=== PATIENT | male | born 1970 | race Caucasian/White ===

== ENCOUNTER 2018-10-03 12:40 | Emergency (ER) | payer BC ==
[2018-10-03] MEDS ORDERED: Sodium Chloride 0.9% 1,000 ML IV ONE (13:13)
--- NOTE | 2018-10-03 13:30 | EDM.PDOC ---
ED HPI GENERAL MEDICAL PROBLEM - General Chief Complaint: General Stated Complaint: BLOOD IN URINE Time Seen by Provider: 10/03/18 12:49 Source of Information: Reports: Patient History Limitations: Reports: No Limitations - History of Present Illness INITIAL COMMENTS - FREE TEXT/NARRATIVE: HISTORY AND PHYSICAL: History of present illness: Patient is a 48-year-old male presents to the ED today with concern of blood in his urine after he has an orgasm. Patient also complains of vague abdominal complaints in the lower abdomen. 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 Patient states over the past couple days he has noticed a slightly more increase in that he has been passing clots after orgasm. Patient states he's also noticed a slight increase in his lower abdominal pain, although, the symptoms have been ongoing since a splenectomy. Patient states it does hurt to urinate following an orgasm. Patient states he was seen by her urologist upon initial symptoms and states that nothing became of the workup according to patient. Patient also states he has noticed his stool color is maroon. Patient denies any trauma or injury. Patient denies any other symptoms at this time. Patient denies fever, chills, chest pain, shortness of breath, or cough. Denies headache, neck stiff ness, change in vision, syncope, or near syncope. Denies nausea, vomiting, diarrhea, constipation. Patient has been eating and drinking appropriately. Review of systems: As per history of present illness and below otherwise all systems reviewed and negative. Past medical history: As per history of present illness and as reviewed below otherwise noncontributory. Surgical history: As per history of present illness and as reviewed below otherwise noncontributory. Social history: See social history for further information Family history: As per history of present illness and as reviewed below otherwise noncontributory. Physical exam: General: Patient is alert, oriented, and in no acute distress. Patient sitting comfortably on exam table. HEENT: Atraumatic, normocephalic, pupils equal and reactive bilaterally, negative for conjunctival pallor or scleral icterus, mucous membranes moist, TMs normal bilaterally, throat clear, neck supple, nontender, trachea midline. No drooling or trismus noted. No meningeal signs. No hot potato voice noted. Lungs: Clear to auscultation, breath sounds equal bilaterally, chest nontender. Heart: S1S2, regular rate and rhythm without overt murmur Abdomen: Soft, nondistended. Mild pain to palpation of the lower quadrants without guarding. Negative for masses or hepatosplenomegaly. Negative for costovertebral tenderness. Pelvis: Stable nontender. Genitourinary: Deferred. Rectal: Hemoccult negative. Rectal tone intact. Skin: Intact, warm, dry. No lesions or rashes noted. Extremities: Atraumatic, negative for cords or calf pain. Neurovascular unremarkable. Neuro: Awake, alert, oriented. Cranial nerves II through XII unremarkable. Cerebellum unremarkable. Motor and sensory unremarkable throughout. Exam nonfocal. Notes: Dr. Gonzalez verbally involved in patient care. Hemoccult is negative. Did discuss been thrown findings on abdominal CT and the need for follow-up with primary care provider. Discussed the importance for follow-up with urologist for the blood in his urine. Voices understanding and is agreeable to plan of care. Denies any further questions or concerns at this time. Diagnostics: CBC, CMP, UA, lipase, Hemoccult, abdominal pelvic CT Therapeutics: NS Prescription: None Impression: Hematuria, unspecified Abdominal pain, unspecified Plan: 1. Alternate ibuprofen and Tylenol as directed for pain and discomfort. 2. Follow-up with the urologist and her primary care provider as discussed. Return to the ED as needed and as discussed. Definitive disposition and diagnosis as appropriate pending reevaluation and review of above. abd Pain Score (Numeric/FACES): 4 - Related Data Allergies Allergy/AdvReac Type Severity Reaction Status Date / Time No Known Allergies Allergy Verified 10/03/18 12:57 Home Meds: Home Meds Ibuprofen 600 mg PO DAILY 10/03/18 [History] Past Medical History Other Respiratory History: clotting in lungs - Past Surgical History HEENT Surgical History: Reports: Tonsillectomy Social & Family History - Family History Family Medical History: Noncontributory - Tobacco Use Smoking Status *Q: Current Every Day Smoker Years of Tobacco use: 10 Packs/Tins Daily: 0.5 - Recreational Drug Use Recreational Drug Use: No ED ROS GENERAL - Review of Systems Review Of Systems: ROS reveals no pertinent complaints other than HPI. ED EXAM, GENERAL - Physical Exam Exam: See Below (See dictation) Course - Vital Signs Last Recorded V/S: Last Vital Signs Temp 36.7 C 10/03/18 12:57 Pulse 82 10/03/18 15:29 Resp 16 10/03/18 15:29 BP 114/80 10/03/18 15:29 Pulse Ox 98 10/03/18 15:29 - Orders/Labs/Meds Orders: Active Orders 24 hr Category Date Time Status Hemoccult [OCCULT BLOOD DIAGNOSTIC] [OP] Stat Lab 10/03/18 13:13 Ordered Labs: Laboratory Tests 10/03/18 10/03/18 10/03/18 Range/Units 13:45 13:45 14:00 WBC 10.59 (4.0-11.0) K/uL RBC 4.75 (4.50-5.90) M/uL Hgb 15.3 (13.0-17.0) g/dL Hct 43.7 (38.0-50.0) % MCV 92.0 (80.0-98.0) fL MCH 32.2 H (27.0-32.0) pg MCHC 35.0 (31.0-37.0) g/dL RDW Std Deviation 50.8 (28.0-62.0) fl RDW Coeff of Julissa 15 (11.0-15.0) % Plt Count 341 (150-400) K/uL MPV 10.10 (7.40-12.00) fL Neut % (Auto) 40.8 L (48.0-80.0) % Lymph % (Auto) 37.9 (16.0-40.0) % [place] % (Auto) 12.4 (0.0-15.0) % Eos % (Auto) 7.9 H (0.0-7.0) % Baso % (Auto) 1.0 (0.0-1.5) % Neut # (Auto) 4.3 (1.4-5.7) K/uL Lymph # (Auto) 4.0 H (0.6-2.4) K/uL [place] # (Auto) 1.3 H (0.0-0.8) K/uL Eos # (Auto) 0.8 H (0.0-0.7) K/uL Baso # (Auto) 0.1 (0.0-0.1) K/uL Nucleated RBC % 0.0 /100WBC Nucleated RBCs # 0 K/uL Sodium 139 (136-148) mmol/L Potassium 3.8 (3.5-5.1) mmol/L Chloride 105 (98-107) mmol/L Carbon Dioxide 24.1 (21.0-32.0) mmol/L BUN 14 (7.0-18.0) mg/dL Creatinine 0.8 (0.8-1.3) mg/dL Est Cr Clr Drug Dosing 121.25 mL/min Estimated GFR (MDRD) > 60.0 ml/min Glucose 106 (74-106) mg/dL Calcium 8.7 (8.5-10.1) mg/dL Total Bilirubin 0.3 (0.2-1.0) mg/dL AST 19 (15-37) IU/L ALT 22 (14-63) IU/L Alkaline Phosphatase 79 (46-116) U/L Total Protein 7.5 (6.4-8.2) g/dL Albumin 4.1 (3.4-5.0) g/dL Globulin 3.4 (2.6-4.0) g/dL Albumin/Globulin Ratio 1.2 (0.9-1.6) Lipase 176 (73-393) U/L Urine Color YELLOW Urine Appearance CLEAR Urine pH 6.5 (5.0-8.0) Ur Specific [place] 1.010 (1.001-1.035) Urine Protein NEGATIVE (NEGATIVE) mg/dL Urine Glucose (UA) NEGATIVE (NEGATIVE) mg/dL Urine Ketones NEGATIVE (NEGATIVE) mg/dL Urine Occult Blood LARGE H (NEGATIVE) Urine Nitrite NEGATIVE (NEGATIVE) Urine Bilirubin NEGATIVE (NEGATIVE) Urine Urobilinogen 1.0 (<2.0) EU/dL Ur Leukocyte Esterase NEGATIVE (NEGATIVE) Urine RBC 18-20 (0-2/HPF) Urine WBC 0-1 (0-5/HPF) Ur Epithelial Cells RARE (NONE-FEW) Urine Bacteria RARE (NEGATIVE) Meds: Medications Discontinued Medications Generic Name Dose Route Start Last Admin Trade Name Freq PRN Reason Stop Dose Admin Sodium Chloride 1,000 mls @ 999 mls/hr 10/03/18 13:13 10/03/18 13:49 Normal Saline IV 10/03/18 14:13 999 mls/hr BOLUS ONE Administration Iopamidol 100 ml 10/03/18 15:02 10/03/18 15:02 Isovue Multipack-370 (76%) IVPUSH 10/03/18 15:03 100 ml ONETIME ONE Administration Departure - Departure Time of Disposition: 15:44 Disposition: Home, Self-Care 01 Clinical Impression: Hematuria Qualifiers: Hematuria type: unspecified type Qualified Code(s): R31.9 - Hematuria, unspecified Abdominal pain Qualifiers: Abdominal location: lower abdomen, unspecified Qualified Code(s): R10.30 - Lower abdominal pain, unspecified - Discharge Information Referrals: PCP,None [Primary Care Provider] - Forms: ED Department Discharge Additional Instructions: The following information is given to patients seen in the emergency department who are being discharged to home. This information is to outline your options for follow-up care. We provide all patients seen in our emergency department with a follow-up referral. The need for follow-up, as well as the timing and circumstances, are variable depending upon the specifics of your emergency department visit. If you don't have a primary care physician on staff, we will provide you with a referral. We always advise you to contact your personal physician following an emergency department visit to inform them of the circumstance of the visit and for follow-up with them and/or the need for any referrals to a consulting specialist. The emergency department will also refer you to a specialist when appropriate. This referral assures that you have the opportunity for follow-up care with a specialist. All of these measure are taken in an effort to provide you with optimal care, which includes your follow-up. Under all circumstances we always encourage you to contact your private physician who remains a resource for coordinating your care. When calling for follow-up care, please make the office aware that this follow-up is from your recent emergency room visit. If for any reason you are refused follow-up, please contact the [facility] Emergency Department at and asked to speak to the emergency department charge nurse. [facility] [address] [place] [id number] [address] [facility] - Urology [address] [place] [address] 1. Alternate ibuprofen and Tylenol as directed for pain and discomfort. 2. Follow-up with the urologist and her primary care provider as discussed. Return to the ED as needed and as discussed. - My Orders Last 24 Hours: My Active Orders 10/03/18 13:13 Hemoccult [OCCULT BLOOD DIAGNOSTIC] [OP] Stat - Assessment/Plan Last 24 Hours: My Active Orders 10/03/18 13:13 Hemoccult [OCCULT BLOOD DIAGNOSTIC] [OP] Stat
[2018-10-03 14:17] LABS: CHLORIDE,CL 105 mmol/L (98-107); SODIUM,NA 139 mmol/L (136-148)
[2018-10-03] MEDS ORDERED: Iopamidol 755 MG/ML 200 ML Multipack Bottle IVPUSH ONE (15:02)
--- NOTE | 2018-10-03 15:27 | CT ---
CT of the abdomen and pelvis with contrast. HISTORY: Pain TECHNIQUE: Axial CT images were obtained of the abdomen and pelvis following administration of 100 mL of Isovue-370 in the left antecubital fossa without complication. Coronal and sagittal reconstructions obtained. FINDINGS: The lung bases are clear, no pleural effusion. There is a 2.9 cm hypoechoic nodule within the left hepatic lobe and a smaller 1.6 cm right hepatic lobe nodule identified. The adrenal glands and pancreas appear normal. Gallbladder is normal. Splenectomy changes are noted with diffuse small nodules in the left upper quadrant, likely residual splenic tissue. There is no bulky retroperitoneal lymphadenopathy or abdominal ascites. The kidneys enhance and function symmetrically without evidence of obstructive uropathy. The large and small bowel are normal in caliber without evidence of obstruction. No focal pericolonic inflammation or stranding. The urinary bladder is normal. The appendix is normal. No bulky retroperitoneal lymphadenopathy or abdominal ascites. Mild midabdominal diastases. No suspicious osseous abnormalities identified. IMPRESSION: 1. No acute findings noted within the abdomen or pelvis.
== END 2018-10-03 16:04 | disposition home or self-care (01) ==
LOC: MW.ED 12:40
DX: R31.9 Hematuria, unspecified (principal); R10.30 Lower abdominal pain, unspecified; F17.210 Nicotine dependence, cigarettes, uncomplicated
CPT/HCPCS: 36415; 74177; 80053; 81001; 83690; 85025; 96360; 96361; 99283; J7040; Q9967

== ENCOUNTER 2018-10-08 12:37 | Emergency (ER) | payer BC ==
--- NOTE | 2018-10-08 14:16 | EDM.PDOC ---
ED HPI GENERAL MEDICAL PROBLEM - General Chief Complaint: Genitourinary Problem Stated Complaint: BLOOD IN URINE Time Seen by Provider: 10/08/18 14:14 Source of Information: Reports: Patient - History of Present Illness INITIAL COMMENTS - FREE TEXT/NARRATIVE: HISTORY AND PHYSICAL: History of present illness: []Patient presents for hematuria and passing clots, probably this is been going on for 2-1/2 years according to the patient he has had cystoscopy 5 years prior , patient appears worried and stressed about his hematuria findings, he was seen recently through the ER CT and follow lab performed that did repeat a CBC INR and UA today. Patient does complain of intermittent 5 out of 10 lower abdominal pain early not present He is scheduled to see [place] in a week He has no fever nausea vomiting chills sweats no chest pain shortness breath headache dizziness palpitation no bowel or urine symptoms today Review of systems: As per history of present illness and below otherwise all systems reviewed and negative. Past medical history: As per history of present illness and as reviewed below otherwise noncontributory. Surgical history: As per history of present illness and as reviewed below otherwise noncontributory. Social history: No reported history of drug or alcohol abuse. Family history: As per history of present illness and as reviewed below otherwise noncontributory. Physical exam: HEENT: Atraumatic, normocephalic, pupils reactive, negative for conjunctival pallor or scleral icterus, mucous membranes moist, throat clear, neck supple, nontender, trachea midline. Lungs: Clear to auscultation, breath sounds equal bilaterally, chest nontender. Heart: S1S2, regular, negative for clicks, rubs, or JVD. Abdomen: Soft, nondistended, nontender. Negative for masses or hepatosplenomegaly. Negative for costovertebral tenderness. Pelvis: Stable nontender. Genitourinary: Deferred. Rectal: Deferred. Extremities: Atraumatic, negative for cords or calf pain. Neurovascular unremarkable. Neuro: Awake, alert, oriented. Cranial nerves II through XII unremarkable. Cerebellum unremarkable. Motor and sensory unremarkable throughout. Exam nonfocal. Diagnostics: [CBC INR UA ] Therapeutics: [Tramadol ] Impression: [Hematuria ] Definitive disposition and diagnosis as appropriate pending reevaluation and review of above. 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 - Infectious Disease History Infectious Disease History: Reports: None - Past Surgical History HEENT Surgical History: Reports: Tonsillectomy Social & Family History - Family History Family Medical History: Noncontributory - Caffeine Use Caffeine Use: Reports: Coffee - Alcohol Use Days Per Week of Alcohol Use: 7 Number of Drinks Per Day: 2 Total Drinks Per Week: 14 - Recreational Drug Use Recreational Drug Use: No ED ROS GENERAL - Review of Systems Review Of Systems: See Below ED EXAM, GENERAL - Physical Exam Exam: See Below Course - Vital Signs Last Recorded V/S: Last Vital Signs Temp 98.3 F 10/08/18 12:52 Pulse 100 10/08/18 12:52 Resp 17 10/08/18 12:52 BP 129/88 10/08/18 12:52 Pulse Ox 95 10/08/18 12:52 - Orders/Labs/Meds Labs: Laboratory Tests 10/08/18 10/08/18 10/08/18 Range/Units 13:02 13:02 13:10 WBC 8.70 (4.0-11.0) K/uL RBC 4.89 (4.50-5.90) M/uL Hgb 15.6 (13.0-17.0) g/dL Hct 44.5 (38.0-50.0) % MCV 91.0 (80.0-98.0) fL MCH 31.9 (27.0-32.0) pg MCHC 35.1 (31.0-37.0) g/dL RDW Std Deviation 51.0 (28.0-62.0) fl RDW Coeff of Julissa 15 (11.0-15.0) % Plt Count 253 (150-400) K/uL MPV 10.00 (7.40-12.00) fL Neut % (Auto) 48.0 (48.0-80.0) % Lymph % (Auto) 34.7 (16.0-40.0) % [place] % (Auto) 9.2 (0.0-15.0) % Eos % (Auto) 7.1 H (0.0-7.0) % Baso % (Auto) 1.0 (0.0-1.5) % Neut # (Auto) 4.2 (1.4-5.7) K/uL Lymph # (Auto) 3.0 H (0.6-2.4) K/uL [place] # (Auto) 0.8 (0.0-0.8) K/uL Eos # (Auto) 0.6 (0.0-0.7) K/uL Baso # (Auto) 0.1 (0.0-0.1) K/uL Nucleated RBC % 0.0 /100WBC Nucleated RBCs # 0 K/uL INR 0.92 Urine Color YELLOW Urine Appearance SLT CLOUDY Urine pH 7.0 (5.0-8.0) Ur Specific [place] 1.015 (1.001-1.035) Urine Protein TRACE H (NEGATIVE) mg/dL Urine Glucose (UA) NEGATIVE (NEGATIVE) mg/dL Urine Ketones NEGATIVE (NEGATIVE) mg/dL Urine Occult Blood NEGATIVE (NEGATIVE) Urine Nitrite NEGATIVE (NEGATIVE) Urine Bilirubin NEGATIVE (NEGATIVE) Urine Urobilinogen 0.2 (<2.0) EU/dL Ur Leukocyte Esterase NEGATIVE (NEGATIVE) Urine RBC 0-2 (0-2/HPF) Urine WBC 0-2 (0-5/HPF) Ur Epithelial Cells RARE (NONE-FEW) Amorphous Sediment MODERATE (NEGATIVE) Urine Bacteria NOT SEEN (NEGATIVE) Departure - Departure Time of Disposition: 14:15 Disposition: Home, Self-Care 01 Condition: Good Clinical Impression: Hematuria Qualifiers: Hematuria type: unspecified type Qualified Code(s): R31.9 - Hematuria, unspecified - Discharge Information Referrals: PCP,None [Primary Care Provider] - Additional Instructions: Medication as prescribed Return if symptoms persist or worsen Follow-up with Dr. Ríos as scheduled next week [facility] - Urology [address] [place] [id number] The following information is given to patients seen in the emergency department who are being discharged to home. This information is to outline your options for follow-up care. We provide all patients seen in our emergency department with a follow-up referral. The need for follow-up, as well as the timing and circumstances, are variable depending upon the specifics of your emergency department visit. If you don't have a primary care physician on staff, we will provide you with a referral. We always advise you to contact your personal physician following an emergency department visit to inform them of the circumstance of the visit and for follow-up with them and/or the need for any referrals to a consulting specialist. The emergency department will also refer you to a specialist when appropriate. This referral assures that you have the opportunity for follow-up care with a specialist. All of these measure are taken in an effort to provide you with optimal care, which includes your follow-up. Under all circumstances we always encourage you to contact your private physician who remains a resource for coordinating your care. When calling for follow-up care, please make the office aware that this follow-up is from your recent emergency room visit. If for any reason you are refused follow-up, please contact the [facility] emergency department at and asked to speak to the emergency department charge nurse.
== END 2018-10-08 14:27 | disposition home or self-care (01) ==
LOC: MW.ED 12:37
DX: R31.9 Hematuria, unspecified (principal)
CPT/HCPCS: 36415; 81001; 85025; 85610; 99283

== ENCOUNTER 2018-11-05 09:24 | Day surgery (SDC) | payer BC ==
[~2018-11-05 09:24] MED LIST: Lactated Ringers 1,000 ML IV SCH; Sodium Chloride 0.9% 10 ML SDV IV PRN; Sodium Chloride 0.9% 10 ML Syringe FLUSH PRN; Sodium Chloride 0.9% 2.5 ML Syringe FLUSH PRN
[2018-11-05] MEDS ORDERED: Iopamidol 200-M 10 ML vial ITHECAL ONE (10:02)
[2018-11-05] MEDS ORDERED: Lidocaine 2% 5 ML SDV ONE (10:03)
[2018-11-05] MEDS ORDERED: Ondansetron 4 MG/2 ML SDV ONE (10:03)
[2018-11-05] MEDS ORDERED: Glycopyrrolate 0.2 MG/ML SDV ONE (10:03)
[2018-11-05] MEDS ORDERED: Ketorolac 30 MG/ML SDV ONE (10:03)
--- NOTE | 2018-11-05 10:03 | PCM.PREANE ---
Preanesthetic Assessment - Anesthesia/Transfusion/Family Hx Anesthesia History: Prior Anesthesia Without Reaction Other Type of Anesthesia Reaction Comment: slow to wake up after splenectomy Family History of Anesthesia Reaction: No Transfusion History: Prior Transfusion Without Reaction Intubation History: Unknown - Review of Systems General: No Symptoms Pulmonary: No Symptoms Cardiovascular: No Symptoms Gastrointestinal: No Symptoms Neurological: No Symptoms Other: Reports: None - Physical Assessment O2 Sat by Pulse Oximetry: 93 Respiratory Rate: 16 Vital Signs: Last Vital Signs Temp 36.2 C 11/05/18 09:57 Pulse 98 11/05/18 09:57 Resp 16 11/05/18 09:57 BP 136/96 H 11/05/18 09:57 Pulse Ox 93 L 11/05/18 09:57 Height: 6 ft Weight: 101.605 kg ASA Class: 2 Mental Status: Alert & Oriented x3 Airway Class: Mallampati = 2 Dentition: Reports: Normal Dentition Thyro-Mental Finger Breadths: 3 Mouth Opening Finger Breadths: 3 ROM/Head Extension: Full Lungs: Clear to Auscultation, Normal Respiratory Effort Cardiovascular: Regular Rate, Regular Rhythm - Allergies Allergies/Adverse Reactions: Allergies Allergy/AdvReac Type Severity Reaction Status Date / Time No Known Allergies Allergy Verified 10/30/18 09:42 - Blood Blood Available: No - Anesthesia Plan Pre-Op Medication Ordered: None - Acknowledgements Anesthesia Type Planned: General Anesthesia Pt an Appropriate Candidate for the Planned Anesthesia: Yes Alternatives and Risks of Anesthesia Discussed w Pt/Guardian: Yes Pt/Guardian Understands and Agrees with Anesthesia Plan: Yes PreAnesthesia Questionnaire HEENT History: Reports: Other (See Below) Other HEENT History: wears glasses Cardiovascular History: Reports: Blood Clots/VTE/DVT Other Cardiovascular History: hx of DVT in right leg after knee surgery Other Respiratory History: clotting in lungs Gastrointestinal History: Musculoskeletal History: Reports: Fracture Other Musculoskeletal History: hx of fx right knee, clavicle, arm and fingers Endocrine/Metabolic History: Reports: Obesity/BMI 30+ Hematologic History: Reports: Blood Transfusion(s) - Infectious Disease History Infectious Disease History: Reports: None - Past Surgical History Head Surgeries/Procedures: Reports: None HEENT Surgical History: Reports: Tonsillectomy GI Surgical History: Reports: Other (See Below) 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 Musculoskeletal Surgical History: Reports: ORIF Other Musculoskeletal Surgeries/Procedures:: right knee- has hardware - SUBSTANCE USE Smoking Status *Q: Current Every Day Smoker (down to 5 cigarettes per day) Tobacco Use Within Last Twelve Months: Cigarettes Recreational Drug Use History: No - HOME MEDS Home Medications: Home Meds Ibuprofen 600 mg PO DAILY 10/03/18 [History] - CURRENT (IN HOUSE) MEDS Current Meds: Current Medications Lactated Ringer's (Ringers, Lactated) 1,000 mls @ 100 mls/hr IV ASDIRECTED FIDE Sodium Chloride (Saline Flush) 10 ml FLUSH ASDIRECTED PRN PRN Reason: Keep Vein Open Sodium Chloride (Saline Flush) 2.5 ml FLUSH ASDIRECTED PRN PRN Reason: Keep Vein Open Sodium Chloride (Normal Saline) 10 ml IV ASDIRECTED PRN PRN Reason: IV Use
[2018-11-05] MEDS ORDERED: Propofol 200 MG/20 ML SDV ONE (10:05)
[2018-11-05] MEDS ORDERED: fentaNYL 100 MCG/2 ML SDV ONE (10:05)
--- NOTE | 2018-11-05 16:55 | OR ---
SURGEON: Markell Spain M.D. DATE OF PROCEDURE: 11/05/2018 PREOPERATIVE DIAGNOSIS: Gross hematuria. POSTOPERATIVE DIAGNOSIS: Gross hematuria. FINDINGS: Normal cystourethroscopy. DESCRIPTION OF PROCEDURE: The patient was given general anesthesia, was placed in dorsal lithotomy position, prepped and draped in sterile drapes. Cystourethroscopy was done. The urethra was normal in its entirety. The inside of the bladder was normal. With that done, the procedure was terminated. The patient was sent back to recovery room in stable condition. AIDA / LAUREN /[id number]
[2018-11-06] MEDS ORDERED: Ibuprofen 600 MG Tab PO SCH (09:00)
== END 2018-11-05 15:00 | disposition home or self-care (01) ==
LOC: MW.SDS 09:24
PROVIDERS: ATTEND Urology
DX: R31.0 Gross hematuria (principal); F17.210 Nicotine dependence, cigarettes, uncomplicated
CPT/HCPCS: 52000; J1885; J2001; J2405; J2704; J3010; J3490; J7120; Q9966

== ENCOUNTER 2018-11-22 15:12 | Emergency (ER) | payer BC ==
--- NOTE | 2018-11-22 16:11 | EDM.PDOC ---
ED HPI GENERAL MEDICAL PROBLEM - General Chief Complaint: ENT Problem Stated Complaint: SWELLING IN THROAT, SORE THROAT Time Seen by Provider: 11/22/18 16:04 Source of Information: Reports: Patient History Limitations: Reports: No Limitations - History of Present Illness INITIAL COMMENTS - FREE TEXT/NARRATIVE: HISTORY AND PHYSICAL: History of present illness: Patient is a 48-year-old male who presents to the emergency room with complaints of sore throat and lymph node swelling. He states that he has a history of a splenectomy and is susceptible to having infections easily. He is concerned as he just finished taking a 10 day course of Cipro for a cystoscopy. Patient denies any fever, chills, headache, change in vision, syncope or near syncope. Denies any chest pain, back pain, shortness of breath or cough. Denies any abdominal pain, nausea, vomiting, diarrhea, constipation or dysuria. Has not noted any blood in urine or stool. Patient has been eating and drinking appropriately. Review of systems: As per history of present illness and below otherwise all systems reviewed and negative. Past medical history: As per history of present illness and as reviewed below otherwise noncontributory. Surgical history: As per history of present illness and as reviewed below otherwise noncontributory. Social history: See social history for further information Family history: As per history of present illness and as reviewed below otherwise noncontributory. Physical exam: General: Well-developed and well-nourished 48-year-old male. Alert and oriented. Nontoxic appearing and in no acute distress HEENT: Atraumatic, normocephalic, pupils equal and reactive bilaterally, negative for conjunctival pallor or scleral icterus, mucous membranes moist, left ear is mildly erythematous with no bulging, right TM normal, throat mildly erythematous without exudate (pillar shifting or fullness), neck supple, nontender, trachea midline. No drooling or trismus noted. No meningeal signs. No hot potato voice noted. Lungs: Clear to auscultation, breath sounds equal bilaterally, chest nontender. Heart: S1S2, regular rate and rhythm without overt murmur Abdomen: Soft, nondistended, nontender. Skin: Intact, warm, dry. No lesions or rashes noted. Extremities: Atraumatic, moves all extremities per self without difficulty or deficits, negative for cords or calf pain. Neurovascular unremarkable. Neuro: Awake, alert, oriented. Cranial nerves II through XII unremarkable. Cerebellum unremarkable. Motor and sensory unremarkable throughout. Exam nonfocal. Notes: Patient is fairly adamant about receiving antibiotics. We discussed need for close follow-up with his primary care provider. Supportive care measures were reviewed and discussed. Voices understanding and is agreeable to plan of care. Denies any further questions or concerns at this time. Diagnostics: CBC, CMP, Strep Therapeutics: None Prescription: Augmentin Impression: Pharyngitis Plan: 1. Lab work is normal. Please use Tylenol and/or Ibuprofen as needed for pain and fever management. 2. Warm salt water gargle rinse and spit. You may use [id number] lozenges for throat discomfort. 3. Get plenty of Rest. Encourage fluids to prevent dehydration. 4. Please follow up with your primary care provider. Return to the ED as needed as discussed Definitive disposition and diagnosis as appropriate pending reevaluation and review of above. 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 Gastrointestinal History: Musculoskeletal History: Reports: Fracture Other Musculoskeletal History: hx of fx right knee, clavicle, arm and fingers Endocrine/Metabolic History: Reports: Obesity/BMI 30+ Hematologic History: Reports: Blood Transfusion(s) - Infectious Disease History Infectious Disease History: Reports: None - Past Surgical History Head Surgeries/Procedures: Reports: None HEENT Surgical History: Reports: Tonsillectomy GI Surgical History: Reports: Other (See Below) 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 Musculoskeletal Surgical History: Reports: ORIF Other Musculoskeletal Surgeries/Procedures:: right knee- has hardware Social & Family History - Family History Family Medical History: Noncontributory - Caffeine Use Caffeine Use: Reports: Coffee ED ROS ENT - Review of Systems Review Of Systems: ROS reveals no pertinent complaints other than HPI. ED EXAM, ENT - Physical Exam Exam: See Below (See dictation) Course - Vital Signs Last Recorded V/S: Last Vital Signs Temp 97.9 F 11/22/18 15:59 Pulse 95 11/22/18 15:59 Resp 16 11/22/18 15:59 BP 104/60 11/22/18 15:59 Pulse Ox 100 11/22/18 15:59 - Orders/Labs/Meds Orders: Active Orders 24 hr Category Date Time Status CMP [COMPREHENSIVE METABOLIC PN,CMP] [CHEM] Stat Lab 11/22/18 16:35 Received CULTURE STREP A CONFIRMATION [RM] Stat Lab 11/22/18 16:34 Results STREP SCRN A RAPID W CULT CONF [RM] Stat Lab 11/22/18 16:34 Results Labs: Laboratory Tests 11/22/18 Range/Units 16:35 WBC 11.67 H (4.0-11.0) K/uL RBC 4.60 (4.50-5.90) M/uL Hgb 14.9 (13.0-17.0) g/dL Hct 43.1 (38.0-50.0) % MCV 93.7 (80.0-98.0) fL MCH 32.4 H (27.0-32.0) pg MCHC 34.6 (31.0-37.0) g/dL RDW Std Deviation 50.9 (28.0-62.0) fl RDW Coeff of Julissa 15 (11.0-15.0) % Plt Count 363 (150-400) K/uL MPV 10.10 (7.40-12.00) fL Neut % (Auto) 50.2 (48.0-80.0) % Lymph % (Auto) 27.5 (16.0-40.0) % [place] % (Auto) 15.1 H (0.0-15.0) % Eos % (Auto) 6.3 (0.0-7.0) % Baso % (Auto) 0.9 (0.0-1.5) % Neut # (Auto) 5.9 H (1.4-5.7) K/uL Lymph # (Auto) 3.2 H (0.6-2.4) K/uL [place] # (Auto) 1.8 H (0.0-0.8) K/uL Eos # (Auto) 0.7 (0.0-0.7) K/uL Baso # (Auto) 0.1 (0.0-0.1) K/uL Nucleated RBC % 0.0 /100WBC Nucleated RBCs # 0 K/uL Departure - Departure Time of Disposition: 16:58 Disposition: Home, Self-Care 01 Clinical Impression: Pharyngitis Qualifiers: Pharyngitis/tonsillitis etiology: unspecified etiology Qualified Code(s): J02.9 - Acute pharyngitis, unspecified - Discharge Information Prescriptions: Amoxicillin/Potassium Clav [Augmentin 875-125 Tablet] 1 each PO BID 10 Days #20 tablet Instructions: Pharyngitis, [id number] Referrals: PCP,Unknown [Primary Care Provider] - Forms: ED Department Discharge Additional Instructions: The following information is given to patients seen in the emergency department who are being discharged to home. This information is to outline your options for follow-up care. We provide all patients seen in our emergency department with a follow-up referral. The need for follow-up, as well as the timing and circumstances, are variable depending upon the specifics of your emergency department visit. If you don't have a primary care physician on staff, we will provide you with a referral. We always advise you to contact your personal physician following an emergency department visit to inform them of the circumstance of the visit and for follow-up with them and/or the need for any referrals to a consulting specialist. The emergency department will also refer you to a specialist when appropriate. This referral assures that you have the opportunity for follow-up care with a specialist. All of these measure are taken in an effort to provide you with optimal care, which includes your follow-up. Under all circumstances we always encourage you to contact your private physician who remains a resource for coordinating your care. When calling for follow-up care, please make the office aware that this follow-up is from your recent emergency room visit. If for any reason you are refused follow-up, please contact the [facility] Emergency Department at and asked to speak to the emergency department charge nurse. [facility] [address] [place] [id number] [facility] [address] [place] [address] 1. Lab work is normal. Please use Tylenol and/or Ibuprofen as needed for pain and fever management. 2. Warm salt water gargle rinse and spit. You may use [id number] lozenges for throat discomfort. 3. Get plenty of Rest. Encourage fluids to prevent dehydration. 4. Please follow up with your primary care provider. Return to the ED as needed as discussed. - My Orders Last 24 Hours: My Active Orders 11/22/18 16:34 CULTURE STREP A CONFIRMATION [RM] Stat STREP SCRN A RAPID W CULT CONF [RM] Stat 11/22/18 16:35 CMP [COMPREHENSIVE METABOLIC PN,CMP] [CHEM] Stat - Assessment/Plan Last 24 Hours: My Active Orders 11/22/18 16:34 CULTURE STREP A CONFIRMATION [RM] Stat STREP SCRN A RAPID W CULT CONF [RM] Stat 11/22/18 16:35 CMP [COMPREHENSIVE METABOLIC PN,CMP] [CHEM] Stat
[2018-11-22 17:11] LABS: BLOOD UREA NITROGEN,BUN 14 mg/dL (7.0-18.0); CARBON DIOXIDE,CO2 19.5 mmol/L (21.0-32.0); CHLORIDE,CL 108 mmol/L (98-107); GLUCOSE RANDOM 89 mg/dL (74-106); POTASSIUM,K 3.9 mmol/L (3.5-5.1); SODIUM,NA 142 mmol/L (136-148)
== END 2018-11-22 17:30 | disposition home or self-care (01) ==
LOC: MW.ED 15:12
DX: J02.9 Acute pharyngitis, unspecified (principal); E66.9 Obesity, unspecified; Z68.30 Body mass index [BMI] 30.0-30.9, adult; Z90.81 Acquired absence of spleen; Z90.89 Acquired absence of other organs
CPT/HCPCS: 36415; 80053; 85025; 87081; 87880-QW; 99282; 99283

== ENCOUNTER 2019-09-17 19:50 | Inpatient (IN) | payer MEDICAID, OTHER ==
[2019-09-17] MEDS ORDERED: Sodium Chloride 0.9% 10 ML Syringe FLUSH PRN (20:00)
[2019-09-17] MEDS ORDERED: Ondansetron 4 MG/2 ML SDV IVPUSH ONE ×3 (20:00→22:15)
[2019-09-17] MEDS ORDERED: Sodium Chloride 0.9% 2.5 ML Syringe FLUSH PRN (20:00)
[2019-09-17] MEDS ORDERED: Sodium Chloride 0.9% 1,000 ML IV ONE ×2 (20:00→20:09)
[2019-09-17] MEDS ORDERED: Pantoprazole 80 MG in Sodium Chloride 0.9% 20 ML IVPUSH ONE (20:09)
--- NOTE | 2019-09-17 20:19 | EDM.PDOC ---
<Naren Palma - Last Filed: 09/17/19 22:58> ED HPI GENERAL MEDICAL PROBLEM - General Chief Complaint: Gastrointestinal Problem Stated Complaint: VOMITING Time Seen by Provider: 09/17/19 20:16 - Related Data Allergies Allergy/AdvReac Type Severity Reaction Status Date / Time No Known Allergies Allergy Verified 09/18/19 01:37 Home Meds: Home Meds . [No Known Home Meds] 09/17/19 [History] Course - Vital Signs Text/Narrative:: 49-year-old gentleman presents to the emergency room abdominal pain nausea and vomiting for a prolonged time. Patient found to have pancreatitis by labs and x -ray. Patient has a history of possible alcohol abuse Last Recorded V/S: Last Vital Signs Temp 98.6 F 09/18/19 08:00 Pulse 101 H 09/18/19 08:00 Resp 20 09/18/19 08:00 BP 154/89 H 09/18/19 08:00 Pulse Ox 94 L 09/18/19 08:00 - Orders/Labs/Meds Orders: Active Orders 24 hr Category Date Time Status Sodium Chloride 0.9% [Saline Flush] Med 09/17/19 20:00 Active 10 ml FLUSH ASDIRECTED PRN Sodium Chloride 0.9% [Saline Flush] Med 09/17/19 20:00 Active 2.5 ml FLUSH ASDIRECTED PRN Saline Lock Insert [OM.PC] Stat Oth 09/17/19 20:00 Ordered Medication Orders Folic Acid (Folic Acid) 1 mg PO BEDTIME FOR[facility], [facility] Heparin Sodium (Porcine) (Heparin Sodium) 5,000 units SUBCUT Q8H FOR[facility], [facility] Last Admin: 09/18/19 08:08 Dose: 5,000 units Admin: 09/18/19 00:52 Dose: 5,000 units Lactated Ringer's (Ringers, Lactated) 1,000 mls @ 125 mls/hr IV ASDIRECTED FOR[facility]LY [facility], [facility] Last Admin: 09/18/19 06:15 Dose: 125 mls/hr Magnesium Sulfate 4 gm/ Premix 100 mls @ 25 mls/hr IV ONETIME ONE Stop: 09/18/19 11:15 Last Admin: 09/18/19 08:01 Dose: 25 mls/hr Pantoprazole Sodium 40 mg/ (Sodium Chloride) 10 mls @ 300 mls/hr IV BID FIDE Lorazepam (Ativan) 0 mg IVPUSH Q4H PRN; Protocol PRN Reason: Withdrawal Symptoms Last Admin: 09/18/19 09:55 Dose: 1 mg Admin: 09/18/19 08:44 Dose: 1 mg Morphine Sulfate (Morphine) 2 mg IVPUSH Q4H PRN PRN Reason: Pain Last Admin: 09/18/19 08:29 Dose: 2 mg Admin: 09/18/19 04:51 Dose: 2 mg Admin: 09/18/19 00:52 Dose: 2 mg Ondansetron HCl (Zofran) 4 mg IVPUSH Q4H PRN PRN Reason: Nausea/Vomiting Last Admin: 09/18/19 08:17 Dose: 4 mg Admin: 09/18/19 04:23 Dose: 4 mg Sodium Chloride (Saline Flush) 10 ml FLUSH ASDIRECTED PRN PRN Reason: Keep Vein Open Sodium Chloride (Saline Flush) 2.5 ml FLUSH ASDIRECTED PRN PRN Reason: Keep Vein Open Thiamine HCl (Vitamin B-1) 100 mg PO BEDTIME [facility] Labs: Laboratory Tests 09/17/19 09/17/19 09/17/19 Range/Units 20:10 20:10 20:10 WBC 9.39 (4.0-11.0) K/uL RBC 4.41 L (4.50-5.90) M/uL Hgb 14.8 (13.0-17.0) g/dL Hct 42.0 (38.0-50.0) % MCV 95.2 (80.0-98.0) fL MCH 33.6 H (27.0-32.0) pg MCHC 35.2 (31.0-37.0) g/dL RDW Std Deviation 49.2 (28.0-62.0) fl RDW Coeff of Julissa 14 (11.0-15.0) % Plt Count 167 (150-400) K/uL MPV 11.90 (7.40-12.00) fL Neut % (Auto) 62.6 (48.0-80.0) % Lymph % (Auto) 17.0 (16.0-40.0) % [place] % (Auto) 18.2 H (0.0-15.0) % Eos % (Auto) 1.5 (0.0-7.0) % Baso % (Auto) 0.7 (0.0-1.5) % Neut # (Auto) 5.9 H (1.4-5.7) K/uL Lymph # (Auto) 1.6 (0.6-2.4) K/uL [place] # (Auto) 1.7 H (0.0-0.8) K/uL Eos # (Auto) 0.1 (0.0-0.7) K/uL Baso # (Auto) 0.1 (0.0-0.1) K/uL Nucleated RBC % 0.8 /100WBC Nucleated RBCs # 0 K/uL Sodium 130 L (136-148) mmol/L Potassium 3.1 L (3.5-5.1) mmol/L Chloride 90 L (98-107) mmol/L Carbon Dioxide 29.9 (21.0-32.0) mmol/L BUN 10 (7.0-18.0) mg/dL Creatinine 0.7 L (0.8-1.3) mg/dL Est Cr Clr Drug Dosing 137.03 mL/min Estimated GFR (MDRD) > 60.0 ml/min Glucose 168 H (74-106) mg/dL Calcium 10.9 H (8.5-10.1) mg/dL Total Bilirubin 0.5 (0.2-1.0) mg/dL AST 238 H (15-37) IU/L ALT 243 H (14-63) IU/L Alkaline Phosphatase 136 H (46-116) U/L Troponin I < 0.050 (0.000-0.056) ng/mL Total Protein 7.2 (6.4-8.2) g/dL Albumin 3.2 L (3.4-5.0) g/dL Globulin 4.0 (2.6-4.0) g/dL Albumin/Globulin Ratio 0.8 L (0.9-1.6) Lipase 5744 H (73-393) U/L Urine Color Urine Appearance Urine pH (5.0-8.0) Ur Specific [place] (1.001-1.035) Urine Protein (NEGATIVE) mg/dL Urine Glucose (UA) (NEGATIVE) mg/dL Urine Ketones (NEGATIVE) mg/dL Urine Occult Blood (NEGATIVE) Urine Nitrite (NEGATIVE) Urine Bilirubin (NEGATIVE) Urine Urobilinogen (<2.0) EU/dL Ur Leukocyte Esterase (NEGATIVE) Urine RBC (0-2/HPF) Urine WBC (0-5/HPF) Ur Epithelial Cells (NONE-FEW) Urine Bacteria (NEGATIVE) Urine Mucus (NONE-MOD) SARS-CoV-2 RNA (RT-PCR) (NEGATIVE) 09/17/19 09/17/19 Range/Units 20:40 22:10 WBC (4.0-11.0) K/uL RBC (4.50-5.90) M/uL Hgb (13.0-17.0) g/dL Hct (38.0-50.0) % MCV (80.0-98.0) fL MCH (27.0-32.0) pg MCHC (31.0-37.0) g/dL RDW Std Deviation (28.0-62.0) fl RDW Coeff of Julissa (11.0-15.0) % Plt Count (150-400) K/uL MPV (7.40-12.00) fL Neut % (Auto) (48.0-80.0) % Lymph % (Auto) (16.0-40.0) % [place] % (Auto) (0.0-15.0) % Eos % (Auto) (0.0-7.0) % Baso % (Auto) (0.0-1.5) % Neut # (Auto) (1.4-5.7) K/uL Lymph # (Auto) (0.6-2.4) K/uL [place] # (Auto) (0.0-0.8) K/uL Eos # (Auto) (0.0-0.7) K/uL Baso # (Auto) (0.0-0.1) K/uL Nucleated RBC % /100WBC Nucleated RBCs # K/uL Sodium (136-148) mmol/L Potassium (3.5-5.1) mmol/L Chloride (98-107) mmol/L Carbon Dioxide (21.0-32.0) mmol/L BUN (7.0-18.0) mg/dL Creatinine (0.8-1.3) mg/dL Est Cr Clr Drug Dosing mL/min Estimated GFR (MDRD) ml/min Glucose (74-106) mg/dL Calcium (8.5-10.1) mg/dL Total Bilirubin (0.2-1.0) mg/dL AST (15-37) IU/L ALT (14-63) IU/L Alkaline Phosphatase (46-116) U/L Troponin I (0.000-0.056) ng/mL Total Protein (6.4-8.2) g/dL Albumin (3.4-5.0) g/dL Globulin (2.6-4.0) g/dL Albumin/Globulin Ratio (0.9-1.6) Lipase (73-393) U/L Urine Color YELLOW Urine Appearance CLEAR Urine pH 8.5 H (5.0-8.0) Ur Specific [place] 1.020 (1.001-1.035) Urine Protein 100 H (NEGATIVE) mg/dL Urine Glucose (UA) NEGATIVE (NEGATIVE) mg/dL Urine Ketones TRACE H (NEGATIVE) mg/dL Urine Occult Blood TRACE-INTACT H (NEGATIVE) Urine Nitrite NEGATIVE (NEGATIVE) Urine Bilirubin NEGATIVE (NEGATIVE) Urine Urobilinogen 0.2 (<2.0) EU/dL Ur Leukocyte Esterase NEGATIVE (NEGATIVE) Urine RBC 0-2 (0-2/HPF) Urine WBC 0-1 (0-5/HPF) Ur Epithelial Cells RARE (NONE-FEW) Urine Bacteria FEW (NEGATIVE) Urine Mucus LIGHT (NONE-MOD) SARS-CoV-2 RNA (RT-PCR) NEGATIVE (NEGATIVE) Meds: Medications Generic Name Dose Route Start Last Admin Trade Name Freq PRN Reason Stop Dose Admin Folic Acid 1 mg 09/18/19 21:00 Folic Acid PO BEDTIME FIDE Heparin Sodium (Porcine) 5,000 units 09/18/19 00:45 09/18/19 08:08 Heparin Sodium SUBCUT 5,000 units Q8H FIDE Administration Lactated Ringer's 1,000 mls @ 125 mls/hr 09/18/19 00:30 09/18/19 06:15 Ringers, Lactated IV 125 mls/hr ASDIRECTED FIDE Administration Magnesium Sulfate 4 gm/ Premix 100 mls @ 25 mls/hr 09/18/19 07:16 09/18/19 08 :01 IV 09/18/19 11:15 25 mls/hr ONETIME ONE Administration Pantoprazole Sodium 40 mg/ 10 mls @ 300 mls/hr 09/18/19 21:00 Sodium Chloride IV BID FIDE Lorazepam 0 mg 09/18/19 00:26 09/18/19 09:55 Ativan IVPUSH 1 mg Q4H PRN Administration Withdrawal Symptoms Protocol Morphine Sulfate 2 mg 09/18/19 00:34 09/18/19 08:29 Morphine IVPUSH 2 mg Q4H PRN Administration Pain Ondansetron HCl 4 mg 09/18/19 00:30 09/18/19 08:17 Zofran IVPUSH 4 mg Q4H PRN Administration Nausea/Vomiting Sodium Chloride 10 ml 09/17/19 20:00 Saline Flush FLUSH ASDIRECTED PRN Keep Vein Open Sodium Chloride 2.5 ml 09/17/19 20:00 Saline Flush FLUSH ASDIRECTED PRN Keep Vein Open Thiamine HCl 100 mg 09/18/19 21:00 Vitamin B-1 PO BEDTIME FIDE Discontinued Medications Generic Name Dose Route Start Last Admin Trade Name Freq PRN Reason Stop Dose Admin Sodium Chloride 1,000 mls @ 999 mls/hr 09/17/19 20:00 09/17/19 20:26 Normal Saline IV 09/17/19 21:00 999 mls/hr STAT ONE Administration Pantoprazole Sodium 80 mg/ 20 mls @ 420 mls/hr 09/17/19 20:09 09/17/19 20:26 Sodium Chloride IVPUSH 09/17/19 20:11 420 mls/hr ONETIME ONE Administration Sodium Chloride 1,000 mls @ 999 mls/hr 09/17/19 20:09 09/17/19 20:14 Normal Saline IV 09/17/19 21:09 Not Given STAT ONE Multivitamins/Minerals 10 ml/ 1,011.2 mls @ 125 mls/hr 09/17/19 21:14 22:15 Thiamine HCl 100 mg/ Folic IV 09/18/19 05:19 125 mls/hr Acid 1 mg/ Sodium Chloride ONETIME ONE Administration Pantoprazole Sodium 40 mg/ 10 mls @ 300 mls/hr 09/18/19 09:00 09/18/19 08:07 Sodium Chloride IV 300 mls/hr DAILY FIDE Administration Iopamidol 100 ml 09/17/19 21:56 09/17/19 21:56 [id number] (76%) IVPUSH 09/17/19 21:57 100 ml ONETIME ONE Administration Morphine Sulfate 6 mg 09/17/19 22:24 09/17/19 22:27 Morphine IVPUSH 09/17/19 22:25 6 mg ONETIME ONE Administration Ondansetron HCl 4 mg 09/17/19 20:00 09/17/19 20:31 Zofran IVPUSH 09/17/19 20:01 4 mg ONETIME ONE Administration Ondansetron HCl 4 mg 09/17/19 20:09 09/17/19 20:15 Zofran IVPUSH 09/17/19 20:10 Not Given ONETIME ONE Ondansetron HCl 4 mg 09/17/19 22:15 09/17/19 22:19 Zofran IVPUSH 09/17/19 22:16 4 mg ONETIME ONE Administration Potassium Chloride 40 meq 09/17/19 21:14 09/17/19 22:15 Potassium Chloride PO 09/17/19 21:15 40 meq ONETIME ONE Administration Departure - Departure Time of Disposition: 22:59 Disposition: Admitted As Inpatient 64 Condition: Good Clinical Impression: Pancreatitis - Discharge Information Sepsis Event Note - Focused Exam Vital Signs: Vital Signs Pulse Resp BP Pulse Ox 09/17/19 22:20 87 18 138/75 93 L Date Exam was Performed: 09/17/19 Time Exam was Performed: 22:58 - My Orders Last 24 Hours: My Active Orders 09/17/19 20:00 Sodium Chloride 0.9% [Saline Flush] 10 ml FLUSH ASDIRECTED PRN Sodium Chloride 0.9% [Saline Flush] 2.5 ml FLUSH ASDIRECTED PRN Saline Lock Insert [OM.PC] Stat - Assessment/Plan Last 24 Hours: My Active Orders 09/17/19 20:00 Sodium Chloride 0.9% [Saline Flush] 10 ml FLUSH ASDIRECTED PRN Sodium Chloride 0.9% [Saline Flush] 2.5 ml FLUSH ASDIRECTED PRN Saline Lock Insert [OM.PC] Stat <Ciara Morales - Last Filed: 09/18/19 10:02> ED HPI GENERAL MEDICAL PROBLEM - General Source of Information: Reports: Patient History Limitations: Reports: No Limitations - History of Present Illness INITIAL COMMENTS - FREE TEXT/NARRATIVE: HISTORY AND PHYSICAL: History of present illness: Patient is a 49-year-old male presents to the ED with complaint of vomiting, abdominal pain, and chest pain. Patient states he has been throwing up for the past 100 days. He states for the past 8 days it has been worse and he has only eaten one meal in the past week. He reports upper abdominal pain and states today he had a pain in his chest. He has also had a cough and subjective fevers. He states he has lost his taste and smell. He does drink 400-500mL of vodka daily for the past few months. He reports some coffee ground in his vomit intermittently but no gross blood. 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 Denies significant past medical history. Review of systems: As per history of present illness and below otherwise all systems reviewed and negative. Past medical history: As per history of present illness and as reviewed below otherwise noncontributory. Surgical history: As per history of present illness and as reviewed below otherwise noncontributory. Social history: No reported history of drug or alcohol abuse. Family history: As per history of present illness and as reviewed below otherwise noncontributory. Physical exam: General: Patient sitting comfortably in no acute distress and nontoxic appearing HEENT: Atraumatic, normocephalic, pupils reactive, negative for conjunctival pallor or scleral icterus, mucous membranes moist, throat clear, neck supple, nontender, trachea midline. No meningeal signs. Lungs: Clear to auscultation, breath sounds equal bilaterally, chest nontender. Heart: S1S2, regular, negative for clicks, rubs, or overt murmur. Abdomen: Well healed midline surgical scar from the xyphoid down to umbilicus. There is an incisional hernia noted that is easily reduced. Pain to palpation along epigastrum and LUQ. Negative for masses or hepatosplenomegaly. Negative for costovertebral tenderness. No rigidity, rebound, guarding. Pelvis: Stable nontender. Genitourinary: Deferred. Rectal: Deferred. Extremities: Atraumatic, negative for cords or calf pain. Neurovascular unremarkable. Neuro: Awake, alert, oriented. Cranial nerves II through XII unremarkable. Cerebellum unremarkable. Motor and sensory unremarkable throughout. Exam nonfocal. Notes: Diagnostics: CBC, CMP, troponin, UA, EKG, CXR Therapeutics: 1L NS IV 4mg Zofran IV 80mg Protonix IV Prescriptions: Impression: Pancreatitis, alcohol use, abdominal pain Plan: Signed out to Dr. Palma at 2200, likely admission for pancreatitis. Definitive disposition and diagnosis as appropriate pending reevaluation and review of above. epigastric Pain Score (Numeric/FACES): 8 Past Medical History HEENT History: Reports: Other (See Below) Other HEENT History: wears glasses Cardiovascular History: Reports: Blood Clots/VTE/DVT Other Cardiovascular History: hx of DVT in right leg after knee surgery Respiratory History: Reports: Other (See Below) Other Respiratory History: clotting in lungs Gastrointestinal History: Reports: Other (See Below) Genitourinary History: Reports: Other (See Below) Other Genitourinary History: blood in urine, unknown reason Musculoskeletal History: Reports: Fracture Other Musculoskeletal History: hx of fx right knee, clavicle, arm and fingers Neurological History: Reports: None Psychiatric History: Reports: None Endocrine/Metabolic History: Reports: Obesity/BMI 30+ Hematologic History: Reports: Blood Transfusion(s) Oncologic (Cancer) History: Reports: None Dermatologic History: Reports: None - Infectious Disease History Infectious Disease History: Reports: None - Past Surgical History Head Surgeries/Procedures: Reports: None HEENT Surgical History: Reports: Tonsillectomy Cardiovascular Surgical History: Reports: None Respiratory Surgical History: Reports: None GI Surgical History: Reports: Other (See Below) 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 Male Surgical History: Reports: None Endocrine Surgical History: Reports: None Neurological Surgical History: Reports: None Musculoskeletal Surgical History: Reports: ORIF Other Musculoskeletal Surgeries/Procedures:: right knee- has hardware Oncologic Surgical History: Reports: None Dermatological Surgical History: Reports: None Social & Family History - Family History Family Medical History: Noncontributory - Tobacco Use Smoking Status *Q: Current Every Day Smoker Years of Tobacco use: 35 Packs/Tins Daily: 0.2 - Caffeine Use Caffeine Use: Reports: None - Alcohol Use Days Per Week of Alcohol Use: 7 Number of Drinks Per Day: 1 Total Drinks Per Week: 7 - Recreational Drug Use Recreational Drug Use: No ED ROS GENERAL - Review of Systems Review Of Systems: Comprehensive ROS is negative, except as noted in HPI. ED EXAM, GI/ABD - Physical Exam Exam: See Below (see dictation) Course - Orders/Labs/Meds Labs: Laboratory Tests 09/17/19 09/17/19 09/17/19 Range/Units 20:10 20:10 20:10 WBC 9.39 (4.0-11.0) K/uL RBC 4.41 L (4.50-5.90) M/uL Hgb 14.8 (13.0-17.0) g/dL Hct 42.0 (38.0-50.0) % MCV 95.2 (80.0-98.0) fL MCH 33.6 H (27.0-32.0) pg MCHC 35.2 (31.0-37.0) g/dL RDW Std Deviation 49.2 (28.0-62.0) fl RDW Coeff of Julissa 14 (11.0-15.0) % Plt Count 167 (150-400) K/uL MPV 11.90 (7.40-12.00) fL Neut % (Auto) 62.6 (48.0-80.0) % Lymph % (Auto) 17.0 (16.0-40.0) % [place] % (Auto) 18.2 H (0.0-15.0) % Eos % (Auto) 1.5 (0.0-7.0) % Baso % (Auto) 0.7 (0.0-1.5) % Neut # (Auto) 5.9 H (1.4-5.7) K/uL Lymph # (Auto) 1.6 (0.6-2.4) K/uL [place] # (Auto) 1.7 H (0.0-0.8) K/uL Eos # (Auto) 0.1 (0.0-0.7) K/uL Baso # (Auto) 0.1 (0.0-0.1) K/uL Nucleated RBC % 0.8 /100WBC Nucleated RBCs # 0 K/uL Sodium 130 L (136-148) mmol/L Potassium 3.1 L (3.5-5.1) mmol/L Chloride 90 L (98-107) mmol/L Carbon Dioxide 29.9 (21.0-32.0) mmol/L BUN 10 (7.0-18.0) mg/dL Creatinine 0.7 L (0.8-1.3) mg/dL Est Cr Clr Drug Dosing 137.03 mL/min Estimated GFR (MDRD) > 60.0 ml/min Glucose 168 H (74-106) mg/dL Calcium 10.9 H (8.5-10.1) mg/dL Total Bilirubin 0.5 (0.2-1.0) mg/dL AST 238 H (15-37) IU/L ALT 243 H (14-63) IU/L Alkaline Phosphatase 136 H (46-116) U/L Troponin I < 0.050 (0.000-0.056) ng/mL Total Protein 7.2 (6.4-8.2) g/dL Albumin 3.2 L (3.4-5.0) g/dL Globulin 4.0 (2.6-4.0) g/dL Albumin/Globulin Ratio 0.8 L (0.9-1.6) Lipase 5744 H (73-393) U/L Urine Color Urine Appearance Urine pH (5.0-8.0) Ur Specific [place] (1.001-1.035) Urine Protein (NEGATIVE) mg/dL Urine Glucose (UA) (NEGATIVE) mg/dL Urine Ketones (NEGATIVE) mg/dL Urine Occult Blood (NEGATIVE) Urine Nitrite (NEGATIVE) Urine Bilirubin (NEGATIVE) Urine Urobilinogen (<2.0) EU/dL Ur Leukocyte Esterase (NEGATIVE) Urine RBC (0-2/HPF) Urine WBC (0-5/HPF) Ur Epithelial Cells (NONE-FEW) Urine Bacteria (NEGATIVE) Urine Mucus (NONE-MOD) SARS-CoV-2 RNA (RT-PCR) (NEGATIVE) 09/17/19 09/17/19 Range/Units 20:40 22:10 WBC (4.0-11.0) K/uL RBC (4.50-5.90) M/uL Hgb (13.0-17.0) g/dL Hct (38.0-50.0) % MCV (80.0-98.0) fL MCH (27.0-32.0) pg MCHC (31.0-37.0) g/dL RDW Std Deviation (28.0-62.0) fl RDW Coeff of Julissa (11.0-15.0) % Plt Count (150-400) K/uL MPV (7.40-12.00) fL Neut % (Auto) (48.0-80.0) % Lymph % (Auto) (16.0-40.0) % [place] % (Auto) (0.0-15.0) % Eos % (Auto) (0.0-7.0) % Baso % (Auto) (0.0-1.5) % Neut # (Auto) (1.4-5.7) K/uL Lymph # (Auto) (0.6-2.4) K/uL [place] # (Auto) (0.0-0.8) K/uL Eos # (Auto) (0.0-0.7) K/uL Baso # (Auto) (0.0-0.1) K/uL Nucleated RBC % /100WBC Nucleated RBCs # K/uL Sodium (136-148) mmol/L Potassium (3.5-5.1) mmol/L Chloride (98-107) mmol/L Carbon Dioxide (21.0-32.0) mmol/L BUN (7.0-18.0) mg/dL Creatinine (0.8-1.3) mg/dL Est Cr Clr Drug Dosing mL/min Estimated GFR (MDRD) ml/min Glucose (74-106) mg/dL Calcium (8.5-10.1) mg/dL Total Bilirubin (0.2-1.0) mg/dL AST (15-37) IU/L ALT (14-63) IU/L Alkaline Phosphatase (46-116) U/L Troponin I (0.000-0.056) ng/mL Total Protein (6.4-8.2) g/dL Albumin (3.4-5.0) g/dL Globulin (2.6-4.0) g/dL Albumin/Globulin Ratio (0.9-1.6) Lipase (73-393) U/L Urine Color YELLOW Urine Appearance CLEAR Urine pH 8.5 H (5.0-8.0) Ur Specific [place] 1.020 (1.001-1.035) Urine Protein 100 H (NEGATIVE) mg/dL Urine Glucose (UA) NEGATIVE (NEGATIVE) mg/dL Urine Ketones TRACE H (NEGATIVE) mg/dL Urine Occult Blood TRACE-INTACT H (NEGATIVE) Urine Nitrite NEGATIVE (NEGATIVE) Urine Bilirubin NEGATIVE (NEGATIVE) Urine Urobilinogen 0.2 (<2.0) EU/dL Ur Leukocyte Esterase NEGATIVE (NEGATIVE) Urine RBC 0-2 (0-2/HPF) Urine WBC 0-1 (0-5/HPF) Ur Epithelial Cells RARE (NONE-FEW) Urine Bacteria FEW (NEGATIVE) Urine Mucus LIGHT (NONE-MOD) SARS-CoV-2 RNA (RT-PCR) NEGATIVE (NEGATIVE) Sepsis Event Note - Evaluation Sepsis Screening Result: No Definite Risk - Focused Exam Date Exam was Performed: 09/18/19 Time Exam was Performed: 10:01
--- NOTE | 2019-09-17 20:49 | CR ---
Chest: Portable AP view of the chest was obtained. Comparison: No prior chest imaging is available. Very slight atelectasis is seen within both lung bases. Lungs otherwise are clear. Heart size and mediastinum are normal. Old appearing fracture within the left clavicle is seen which appears to be healed. Impression: 1. Findings as noted above. 2. Nothing acute is suspected on portable chest x-ray. Diagnostic code #2 Study was dictated in MDT
[2019-09-17 20:52] LABS: BLOOD UREA NITROGEN,BUN 10 mg/dL (7.0-18.0); CARBON DIOXIDE,CO2 29.9 mmol/L (21.0-32.0); CHLORIDE,CL 90 mmol/L (98-107); GLUCOSE RANDOM 168 mg/dL (74-106); POTASSIUM,K 3.1 mmol/L (3.5-5.1); SODIUM,NA 130 mmol/L (136-148)
[2019-09-17 21:12] LABS: LIPASE 5744 U/L (73-393)
[2019-09-17] MEDS ORDERED: MVI, Adult with Vitamin K 10 ML, Thiamine 100 MG, Folic Acid 1 MG in Sodium Chloride 0.... IV ONE ×4 (21:14)
[2019-09-17] MEDS ORDERED: Potassium Chloride 10% 20 MEQ/15 ML Soln 30 ML UD Cup PO ONE (21:14)
[2019-09-17] MEDS ORDERED: Iopamidol 755 Mg/ML 100 ML Bottle IVPUSH ONE (21:56)
[2019-09-17] MEDS ORDERED: Morphine 10 MG/ML Syringe IVPUSH ONE (22:24)
--- NOTE | 2019-09-17 22:47 | CT ---
INDICATION: Left upper quadrant and right upper quadrant pain, elevated lipase TECHNIQUE: CT abdomen and pelvis acquired with IV contrast. 100 cc Isovue 370 COMPARISON: 10/03/2018 FINDINGS: Lower chest: Unremarkable. Liver: Hepatic steatosis. Spleen: Unremarkable. Pancreas: Peripancreatic fat stranding and trace fluid consistent with pancreatitis. Gallbladder and bile ducts: Unremarkable. Kidneys: Unremarkable. Adrenal glands: Unremarkable. GI tract: Mild thickening of the 2nd and 3rd portion of the duodenum. Vascular structures: Unremarkable. Lymph nodes: Unremarkable. Miscellaneous: Supraumbilical fat containing hernias. No free air or significant free fluid. Pelvic Organs: Unremarkable. Bones: Unremarkable for age. IMPRESSION: Peripancreatic fat stranding and trace fluid consistent with pancreatitis. Thickening of the 2nd and 3rd portions of the duodenum. Hepatic steatosis. Dictated by Ramiro La MD @ 09/17/2019 10:46:22 PM Please note that all CT scans at this facility use dose modulation, iterative reconstruction, and/or weight-based dosing when appropriate to reduce radiation dose to as low as reasonably achievable. Dictated by: Ramiro La MD @ 09/17/2019 22:46:41 (Electronically Signed)
[2019-09-18] MEDS: Heparin Sodium 5,000 Units/ML Vial SUBCUT SCH ×4 (00:52→23:55)
[2019-09-18] MEDS: Morphine 2 MG/ML Syringe IVPUSH PRN ×4 (00:52→13:53)
[2019-09-18] MEDS: Ondansetron 4 MG/2 ML SDV IVPUSH PRN ×3 (04:23→13:51)
[2019-09-18] MEDS: Lactated Ringers 1,000 ML IV SCH ×3 (06:15→20:28)
[2019-09-18 06:39] LABS: BLOOD UREA NITROGEN,BUN 8 mg/dL (7.0-18.0); CARBON DIOXIDE,CO2 29.1 mmol/L (21.0-32.0); CHLORIDE,CL 96 mmol/L (98-107); GLUCOSE RANDOM 121 mg/dL (74-106); POTASSIUM,K 3.6 mmol/L (3.5-5.1); SODIUM,NA 135 mmol/L (136-148)
[2019-09-18] MEDS ORDERED: Magnesium Sulfate/Water 4 GM in Premix Bag 1 BAG IV ONE (07:16)
--- NOTE | 2019-09-18 08:17 | PCM.HP.2 ---
<Nilam Taylor - Last Filed: 09/18/19 10:36> H&P History of Present Illness - General Date of Service: 09/18/19 Admit Problem/Dx: Admission Diagnosis/Problem Admission Diagnosis/Problem Pancreatitis - History of Present Illness Initial Comments - Free Text/Narative: The patient is a 49 year old male who presented to the ER with abdominal pain and nausea/vomiting for 10 days. States he hasn't eaten anything in that time. States he had coffee ground emesis occasionally but no bright red blood. Denies constipation/diarrhea or black/bloody stool. Reports he drinks 400-600 mL of hard liquor daily, states he will withdrawal when he stops, denies hx of withdrawal seizure. He wants to stop drinking. In the ER, workup revealed no leukocytosis or anemia. He NA was 130 K 3.1, LFTs elevated- AST 238 and ALT 243, elevated lipase 5744, negative troponin. Negative UA for infection. COVID negative. CXR negative for acute events. CT ab/pelvis showed fat stranding around pancreas and thickening of duodenum. In the ER he was given normal saline, zofran, and protonix. PCP- Dr. Hunter epigastric Pain Score (Numeric/FACES): 4 - Related Data Allergies/Adverse Reactions: Allergies Allergy/AdvReac Type Severity Reaction Status Date / Time No Known Allergies Allergy Verified 09/18/19 01:37 Home Medications: Home Meds . [No Known Home Meds] 09/17/19 [History] Past Medical History HEENT History: Reports: Other (See Below) Other HEENT History: wears glasses Cardiovascular History: Reports: Blood Clots/VTE/DVT Other Cardiovascular History: hx of DVT in right leg after knee surgery Respiratory History: Reports: Other (See Below) Other Respiratory History: clotting in lungs Gastrointestinal History: Reports: Other (See Below) Genitourinary History: Reports: Other (See Below) Other Genitourinary History: blood in urine, unknown reason Musculoskeletal History: Reports: Fracture Other Musculoskeletal History: hx of fx right knee, clavicle, arm and fingers Neurological History: Reports: None Psychiatric History: Reports: None Endocrine/Metabolic History: Reports: Obesity/BMI 30+ Hematologic History: Reports: Blood Transfusion(s) Oncologic (Cancer) History: Reports: None Dermatologic History: Reports: None - Infectious Disease History Infectious Disease History: Reports: None - Past Surgical History Head Surgeries/Procedures: Reports: None HEENT Surgical History: Reports: Tonsillectomy Cardiovascular Surgical History: Reports: None Respiratory Surgical History: Reports: None GI Surgical History: Reports: Other (See Below) 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 Male Surgical History: Reports: None Endocrine Surgical History: Reports: None Neurological Surgical History: Reports: None Musculoskeletal Surgical History: Reports: ORIF Other Musculoskeletal Surgeries/Procedures:: right knee- has hardware Oncologic Surgical History: Reports: None Dermatological Surgical History: Reports: None Social & Family History - Family History Family Medical History: Noncontributory - Tobacco Use Smoking Status *Q: Current Every Day Smoker Years of Tobacco use: 30 Packs/Tins Daily: 0.4 Tobacco Use Comment: states smokes 3-5 cigarettes a day - Caffeine Use Caffeine Use: Reports: None - Alcohol Use Days Per Week of Alcohol Use: 7 Number of Drinks Per Day: 1 Total Drinks Per Week: 7 - Recreational Drug Use Recreational Drug Use: No H&P Review of Systems - Review of Systems: Review Of Systems: See Below General: Reports: No Symptoms HEENT: Reports: No Symptoms Pulmonary: Reports: No Symptoms Cardiovascular: Reports: No Symptoms Gastrointestinal: Reports: Abdominal Pain, Nausea, Vomiting. Denies: Black Stool, Bloody Stool, Diarrhea Genitourinary: Reports: No Symptoms Musculoskeletal: Reports: No Symptoms Skin: Reports: No Symptoms Psychiatric: Reports: No Symptoms Neurological: Reports: No Symptoms Hematologic/Lymphatic: Reports: No Symptoms Immunologic: Reports: No Symptoms Exam - Exam Exam: See Below - Vital Signs Vital Signs: Last Vital Signs Temp 98.2 F 09/18/19 04:13 Pulse 94 09/18/19 04:26 Resp 20 09/18/19 04:26 BP 146/82 H 09/18/19 04:26 Pulse Ox 90 L 09/18/19 04:13 Weight: 104.961 kg - Exam General: Alert, Oriented, Cooperative HEENT: Conjunctiva Clear, EOMI, Mucosa Moist & [place], Posterior Pharynx Clear, Pupils Equal, Pupils Reactive Lungs: Clear to Auscultation, Normal Respiratory Effort Cardiovascular: Regular Rate, Regular Rhythm GI/Abdominal Exam: Normal Bowel Sounds, Soft, Tender Extremities: No Pedal Edema Skin: Warm, Dry, Intact Neuro Extensive - Mental Status: Alert, Oriented x3 Psychiatric: Withdrawal Symptoms - Patient Data Lab Results Last 24 hrs: Laboratory Results - last 24 hr 09/17/19 09/17/19 09/17/19 Range/Units 20:10 20:10 20:10 WBC 9.39 (4.0-11.0) K/uL RBC 4.41 L (4.50-5.90) M/uL Hgb 14.8 (13.0-17.0) g/dL Hct 42.0 (38.0-50.0) % MCV 95.2 (80.0-98.0) fL MCH 33.6 H (27.0-32.0) pg MCHC 35.2 (31.0-37.0) g/dL RDW Std Deviation 49.2 (28.0-62.0) fl RDW Coeff of Julissa 14 (11.0-15.0) % Plt Count 167 (150-400) K/uL MPV 11.90 (7.40-12.00) fL Neut % (Auto) 62.6 (48.0-80.0) % Lymph % (Auto) 17.0 (16.0-40.0) % [place] % (Auto) 18.2 H (0.0-15.0) % Eos % (Auto) 1.5 (0.0-7.0) % Baso % (Auto) 0.7 (0.0-1.5) % Neut # (Auto) 5.9 H (1.4-5.7) K/uL Lymph # (Auto) 1.6 (0.6-2.4) K/uL [place] # (Auto) 1.7 H (0.0-0.8) K/uL Eos # (Auto) 0.1 (0.0-0.7) K/uL Baso # (Auto) 0.1 (0.0-0.1) K/uL Add Manual Diff Neutrophils % (Manual) (48.0-80.0) % Band Neutrophils % % Lymphocytes % (Manual) (16.0-40.0) % Monocytes % (Manual) (0.0-15.0) % Nucleated RBC % 0.8 /100WBC Absolute Seg Neuts (1.4-5.7) Band Neutrophils # Lymphocytes # (Manual) (0.6-2.4) Monocytes # (Manual) (0.0-0.8) Nucleated RBCs # 0 K/uL Sodium 130 L (136-148) mmol/L Potassium 3.1 L (3.5-5.1) mmol/L Chloride 90 L (98-107) mmol/L Carbon Dioxide 29.9 (21.0-32.0) mmol/L BUN 10 (7.0-18.0) mg/dL Creatinine 0.7 L (0.8-1.3) mg/dL Est Cr Clr Drug Dosing 137.03 mL/min Estimated GFR (MDRD) > 60.0 ml/min Glucose 168 H (74-106) mg/dL Calcium 10.9 H (8.5-10.1) mg/dL Phosphorus (2.6-4.7) mg/dL Magnesium (1.8-2.4) mg/dL Total Bilirubin 0.5 (0.2-1.0) mg/dL AST 238 H (15-37) IU/L ALT 243 H (14-63) IU/L Alkaline Phosphatase 136 H (46-116) U/L Troponin I < 0.050 (0.000-0.056) ng/mL Total Protein 7.2 (6.4-8.2) g/dL Albumin 3.2 L (3.4-5.0) g/dL Globulin 4.0 (2.6-4.0) g/dL Albumin/Globulin Ratio 0.8 L (0.9-1.6) Triglycerides (0-200) mg/dL Cholesterol (50-200) mg/dL LDL Cholesterol, Calc (60-180) mg/dL VLDL Cholesterol (5-55) mg/dL HDL Cholesterol (40-60) mg/dL Cholesterol/HDL Ratio (3.3-6.0) Lipase 5744 H (73-393) U/L Urine Color Urine Appearance Urine pH (5.0-8.0) Ur Specific [place] (1.001-1.035) Urine Protein (NEGATIVE) mg/dL Urine Glucose (UA) (NEGATIVE) mg/dL Urine Ketones (NEGATIVE) mg/dL Urine Occult Blood (NEGATIVE) Urine Nitrite (NEGATIVE) Urine Bilirubin (NEGATIVE) Urine Urobilinogen (<2.0) EU/dL Ur Leukocyte Esterase (NEGATIVE) Urine RBC (0-2/HPF) Urine WBC (0-5/HPF) Ur Epithelial Cells (NONE-FEW) Urine Bacteria (NEGATIVE) Urine Mucus (NONE-MOD) SARS-CoV-2 RNA (RT-PCR) (NEGATIVE) 09/17/19 09/17/19 09/18/19 Range/Units 20:40 22:10 05:45 WBC 11.03 H (4.0-11.0) K/uL RBC 4.17 L (4.50-5.90) M/uL Hgb 13.9 (13.0-17.0) g/dL Hct 39.9 (38.0-50.0) % MCV 95.7 (80.0-98.0) fL MCH 33.3 H (27.0-32.0) pg MCHC 34.8 (31.0-37.0) g/dL RDW Std Deviation 49.9 (28.0-62.0) fl RDW Coeff of Julissa 14 (11.0-15.0) % Plt Count 162 (150-400) K/uL MPV 11.90 (7.40-12.00) fL Neut % (Auto) (48.0-80.0) % Lymph % (Auto) (16.0-40.0) % [place] % (Auto) (0.0-15.0) % Eos % (Auto) (0.0-7.0) % Baso % (Auto) (0.0-1.5) % Neut # (Auto) (1.4-5.7) K/uL Lymph # (Auto) (0.6-2.4) K/uL [place] # (Auto) (0.0-0.8) K/uL Eos # (Auto) (0.0-0.7) K/uL Baso # (Auto) (0.0-0.1) K/uL Add Manual Diff YES Neutrophils % (Manual) 59 (48.0-80.0) % Band Neutrophils % 9 % Lymphocytes % (Manual) 11 L (16.0-40.0) % Monocytes % (Manual) 21 H (0.0-15.0) % Nucleated RBC % 0.9 /100WBC Absolute Seg Neuts 6.5 H (1.4-5.7) Band Neutrophils # 1.0 Lymphocytes # (Manual) 1.2 (0.6-2.4) Monocytes # (Manual) 2.3 H (0.0-0.8) Nucleated RBCs # 0 K/uL Sodium (136-148) mmol/L Potassium (3.5-5.1) mmol/L Chloride (98-107) mmol/L Carbon Dioxide (21.0-32.0) mmol/L BUN (7.0-18.0) mg/dL Creatinine (0.8-1.3) mg/dL Est Cr Clr Drug Dosing mL/min Estimated GFR (MDRD) ml/min Glucose (74-106) mg/dL Calcium (8.5-10.1) mg/dL Phosphorus (2.6-4.7) mg/dL Magnesium (1.8-2.4) mg/dL Total Bilirubin (0.2-1.0) mg/dL AST (15-37) IU/L ALT (14-63) IU/L Alkaline Phosphatase (46-116) U/L Troponin I (0.000-0.056) ng/mL Total Protein (6.4-8.2) g/dL Albumin (3.4-5.0) g/dL Globulin (2.6-4.0) g/dL Albumin/Globulin Ratio (0.9-1.6) Triglycerides (0-200) mg/dL Cholesterol (50-200) mg/dL LDL Cholesterol, Calc (60-180) mg/dL VLDL Cholesterol (5-55) mg/dL HDL Cholesterol (40-60) mg/dL Cholesterol/HDL Ratio (3.3-6.0) Lipase (73-393) U/L Urine Color YELLOW Urine Appearance CLEAR Urine pH 8.5 H (5.0-8.0) Ur Specific [place] 1.020 (1.001-1.035) Urine Protein 100 H (NEGATIVE) mg/dL Urine Glucose (UA) NEGATIVE (NEGATIVE) mg/dL Urine Ketones TRACE H (NEGATIVE) mg/dL Urine Occult Blood TRACE-INTACT H (NEGATIVE) Urine Nitrite NEGATIVE (NEGATIVE) Urine Bilirubin NEGATIVE (NEGATIVE) Urine Urobilinogen 0.2 (<2.0) EU/dL Ur Leukocyte Esterase NEGATIVE (NEGATIVE) Urine RBC 0-2 (0-2/HPF) Urine WBC 0-1 (0-5/HPF) Ur Epithelial Cells RARE (NONE-FEW) Urine Bacteria FEW (NEGATIVE) Urine Mucus LIGHT (NONE-MOD) SARS-CoV-2 RNA (RT-PCR) NEGATIVE (NEGATIVE) 09/18/19 09/18/19 Range/Units 05:45 05:45 WBC (4.0-11.0) K/uL RBC (4.50-5.90) M/uL Hgb (13.0-17.0) g/dL Hct (38.0-50.0) % MCV (80.0-98.0) fL MCH (27.0-32.0) pg MCHC (31.0-37.0) g/dL RDW Std Deviation (28.0-62.0) fl RDW Coeff of Julissa (11.0-15.0) % Plt Count (150-400) K/uL MPV (7.40-12.00) fL Neut % (Auto) (48.0-80.0) % Lymph % (Auto) (16.0-40.0) % [place] % (Auto) (0.0-15.0) % Eos % (Auto) (0.0-7.0) % Baso % (Auto) (0.0-1.5) % Neut # (Auto) (1.4-5.7) K/uL Lymph # (Auto) (0.6-2.4) K/uL [place] # (Auto) (0.0-0.8) K/uL Eos # (Auto) (0.0-0.7) K/uL Baso # (Auto) (0.0-0.1) K/uL Add Manual Diff Neutrophils % (Manual) (48.0-80.0) % Band Neutrophils % % Lymphocytes % (Manual) (16.0-40.0) % Monocytes % (Manual) (0.0-15.0) % Nucleated RBC % /100WBC Absolute Seg Neuts (1.4-5.7) Band Neutrophils # Lymphocytes # (Manual) (0.6-2.4) Monocytes # (Manual) (0.0-0.8) Nucleated RBCs # K/uL Sodium 135 L (136-148) mmol/L Potassium 3.6 (3.5-5.1) mmol/L Chloride 96 L (98-107) mmol/L Carbon Dioxide 29.1 (21.0-32.0) mmol/L BUN 8 (7.0-18.0) mg/dL Creatinine 0.8 (0.8-1.3) mg/dL Est Cr Clr Drug Dosing 123.46 mL/min Estimated GFR (MDRD) > 60.0 ml/min Glucose 121 H (74-106) mg/dL Calcium 9.3 (8.5-10.1) mg/dL Phosphorus 3.3 (2.6-4.7) mg/dL Magnesium 0.9 L (1.8-2.4) mg/dL Total Bilirubin 0.5 (0.2-1.0) mg/dL AST 157 H (15-37) IU/L ALT 197 H (14-63) IU/L Alkaline Phosphatase 123 H (46-116) U/L Troponin I (0.000-0.056) ng/mL Total Protein 6.6 (6.4-8.2) g/dL Albumin 2.9 L (3.4-5.0) g/dL Globulin 3.7 (2.6-4.0) g/dL Albumin/Globulin Ratio 0.8 L (0.9-1.6) Triglycerides 72 (0-200) mg/dL Cholesterol 203 H (50-200) mg/dL LDL Cholesterol, Calc 133 (60-180) mg/dL VLDL Cholesterol 14 (5-55) mg/dL HDL Cholesterol 56 (40-60) mg/dL Cholesterol/HDL Ratio 3.6 (3.3-6.0) Lipase (73-393) U/L Urine Color Urine Appearance Urine pH (5.0-8.0) Ur Specific [place] (1.001-1.035) Urine Protein (NEGATIVE) mg/dL Urine Glucose (UA) (NEGATIVE) mg/dL Urine Ketones (NEGATIVE) mg/dL Urine Occult Blood (NEGATIVE) Urine Nitrite (NEGATIVE) Urine Bilirubin (NEGATIVE) Urine Urobilinogen (<2.0) EU/dL Ur Leukocyte Esterase (NEGATIVE) Urine RBC (0-2/HPF) Urine WBC (0-5/HPF) Ur Epithelial Cells (NONE-FEW) Urine Bacteria (NEGATIVE) Urine Mucus (NONE-MOD) SARS-CoV-2 RNA (RT-PCR) (NEGATIVE) Result Diagrams: 09/18/19 05:45 09/18/19 05:45 Sepsis Event Note - Evaluation Sepsis Screening Result: No Definite Risk - Focused Exam Vital Signs: Vital Signs Temp Pulse Resp BP Pulse Ox 09/18/19 04:26 94 20 146/82 H 09/18/19 04:13 98.2 F 120 H 20 156/90 H 90 L 09/18/19 00:03 98.1 F 87 18 138/89 91 L 09/17/19 23:13 97.7 F 90 18 141/90 H 96 09/17/19 22:20 87 18 138/75 93 L Date Exam was Performed: 09/18/19 Time Exam was Performed: 10:36 Problem List Initiated/Reviewed/Updated: Yes Orders Last 24hrs: Active Orders 24 hr Category Date Time Status Admission Status [Patient Status] [ADT] Stat ADT 09/17/19 23:00 Active Ambulate [RC] ASDIRECTED Care 09/18/19 00:38 Active CIWAA Assessment [RC] Q4H Care 09/18/19 00:28 Active Oxygen Therapy Adult [Oxygen Therapy] [RC] ASDIRECTED Care 09/18/19 00:35 Active Telemetry Monitoring [Cardiac Monitoring] [RC] . Care 09/18/19 00:28 Active DIRECTED Telemetry Monitoring [Cardiac Monitoring] [RC] Q8H Care 09/17/19 23:10 Active Vital Signs [RC] Q4H Care 09/18/19 04:00 Active NPO [Nothing Per Oral Diet] [DIET] Diet 09/18/19 Breakfast Active Folic Acid Med 09/18/19 21:00 Active 1 mg PO BEDTIME Heparin Sodium Med 09/18/19 00:45 Active 5,000 units SUBCUT Q8H LORazepam [Ativan] Med 09/18/19 00:26 Active See Protocol IVPUSH Q4H PRN Lactated Ringers [Ringers, Lactated] 1,000 ml Med 09/18/19 00:30 Active IV ASDIRECTED Magnesium Sulfate/Water [Magnesium Sulfate in Water Med 09/18/19 07:16 Active Premix] 4 gm Premix Bag 1 bag IV ONETIME Morphine Med 09/18/19 00:34 Active 2 mg IVPUSH Q4H PRN Ondansetron [Zofran] Med 09/18/19 00:30 Active 4 mg IVPUSH Q4H PRN Pantoprazole [ProTONIX IV] 40 mg Med 09/18/19 09:00 Active Sodium Chloride 0.9% [Normal Saline] 10 ml IV DAILY Sodium Chloride 0.9% [Saline Flush] Med 09/17/19 20:00 Active 10 ml FLUSH ASDIRECTED PRN Sodium Chloride 0.9% [Saline Flush] Med 09/17/19 20:00 Active 2.5 ml FLUSH ASDIRECTED PRN Thiamine [Vitamin B-1] Med 09/18/19 21:00 Active 100 mg PO BEDTIME Saline Lock Insert [OM.PC] Stat Oth 09/17/19 20:00 Ordered Medication Orders Folic Acid (Folic Acid) 1 mg PO BEDTIME [facility] Heparin Sodium (Porcine) (Heparin Sodium) 5,000 units SUBCUT Q8H [facility] Last Admin: 09/18/19 00:52 Dose: 5,000 units Lactated Ringer's (Ringers, Lactated) 1,000 mls @ 125 mls/hr IV ASDIRECTED [facility] Last Admin: 09/18/19 06:15 Dose: 125 mls/hr Pantoprazole Sodium 40 mg/ (Sodium Chloride) 10 mls @ 300 mls/hr IV DAILY [facility] Magnesium Sulfate 4 gm/ Premix 100 mls @ 25 mls/hr IV ONETIME ONE Stop: 09/18/19 11:15 Last Admin: 09/18/19 08:01 Dose: 25 mls/hr Lorazepam (Ativan) 0 mg IVPUSH Q4H PRN; Protocol PRN Reason: Withdrawal Symptoms Morphine Sulfate (Morphine) 2 mg IVPUSH Q4H PRN PRN Reason: Pain Last Admin: 09/18/19 04:51 Dose: 2 mg Admin: 09/18/19 00:52 Dose: 2 mg Ondansetron HCl (Zofran) 4 mg IVPUSH Q4H PRN PRN Reason: Nausea/Vomiting Last Admin: 09/18/19 04:23 Dose: 4 mg Sodium Chloride (Saline Flush) 10 ml FLUSH ASDIRECTED PRN PRN Reason: Keep Vein Open Sodium Chloride (Saline Flush) 2.5 ml FLUSH ASDIRECTED PRN PRN Reason: Keep Vein Open Thiamine HCl (Vitamin B-1) 100 mg PO BEDTIME [facility] Assessment/Plan Comment:: 1. Admit to inpatient 2. Code status- full 3. Vitals per routine 4. I/Os strict 5. Diet- clear liquid 6. DVT prophylaxis with heparin 7. Acute pancreatitis likely secondary to alcohol use- Further work up with lipid panel shows no hypertriglyceridemia. Will get US of RUQ to rule out gallstones. Treat with NPO, morphine, zofran, and IVF. 8. Transaminitis- likely secondary to alcohol use- Improving. Further work up with US of RUQ and hepatitis panel. 9. Alcohol use disorder- CIWAA/Ativan protocol, IVF, and start thiamine/folic acid 10. Hypokalemia- resolved 11. Hyomagnesemia- replace and recheck in AM. <Matheus Spencer - Last Filed: 09/18/19 11:04> H&P History of Present Illness - General Admit Problem/Dx: Admission Diagnosis/Problem Admission Diagnosis/Problem Pancreatitis - History of Present Illness Initial Comments - Free Text/Narative: I performed a history and physical exam of the patient and discussed management with resident. I have reviewed the residents note and agree with documented findings and plan unless otherwise specified in my note. Exam - Vital Signs Vital Signs: Last Vital Signs Temp 37 C 09/18/19 08:00 Pulse 101 H 09/18/19 08:00 Resp 20 09/18/19 08:00 BP 154/89 H 09/18/19 08:00 Pulse Ox 94 L 09/18/19 08:00 - Patient Data Lab Results Last 24 hrs: Laboratory Results - last 24 hr 09/17/19 09/17/19 09/17/19 Range/Units 20:10 20:10 20:10 WBC 9.39 (4.0-11.0) K/uL RBC 4.41 L (4.50-5.90) M/uL Hgb 14.8 (13.0-17.0) g/dL Hct 42.0 (38.0-50.0) % MCV 95.2 (80.0-98.0) fL MCH 33.6 H (27.0-32.0) pg MCHC 35.2 (31.0-37.0) g/dL RDW Std Deviation 49.2 (28.0-62.0) fl RDW Coeff of Julissa 14 (11.0-15.0) % Plt Count 167 (150-400) K/uL MPV 11.90 (7.40-12.00) fL Neut % (Auto) 62.6 (48.0-80.0) % Lymph % (Auto) 17.0 (16.0-40.0) % [place] % (Auto) 18.2 H (0.0-15.0) % Eos % (Auto) 1.5 (0.0-7.0) % Baso % (Auto) 0.7 (0.0-1.5) % Neut # (Auto) 5.9 H (1.4-5.7) K/uL Lymph # (Auto) 1.6 (0.6-2.4) K/uL [place] # (Auto) 1.7 H (0.0-0.8) K/uL Eos # (Auto) 0.1 (0.0-0.7) K/uL Baso # (Auto) 0.1 (0.0-0.1) K/uL Add Manual Diff Neutrophils % (Manual) (48.0-80.0) % Band Neutrophils % % Lymphocytes % (Manual) (16.0-40.0) % Monocytes % (Manual) (0.0-15.0) % Nucleated RBC % 0.8 /100WBC Absolute Seg Neuts (1.4-5.7) Band Neutrophils # Lymphocytes # (Manual) (0.6-2.4) Monocytes # (Manual) (0.0-0.8) Nucleated RBCs # 0 K/uL Sodium 130 L (136-148) mmol/L Potassium 3.1 L (3.5-5.1) mmol/L Chloride 90 L (98-107) mmol/L Carbon Dioxide 29.9 (21.0-32.0) mmol/L BUN 10 (7.0-18.0) mg/dL Creatinine 0.7 L (0.8-1.3) mg/dL Est Cr Clr Drug Dosing 137.03 mL/min Estimated GFR (MDRD) > 60.0 ml/min Glucose 168 H (74-106) mg/dL Calcium 10.9 H (8.5-10.1) mg/dL Phosphorus (2.6-4.7) mg/dL Magnesium (1.8-2.4) mg/dL Total Bilirubin 0.5 (0.2-1.0) mg/dL AST 238 H (15-37) IU/L ALT 243 H (14-63) IU/L Alkaline Phosphatase 136 H (46-116) U/L Troponin I < 0.050 (0.000-0.056) ng/mL Total Protein 7.2 (6.4-8.2) g/dL Albumin 3.2 L (3.4-5.0) g/dL Globulin 4.0 (2.6-4.0) g/dL Albumin/Globulin Ratio 0.8 L (0.9-1.6) Triglycerides (0-200) mg/dL Cholesterol (50-200) mg/dL LDL Cholesterol, Calc (60-180) mg/dL VLDL Cholesterol (5-55) mg/dL HDL Cholesterol (40-60) mg/dL Cholesterol/HDL Ratio (3.3-6.0) Lipase 5744 H (73-393) U/L Urine Color Urine Appearance Urine pH (5.0-8.0) Ur Specific [place] (1.001-1.035) Urine Protein (NEGATIVE) mg/dL Urine Glucose (UA) (NEGATIVE) mg/dL Urine Ketones (NEGATIVE) mg/dL Urine Occult Blood (NEGATIVE) Urine Nitrite (NEGATIVE) Urine Bilirubin (NEGATIVE) Urine Urobilinogen (<2.0) EU/dL Ur Leukocyte Esterase (NEGATIVE) Urine RBC (0-2/HPF) Urine WBC (0-5/HPF) Ur Epithelial Cells (NONE-FEW) Urine Bacteria (NEGATIVE) Urine Mucus (NONE-MOD) SARS-CoV-2 RNA (RT-PCR) (NEGATIVE) 09/17/19 09/17/19 09/18/19 Range/Units 20:40 22:10 05:45 WBC 11.03 H (4.0-11.0) K/uL RBC 4.17 L (4.50-5.90) M/uL Hgb 13.9 (13.0-17.0) g/dL Hct 39.9 (38.0-50.0) % MCV 95.7 (80.0-98.0) fL MCH 33.3 H (27.0-32.0) pg MCHC 34.8 (31.0-37.0) g/dL RDW Std Deviation 49.9 (28.0-62.0) fl RDW Coeff of Julissa 14 (11.0-15.0) % Plt Count 162 (150-400) K/uL MPV 11.90 (7.40-12.00) fL Neut % (Auto) (48.0-80.0) % Lymph % (Auto) (16.0-40.0) % [place] % (Auto) (0.0-15.0) % Eos % (Auto) (0.0-7.0) % Baso % (Auto) (0.0-1.5) % Neut # (Auto) (1.4-5.7) K/uL Lymph # (Auto) (0.6-2.4) K/uL [place] # (Auto) (0.0-0.8) K/uL Eos # (Auto) (0.0-0.7) K/uL Baso # (Auto) (0.0-0.1) K/uL Add Manual Diff YES Neutrophils % (Manual) 59 (48.0-80.0) % Band Neutrophils % 9 % Lymphocytes % (Manual) 11 L (16.0-40.0) % Monocytes % (Manual) 21 H (0.0-15.0) % Nucleated RBC % 0.9 /100WBC Absolute Seg Neuts 6.5 H (1.4-5.7) Band Neutrophils # 1.0 Lymphocytes # (Manual) 1.2 (0.6-2.4) Monocytes # (Manual) 2.3 H (0.0-0.8) Nucleated RBCs # 0 K/uL Sodium (136-148) mmol/L Potassium (3.5-5.1) mmol/L Chloride (98-107) mmol/L Carbon Dioxide (21.0-32.0) mmol/L BUN (7.0-18.0) mg/dL Creatinine (0.8-1.3) mg/dL Est Cr Clr Drug Dosing mL/min Estimated GFR (MDRD) ml/min Glucose (74-106) mg/dL Calcium (8.5-10.1) mg/dL Phosphorus (2.6-4.7) mg/dL Magnesium (1.8-2.4) mg/dL Total Bilirubin (0.2-1.0) mg/dL AST (15-37) IU/L ALT (14-63) IU/L Alkaline Phosphatase (46-116) U/L Troponin I (0.000-0.056) ng/mL Total Protein (6.4-8.2) g/dL Albumin (3.4-5.0) g/dL Globulin (2.6-4.0) g/dL Albumin/Globulin Ratio (0.9-1.6) Triglycerides (0-200) mg/dL Cholesterol (50-200) mg/dL LDL Cholesterol, Calc (60-180) mg/dL VLDL Cholesterol (5-55) mg/dL HDL Cholesterol (40-60) mg/dL Cholesterol/HDL Ratio (3.3-6.0) Lipase (73-393) U/L Urine Color YELLOW Urine Appearance CLEAR Urine pH 8.5 H (5.0-8.0) Ur Specific [place] 1.020 (1.001-1.035) Urine Protein 100 H (NEGATIVE) mg/dL Urine Glucose (UA) NEGATIVE (NEGATIVE) mg/dL Urine Ketones TRACE H (NEGATIVE) mg/dL Urine Occult Blood TRACE-INTACT H (NEGATIVE) Urine Nitrite NEGATIVE (NEGATIVE) Urine Bilirubin NEGATIVE (NEGATIVE) Urine Urobilinogen 0.2 (<2.0) EU/dL Ur Leukocyte Esterase NEGATIVE (NEGATIVE) Urine RBC 0-2 (0-2/HPF) Urine WBC 0-1 (0-5/HPF) Ur Epithelial Cells RARE (NONE-FEW) Urine Bacteria FEW (NEGATIVE) Urine Mucus LIGHT (NONE-MOD) SARS-CoV-2 RNA (RT-PCR) NEGATIVE (NEGATIVE) 09/18/19 09/18/19 09/18/19 Range/Units 05:45 05:45 05:45 WBC (4.0-11.0) K/uL RBC (4.50-5.90) M/uL Hgb (13.0-17.0) g/dL Hct (38.0-50.0) % MCV (80.0-98.0) fL MCH (27.0-32.0) pg MCHC (31.0-37.0) g/dL RDW Std Deviation (28.0-62.0) fl RDW Coeff of Julissa (11.0-15.0) % Plt Count (150-400) K/uL MPV (7.40-12.00) fL Neut % (Auto) (48.0-80.0) % Lymph % (Auto) (16.0-40.0) % [place] % (Auto) (0.0-15.0) % Eos % (Auto) (0.0-7.0) % Baso % (Auto) (0.0-1.5) % Neut # (Auto) (1.4-5.7) K/uL Lymph # (Auto) (0.6-2.4) K/uL [place] # (Auto) (0.0-0.8) K/uL Eos # (Auto) (0.0-0.7) K/uL Baso # (Auto) (0.0-0.1) K/uL Add Manual Diff Neutrophils % (Manual) (48.0-80.0) % Band Neutrophils % % Lymphocytes % (Manual) (16.0-40.0) % Monocytes % (Manual) (0.0-15.0) % Nucleated RBC % /100WBC Absolute Seg Neuts (1.4-5.7) Band Neutrophils # Lymphocytes # (Manual) (0.6-2.4) Monocytes # (Manual) (0.0-0.8) Nucleated RBCs # K/uL Sodium 135 L (136-148) mmol/L Potassium 3.6 (3.5-5.1) mmol/L Chloride 96 L (98-107) mmol/L Carbon Dioxide 29.1 (21.0-32.0) mmol/L BUN 8 (7.0-18.0) mg/dL Creatinine 0.8 (0.8-1.3) mg/dL Est Cr Clr Drug Dosing 123.46 mL/min Estimated GFR (MDRD) > 60.0 ml/min Glucose 121 H (74-106) mg/dL Calcium 9.3 (8.5-10.1) mg/dL Phosphorus 3.3 (2.6-4.7) mg/dL Magnesium 0.9 L (1.8-2.4) mg/dL Total Bilirubin 0.5 (0.2-1.0) mg/dL AST 157 H (15-37) IU/L ALT 197 H (14-63) IU/L Alkaline Phosphatase 123 H (46-116) U/L Troponin I (0.000-0.056) ng/mL Total Protein 6.6 (6.4-8.2) g/dL Albumin 2.9 L (3.4-5.0) g/dL Globulin 3.7 (2.6-4.0) g/dL Albumin/Globulin Ratio 0.8 L (0.9-1.6) Triglycerides 72 (0-200) mg/dL Cholesterol 203 H (50-200) mg/dL LDL Cholesterol, Calc 133 (60-180) mg/dL VLDL Cholesterol 14 (5-55) mg/dL HDL Cholesterol 56 (40-60) mg/dL Cholesterol/HDL Ratio 3.6 (3.3-6.0) Lipase 3868 H (73-393) U/L Urine Color Urine Appearance Urine pH (5.0-8.0) Ur Specific [place] (1.001-1.035) Urine Protein (NEGATIVE) mg/dL Urine Glucose (UA) (NEGATIVE) mg/dL Urine Ketones (NEGATIVE) mg/dL Urine Occult Blood (NEGATIVE) Urine Nitrite (NEGATIVE) Urine Bilirubin (NEGATIVE) Urine Urobilinogen (<2.0) EU/dL Ur Leukocyte Esterase (NEGATIVE) Urine RBC (0-2/HPF) Urine WBC (0-5/HPF) Ur Epithelial Cells (NONE-FEW) Urine Bacteria (NEGATIVE) Urine Mucus (NONE-MOD) SARS-CoV-2 RNA (RT-PCR) (NEGATIVE) Result Diagrams: 09/18/19 05:45 09/18/19 05:45 Sepsis Event Note - Focused Exam Vital Signs: Vital Signs Temp Pulse Resp BP Pulse Ox 09/18/19 08:00 37 C 101 H 20 154/89 H 94 L 09/18/19 04:26 94 20 146/82 H 09/18/19 04:13 36.8 C 120 H 20 156/90 H 90 L 09/18/19 00:03 36.7 C 87 18 138/89 91 L 09/17/19 23:13 36.5 C 90 18 141/90 H 96 Date Exam was Performed: 09/18/19 Time Exam was Performed: 11:04 Orders Last 24hrs: Active Orders 24 hr Category Date Time Status Admission Status [Patient Status] [ADT] Stat ADT 09/17/19 23:00 Active Ambulate [RC] ASDIRECTED Care 09/18/19 00:38 Active CIWAA Assessment [RC] Q4H Care 09/18/19 00:28 Active Intake and Output [RC] ASDIRECTED Care 09/18/19 10:59 Active Oxygen Therapy Adult [Oxygen Therapy] [RC] ASDIRECTED Care 09/18/19 00:35 Active Telemetry Monitoring [Cardiac Monitoring] [RC] . Care 09/18/19 00:28 Active DIRECTED Telemetry Monitoring [Cardiac Monitoring] [RC] Q8H Care 09/17/19 23:10 Active Vital Signs [RC] Q4H Care 09/18/19 04:00 Active Clear Liquid Diet [DIET] Diet 09/18/19 Lunch Active Abdomen Ltd [US] Stat Exams 09/18/19 10:34 Ordered CBC WITH AUTO DIFF [HEME] AM Lab 09/19/19 05:11 Ordered CBC WITH AUTO DIFF [HEME] AM Lab 09/20/19 05:11 Ordered CBC WITH AUTO DIFF [HEME] AM Lab 09/21/19 05:11 Ordered COMPREHENSIVE METABOLIC PN,CMP [CHEM] AM Lab 09/19/19 05:11 Ordered COMPREHENSIVE METABOLIC PN,CMP [CHEM] AM Lab 09/20/19 05:11 Ordered COMPREHENSIVE METABOLIC PN,CMP [CHEM] AM Lab 09/21/19 05:11 Ordered HEPATITIS PANEL (4) [REF] Routine Lab 09/18/19 10:35 Ordered LIPASE [CHEM] AM Lab 09/19/19 05:11 Ordered MAGNESIUM [CHEM] AM Lab 09/19/19 05:11 Ordered MAGNESIUM [CHEM] AM Lab 09/20/19 05:11 Ordered MAGNESIUM [CHEM] AM Lab 09/21/19 05:11 Ordered Folic Acid Med 09/18/19 21:00 Active 1 mg PO BEDTIME Heparin Sodium Med 09/18/19 00:45 Active 5,000 units SUBCUT Q8H LORazepam [Ativan] Med 09/18/19 00:26 Active See Protocol IVPUSH Q4H PRN Lactated Ringers [Ringers, Lactated] 1,000 ml Med 09/18/19 00:30 Active IV ASDIRECTED Magnesium Sulfate/Water [Magnesium Sulfate in Water Med 09/18/19 07:16 Active Premix] 4 gm Premix Bag 1 bag IV ONETIME Morphine Med 09/18/19 00:34 Active 2 mg IVPUSH Q4H PRN Ondansetron [Zofran] Med 09/18/19 00:30 Active 4 mg IVPUSH Q4H PRN Pantoprazole [ProTONIX IV] 40 mg Med 09/18/19 21:00 Active Sodium Chloride 0.9% [Normal Saline] 10 ml IV BID Sodium Chloride 0.9% [Saline Flush] Med 09/17/19 20:00 Active 10 ml FLUSH ASDIRECTED PRN Sodium Chloride 0.9% [Saline Flush] Med 09/17/19 20:00 Active 2.5 ml FLUSH ASDIRECTED PRN Thiamine [Vitamin B-1] Med 09/18/19 21:00 Active 100 mg PO BEDTIME Saline Lock Insert [OM.PC] Stat Oth 09/17/19 20:00 Ordered Code Status [Resuscitation Status] Routine Resus Stat 09/18/19 10:59 Ordered Medication Orders Folic Acid (Folic Acid) 1 mg PO BEDTIME FIDE Heparin Sodium (Porcine) (Heparin Sodium) 5,000 units SUBCUT Q8H FIDE Last Admin: 09/18/19 08:08 Dose: 5,000 units Admin: 09/18/19 00:52 Dose: 5,000 units Lactated Ringer's (Ringers, Lactated) 1,000 mls @ 125 mls/hr IV ASDIRECTED FIDE Last Admin: 09/18/19 06:15 Dose: 125 mls/hr Magnesium Sulfate 4 gm/ Premix 100 mls @ 25 mls/hr IV ONETIME ONE Stop: 09/18/19 11:15 Last Admin: 09/18/19 08:01 Dose: 25 mls/hr Pantoprazole Sodium 40 mg/ (Sodium Chloride) 10 mls @ 300 mls/hr IV BID FIDE Lorazepam (Ativan) 0 mg IVPUSH Q4H PRN; Protocol PRN Reason: Withdrawal Symptoms Last Admin: 09/18/19 09:55 Dose: 1 mg Admin: 09/18/19 08:44 Dose: 1 mg Morphine Sulfate (Morphine) 2 mg IVPUSH Q4H PRN PRN Reason: Pain Last Admin: 09/18/19 08:29 Dose: 2 mg Admin: 09/18/19 04:51 Dose: 2 mg Admin: 09/18/19 00:52 Dose: 2 mg Ondansetron HCl (Zofran) 4 mg IVPUSH Q4H PRN PRN Reason: Nausea/Vomiting Last Admin: 09/18/19 08:17 Dose: 4 mg Admin: 09/18/19 04:23 Dose: 4 mg Sodium Chloride (Saline Flush) 10 ml FLUSH ASDIRECTED PRN PRN Reason: Keep Vein Open Sodium Chloride (Saline Flush) 2.5 ml FLUSH ASDIRECTED PRN PRN Reason: Keep Vein Open Thiamine HCl (Vitamin B-1) 100 mg PO BEDTIME FIDE
[2019-09-18] MEDS: LORazepam 2 MG/ML SDV IVPUSH PRN ×6 (08:44→23:04)
[2019-09-18] MEDS ORDERED: Pantoprazole 40 MG in Sodium Chloride 0.9% 10 ML IV SCH (09:00)
--- NOTE | 2019-09-18 12:33 | US ---
Limited abdominal ultrasound: Multiple real-time images of the upper right abdomen were obtained. Liver is echogenic most likely representing fatty infiltration. Gallbladder shows a possible very minimal gallstone. Sludge also seen within the gallbladder. No gallbladder wall thickening or biliary duct dilatation is seen. Right kidney shows no hydronephrosis or mass. Pancreas is incompletely seen. Equivocal hypoechoic area within the pancreatic neck is seen and difficult to exclude a small 1.7 cm pancreatic mass. Aorta shows no aneurysm. Inferior vena cava is patent. Impression: 1. Possible small single gallstone within the gallbladder. Sludge also noted within the gallbladder. No gallbladder wall thickening or biliary ductal dilatation is seen. 2. Echogenic liver compatible with fatty infiltration. 3. Equivocal small mass within the pancreas. Three-phase CT exam recommended of the pancreas to further evaluate. Diagnostic code #9 This report was dictated in MDT
[2019-09-18] MEDS ORDERED: LORazepam 2 MG/ML SDV IVPUSH ONE ×2 (14:06→14:58)
[2019-09-18] MEDS ORDERED: chlordiazePOXIDE 25 MG Cap PO PRN (14:18)
--- NOTE | 2019-09-18 19:08 | PN ---
THC Physician - Brief Progress [id number]/28/2020 19:05[facility] Sara Medeiros, [place] - [facility] - MWN SANJIV GRAYSONDate of Service 09/18/2019 19:05HPI/Events of Note eICU Admission [id number] admitted for EtOH withdrawal. History obtained primarily from review o f EMR and discussion with resident physician.PMH: EtOH useHPI: Presented with nausea, vomiting, abdom inal pain, and elevated lipase. Has a history of EtOH. Was noted to have high CIWA score, so was tuttle sferred to ICU for further management.Camera exam: Laying in bed. Vitals monitor reviewed. Labs: revi ewedRadiology: reviewedeICU Impression and Recommendations:Alcohol WithdrawalAlcohol withdrawal paras col per institutional policy, including administration of PRN benzodiazepines. Can consider dexmedeto midine drip depending on response to benzodiazepinesContinued telemetry monitoringThiamine supplement ation, 100mg dailyPancreatitis, suspect secondary to EtOH usePain control per primary serviceIntraven ous fluids to maintain adequate urine output and euvolemiaInitiation of oral intake as toleratedTrans aminitis, given history likely secondary to EtOH hepatitisTrend LFTsPositive SIRS criteria, probably related to underlying pancreatitis given history and clinical presentationA reasonable approach is to trend WBC and vitals with fluid resuscitation over next hours to assess progression, and if they el l to improve can initiate sepsis work up with blood cultures, respiratory cultures, urinalysis, chest x-ray, and serum lactateQuestion of pancreatic mass, defer work up to primary service, reasonable to pursue as an outpatientDVT and GI prophylaxis as appropriate.Thank you for allowing us to participat e in the care of this patient.The above note transcribed with the assistance of dictation software. P lease excuse any errors.Interventions Major-Delirium, psychosis, severe agitation - evaluation and beatriz villagomezement
[2019-09-18] MEDS: Pantoprazole 40 MG in Sodium Chloride 0.9% 10 ML IV SCH (20:39)
[2019-09-18] MEDS: Folic Acid 1 MG Tab PO SCH (20:55)
[2019-09-18] MEDS: Thiamine 100 MG Tab PO SCH (20:55)
[2019-09-18] MEDS ORDERED: chlordiazePOXIDE 25 MG Cap PO SCH (21:00)
[2019-09-18] MEDS ORDERED: chlordiazePOXIDE 25 MG Cap PO ONE (21:15)
[2019-09-18] MEDS: chlordiazePOXIDE 25 MG Cap PO SCH (21:16)
--- NOTE | 2019-09-18 21:31 | PN ---
THC Physician - Brief Progress [id number]/28/2020 21:26[facility] helioSara, BETTY - JUDE (DAVIE) - MARLENEN SANJIV GRAYSONDate of Service 09/18/2019 21:26HPI/Events of Note CIWA score 28on ativan 2mg prn and received 1.5 hour agoon librium 25 mg q 8 hours received 7 hours agoon camera in bed appears to be calm but intermittently moves aroundSGOT/SGPT 157/197plan:in crease chlordiazepoxide to 100mg orally every 8 hoursInterventions Major-Delirium, psychosis, severe agitation - evaluation and management
[2019-09-19] MEDS: Lactated Ringers 1,000 ML IV SCH ×5 (02:14→23:59)
[2019-09-19] MEDS: LORazepam 2 MG/ML SDV IVPUSH PRN ×6 (02:15→19:36)
[2019-09-19] MEDS: chlordiazePOXIDE 25 MG Cap PO SCH ×3 (04:54→20:16)
[2019-09-19 06:31] LABS: BLOOD UREA NITROGEN,BUN 10 mg/dL (7.0-18.0); CARBON DIOXIDE,CO2 25.6 mmol/L (21.0-32.0); CHLORIDE,CL 96 mmol/L (98-107); GLUCOSE RANDOM 108 mg/dL (74-106); LIPASE 1454 U/L (73-393); POTASSIUM,K 3.7 mmol/L (3.5-5.1); SODIUM,NA 130 mmol/L (136-148)
[2019-09-19] MEDS ORDERED: Magnesium Sulfate/Water 4 GM in Premix Bag 1 BAG IV ONE (07:19)
--- NOTE | 2019-09-19 08:09 | PCM.PN ---
<Nilam Taylor - Last Filed: 09/19/19 10:09> - General Info Date of Service: 09/19/19 Subjective Update: The patient was admitted for pancreatitis and alcohol use. He started withdrawing hard yesterday, had high CIWAA scores and was transferred from the floor to the ICU. Today, can't form sentences, has been confused but still reports abdominal pain. - Review of Systems General: Reports: No Symptoms HEENT: Reports: No Symptoms Pulmonary: Reports: No Symptoms Cardiovascular: Reports: No Symptoms Gastrointestinal: Reports: Abdominal Pain Genitourinary: Reports: No Symptoms Musculoskeletal: Reports: No Symptoms Skin: Reports: No Symptoms Neurological: Reports: Confusion - Patient Data Vitals - Most Recent: Last Vital Signs Temp 99 F 09/19/19 04:00 Pulse 123 H 09/18/19 16:00 Resp 17 09/19/19 07:00 BP 127/86 09/19/19 07:00 Pulse Ox 96 09/19/19 07:00 Weight - Most Recent: 109.7 kg I&O - Last 24 Hours: Intake & Output 09/18/19 09/19/19 09/19/19 22:59 06:59 14:59 Intake Total 200 2976 Output Total 1025 1175 Balance -825 1801 Lab Results Last 24 Hours: Laboratory Results - last 24 hr 09/18/19 09/18/19 09/19/19 Range/Units 05:45 14:08 05:22 WBC 10.50 (4.0-11.0) K/uL RBC 4.02 L (4.50-5.90) M/uL Hgb 13.7 (13.0-17.0) g/dL Hct 38.7 (38.0-50.0) % MCV 96.3 (80.0-98.0) fL MCH 34.1 H (27.0-32.0) pg MCHC 35.4 (31.0-37.0) g/dL RDW Std Deviation 47.3 (28.0-62.0) fl RDW Coeff of Julissa 14 (11.0-15.0) % Plt Count 123 L (150-400) K/uL MPV 11.80 (7.40-12.00) fL Neut % (Auto) 72.3 (48.0-80.0) % Lymph % (Auto) 8.4 L (16.0-40.0) % Rawlins % (Auto) 17.0 H (0.0-15.0) % Eos % (Auto) 2.1 (0.0-7.0) % Baso % (Auto) 0.2 (0.0-1.5) % Neut # (Auto) 7.6 H (1.4-5.7) K/uL Lymph # (Auto) 0.9 (0.6-2.4) K/uL Rawlins # (Auto) 1.8 H (0.0-0.8) K/uL Eos # (Auto) 0.2 (0.0-0.7) K/uL Baso # (Auto) 0.0 (0.0-0.1) K/uL Sodium (136-148) mmol/L Potassium (3.5-5.1) mmol/L Chloride (98-107) mmol/L Carbon Dioxide (21.0-32.0) mmol/L BUN (7.0-18.0) mg/dL Creatinine (0.8-1.3) mg/dL Est Cr Clr Drug Dosing mL/min Estimated GFR (MDRD) ml/min Glucose (74-106) mg/dL POC Glucose 148 H (60-110) mg/dL Calcium (8.5-10.1) mg/dL Magnesium (1.8-2.4) mg/dL Total Bilirubin (0.2-1.0) mg/dL AST (15-37) IU/L ALT (14-63) IU/L Alkaline Phosphatase (46-116) U/L Total Protein (6.4-8.2) g/dL Albumin (3.4-5.0) g/dL Globulin (2.6-4.0) g/dL Albumin/Globulin Ratio (0.9-1.6) Lipase 3868 H (73-393) U/L 09/19/19 Range/Units 05:22 WBC (4.0-11.0) K/uL RBC (4.50-5.90) M/uL Hgb (13.0-17.0) g/dL Hct (38.0-50.0) % MCV (80.0-98.0) fL MCH (27.0-32.0) pg MCHC (31.0-37.0) g/dL RDW Std Deviation (28.0-62.0) fl RDW Coeff of Julissa (11.0-15.0) % Plt Count (150-400) K/uL MPV (7.40-12.00) fL Neut % (Auto) (48.0-80.0) % Lymph % (Auto) (16.0-40.0) % Rawlins % (Auto) (0.0-15.0) % Eos % (Auto) (0.0-7.0) % Baso % (Auto) (0.0-1.5) % Neut # (Auto) (1.4-5.7) K/uL Lymph # (Auto) (0.6-2.4) K/uL Rawlins # (Auto) (0.0-0.8) K/uL Eos # (Auto) (0.0-0.7) K/uL Baso # (Auto) (0.0-0.1) K/uL Sodium 130 L (136-148) mmol/L Potassium 3.7 (3.5-5.1) mmol/L Chloride 96 L (98-107) mmol/L Carbon Dioxide 25.6 (21.0-32.0) mmol/L BUN 10 (7.0-18.0) mg/dL Creatinine 0.8 (0.8-1.3) mg/dL Est Cr Clr Drug Dosing 123.46 mL/min Estimated GFR (MDRD) > 60.0 ml/min Glucose 108 H (74-106) mg/dL POC Glucose (60-110) mg/dL Calcium 8.3 L (8.5-10.1) mg/dL Magnesium 1.3 L (1.8-2.4) mg/dL Total Bilirubin 1.1 H (0.2-1.0) mg/dL AST 78 H (15-37) IU/L ALT 132 H (14-63) IU/L Alkaline Phosphatase 110 (46-116) U/L Total Protein 6.5 (6.4-8.2) g/dL Albumin 2.6 L (3.4-5.0) g/dL Globulin 3.9 (2.6-4.0) g/dL Albumin/Globulin Ratio 0.7 L (0.9-1.6) Lipase 1454 H (73-393) U/L Med Orders - Current: Current Medications Chlordiazepoxide HCl (Librium) 100 mg PO Q8H [facility] Last Admin: 09/19/19 04:54 Dose: 100 mg Folic Acid (Folic Acid) 1 mg PO BEDTIME FIDE Last Admin: 09/18/19 20:55 Dose: 1 mg Heparin Sodium (Porcine) (Heparin Sodium) 5,000 units SUBCUT Q8H [facility] Last Admin: 09/18/19 23:55 Dose: 5,000 units Pantoprazole Sodium 40 mg/ (Sodium Chloride) 10 mls @ 300 mls/hr IV BID FIDE Last Admin: 09/18/19 20:39 Dose: 300 mls/hr Lactated Ringer's (Ringers, Lactated) 1,000 mls @ 175 mls/hr IV ASDIRECTED [facility] Last Admin: 09/19/19 07:53 Dose: 175 mls/hr Magnesium Sulfate 4 gm/ Premix 100 mls @ 33.333 mls/hr IV ONETIME ONE Stop: 09/19/19 10:18 Last Admin: 09/19/19 07:50 Dose: 33.333 mls/hr Lorazepam (Ativan) 0 mg IVPUSH Q4H PRN; Protocol PRN Reason: Withdrawal Symptoms Last Admin: 09/19/19 07:48 Dose: 1 mg Ondansetron HCl (Zofran) 4 mg IVPUSH Q4H PRN PRN Reason: Nausea/Vomiting Last Admin: 09/18/19 13:51 Dose: 4 mg Sodium Chloride (Saline Flush) 10 ml FLUSH ASDIRECTED PRN PRN Reason: Keep Vein Open Sodium Chloride (Saline Flush) 2.5 ml FLUSH ASDIRECTED PRN PRN Reason: Keep Vein Open Thiamine HCl (Vitamin B-1) 100 mg PO BEDTIME [facility] Last Admin: 09/18/19 20:55 Dose: 100 mg Discontinued Medications Chlordiazepoxide HCl (Librium) 25 mg PO QID PRN PRN Reason: Withdrawal Symptoms Last Admin: 09/18/19 14:27 Dose: 25 mg Chlordiazepoxide HCl (Librium) 25 mg PO Q8H [facility] Last Admin: 09/18/19 20:55 Dose: 25 mg Chlordiazepoxide HCl (Librium) 75 mg PO ONETIME ONE Stop: 09/18/19 21:16 Last Admin: 09/18/19 21:49 Dose: 75 mg Diazepam (Valium) 50 mg IVPUSH ONETIME ONE Stop: 09/18/19 14:12 Last Admin: 09/18/19 14:41 Dose: Not Given Sodium Chloride (Normal Saline) 1,000 mls @ 999 mls/hr IV STAT ONE Stop: 09/17/19 21:00 Last Admin: 09/17/19 20:26 Dose: 999 mls/hr Pantoprazole Sodium 80 mg/ (Sodium Chloride) 20 mls @ 420 mls/hr IVPUSH ONETIME ONE Stop: 09/17/19 20:11 Last Admin: 09/17/19 20:26 Dose: 420 mls/hr Sodium Chloride (Normal Saline) 1,000 mls @ 999 mls/hr IV STAT ONE Stop: 09/17/19 21:09 Last Admin: 09/17/19 20:14 Dose: Not Given Multivitamins/Minerals 10 ml/Thiamine HCl 100 mg/ Folic Acid 1 mg/ Sodium Chloride 1,011.2 mls @ 125 mls/hr IV ONETIME ONE Stop: 09/18/19 05:19 Last Admin: 09/17/19 22:15 Dose: 125 mls/hr Lactated Ringer's (Ringers, Lactated) 1,000 mls @ 125 mls/hr IV ASDIRECTED [facility] Last Admin: 09/18/19 14:33 Dose: 125 mls/hr Pantoprazole Sodium 40 mg/ (Sodium Chloride) 10 mls @ 300 mls/hr IV DAILY [facility] Last Admin: 09/18/19 08:07 Dose: 300 mls/hr Magnesium Sulfate 4 gm/ Premix 100 mls @ 25 mls/hr IV ONETIME ONE Stop: 09/18/19 11:15 Last Admin: 09/18/19 08:01 Dose: 25 mls/hr Iopamidol (Isovue-370 (76%)) 100 ml IVPUSH ONETIME ONE Stop: 09/17/19 21:57 Last Admin: 09/17/19 21:56 Dose: 100 ml Lorazepam (Ativan) 2 mg IVPUSH ONETIME ONE Stop: 09/18/19 14:07 Last Admin: 09/18/19 14:17 Dose: 2 mg Lorazepam (Ativan) 1 mg IVPUSH ONETIME ONE Stop: 09/18/19 14:59 Last Admin: 09/18/19 15:14 Dose: 1 mg Morphine Sulfate (Morphine) 6 mg IVPUSH ONETIME ONE Stop: 09/17/19 22:25 Last Admin: 09/17/19 22:27 Dose: 6 mg Morphine Sulfate (Morphine) 2 mg IVPUSH Q4H PRN PRN Reason: Pain Last Admin: 09/18/19 13:53 Dose: 2 mg Ondansetron HCl (Zofran) 4 mg IVPUSH ONETIME ONE Stop: 09/17/19 20:01 Last Admin: 09/17/19 20:31 Dose: 4 mg Ondansetron HCl (Zofran) 4 mg IVPUSH ONETIME ONE Stop: 09/17/19 20:10 Last Admin: 09/17/19 20:15 Dose: Not Given Ondansetron HCl (Zofran) 4 mg IVPUSH ONETIME ONE Stop: 09/17/19 22:16 Last Admin: 09/17/19 22:19 Dose: 4 mg Potassium Chloride (Potassium Chloride) 40 meq PO ONETIME ONE Stop: 09/17/19 21:15 Last Admin: 09/17/19 22:15 Dose: 40 meq - Exam General: Alert, Oriented, Cooperative Lungs: Clear to Auscultation, Normal Respiratory Effort Cardiovascular: Regular Rate, Regular Rhythm GI/Abdominal Exam: Normal Bowel Sounds, Soft, Non-Tender Extremities: No Pedal Edema Skin: Warm, Dry, Intact Psy/Mental Status: Alert, Withdrawal Symptoms Sepsis Event Note - Evaluation Sepsis Screening Result: No Definite Risk - Focused Exam Vital Signs: Vital Signs Temp Resp BP Pulse Ox 09/19/19 07:00 17 127/86 96 09/19/19 06:00 16 131/90 95 09/19/19 05:00 20 139/95 H 94 L 09/19/19 04:00 99 F 17 131/90 97 09/19/19 03:00 18 128/83 93 L 09/19/19 02:00 15 122/85 95 09/19/19 01:00 20 134/89 94 L 09/19/19 00:00 20 144/90 H 94 L 09/18/19 23:00 99.3 F 23 H 143/88 H 92 L 09/18/19 22:00 24 H 152/97 H 93 L 09/18/19 21:00 18 133/83 92 L Date Exam was Performed: 09/19/19 Time Exam was Performed: 10:09 - Problem List Review Problem List Initiated/Reviewed/Updated: Yes - My Orders Last 24 Hours: My Active Orders 09/18/19 10:50 HEPATITIS PANEL (4) [REF] Routine 09/18/19 10:59 Intake and Output [RC] Q12H Code Status [Resuscitation Status] Routine 09/18/19 21:00 Folic Acid 1 mg PO BEDTIME Thiamine [Vitamin B-1] 100 mg PO BEDTIME 09/19/19 07:19 Magnesium Sulfate/Water [Magnesium Sulfate in Water Premix] 4 gm Premix Bag 1 bag IV ONETIME 09/20/19 05:11 CBC WITH AUTO DIFF [HEME] AM COMPREHENSIVE METABOLIC PN,CMP [CHEM] AM MAGNESIUM [CHEM] AM 09/21/19 05:11 CBC WITH AUTO DIFF [HEME] AM COMPREHENSIVE METABOLIC PN,CMP [CHEM] AM MAGNESIUM [CHEM] AM - Plan Plan:: 1. Acute pancreatitis likely secondary to alcohol use- No elevated triglycerides, US showed single gallstone but no duct dilation, no GB thickening, and small pancreatic mass. They recommend [address] for further evaluation, this will be done on outpatient basis. On clear liquids, Toradol, zofran, and IVF. Will need outpatient general surgery consult for gallstone and pancreatic mass. 2. Transaminitis- likely secondary to alcohol use- Improving. Hepatitis panel still pending. 3. Alcohol withdrawal- CIWAA/Ativan protocol, added Librium yesterday that had to be increased from 25 TID to 100 TID. Continue thiamine and folic acid. 4. Hyomagnesemia- improved- replace and recheck in AM. 5. Oxygen requirement- smoking history, may have COPD. Will start duonebs and attempt to wean. <Matheus Spencer - Last Filed: 09/20/19 10:34> - Patient Data Vitals - Most Recent: Last Vital Signs Temp 37.1 C 09/20/19 09:00 Pulse 123 H 09/18/19 16:00 Resp 23 H 09/20/19 10:00 BP 120/84 09/20/19 10:00 Pulse Ox 93 L 09/20/19 10:00 I&O - Last 24 Hours: Intake & Output 09/19/19 09/20/19 09/20/19 22:59 06:59 14:59 Intake Total 2319 3040 1046 Output Total 600 2325 Balance 8055 643 7367 Lab Results Last 24 Hours: Laboratory Results - last 24 hr 09/18/19 09/20/19 09/20/19 Range/Units 10:50 06:00 06:00 WBC 9.49 (4.0-11.0) K/uL RBC 4.02 L (4.50-5.90) M/uL Hgb 13.3 (13.0-17.0) g/dL Hct 38.9 (38.0-50.0) % MCV 96.8 (80.0-98.0) fL MCH 33.1 H (27.0-32.0) pg MCHC 34.2 (31.0-37.0) g/dL RDW Std Deviation 50.7 (28.0-62.0) fl RDW Coeff of Julissa 14 (11.0-15.0) % Plt Count 146 L (150-400) K/uL MPV 11.80 (7.40-12.00) fL Add Manual Diff YES Neutrophils % (Manual) 65 (48.0-80.0) % Band Neutrophils % 1 % Lymphocytes % (Manual) 12 L (16.0-40.0) % Monocytes % (Manual) 18 H (0.0-15.0) % Eosinophils % (Manual) 4 (0.0-7.0) % Nucleated RBC % 0.6 /100WBC Absolute Seg Neuts 6.2 H (1.4-5.7) Band Neutrophils # 0.1 Lymphocytes # (Manual) 1.1 (0.6-2.4) Monocytes # (Manual) 1.7 H (0.0-0.8) Eosinophils # (Manual) 0.4 (0.0-0.7) Nucleated RBCs # 0 K/uL Sodium 132 L (136-148) mmol/L Potassium 3.5 (3.5-5.1) mmol/L Chloride 98 (98-107) mmol/L Carbon Dioxide 24.3 (21.0-32.0) mmol/L BUN 8 (7.0-18.0) mg/dL Creatinine 0.8 (0.8-1.3) mg/dL Est Cr Clr Drug Dosing 123.46 mL/min Estimated GFR (MDRD) > 60.0 ml/min Glucose 112 H (74-106) mg/dL Calcium 7.7 L (8.5-10.1) mg/dL Magnesium 1.6 L (1.8-2.4) mg/dL Total Bilirubin 1.0 (0.2-1.0) mg/dL AST 135 H (15-37) IU/L ALT 135 H (14-63) IU/L Alkaline Phosphatase 117 H (46-116) U/L Total Protein 6.3 L (6.4-8.2) g/dL Albumin 2.3 L (3.4-5.0) g/dL Globulin 4.0 (2.6-4.0) g/dL Albumin/Globulin Ratio 0.6 L (0.9-1.6) Lipase 1072 H (73-393) U/L Hepatitis A IgM Ab Negative (Negative) Hep Bs Antigen Negative (Negative) Hep B Core IgM Ab Negative (Negative) Hepatitis C Antibody <0.1 (0.0-0.9) s/co ratio Med Orders - Current: Current Medications Albuterol/Ipratropium (Duoneb 3.0-0.5 Mg/3 Ml) 3 ml NEB Q6HRRT [facility] Last Admin: 09/20/19 06:05 Dose: 3 ml Chlordiazepoxide HCl (Librium) 100 mg PO Q8H [facility] Last Admin: 09/20/19 04:36 Dose: 100 mg Folic Acid (Folic Acid) 1 mg PO BEDTIME [facility] Last Admin: 09/19/19 20:16 Dose: 1 mg Heparin Sodium (Porcine) (Heparin Sodium) 5,000 units SUBCUT Q8H [facility] Last Admin: 09/20/19 09:31 Dose: 5,000 units Pantoprazole Sodium 40 mg/ (Sodium Chloride) 10 mls @ 300 mls/hr IV BID [facility] Last Admin: 09/20/19 09:30 Dose: 300 mls/hr Ketorolac Tromethamine (Toradol) 30 mg IVPUSH Q6H PRN PRN Reason: Pain Stop: 09/24/19 09:26 Lorazepam (Ativan) 0 mg IVPUSH Q4H PRN; Protocol PRN Reason: Withdrawal Symptoms Last Admin: 09/20/19 09:26 Dose: 2 mg Nystatin (Nystatin Crm) 0 gm TOP QID PRN PRN Reason: Rash Last Admin: 09/19/19 15:34 Dose: 1 applic Ondansetron HCl (Zofran) 4 mg IVPUSH Q4H PRN PRN Reason: Nausea/Vomiting Last Admin: 09/18/19 13:51 Dose: 4 mg Sodium Chloride (Saline Flush) 10 ml FLUSH ASDIRECTED PRN PRN Reason: Keep Vein Open Sodium Chloride (Saline Flush) 2.5 ml FLUSH ASDIRECTED PRN PRN Reason: Keep Vein Open Thiamine HCl (Vitamin B-1) 100 mg PO BEDTIME FIDE Last Admin: 09/19/19 20:17 Dose: 100 mg Discontinued Medications Chlordiazepoxide HCl (Librium) 25 mg PO QID PRN PRN Reason: Withdrawal Symptoms Last Admin: 09/18/19 14:27 Dose: 25 mg Chlordiazepoxide HCl (Librium) 25 mg PO Q8H [facility] Last Admin: 09/18/19 20:55 Dose: 25 mg Chlordiazepoxide HCl (Librium) 75 mg PO ONETIME ONE Stop: 09/18/19 21:16 Last Admin: 09/18/19 21:49 Dose: 75 mg Diazepam (Valium) 50 mg IVPUSH ONETIME ONE Stop: 09/18/19 14:12 Last Admin: 09/18/19 14:41 Dose: Not Given Furosemide (Lasix) 20 mg IVPUSH NOW ONE Stop: 09/20/19 10:32 Sodium Chloride (Normal Saline) 1,000 mls @ 999 mls/hr IV STAT ONE Stop: 09/17/19 21:00 Last Admin: 09/17/19 20:26 Dose: 999 mls/hr Pantoprazole Sodium 80 mg/ (Sodium Chloride) 20 mls @ 420 mls/hr IVPUSH ONETIME ONE Stop: 09/17/19 20:11 Last Admin: 09/17/19 20:26 Dose: 420 mls/hr Sodium Chloride (Normal Saline) 1,000 mls @ 999 mls/hr IV STAT ONE Stop: 09/17/19 21:09 Last Admin: 09/17/19 20:14 Dose: Not Given Multivitamins/Minerals 10 ml/Thiamine HCl 100 mg/ Folic Acid 1 mg/ Sodium Chloride 1,011.2 mls @ 125 mls/hr IV ONETIME ONE Stop: 09/18/19 05:19 Last Admin: 09/17/19 22:15 Dose: 125 mls/hr Lactated Ringer's (Ringers, Lactated) 1,000 mls @ 125 mls/hr IV ASDIRECTED [facility] Last Admin: 09/18/19 14:33 Dose: 125 mls/hr Pantoprazole Sodium 40 mg/ (Sodium Chloride) 10 mls @ 300 mls/hr IV DAILY [facility] Last Admin: 09/18/19 08:07 Dose: 300 mls/hr Magnesium Sulfate 4 gm/ Premix 100 mls @ 25 mls/hr IV ONETIME ONE Stop: 09/18/19 11:15 Last Admin: 09/18/19 08:01 Dose: 25 mls/hr Lactated Ringer's (Ringers, Lactated) 1,000 mls @ 175 mls/hr IV ASDIRECTED [facility] Last Admin: 09/20/19 05:44 Dose: 175 mls/hr Magnesium Sulfate 4 gm/ Premix 100 mls @ 33.333 mls/hr IV ONETIME ONE Stop: 09/19/19 10:18 Last Admin: 09/19/19 07:50 Dose: 33.333 mls/hr Magnesium Sulfate 2 gm/ Premix 50 mls @ 50 mls/hr IV ONETIME ONE Stop: 09/20/19 08:44 Last Admin: 09/20/19 08:02 Dose: 50 mls/hr Iopamidol (Isovue-370 (76%)) 100 ml IVPUSH ONETIME ONE Stop: 09/17/19 21:57 Last Admin: 09/17/19 21:56 Dose: 100 ml Ketorolac Tromethamine (Toradol) 15 mg IVPUSH Q6H PRN PRN Reason: Pain Stop: 09/24/19 09:26 Last Admin: 09/20/19 07:35 Dose: 15 mg Lorazepam (Ativan) 2 mg IVPUSH ONETIME ONE Stop: 09/18/19 14:07 Last Admin: 09/18/19 14:17 Dose: 2 mg Lorazepam (Ativan) 1 mg IVPUSH ONETIME ONE Stop: 09/18/19 14:59 Last Admin: 09/18/19 15:14 Dose: 1 mg Morphine Sulfate (Morphine) 6 mg IVPUSH ONETIME ONE Stop: 09/17/19 22:25 Last Admin: 09/17/19 22:27 Dose: 6 mg Morphine Sulfate (Morphine) 2 mg IVPUSH Q4H PRN PRN Reason: Pain Last Admin: 09/18/19 13:53 Dose: 2 mg Ondansetron HCl (Zofran) 4 mg IVPUSH ONETIME ONE Stop: 09/17/19 20:01 Last Admin: 09/17/19 20:31 Dose: 4 mg Ondansetron HCl (Zofran) 4 mg IVPUSH ONETIME ONE Stop: 09/17/19 20:10 Last Admin: 09/17/19 20:15 Dose: Not Given Ondansetron HCl (Zofran) 4 mg IVPUSH ONETIME ONE Stop: 09/17/19 22:16 Last Admin: 09/17/19 22:19 Dose: 4 mg Potassium Chloride (Potassium Chloride) 40 meq PO ONETIME ONE Stop: 09/17/19 21:15 Last Admin: 09/17/19 22:15 Dose: 40 meq Sepsis Event Note - Focused Exam Vital Signs: Vital Signs Temp Resp BP Pulse Ox 09/20/19 10:00 23 H 120/84 93 L 09/20/19 09:00 37.1 C 22 H 131/82 91 L 09/20/19 08:00 18 123/68 91 L 09/20/19 07:00 19 92 L 09/20/19 06:00 21 H 139/90 94 L 09/20/19 05:00 37.3 C 19 140/92 H 94 L 09/20/19 04:00 37.9 C 17 135/85 93 L 09/20/19 03:00 12 142/88 H 91 L 09/20/19 02:00 18 122/79 92 L 09/20/19 01:00 37.1 C 23 H 145/99 H 94 L 09/20/19 00:00 37.9 C 25 H 136/89 91 L 09/19/19 23:00 24 H 137/88 92 L Date Exam was Performed: 09/20/19 Time Exam was Performed: 10:34 - Plan Plan:: I have seen and evaluated the patient and agree with the residents note unless specified in my note
--- NOTE | 2019-09-19 09:14 | PN ---
THC Physician - Brief Progress [id number]/29/2020 09:12[facility] Sara Medeiros, BETTY - JUDE (DAVIE) - MARLENEN SANJIV GRAYSONDate of Service 09/19/2019 09:12HPI/Events of Note eICU Progress [id number] admitted for EtOH withdrawal. History obtained primarily from review of EMR.Camera exam: Laying in bed. Vitals monitor reviewed.Labs: reviewedRadiology: reviewedeICU Impres river and Recommendations:Alcohol WithdrawalContinue alcohol withdrawal protocol per institutional tariq icy, including administration of PRN benzodiazepinesContinued telemetry monitoringThiamine supplement ation, 100mg dailyPancreatitis, suspect secondary to EtOH use, with downtrending lipasePain control p er primary serviceIntravenous fluids to maintain adequate urine output and euvolemiaOral intake as to leratedTransaminitis, given history likely secondary to EtOH hepatitis, improvingTrend LFTsDVT and GI prophylaxis as appropriate.Thank you for allowing us to participate in the care of this patient.The above note transcribed with the assistance of dictation software. Please excuse any errors.Interventi ons Major-Delirium, psychosis, severe agitation - evaluation and management
[2019-09-19] MEDS: Pantoprazole 40 MG in Sodium Chloride 0.9% 10 ML IV SCH ×2 (09:15→20:18)
[2019-09-19] MEDS: Heparin Sodium 5,000 Units/ML Vial SUBCUT SCH ×3 (09:15→23:59)
[2019-09-19] MEDS: Ketorolac 15 MG/ML SDV IVPUSH PRN ×2 (09:48→17:42)
[2019-09-19] MEDS: Albuterol/Ipratropium 3.0-0.5 MG/3 ML Neb Soln NEB SCH ×3 (11:11→23:12)
[2019-09-19] MEDS: Nystatin Crm 30 GM Tube TOP PRN (15:34)
[2019-09-19] MEDS: Folic Acid 1 MG Tab PO SCH (20:16)
[2019-09-19] MEDS: Thiamine 100 MG Tab PO SCH (20:17)
[2019-09-20] MEDS: LORazepam 2 MG/ML SDV IVPUSH PRN ×8 (00:04→16:59)
[2019-09-20] MEDS: Ketorolac 15 MG/ML SDV IVPUSH PRN ×2 (01:05→07:35)
[2019-09-20] MEDS: chlordiazePOXIDE 25 MG Cap PO SCH ×3 (04:36→21:58)
[2019-09-20] MEDS: Lactated Ringers 1,000 ML IV SCH (05:44)
[2019-09-20] MEDS: Albuterol/Ipratropium 3.0-0.5 MG/3 ML Neb Soln NEB SCH ×4 (06:05→23:05)
[2019-09-20 06:41] LABS: BLOOD UREA NITROGEN,BUN 8 mg/dL (7.0-18.0); CARBON DIOXIDE,CO2 24.3 mmol/L (21.0-32.0); CHLORIDE,CL 98 mmol/L (98-107); GLUCOSE RANDOM 112 mg/dL (74-106); LIPASE 1072 U/L (73-393); POTASSIUM,K 3.5 mmol/L (3.5-5.1); SODIUM,NA 132 mmol/L (136-148)
[2019-09-20] MEDS ORDERED: Magnesium Sulfate/Water 2 GM in Premix Bag 1 BAG IV ONE (07:45)
--- NOTE | 2019-09-20 08:06 | PCM.PN ---
<Nilam Taylor - Last Filed: 09/20/19 10:31> - General Info Date of Service: 09/20/19 Subjective Update: Patient states he feels a little better compared to yesterday. Still has some RUQ pain. No longer having hallucinations. Nursing reports wet cough. Desatted to 88-89% when attempting to wean off oxygen, back on 2.5 L - Review of Systems General: Reports: No Symptoms HEENT: Reports: No Symptoms Pulmonary: Reports: Cough Gastrointestinal: Reports: Abdominal Pain Genitourinary: Reports: No Symptoms Musculoskeletal: Reports: No Symptoms Skin: Reports: No Symptoms Neurological: Reports: No Symptoms Psychiatric: Denies: Hallucinations - Patient Data Vitals - Most Recent: Last Vital Signs Temp 99.1 F 09/20/19 05:00 Pulse 123 H 09/18/19 16:00 Resp 19 09/20/19 07:00 BP 139/90 09/20/19 06:00 Pulse Ox 92 L 09/20/19 07:00 Weight - Most Recent: 112.2 kg I&O - Last 24 Hours: Intake & Output 09/19/19 09/20/19 09/20/19 22:59 06:59 14:59 Intake Total 2319 3040 Output Total 600 2325 Balance 1719 715 Lab Results Last 24 Hours: Laboratory Results - last 24 hr 09/20/19 09/20/19 Range/Units 06:00 06:00 WBC 9.49 (4.0-11.0) K/uL RBC 4.02 L (4.50-5.90) M/uL Hgb 13.3 (13.0-17.0) g/dL Hct 38.9 (38.0-50.0) % MCV 96.8 (80.0-98.0) fL MCH 33.1 H (27.0-32.0) pg MCHC 34.2 (31.0-37.0) g/dL RDW Std Deviation 50.7 (28.0-62.0) fl RDW Coeff of Julissa 14 (11.0-15.0) % Plt Count 146 L (150-400) K/uL MPV 11.80 (7.40-12.00) fL Add Manual Diff YES Neutrophils % (Manual) 65 (48.0-80.0) % Band Neutrophils % 1 % Lymphocytes % (Manual) 12 L (16.0-40.0) % Monocytes % (Manual) 18 H (0.0-15.0) % Eosinophils % (Manual) 4 (0.0-7.0) % Nucleated RBC % 0.6 /100WBC Absolute Seg Neuts 6.2 H (1.4-5.7) Band Neutrophils # 0.1 Lymphocytes # (Manual) 1.1 (0.6-2.4) Monocytes # (Manual) 1.7 H (0.0-0.8) Eosinophils # (Manual) 0.4 (0.0-0.7) Nucleated RBCs # 0 K/uL Sodium 132 L (136-148) mmol/L Potassium 3.5 (3.5-5.1) mmol/L Chloride 98 (98-107) mmol/L Carbon Dioxide 24.3 (21.0-32.0) mmol/L BUN 8 (7.0-18.0) mg/dL Creatinine 0.8 (0.8-1.3) mg/dL Est Cr Clr Drug Dosing 123.46 mL/min Estimated GFR (MDRD) > 60.0 ml/min Glucose 112 H (74-106) mg/dL Calcium 7.7 L (8.5-10.1) mg/dL Magnesium 1.6 L (1.8-2.4) mg/dL Total Bilirubin 1.0 (0.2-1.0) mg/dL AST 135 H (15-37) IU/L ALT 135 H (14-63) IU/L Alkaline Phosphatase 117 H (46-116) U/L Total Protein 6.3 L (6.4-8.2) g/dL Albumin 2.3 L (3.4-5.0) g/dL Globulin 4.0 (2.6-4.0) g/dL Albumin/Globulin Ratio 0.6 L (0.9-1.6) Lipase 1072 H (73-393) U/L Med Orders - Current: Current Medications Albuterol/Ipratropium (Duoneb 3.0-0.5 Mg/3 Ml) 3 ml NEB Q6HRRT [facility] Last Admin: 09/20/19 06:05 Dose: 3 ml Chlordiazepoxide HCl (Librium) 100 mg PO Q8H [facility] Last Admin: 09/20/19 04:36 Dose: 100 mg Folic Acid (Folic Acid) 1 mg PO BEDTIME [facility] Last Admin: 09/19/19 20:16 Dose: 1 mg Heparin Sodium (Porcine) (Heparin Sodium) 5,000 units SUBCUT Q8H [facility] Last Admin: 09/19/19 23:59 Dose: 5,000 units Pantoprazole Sodium 40 mg/ (Sodium Chloride) 10 mls @ 300 mls/hr IV BID [facility] Last Admin: 09/19/19 20:18 Dose: 300 mls/hr Lactated Ringer's (Ringers, Lactated) 1,000 mls @ 175 mls/hr IV ASDIRECTED [facility] Last Admin: 09/20/19 05:44 Dose: 175 mls/hr Magnesium Sulfate 2 gm/ Premix 50 mls @ 50 mls/hr IV ONETIME ONE Stop: 09/20/19 08:44 Last Admin: 09/20/19 08:02 Dose: 50 mls/hr Ketorolac Tromethamine (Toradol) 15 mg IVPUSH Q6H PRN PRN Reason: Pain Stop: 09/24/19 09:26 Last Admin: 09/20/19 07:35 Dose: 15 mg Lorazepam (Ativan) 0 mg IVPUSH Q4H PRN; Protocol PRN Reason: Withdrawal Symptoms Last Admin: 09/20/19 07:25 Dose: 2 mg Nystatin (Nystatin Crm) 0 gm TOP QID PRN PRN Reason: Rash Last Admin: 09/19/19 15:34 Dose: 1 applic Ondansetron HCl (Zofran) 4 mg IVPUSH Q4H PRN PRN Reason: Nausea/Vomiting Last Admin: 09/18/19 13:51 Dose: 4 mg Sodium Chloride (Saline Flush) 10 ml FLUSH ASDIRECTED PRN PRN Reason: Keep Vein Open Sodium Chloride (Saline Flush) 2.5 ml FLUSH ASDIRECTED PRN PRN Reason: Keep Vein Open Thiamine HCl (Vitamin B-1) 100 mg PO BEDTIME [facility] Last Admin: 09/19/19 20:17 Dose: 100 mg Discontinued Medications Chlordiazepoxide HCl (Librium) 25 mg PO QID PRN PRN Reason: Withdrawal Symptoms Last Admin: 09/18/19 14:27 Dose: 25 mg Chlordiazepoxide HCl (Librium) 25 mg PO Q8H [facility] Last Admin: 09/18/19 20:55 Dose: 25 mg Chlordiazepoxide HCl (Librium) 75 mg PO ONETIME ONE Stop: 09/18/19 21:16 Last Admin: 09/18/19 21:49 Dose: 75 mg Diazepam (Valium) 50 mg IVPUSH ONETIME ONE Stop: 09/18/19 14:12 Last Admin: 09/18/19 14:41 Dose: Not Given Sodium Chloride (Normal Saline) 1,000 mls @ 999 mls/hr IV STAT ONE Stop: 09/17/19 21:00 Last Admin: 09/17/19 20:26 Dose: 999 mls/hr Pantoprazole Sodium 80 mg/ (Sodium Chloride) 20 mls @ 420 mls/hr IVPUSH ONETIME ONE Stop: 09/17/19 20:11 Last Admin: 09/17/19 20:26 Dose: 420 mls/hr Sodium Chloride (Normal Saline) 1,000 mls @ 999 mls/hr IV STAT ONE Stop: 09/17/19 21:09 Last Admin: 09/17/19 20:14 Dose: Not Given Multivitamins/Minerals 10 ml/Thiamine HCl 100 mg/ Folic Acid 1 mg/ Sodium Chloride 1,011.2 mls @ 125 mls/hr IV ONETIME ONE Stop: 09/18/19 05:19 Last Admin: 09/17/19 22:15 Dose: 125 mls/hr Lactated Ringer's (Ringers, Lactated) 1,000 mls @ 125 mls/hr IV ASDIRECTED [facility] Last Admin: 09/18/19 14:33 Dose: 125 mls/hr Pantoprazole Sodium 40 mg/ (Sodium Chloride) 10 mls @ 300 mls/hr IV DAILY [facility] Last Admin: 09/18/19 08:07 Dose: 300 mls/hr Magnesium Sulfate 4 gm/ Premix 100 mls @ 25 mls/hr IV ONETIME ONE Stop: 09/18/19 11:15 Last Admin: 09/18/19 08:01 Dose: 25 mls/hr Magnesium Sulfate 4 gm/ Premix 100 mls @ 33.333 mls/hr IV ONETIME ONE Stop: 09/19/19 10:18 Last Admin: 09/19/19 07:50 Dose: 33.333 mls/hr Iopamidol (Isovue-370 (76%)) 100 ml IVPUSH ONETIME ONE Stop: 09/17/19 21:57 Last Admin: 09/17/19 21:56 Dose: 100 ml Lorazepam (Ativan) 2 mg IVPUSH ONETIME ONE Stop: 09/18/19 14:07 Last Admin: 09/18/19 14:17 Dose: 2 mg Lorazepam (Ativan) 1 mg IVPUSH ONETIME ONE Stop: 09/18/19 14:59 Last Admin: 09/18/19 15:14 Dose: 1 mg Morphine Sulfate (Morphine) 6 mg IVPUSH ONETIME ONE Stop: 09/17/19 22:25 Last Admin: 09/17/19 22:27 Dose: 6 mg Morphine Sulfate (Morphine) 2 mg IVPUSH Q4H PRN PRN Reason: Pain Last Admin: 09/18/19 13:53 Dose: 2 mg Ondansetron HCl (Zofran) 4 mg IVPUSH ONETIME ONE Stop: 09/17/19 20:01 Last Admin: 09/17/19 20:31 Dose: 4 mg Ondansetron HCl (Zofran) 4 mg IVPUSH ONETIME ONE Stop: 09/17/19 20:10 Last Admin: 09/17/19 20:15 Dose: Not Given Ondansetron HCl (Zofran) 4 mg IVPUSH ONETIME ONE Stop: 09/17/19 22:16 Last Admin: 09/17/19 22:19 Dose: 4 mg Potassium Chloride (Potassium Chloride) 40 meq PO ONETIME ONE Stop: 09/17/19 21:15 Last Admin: 09/17/19 22:15 Dose: 40 meq - Exam Quality Assessment: Supplemental Oxygen General: Alert, Cooperative Lungs: Normal Respiratory Effort, Crackles Cardiovascular: Regular Rate, Regular Rhythm GI/Abdominal Exam: Normal Bowel Sounds, Soft, Non-Tender Extremities: No Pedal Edema Skin: Warm, Dry Neurological: No New Focal Deficit Psy/Mental Status: Alert, Withdrawal Symptoms Sepsis Event Note - Evaluation Sepsis Screening Result: No Definite Risk - Focused Exam Vital Signs: Vital Signs Temp Resp BP Pulse Ox 09/20/19 07:00 19 92 L 09/20/19 06:00 21 H 139/90 94 L 09/20/19 05:00 99.1 F 19 140/92 H 94 L 09/20/19 04:00 100.2 F 17 135/85 93 L 09/20/19 03:00 12 142/88 H 91 L 09/20/19 02:00 18 122/79 92 L 09/20/19 01:00 98.8 F 23 H 145/99 H 94 L 09/20/19 00:00 100.2 F 25 H 136/89 91 L 09/19/19 23:00 24 H 137/88 92 L 09/19/19 22:00 24 H 148/86 H 92 L 09/19/19 21:00 22 H 147/103 H 94 L Date Exam was Performed: 09/20/19 Time Exam was Performed: 10:31 - Problem List Review Problem List Initiated/Reviewed/Updated: Yes - My Orders Last 24 Hours: My Active Orders 09/19/19 09:21 RT Aerosol Therapy [RC] ASDIRECTED 09/19/19 09:25 Ketorolac [Toradol] 15 mg IVPUSH Q6H PRN 09/19/19 12:00 Albuterol/Ipratropium [DuoNeb 3.0-0.5 MG/3 ML] 3 ml NEB Q6HRRT 09/19/19 15:25 Nystatin [Nystatin Crm] See Dose Instructions TOP QID PRN 09/20/19 07:45 Magnesium Sulfate/Water [Magnesium Sulfate in Water Premix] 2 gm Premix Bag 1 bag IV ONETIME 09/21/19 05:11 CBC WITH AUTO DIFF [HEME] AM COMPREHENSIVE METABOLIC PN,CMP [CHEM] AM LIPASE [CHEM] AM MAGNESIUM [CHEM] AM - Plan Plan:: 1. Acute pancreatitis likely secondary to alcohol use- improving. No elevated triglycerides, US showed single gallstone but no duct dilation, no GB thickening, and small pancreatic mass. They recommend [address] for further evaluation, this will be done on outpatient basis. On clear liquids, Toradol, zofran. Will need outpatient general surgery consult for gallstone and pancreatic mass. 2. Transaminitis- likely secondary to alcohol use- Hepatitis panel negative, continue to monitor levels 3. Alcohol withdrawal- CIWAA/Ativan protocol,continue Librium 100 TID. Continue thiamine and folic acid. 4. Hyomagnesemia- improved- replace and recheck in AM. 5. Oxygen requirement- smoking history, may have COPD. Will start duonebs and attempt to wean. Repeat CXR showed nothing acute. Crackles heard on exam - will give one time dose of Lasix. Hold IVF for now. <Matheus Spencer - Last Filed: 09/20/19 10:37> - Patient Data Vitals - Most Recent: Last Vital Signs Temp 37.1 C 09/20/19 09:00 Pulse 123 H 09/18/19 16:00 Resp 23 H 09/20/19 10:00 BP 120/84 09/20/19 10:00 Pulse Ox 93 L 09/20/19 10:00 I&O - Last 24 Hours: Intake & Output 09/19/19 09/20/19 09/20/19 22:59 06:59 14:59 Intake Total 2319 3040 1046 Output Total 600 2325 Balance 1848 405 5045 Lab Results Last 24 Hours: Laboratory Results - last 24 hr 09/18/19 09/20/19 09/20/19 Range/Units 10:50 06:00 06:00 WBC 9.49 (4.0-11.0) K/uL RBC 4.02 L (4.50-5.90) M/uL Hgb 13.3 (13.0-17.0) g/dL Hct 38.9 (38.0-50.0) % MCV 96.8 (80.0-98.0) fL MCH 33.1 H (27.0-32.0) pg MCHC 34.2 (31.0-37.0) g/dL RDW Std Deviation 50.7 (28.0-62.0) fl RDW Coeff of Julissa 14 (11.0-15.0) % Plt Count 146 L (150-400) K/uL MPV 11.80 (7.40-12.00) fL Add Manual Diff YES Neutrophils % (Manual) 65 (48.0-80.0) % Band Neutrophils % 1 % Lymphocytes % (Manual) 12 L (16.0-40.0) % Monocytes % (Manual) 18 H (0.0-15.0) % Eosinophils % (Manual) 4 (0.0-7.0) % Nucleated RBC % 0.6 /100WBC Absolute Seg Neuts 6.2 H (1.4-5.7) Band Neutrophils # 0.1 Lymphocytes # (Manual) 1.1 (0.6-2.4) Monocytes # (Manual) 1.7 H (0.0-0.8) Eosinophils # (Manual) 0.4 (0.0-0.7) Nucleated RBCs # 0 K/uL Sodium 132 L (136-148) mmol/L Potassium 3.5 (3.5-5.1) mmol/L Chloride 98 (98-107) mmol/L Carbon Dioxide 24.3 (21.0-32.0) mmol/L BUN 8 (7.0-18.0) mg/dL Creatinine 0.8 (0.8-1.3) mg/dL Est Cr Clr Drug Dosing 123.46 mL/min Estimated GFR (MDRD) > 60.0 ml/min Glucose 112 H (74-106) mg/dL Calcium 7.7 L (8.5-10.1) mg/dL Magnesium 1.6 L (1.8-2.4) mg/dL Total Bilirubin 1.0 (0.2-1.0) mg/dL AST 135 H (15-37) IU/L ALT 135 H (14-63) IU/L Alkaline Phosphatase 117 H (46-116) U/L Total Protein 6.3 L (6.4-8.2) g/dL Albumin 2.3 L (3.4-5.0) g/dL Globulin 4.0 (2.6-4.0) g/dL Albumin/Globulin Ratio 0.6 L (0.9-1.6) Lipase 1072 H (73-393) U/L Hepatitis A IgM Ab Negative (Negative) Hep Bs Antigen Negative (Negative) Hep B Core IgM Ab Negative (Negative) Hepatitis C Antibody <0.1 (0.0-0.9) s/co ratio Med Orders - Current: Current Medications Albuterol/Ipratropium (Duoneb 3.0-0.5 Mg/3 Ml) 3 ml NEB Q6HRRT [facility] Last Admin: 09/20/19 06:05 Dose: 3 ml Chlordiazepoxide HCl (Librium) 100 mg PO Q8H [facility] Last Admin: 09/20/19 04:36 Dose: 100 mg Folic Acid (Folic Acid) 1 mg PO BEDTIME [facility] Last Admin: 05/29/20 20:16 Dose: 1 mg Heparin Sodium (Porcine) (Heparin Sodium) 5,000 units SUBCUT Q8H [facility] Last Admin: 09/20/19 09:31 Dose: 5,000 units Pantoprazole Sodium 40 mg/ (Sodium Chloride) 10 mls @ 300 mls/hr IV BID [facility] Last Admin: 09/20/19 09:30 Dose: 300 mls/hr Ketorolac Tromethamine (Toradol) 30 mg IVPUSH Q6H PRN PRN Reason: Pain Stop: 09/24/19 09:26 Lorazepam (Ativan) 0 mg IVPUSH Q4H PRN; Protocol PRN Reason: Withdrawal Symptoms Last Admin: 09/20/19 09:26 Dose: 2 mg Nystatin (Nystatin Crm) 0 gm TOP QID PRN PRN Reason: Rash Last Admin: 09/19/19 15:34 Dose: 1 applic Ondansetron HCl (Zofran) 4 mg IVPUSH Q4H PRN PRN Reason: Nausea/Vomiting Last Admin: 09/18/19 13:51 Dose: 4 mg Sodium Chloride (Saline Flush) 10 ml FLUSH ASDIRECTED PRN PRN Reason: Keep Vein Open Sodium Chloride (Saline Flush) 2.5 ml FLUSH ASDIRECTED PRN PRN Reason: Keep Vein Open Thiamine HCl (Vitamin B-1) 100 mg PO BEDTIME [facility] Last Admin: 09/19/19 20:17 Dose: 100 mg Discontinued Medications Chlordiazepoxide HCl (Librium) 25 mg PO QID PRN PRN Reason: Withdrawal Symptoms Last Admin: 09/18/19 14:27 Dose: 25 mg Chlordiazepoxide HCl (Librium) 25 mg PO Q8H [facility] Last Admin: 09/18/19 20:55 Dose: 25 mg Chlordiazepoxide HCl (Librium) 75 mg PO ONETIME ONE Stop: 09/18/19 21:16 Last Admin: 09/18/19 21:49 Dose: 75 mg Diazepam (Valium) 50 mg IVPUSH ONETIME ONE Stop: 09/18/19 14:12 Last Admin: 09/18/19 14:41 Dose: Not Given Furosemide (Lasix) 20 mg IVPUSH NOW ONE Stop: 09/20/19 10:32 Sodium Chloride (Normal Saline) 1,000 mls @ 999 mls/hr IV STAT ONE Stop: 09/17/19 21:00 Last Admin: 09/17/19 20:26 Dose: 999 mls/hr Pantoprazole Sodium 80 mg/ (Sodium Chloride) 20 mls @ 420 mls/hr IVPUSH ONETIME ONE Stop: 09/17/19 20:11 Last Admin: 09/17/19 20:26 Dose: 420 mls/hr Sodium Chloride (Normal Saline) 1,000 mls @ 999 mls/hr IV STAT ONE Stop: 09/17/19 21:09 Last Admin: 09/17/19 20:14 Dose: Not Given Multivitamins/Minerals 10 ml/Thiamine HCl 100 mg/ Folic Acid 1 mg/ Sodium Chloride 1,011.2 mls @ 125 mls/hr IV ONETIME ONE Stop: 09/18/19 05:19 Last Admin: 09/17/19 22:15 Dose: 125 mls/hr Lactated Ringer's (Ringers, Lactated) 1,000 mls @ 125 mls/hr IV ASDIRECTED [facility] Last Admin: 09/18/19 14:33 Dose: 125 mls/hr Pantoprazole Sodium 40 mg/ (Sodium Chloride) 10 mls @ 300 mls/hr IV DAILY [facility] Last Admin: 09/18/19 08:07 Dose: 300 mls/hr Magnesium Sulfate 4 gm/ Premix 100 mls @ 25 mls/hr IV ONETIME ONE Stop: 09/18/19 11:15 Last Admin: 09/18/19 08:01 Dose: 25 mls/hr Lactated Ringer's (Ringers, Lactated) 1,000 mls @ 175 mls/hr IV ASDIRECTED [facility] Last Admin: 09/20/19 05:44 Dose: 175 mls/hr Magnesium Sulfate 4 gm/ Premix 100 mls @ 33.333 mls/hr IV ONETIME ONE Stop: 09/19/19 10:18 Last Admin: 09/19/19 07:50 Dose: 33.333 mls/hr Magnesium Sulfate 2 gm/ Premix 50 mls @ 50 mls/hr IV ONETIME ONE Stop: 09/20/19 08:44 Last Admin: 09/20/19 08:02 Dose: 50 mls/hr Iopamidol (Isovue-370 (76%)) 100 ml IVPUSH ONETIME ONE Stop: 09/17/19 21:57 Last Admin: 09/17/19 21:56 Dose: 100 ml Ketorolac Tromethamine (Toradol) 15 mg IVPUSH Q6H PRN PRN Reason: Pain Stop: 09/24/19 09:26 Last Admin: 09/20/19 07:35 Dose: 15 mg Lorazepam (Ativan) 2 mg IVPUSH ONETIME ONE Stop: 09/18/19 14:07 Last Admin: 09/18/19 14:17 Dose: 2 mg Lorazepam (Ativan) 1 mg IVPUSH ONETIME ONE Stop: 09/18/19 14:59 Last Admin: 09/18/19 15:14 Dose: 1 mg Morphine Sulfate (Morphine) 6 mg IVPUSH ONETIME ONE Stop: 09/17/19 22:25 Last Admin: 09/17/19 22:27 Dose: 6 mg Morphine Sulfate (Morphine) 2 mg IVPUSH Q4H PRN PRN Reason: Pain Last Admin: 09/18/19 13:53 Dose: 2 mg Ondansetron HCl (Zofran) 4 mg IVPUSH ONETIME ONE Stop: 09/17/19 20:01 Last Admin: 09/17/19 20:31 Dose: 4 mg Ondansetron HCl (Zofran) 4 mg IVPUSH ONETIME ONE Stop: 09/17/19 20:10 Last Admin: 09/17/19 20:15 Dose: Not Given Ondansetron HCl (Zofran) 4 mg IVPUSH ONETIME ONE Stop: 09/17/19 22:16 Last Admin: 09/17/19 22:19 Dose: 4 mg Potassium Chloride (Potassium Chloride) 40 meq PO ONETIME ONE Stop: 09/17/19 21:15 Last Admin: 09/17/19 22:15 Dose: 40 meq Sepsis Event Note - Focused Exam Vital Signs: Vital Signs Temp Resp BP Pulse Ox 09/20/19 10:00 23 H 120/84 93 L 09/20/19 09:00 37.1 C 22 H 131/82 91 L 09/20/19 08:00 18 123/68 91 L 09/20/19 07:00 19 92 L 09/20/19 06:00 21 H 139/90 94 L 09/20/19 05:00 37.3 C 19 140/92 H 94 L 09/20/19 04:00 37.9 C 17 135/85 93 L 09/20/19 03:00 12 142/88 H 91 L 09/20/19 02:00 18 122/79 92 L 09/20/19 01:00 37.1 C 23 H 145/99 H 94 L 09/20/19 00:00 37.9 C 25 H 136/89 91 L 09/19/19 23:00 24 H 137/88 92 L Date Exam was Performed: 09/20/19 Time Exam was Performed: 10:35 - Plan Plan:: I have seen and evaluated the patient and agree with the residents note unless specified in my note
[2019-09-20] MEDS: Pantoprazole 40 MG in Sodium Chloride 0.9% 10 ML IV SCH ×2 (09:30→20:33)
[2019-09-20] MEDS: Heparin Sodium 5,000 Units/ML Vial SUBCUT SCH ×3 (09:31→23:54)
--- NOTE | 2019-09-20 10:22 | CR ---
Indication: Hypoxia. Technique: AP portable view of the chest. Comparison: September 17, 2019. Findings: The heart is normal in size. Left basilar atelectasis identified. No infiltrate, pleural effusion, or pneumothorax is identified. Impression: Stable chest x-ray Dictated by Irina Pinto MD @ Sep 20 2019 10:20AM Signed by Dr. Irina Pinto @ Sep 20 2019 10:21AM
[2019-09-20] MEDS ORDERED: Furosemide 40 MG/4 ML VIAL IVPUSH ONE (10:31)
[2019-09-20] MEDS: Ketorolac 30 MG/ML SDV IVPUSH PRN (13:33)
--- NOTE | 2019-09-20 13:55 | PN ---
THC Physician - Brief Progress AxaeLHAVDZZYT47/30/2020 13:32[facility] Sara Medeiros, [place] - [facility] - MWN SANJIV GRAYSONAvDate of Service 09/20/2019 13:32HPI/Events of Note eICU Progress NotePt is a 49 yo M originally admitted on 09/17 for ETOH withdrawl. He chose to actively go through withdrawls and may consider treatement after hospitalization. He is improved but delerious. Dr. Moser is obtaining an EKG and if his QT isn't prolonged, she wants to start him on Se roquel tonight. His lipase today is 1072 and his electrolytes are being replaced. He is up in a chair and resopnsive despite somnolence. He has a tremor with movement and a HR of 110. His SpO2 is 92% on O2 via NC, but is otherwise stable. Case was discussed with his nurse Lydia. eICU Recommendations: 1) Continue CIWA Protocol2) PRN Electrolyte replacement3) Wean O2 via NC to maintain SpO2 >94%4) Tren d Lipase/LFTs daily5) Daily MVI, Thiamine, B16) IVF until regular po intake is tolerated and Lipase n ormalizes7) Seroquel to likely start tonight pending EKG results8) Provide supportive treatement opti ons after hospitalization as available during pandemic9) GI/DVT prophylaxisThank you for allowing us to participate in the care of your patient.Interventions Major-Delirium, psychosis, severe agitation - evaluation and ekqbxlzjldQmzilxxgkcsn-Tcuy-cfkwostv therapies (e.g. VTE, beta waqar, etc.), Commu nication with other healthcare providers and/or family
[2019-09-20] MEDS: Sodium Chloride 0.9% 1,000 ML IV SCH ×2 (14:05→22:17)
[2019-09-20] MEDS: Folic Acid 1 MG Tab PO SCH (21:29)
[2019-09-20] MEDS: Thiamine 100 MG Tab PO SCH (21:32)
[2019-09-21] MEDS: LORazepam 2 MG/ML SDV IVPUSH PRN ×7 (01:07→20:51)
[2019-09-21] MEDS: chlordiazePOXIDE 25 MG Cap PO SCH ×2 (04:32→20:01)
[2019-09-21] MEDS: Ketorolac 30 MG/ML SDV IVPUSH PRN ×2 (05:24→20:18)
[2019-09-21] MEDS: Docusate Sodium 100 MG Cap PO PRN ×2 (05:24→17:17)
[2019-09-21] MEDS: Albuterol/Ipratropium 3.0-0.5 MG/3 ML Neb Soln NEB SCH ×4 (05:59→23:10)
[2019-09-21] MEDS: Sodium Chloride 0.9% 1,000 ML IV SCH ×3 (06:22→22:45)
[2019-09-21 06:23] LABS: BLOOD UREA NITROGEN,BUN 7 mg/dL (7.0-18.0); CARBON DIOXIDE,CO2 23.2 mmol/L (21.0-32.0); CHLORIDE,CL 102 mmol/L (98-107); GLUCOSE RANDOM 128 mg/dL (74-106); LIPASE 876 U/L (73-393); POTASSIUM,K 3.3 mmol/L (3.5-5.1); SODIUM,NA 135 mmol/L (136-148)
[2019-09-21] MEDS: Heparin Sodium 5,000 Units/ML Vial SUBCUT SCH ×2 (08:40→17:15)
[2019-09-21] MEDS: Pantoprazole 40 MG in Sodium Chloride 0.9% 10 ML IV SCH ×2 (08:41→20:02)
--- NOTE | 2019-09-21 10:09 | PN ---
DEONDRE Physician - Brief Progress [id number]/31/2020 09:32[facility] Sara Medeiros, [place] - MWN ([facility]NA[facility]) - MWN SANJIV GRAYSONDate of Service 09/21/2019 09:32HPI/Events of Note eICU Progress NotePt is a 49 yo M originally admitted on 09/17 for ETOH withdrawl. He chose to actively go through withdrawls and may consider treatement after hospitalization. Yesterday, he was started on Seroquel 100 mg TID for his delerium. Today, he is very subdued and mumbling. His Ativan r equirements yesterday were 10 mg, but today so far they are only 2 mg. He will likely benefit from a reduced dose of the Seroquel and when Dr. Rock arrives on the unit, I'm hoping she and I can speak further re: the plan of care. Dr. Rock is also considering a CT of the head if needed. His lipase today is 876 down from 1072 and his electrolytes continue to be replaced. He is up in a chair but gr abbing at the air and very slow in movement with mumbling for a verbal response. He remains on O2 via NC for a SpO2 of only 90%. His case was discussed with his nurse Ovidio.eICU Recommendations:1) Cont inue CIWA Protocol2) PRN Electrolyte replacement3) O2 via NC to maintain SpO2 >94%4) Trend Lipase/LFT s daily5) Daily MVI, Thiamine, B16) IVF until regular po intake is tolerated and Lipase normalizes7) Decrease Seroquel to 25 mg Q HS or BID to see if that dosing is enough as his withdrawls improve8) Co nsider CT of the head if MS does not improve off Seroquel on minimal CIWA9) May consider long acting low dose benzo for further treatment instead of [id number]) Will f/u with attending re: plan of care1 1) Provide supportive treatement options after hospitalization as available during zollbalr51) GI/DVT prophylaxisThank you for allowing us to participate in the care of your patient.Interventions Major- Delirium, psychosis, severe agitation - evaluation and mqeytjrwlsHovgnmjtbzrh-Crnl-elqrrxwi therapies (e.g. VTE, beta waqar, etc.), Communication with other healthcare providers and/or family, Medicat ion change / dose adjustment
--- NOTE | 2019-09-21 11:11 | PCM.PN ---
- General Info Date of Service: 09/21/19 Admission Dx/Problem (Free Text): Admission Diagnosis/Problem Admission Diagnosis/Problem Pancreatitis Subjective Update: Patient states he feels a little better compared to yesterday. No longer having hallucinations. Tremor has improved, requiring less doses of ativan today. - Review of Systems General: Reports: Weakness, Fatigue. Denies: Fever HEENT: Denies: Dysphasia, Ear Pain Pulmonary: Reports: Cough. Denies: Shortness of Breath, Pleuritic Chest Pain, Hemoptysis, Wheezing Cardiovascular: Denies: Chest Pain, Palpitations Gastrointestinal: Reports: Abdominal Pain, Decreased Appetite. Denies: Constipation Genitourinary: Reports: Retention. Denies: Dysuria, Frequency Musculoskeletal: Denies: Neck Pain, Arm Pain, Hand Pain Skin: Denies: Cyanosis, Jaundice, Mottled Neurological: Reports: Confusion, Weakness, Change in Speech (due to meds) Psychiatric: Denies: Confusion, Depression, Mood Lability - Patient Data Vitals - Most Recent: Last Vital Signs Temp 36.6 C 09/21/19 08:00 Pulse 116 H 09/20/19 12:00 Resp 19 09/21/19 11:00 BP 141/91 H 09/21/19 11:00 Pulse Ox 91 L 09/21/19 11:00 Weight - Most Recent: 111.4 kg I&O - Last 24 Hours: Intake & Output 09/20/19 09/21/19 09/21/19 22:59 06:59 14:59 Intake Total 1336 2360 10 Output Total 2713 2200 870 Balance -1377 160 -860 Lab Results Last 24 Hours: Laboratory Results - last 24 hr 09/21/19 09/21/19 Range/Units 05:45 05:45 WBC 9.41 (4.0-11.0) K/uL RBC 3.88 L (4.50-5.90) M/uL Hgb 12.8 L (13.0-17.0) g/dL Hct 37.6 L (38.0-50.0) % MCV 96.9 (80.0-98.0) fL MCH 33.0 H (27.0-32.0) pg MCHC 34.0 (31.0-37.0) g/dL RDW Std Deviation 51.3 (28.0-62.0) fl RDW Coeff of Julissa 14 (11.0-15.0) % Plt Count 213 (150-400) K/uL MPV 11.30 (7.40-12.00) fL Add Manual Diff YES Neutrophils % (Manual) 63 (48.0-80.0) % Lymphocytes % (Manual) 15 L (16.0-40.0) % Monocytes % (Manual) 16 H (0.0-15.0) % Eosinophils % (Manual) 4 (0.0-7.0) % Basophils % (Manual) 2 H (0.0-1.5) % Nucleated RBC % 0.0 /100WBC Absolute Seg Neuts 5.9 H (1.4-5.7) Lymphocytes # (Manual) 1.4 (0.6-2.4) Monocytes # (Manual) 1.5 H (0.0-0.8) Eosinophils # (Manual) 0.4 (0.0-0.7) Basophils # (Manual) 0.2 H (0.0-0.1) Nucleated RBCs # 0 K/uL Sodium 135 L (136-148) mmol/L Potassium 3.3 L (3.5-5.1) mmol/L Chloride 102 (98-107) mmol/L Carbon Dioxide 23.2 (21.0-32.0) mmol/L BUN 7 (7.0-18.0) mg/dL Creatinine 0.8 (0.8-1.3) mg/dL Est Cr Clr Drug Dosing 123.46 mL/min Estimated GFR (MDRD) > 60.0 ml/min Glucose 128 H (74-106) mg/dL Calcium 7.1 L (8.5-10.1) mg/dL Magnesium 1.6 L (1.8-2.4) mg/dL Total Bilirubin 0.9 (0.2-1.0) mg/dL AST 89 H (15-37) IU/L ALT 120 H (14-63) IU/L Alkaline Phosphatase 106 (46-116) U/L Total Protein 5.9 L (6.4-8.2) g/dL Albumin 2.2 L (3.4-5.0) g/dL Globulin 3.7 (2.6-4.0) g/dL Albumin/Globulin Ratio 0.6 L (0.9-1.6) Lipase 876 H (73-393) U/L Med Orders - Current: Current Medications Albuterol/Ipratropium (Duoneb 3.0-0.5 Mg/3 Ml) 3 ml NEB Q6HRRT [facility] Last Admin: 09/21/19 05:59 Dose: 3 ml Chlordiazepoxide HCl (Librium) 100 mg PO Q8H [facility] Last Admin: 09/21/19 04:32 Dose: 100 mg Docusate Sodium (Colace) 100 mg PO BID PRN PRN Reason: Constipation Last Admin: 09/21/19 05:24 Dose: 100 mg Folic Acid (Folic Acid) 1 mg PO BEDTIME [facility] Last Admin: 09/20/19 21:29 Dose: 1 mg Heparin Sodium (Porcine) (Heparin Sodium) 5,000 units SUBCUT Q8H [facility] Last Admin: 09/21/19 08:40 Dose: 5,000 units Pantoprazole Sodium 40 mg/ (Sodium Chloride) 10 mls @ 300 mls/hr IV BID [facility] Last Admin: 09/21/19 08:41 Dose: 300 mls/hr Sodium Chloride (Normal Saline) 1,000 mls @ 125 mls/hr IV ASDIRECTED [facility] Last Admin: 09/21/19 06:22 Dose: 125 mls/hr Ketorolac Tromethamine (Toradol) 30 mg IVPUSH Q6H PRN PRN Reason: Pain Stop: 09/24/19 09:26 Last Admin: 09/21/19 05:24 Dose: 30 mg Lorazepam (Ativan) 0 mg IVPUSH Q4H PRN; Protocol PRN Reason: Withdrawal Symptoms Last Admin: 09/21/19 09:31 Dose: 1 mg Nystatin (Nystatin Crm) 0 gm TOP QID PRN PRN Reason: Rash Last Admin: 09/19/19 15:34 Dose: 1 applic Ondansetron HCl (Zofran) 4 mg IVPUSH Q4H PRN PRN Reason: Nausea/Vomiting Last Admin: 09/18/19 13:51 Dose: 4 mg Quetiapine Fumarate (Seroquel) 100 mg PO TID [facility] Last Admin: 09/21/19 05:24 Dose: 100 mg Sodium Chloride (Saline Flush) 10 ml FLUSH ASDIRECTED PRN PRN Reason: Keep Vein Open Last Admin: 09/20/19 12:29 Dose: 10 ml Sodium Chloride (Saline Flush) 2.5 ml FLUSH ASDIRECTED PRN PRN Reason: Keep Vein Open Thiamine HCl (Vitamin B-1) 100 mg PO BEDTIME [facility] Last Admin: 09/20/19 21:32 Dose: 100 mg Discontinued Medications Chlordiazepoxide HCl (Librium) 25 mg PO QID PRN PRN Reason: Withdrawal Symptoms Last Admin: 09/18/19 14:27 Dose: 25 mg Chlordiazepoxide HCl (Librium) 25 mg PO Q8H [facility] Last Admin: 09/18/19 20:55 Dose: 25 mg Chlordiazepoxide HCl (Librium) 75 mg PO ONETIME ONE Stop: 09/18/19 21:16 Last Admin: 09/18/19 21:49 Dose: 75 mg Diazepam (Valium) 50 mg IVPUSH ONETIME ONE Stop: 09/18/19 14:12 Last Admin: 09/18/19 14:41 Dose: Not Given Furosemide (Lasix) 20 mg IVPUSH NOW ONE Stop: 09/20/19 10:32 Last Admin: 09/20/19 11:01 Dose: 20 mg Sodium Chloride (Normal Saline) 1,000 mls @ 999 mls/hr IV STAT ONE Stop: 09/17/19 21:00 Last Admin: 09/17/19 20:26 Dose: 999 mls/hr Pantoprazole Sodium 80 mg/ (Sodium Chloride) 20 mls @ 420 mls/hr IVPUSH ONETIME ONE Stop: 09/17/19 20:11 Last Admin: 09/17/19 20:26 Dose: 420 mls/hr Sodium Chloride (Normal Saline) 1,000 mls @ 999 mls/hr IV STAT ONE Stop: 09/17/19 21:09 Last Admin: 09/17/19 20:14 Dose: Not Given Multivitamins/Minerals 10 ml/Thiamine HCl 100 mg/ Folic Acid 1 mg/ Sodium Chloride 1,011.2 mls @ 125 mls/hr IV ONETIME ONE Stop: 09/18/19 05:19 Last Admin: 09/17/19 22:15 Dose: 125 mls/hr Lactated Ringer's (Ringers, Lactated) 1,000 mls @ 125 mls/hr IV ASDIRECTED [facility] Last Admin: 09/18/19 14:33 Dose: 125 mls/hr Pantoprazole Sodium 40 mg/ (Sodium Chloride) 10 mls @ 300 mls/hr IV DAILY [facility] Last Admin: 09/18/19 08:07 Dose: 300 mls/hr Magnesium Sulfate 4 gm/ Premix 100 mls @ 25 mls/hr IV ONETIME ONE Stop: 09/18/19 11:15 Last Admin: 09/18/19 08:01 Dose: 25 mls/hr Lactated Ringer's (Ringers, Lactated) 1,000 mls @ 175 mls/hr IV ASDIRECTED [facility] Last Admin: 09/20/19 05:44 Dose: 175 mls/hr Magnesium Sulfate 4 gm/ Premix 100 mls @ 33.333 mls/hr IV ONETIME ONE Stop: 09/19/19 10:18 Last Admin: 09/19/19 07:50 Dose: 33.333 mls/hr Magnesium Sulfate 2 gm/ Premix 50 mls @ 50 mls/hr IV ONETIME ONE Stop: 09/20/19 08:44 Last Admin: 09/20/19 08:02 Dose: 50 mls/hr Iopamidol (Isovue-370 (76%)) 100 ml IVPUSH ONETIME ONE Stop: 09/17/19 21:57 Last Admin: 09/17/19 21:56 Dose: 100 ml Ketorolac Tromethamine (Toradol) 15 mg IVPUSH Q6H PRN PRN Reason: Pain Stop: 09/24/19 09:26 Last Admin: 09/20/19 07:35 Dose: 15 mg Lorazepam (Ativan) 2 mg IVPUSH ONETIME ONE Stop: 09/18/19 14:07 Last Admin: 09/18/19 14:17 Dose: 2 mg Lorazepam (Ativan) 1 mg IVPUSH ONETIME ONE Stop: 09/18/19 14:59 Last Admin: 09/18/19 15:14 Dose: 1 mg Morphine Sulfate (Morphine) 6 mg IVPUSH ONETIME ONE Stop: 09/17/19 22:25 Last Admin: 09/17/19 22:27 Dose: 6 mg Morphine Sulfate (Morphine) 2 mg IVPUSH Q4H PRN PRN Reason: Pain Last Admin: 09/18/19 13:53 Dose: 2 mg Ondansetron HCl (Zofran) 4 mg IVPUSH ONETIME ONE Stop: 09/17/19 20:01 Last Admin: 09/17/19 20:31 Dose: 4 mg Ondansetron HCl (Zofran) 4 mg IVPUSH ONETIME ONE Stop: 09/17/19 20:10 Last Admin: 09/17/19 20:15 Dose: Not Given Ondansetron HCl (Zofran) 4 mg IVPUSH ONETIME ONE Stop: 09/17/19 22:16 Last Admin: 09/17/19 22:19 Dose: 4 mg Potassium Chloride (Potassium Chloride) 40 meq PO ONETIME ONE Stop: 09/17/19 21:15 Last Admin: 09/17/19 22:15 Dose: 40 meq - Exam Quality Assessment: Supplemental Oxygen General: Alert, Cooperative, Mild Distress Neck: Supple, Trachea Midline Lungs: Decreased Breath Sounds, Crackles Cardiovascular: Regular Rate, Regular Rhythm GI/Abdominal Exam: Normal Bowel Sounds, Soft, Tender Extremities: Normal Inspection, Normal Range of Motion Skin: Warm Neurological: No New Focal Deficit, Cranial Nerves Intact. No: Normal Speech Psy/Mental Status: Alert, Withdrawal Symptoms. No: Hallucinations Sepsis Event Note - Evaluation Sepsis Screening Result: No Definite Risk - Focused Exam Vital Signs: Vital Signs Temp Resp BP Pulse Ox 09/21/19 11:00 19 141/91 H 91 L 09/21/19 10:00 21 H 142/88 H 93 L 09/21/19 09:00 19 129/97 H 91 L 09/21/19 08:00 36.6 C 18 140/89 89 L 09/21/19 07:00 14 130/85 94 L 09/21/19 06:00 17 136/89 93 L 09/21/19 05:00 21 H 140/88 92 L 09/21/19 04:00 36.8 C 25 H 138/83 91 L 09/21/19 03:00 21 H 145/93 H 92 L 09/21/19 02:00 20 131/84 92 L 09/21/19 01:00 21 H 126/82 91 L 09/21/19 00:00 36.8 C 18 140/92 H 92 L Date Exam was Performed: 09/21/19 Time Exam was Performed: 11:30 - Problem List & Annotations (1) Alcohol withdrawal delirium SNOMED Code(s): 4764634 Code(s): F10.231 - ALCOHOL DEPENDENCE WITH WITHDRAWAL DELIRIUM Status: Acute Current Visit: Yes (2) Alcohol abuse SNOMED Code(s): 60265561 Code(s): F10.10 - ALCOHOL ABUSE, UNCOMPLICATED Status: Acute Current Visit: Yes (3) Pancreatitis SNOMED Code(s): 80391313 Code(s): K85.90 - ACUTE PANCREATITIS WITHOUT NECROSIS OR INFECTION, UNSP Status: Acute Current Visit: Yes (4) Hypomagnesemia SNOMED Code(s): 963113433 Code(s): E83.42 - HYPOMAGNESEMIA Status: Acute Current Visit: Yes (5) Hypokalemia SNOMED Code(s): 38860723 Code(s): E87.6 - HYPOKALEMIA Status: Acute Current Visit: Yes - Problem List Review Problem List Initiated/Reviewed/Updated: Yes - Plan Plan:: 1. Acute pancreatitis likely secondary to alcohol use- improving. On clear liquids, cont IV fluids, Toradol, zofran. Will need outpatient general surgery consult for gallstone and pancreatic mass. 2. Transaminitis- likely secondary to alcohol use- Hepatitis panel negative, continue to monitor levels daily 3. Alcohol withdrawal- CIWAA/Ativan protocol, will start tapering off the Librium and Seroquel Continue thiamine and folic acid. Obtain CT scan of head. 4. Oxygen requirement- smoking history, may have COPD. Will start duonebs and attempt to wean. Repeat CXR showed nothing acute. Crackles heard on exam, Lasix as needed to wean off the oxygen. 5. Pancreatic mass: US showed small pancreatic mass. They recommend [address] for further evaluation, this will be done on outpatient basis. 6. Electrolyte imbalance: replete electrolytes as needed
[2019-09-21] MEDS ORDERED: Magnesium Sulfate/Water 4 GM in Premix Bag 1 BAG IV ONE (11:28)
[2019-09-21] MEDS ORDERED: Potassium Chloride Riders 40 MEQ in Premix Bag 1 BAG IV ONE (11:29)
--- NOTE | 2019-09-21 12:09 | PN ---
DEONDRE Physician - Brief Progress [id number]/31/2020 11:37[facility] Sara Medeiros, [place] - MARLENEN (DAVIE) - MARLENEN KENANGAILBON DelcidDate of Service 09/21/2019 11:37HPI/Events of Note Dr. Rock and I spoke re: the Librium and Seroquel. We decided to continue Librium 50 mg po BID and change the Seroquel to 25 mg po Q HS PRN if pt remains agitated. He will also have a CT of t he head to ensure his MS changes aren't from any other underlying causes. Pt's nurse Ovidio will call with any concerns re: the patients agitation and I have placed the orders in the chart.Interventions Major-Delirium, psychosis, severe agitation - evaluation and managementIntermediate-Communication wi th other healthcare providers and/or family, Medication change / dose adjustment
--- NOTE | 2019-09-21 13:04 | CT ---
Head CT Technique: Multiple axial sections through the brain were obtained. Intravenous contrast was not utilized. Comparison: No prior intracranial imaging is available. Findings: Ventricles along with basal cisterns and sulci over the convexities are mildly prominent. No abnormal parenchymal densities are seen. No evidence of intracranial hemorrhage. No midline shift or mass-effect is seen. Bone window settings were reviewed. No acute calvarial finding is seen. No acute mastoid sinus findings are seen. Visualized paranasal sinuses shows mild mucosal thickening within the maxillary, ethmoid and sphenoid sinus which is most likely due to pre-existing mild chronic sinusitis. Impression: 1. Findings most likely representing chronic sinusitis as described above. 2. Mild generalized atrophy. 3. No acute intracranial abnormality is appreciated. Diagnostic code #2 This report was dictated in MDT
[2019-09-21] MEDS: Nystatin Crm 30 GM Tube TOP PRN (17:22)
[2019-09-21] MEDS: Folic Acid 1 MG Tab PO SCH (20:01)
[2019-09-21] MEDS: Thiamine 100 MG Tab PO SCH (20:01)
[2019-09-21] MEDS ORDERED: Bisacodyl 10 MG Supp RECTAL PRN (23:27)
[2019-09-22] MEDS: Heparin Sodium 5,000 Units/ML Vial SUBCUT SCH ×3 (00:11→16:45)
[2019-09-22] MEDS: LORazepam 2 MG/ML SDV IVPUSH PRN ×2 (02:49→13:08)
[2019-09-22] MEDS: Albuterol/Ipratropium 3.0-0.5 MG/3 ML Neb Soln NEB SCH ×3 (05:42→18:29)
[2019-09-22 06:48] LABS: BLOOD UREA NITROGEN,BUN 6 mg/dL (7.0-18.0); CARBON DIOXIDE,CO2 21.1 mmol/L (21.0-32.0); CHLORIDE,CL 103 mmol/L (98-107); GLUCOSE RANDOM 126 mg/dL (74-106); POTASSIUM,K 3.6 mmol/L (3.5-5.1); SODIUM,NA 136 mmol/L (136-148)
[2019-09-22] MEDS: Ondansetron 4 MG/2 ML SDV IVPUSH PRN (06:53)
[2019-09-22] MEDS: Sodium Chloride 0.9% 1,000 ML IV SCH ×2 (06:53→16:02)
[2019-09-22] MEDS ORDERED: Magnesium Sulfate (4.06 MEQ/ML) 1 GM/2 ML SDV IV ONE (08:07)
[2019-09-22] MEDS: Pantoprazole 40 MG in Sodium Chloride 0.9% 10 ML IV SCH ×2 (08:34→20:17)
[2019-09-22] MEDS: chlordiazePOXIDE 25 MG Cap PO SCH ×2 (08:52→20:18)
--- NOTE | 2019-09-22 09:14 | PN ---
[facility] Physician - Brief Progress [id number]/01/2020 09:13[facility] Sara Medeiros, BETTY - JUDE (DAVIE) - MARLENEN KENAN SANJIV W.Date of Service 09/22/2019 09:13HPI/Events of Note eICU Progress [id number] admitted for EtOH withdrawal. History obtained primarily from review of EMR.Camera exam: Sitting up in chair. Vitals monitor reviewed.Labs: reviewedRadiology: reviewedeICU Impression and Recommendations:Alcohol WithdrawalContinue alcohol withdrawal protocol per institution al policy, including administration of PRN benzodiazepinesContinued telemetry monitoringThiamine supp lementationPancreatitis, suspect secondary to EtOH use, with downtrending lipaseOral intake as tolera kerry, IV fluids until oral intake adequateTransaminitis, given history likely secondary to EtOH hepati tis, improvingContinue to trend LFTsDVT and GI prophylaxis as appropriate.Thank you for allowing us t o participate in the care of this patient.The above note transcribed with the assistance of dictation software. Please excuse any errors.Interventions Major-Delirium, psychosis, severe agitation - evalu ation and management
--- NOTE | 2019-09-22 11:05 | PCM.PN ---
<Errol Lopez - Last Filed: 09/22/19 10:57> - General Info Date of Service: 09/22/19 Subjective Update: Seen at bedside; endorsing feeling better but still having some stomach discomfort; requesting food and endorsing an increase in appetite. Denies hallucinations at this time. Functional Status: Reports: Pain Controlled - Review of Systems General: Reports: No Symptoms HEENT: Reports: No Symptoms Pulmonary: Reports: No Symptoms Cardiovascular: Reports: No Symptoms Gastrointestinal: Reports: Abdominal Pain. Denies: Decreased Appetite, Nausea, Vomiting Genitourinary: Reports: No Symptoms Musculoskeletal: Reports: No Symptoms Neurological: Denies: Headache, Paresthesia, Seizure, Trouble Speaking Psychiatric: Denies: Confusion, Depression, Hallucinations - Patient Data Vitals - Most Recent: Last Vital Signs Temp 98.6 F 09/22/19 08:00 Pulse 116 H 09/20/19 12:00 Resp 26 H 09/22/19 10:00 BP 141/89 H 09/22/19 10:00 Pulse Ox 94 L 09/22/19 10:00 Weight - Most Recent: 111.5 kg I&O - Last 24 Hours: Intake & Output 09/21/19 09/22/19 09/22/19 22:59 06:59 14:59 Intake Total 2456 1910 112 Output Total 500 1200 1100 Balance 1956 710 -988 Lab Results Last 24 Hours: Laboratory Results - last 24 hr 09/22/19 09/22/19 Range/Units 05:55 05:55 WBC 10.36 (4.0-11.0) K/uL RBC 3.99 L (4.50-5.90) M/uL Hgb 13.3 (13.0-17.0) g/dL Hct 38.9 (38.0-50.0) % MCV 97.5 (80.0-98.0) fL MCH 33.3 H (27.0-32.0) pg MCHC 34.2 (31.0-37.0) g/dL RDW Std Deviation 53.0 (28.0-62.0) fl RDW Coeff of Julissa 15 (11.0-15.0) % Plt Count 306 (150-400) K/uL MPV 10.90 (7.40-12.00) fL Add Manual Diff YES Neutrophils % (Manual) 60 (48.0-80.0) % Lymphocytes % (Manual) 14 L (16.0-40.0) % Monocytes % (Manual) 19 H (0.0-15.0) % Eosinophils % (Manual) 5 (0.0-7.0) % Basophils % (Manual) 2 H (0.0-1.5) % Nucleated RBC % 0.4 /100WBC Absolute Seg Neuts 6.2 H (1.4-5.7) Lymphocytes # (Manual) 1.5 (0.6-2.4) Monocytes # (Manual) 2.0 H (0.0-0.8) Eosinophils # (Manual) 0.5 (0.0-0.7) Basophils # (Manual) 0.2 H (0.0-0.1) Nucleated RBCs # 0 K/uL Sodium 136 (136-148) mmol/L Potassium 3.6 (3.5-5.1) mmol/L Chloride 103 (98-107) mmol/L Carbon Dioxide 21.1 (21.0-32.0) mmol/L BUN 6 L (7.0-18.0) mg/dL Creatinine 0.8 (0.8-1.3) mg/dL Est Cr Clr Drug Dosing 123.46 mL/min Estimated GFR (MDRD) > 60.0 ml/min Glucose 126 H (74-106) mg/dL Calcium 7.2 L (8.5-10.1) mg/dL Phosphorus 1.4 L (2.6-4.7) mg/dL Magnesium 1.6 L (1.8-2.4) mg/dL Total Bilirubin 0.8 (0.2-1.0) mg/dL AST 55 H (15-37) IU/L ALT 98 H (14-63) IU/L Alkaline Phosphatase 104 (46-116) U/L Total Protein 6.2 L (6.4-8.2) g/dL Albumin 2.2 L (3.4-5.0) g/dL Globulin 4.0 (2.6-4.0) g/dL Albumin/Globulin Ratio 0.6 L (0.9-1.6) Med Orders - Current: Current Medications Albuterol/Ipratropium (Duoneb 3.0-0.5 Mg/3 Ml) 3 ml NEB Q6HRRT [facility] Last Admin: 09/22/19 05:42 Dose: 3 ml Bisacodyl (Dulcolax) 10 mg RECTAL DAILY PRN PRN Reason: Constipation Chlordiazepoxide HCl (Librium) 50 mg PO BID [facility] Last Admin: 09/22/19 08:52 Dose: 50 mg Docusate Sodium (Colace) 100 mg PO BID PRN PRN Reason: Constipation Last Admin: 09/21/19 17:17 Dose: 100 mg Folic Acid (Folic Acid) 1 mg PO BEDTIME [facility] Last Admin: 09/21/19 20:01 Dose: 1 mg Heparin Sodium (Porcine) (Heparin Sodium) 5,000 units SUBCUT Q8H [facility] Last Admin: 09/22/19 08:35 Dose: 5,000 units Pantoprazole Sodium 40 mg/ (Sodium Chloride) 10 mls @ 300 mls/hr IV BID [facility] Last Admin: 09/22/19 08:34 Dose: 300 mls/hr Sodium Chloride (Normal Saline) 1,000 mls @ 125 mls/hr IV ASDIRECTED [facility] Last Admin: 09/22/19 06:53 Dose: 125 mls/hr Ketorolac Tromethamine (Toradol) 30 mg IVPUSH Q6H PRN PRN Reason: Pain Stop: 09/24/19 09:26 Last Admin: 09/21/19 20:18 Dose: 30 mg Lorazepam (Ativan) 0 mg IVPUSH Q4H PRN; Protocol PRN Reason: Withdrawal Symptoms Last Admin: 09/22/19 02:49 Dose: 2 mg Nystatin (Nystatin Crm) 0 gm TOP QID PRN PRN Reason: Rash Last Admin: 09/21/19 17:22 Dose: 1 applic Ondansetron HCl (Zofran) 4 mg IVPUSH Q4H PRN PRN Reason: Nausea/Vomiting Last Admin: 09/22/19 06:53 Dose: 4 mg Quetiapine Fumarate (Seroquel) 25 mg PO BEDTIME PRN PRN Reason: Agitation Sodium Chloride (Saline Flush) 10 ml FLUSH ASDIRECTED PRN PRN Reason: Keep Vein Open Last Admin: 09/20/19 12:29 Dose: 10 ml Sodium Chloride (Saline Flush) 2.5 ml FLUSH ASDIRECTED PRN PRN Reason: Keep Vein Open Thiamine HCl (Vitamin B-1) 100 mg PO BEDTIME [facility] Last Admin: 09/21/19 20:01 Dose: 100 mg Discontinued Medications Chlordiazepoxide HCl (Librium) 25 mg PO QID PRN PRN Reason: Withdrawal Symptoms Last Admin: 09/18/19 14:27 Dose: 25 mg Chlordiazepoxide HCl (Librium) 25 mg PO Q8H [facility] Last Admin: 09/18/19 20:55 Dose: 25 mg Chlordiazepoxide HCl (Librium) 100 mg PO Q8H [facility] Last Admin: 09/21/19 04:32 Dose: 100 mg Chlordiazepoxide HCl (Librium) 75 mg PO ONETIME ONE Stop: 09/18/19 21:16 Last Admin: 09/18/19 21:49 Dose: 75 mg Diazepam (Valium) 50 mg IVPUSH ONETIME ONE Stop: 09/18/19 14:12 Last Admin: 09/18/19 14:41 Dose: Not Given Furosemide (Lasix) 20 mg IVPUSH NOW ONE Stop: 09/20/19 10:32 Last Admin: 09/20/19 11:01 Dose: 20 mg Sodium Chloride (Normal Saline) 1,000 mls @ 999 mls/hr IV STAT ONE Stop: 09/17/19 21:00 Last Admin: 09/17/19 20:26 Dose: 999 mls/hr Pantoprazole Sodium 80 mg/ (Sodium Chloride) 20 mls @ 420 mls/hr IVPUSH ONETIME ONE Stop: 09/17/19 20:11 Last Admin: 09/17/19 20:26 Dose: 420 mls/hr Sodium Chloride (Normal Saline) 1,000 mls @ 999 mls/hr IV STAT ONE Stop: 09/17/19 21:09 Last Admin: 09/17/19 20:14 Dose: Not Given Multivitamins/Minerals 10 ml/Thiamine HCl 100 mg/ Folic Acid 1 mg/ Sodium Chloride 1,011.2 mls @ 125 mls/hr IV ONETIME ONE Stop: 09/18/19 05:19 Last Admin: 09/17/19 22:15 Dose: 125 mls/hr Lactated Ringer's (Ringers, Lactated) 1,000 mls @ 125 mls/hr IV ASDIRECTED [facility] Last Admin: 09/18/19 14:33 Dose: 125 mls/hr Pantoprazole Sodium 40 mg/ (Sodium Chloride) 10 mls @ 300 mls/hr IV DAILY [facility] Last Admin: 09/18/19 08:07 Dose: 300 mls/hr Magnesium Sulfate 4 gm/ Premix 100 mls @ 25 mls/hr IV ONETIME ONE Stop: 09/18/19 11:15 Last Admin: 09/18/19 08:01 Dose: 25 mls/hr Lactated Ringer's (Ringers, Lactated) 1,000 mls @ 175 mls/hr IV ASDIRECTED [facility] Last Admin: 09/20/19 05:44 Dose: 175 mls/hr Magnesium Sulfate 4 gm/ Premix 100 mls @ 33.333 mls/hr IV ONETIME ONE Stop: 09/19/19 10:18 Last Admin: 09/19/19 07:50 Dose: 33.333 mls/hr Magnesium Sulfate 2 gm/ Premix 50 mls @ 50 mls/hr IV ONETIME ONE Stop: 09/20/19 08:44 Last Admin: 09/20/19 08:02 Dose: 50 mls/hr Magnesium Sulfate 4 gm/ Premix 100 mls @ 33.333 mls/hr IV ONETIME ONE Stop: 09/21/19 14:27 Last Admin: 09/21/19 12:36 Dose: 33.333 mls/hr Potassium Chloride 40 meq/ (Premix) 100 mls @ 25 mls/hr IV ONETIME ONE Stop: 09/21/19 15:28 Last Admin: 09/21/19 12:37 Dose: 25 mls/hr Magnesium Sulfate 1 gm/ Sodium (Chloride) 102 mls @ 102 mls/hr IV ONETIME ONE Stop: 09/22/19 09:14 Last Admin: 09/22/19 08:32 Dose: 102 mls/hr Iopamidol (Isovue-370 (76%)) 100 ml IVPUSH ONETIME ONE Stop: 09/17/19 21:57 Last Admin: 09/17/19 21:56 Dose: 100 ml Ketorolac Tromethamine (Toradol) 15 mg IVPUSH Q6H PRN PRN Reason: Pain Stop: 09/24/19 09:26 Last Admin: 09/20/19 07:35 Dose: 15 mg Lorazepam (Ativan) 2 mg IVPUSH ONETIME ONE Stop: 09/18/19 14:07 Last Admin: 09/18/19 14:17 Dose: 2 mg Lorazepam (Ativan) 1 mg IVPUSH ONETIME ONE Stop: 09/18/19 14:59 Last Admin: 09/18/19 15:14 Dose: 1 mg Magnesium Sulfate (Magnesium Sulfate 50%) 1 gm IV ONETIME ONE Stop: 09/22/19 08:08 Last Admin: 09/22/19 08:33 Dose: Not Given Morphine Sulfate (Morphine) 6 mg IVPUSH ONETIME ONE Stop: 09/17/19 22:25 Last Admin: 09/17/19 22:27 Dose: 6 mg Morphine Sulfate (Morphine) 2 mg IVPUSH Q4H PRN PRN Reason: Pain Last Admin: 09/18/19 13:53 Dose: 2 mg Ondansetron HCl (Zofran) 4 mg IVPUSH ONETIME ONE Stop: 09/17/19 20:01 Last Admin: 09/17/19 20:31 Dose: 4 mg Ondansetron HCl (Zofran) 4 mg IVPUSH ONETIME ONE Stop: 09/17/19 20:10 Last Admin: 09/17/19 20:15 Dose: Not Given Ondansetron HCl (Zofran) 4 mg IVPUSH ONETIME ONE Stop: 09/17/19 22:16 Last Admin: 09/17/19 22:19 Dose: 4 mg Potassium Chloride (Potassium Chloride) 40 meq PO ONETIME ONE Stop: 09/17/19 21:15 Last Admin: 09/17/19 22:15 Dose: 40 meq Quetiapine Fumarate (Seroquel) 100 mg PO TID [facility]IDE Last Admin: 09/21/19 05:24 Dose: 100 mg - Exam Quality Assessment: Supplemental Oxygen General: Alert, Oriented, No Acute Distress HEENT: EOMI, Mucous Membr. Moist/[place] Neck: Supple Lungs: Clear to Auscultation, Normal Respiratory Effort Cardiovascular: Regular Rhythm, Tachycardia GI/Abdominal Exam: Other (minimal diffuse tenderness ; no rebound tenderness. ) Extremities: Normal Inspection, Non-Tender Skin: Warm, Dry, Other (decreased erythema of groin; pt. not c/o pruritus ) Wound/Incisions: Healing Well Neurological: No New Focal Deficit, Other (mild slurring of speech; interval improvemnt since admission ) Psy/Mental Status: Alert, Normal Affect Sepsis Event Note - Evaluation Sepsis Screening Result: No Definite Risk - Focused Exam Vital Signs: Vital Signs Temp Resp BP Pulse Ox 09/22/19 10:00 26 H 141/89 H 94 L 09/22/19 09:00 22 H 144/86 H 94 L 09/22/19 08:00 98.6 F 26 H 138/79 95 09/22/19 07:00 22 H 96 09/22/19 06:00 17 145/88 H 95 09/22/19 05:00 19 150/97 H 96 09/22/19 04:00 98.2 F 23 H 154/96 H 94 L 09/22/19 03:00 16 155/97 H 94 L 09/22/19 02:00 13 140/87 95 09/22/19 01:00 14 127/82 93 L 09/22/19 00:00 97.3 F 15 129/80 94 L 09/21/19 23:00 10 L 131/81 96 Date Exam was Performed: 09/22/19 Time Exam was Performed: 10:57 - Problem List Review Problem List Initiated/Reviewed/Updated: Yes - My Orders Last 24 Hours: My Active Orders 09/22/19 Lunch Full Liquid Diet [DIET] - Plan Plan:: 1. Acute pancreatitis likely secondary to alcohol use- improving. Advance to full iquids this AM; possibly soft if tolerating, cont IV fluids, Toradol, zofran. Will need outpatient general surgery consult for gallstone and pancreatic mass. 2. Transaminitis- likely secondary to alcohol use- Hepatitis panel negative, continue to monitor levels daily; interval improvement 3. Alcohol withdrawal- CIWAA/Ativan protocol, will start tapering off the Librium and Seroquel Continue thiamine and folic acid. Obtain CT scan of head. LAst ativan last night; no seroqul last night; repeat EKG this AM showed interval improvemnt of Qtc:456 . PT ronak lbe consulted for tomorrow based off continual CIWAA assessment; last CIWAA at 7; last ativaan last night 2:45 AM 4. Oxygen requirement- smoking history, may have COPD. continue duonebs and attempt to wean. Repeat CXR showed nothing acute. NO crackles appreciated this AM ; on 1L ; continue to observe and wean 5. Pancreatic mass: US showed small pancreatic mass. They recommend [address] for further evaluation, this will be done on outpatient basis. 6. Electrolyte imbalance: replete electrolytes as needed; Magnesium repleted this AM <Matheus Spencer - Last Filed: 09/27/19 12:15> - Patient Data Vitals - Most Recent: Last Vital Signs Temp 36.9 C 09/27/19 09:38 Pulse 125 H 09/27/19 09:38 Resp 19 09/27/19 09:38 BP 129/79 09/27/19 09:38 Pulse Ox 96 09/27/19 09:38 I&O - Last 24 Hours: Intake & Output 09/26/19 09/27/19 09/27/19 22:59 06:59 14:59 Intake Total 650 840 60 Output Total 980 1012 Balance -330 -172 60 Lab Results Last 24 Hours: Laboratory Results - last 24 hr 09/27/19 09/27/19 09/27/19 Range/Units 05:55 05:55 05:55 WBC 9.32 (4.0-11.0) K/uL RBC 4.03 L (4.50-5.90) M/uL Hgb 13.4 (13.0-17.0) g/dL Hct 39.8 (38.0-50.0) % MCV 98.8 H (80.0-98.0) fL MCH 33.3 H (27.0-32.0) pg MCHC 33.7 (31.0-37.0) g/dL RDW Std Deviation 54.7 (28.0-62.0) fl RDW Coeff of Julissa 15 (11.0-15.0) % Plt Count 713 H (150-400) K/uL MPV 10.10 (7.40-12.00) fL Neut % (Auto) 60.1 (48.0-80.0) % Lymph % (Auto) 18.2 (16.0-40.0) % [place] % (Auto) 17.1 H (0.0-15.0) % Eos % (Auto) 3.6 (0.0-7.0) % Baso % (Auto) 1.0 (0.0-1.5) % Neut # (Auto) 5.6 (1.4-5.7) K/uL Lymph # (Auto) 1.7 (0.6-2.4) K/uL [place] # (Auto) 1.6 H (0.0-0.8) K/uL Eos # (Auto) 0.3 (0.0-0.7) K/uL Baso # (Auto) 0.1 (0.0-0.1) K/uL Nucleated RBC % 0.0 /100WBC Nucleated RBCs # 0 K/uL Sodium 142 (136-148) mmol/L Potassium 4.0 (3.5-5.1) mmol/L Chloride 105 (98-107) mmol/L Carbon Dioxide 30.0 (21.0-32.0) mmol/L BUN 8 (7.0-18.0) mg/dL Creatinine 1.0 (0.8-1.3) mg/dL Est Cr Clr Drug Dosing 98.77 mL/min Estimated GFR (MDRD) > 60.0 ml/min Glucose 121 H (74-106) mg/dL Calcium 8.8 (8.5-10.1) mg/dL Magnesium 1.7 L (1.8-2.4) mg/dL Total Bilirubin 0.6 (0.2-1.0) mg/dL AST 29 (15-37) IU/L ALT 51 (14-63) IU/L Alkaline Phosphatase 109 (46-116) U/L Total Protein 6.5 (6.4-8.2) g/dL Albumin 2.4 L (3.4-5.0) g/dL Globulin 4.1 H (2.6-4.0) g/dL Albumin/Globulin Ratio 0.6 L (0.9-1.6) Med Orders - Current: Current Medications Albuterol/Ipratropium (Duoneb 3.0-0.5 Mg/3 Ml) 3 ml NEB Q6HRRT PRN PRN Reason: Shortness of Breath Last Admin: 09/27/19 10:01 Dose: 3 ml Bisacodyl (Dulcolax) 10 mg RECTAL DAILY PRN PRN Reason: Constipation Chlordiazepoxide HCl (Librium) 25 mg PO BID [facility] Last Admin: 09/27/19 09:35 Dose: 25 mg Docusate Sodium (Colace) 100 mg PO BID PRN PRN Reason: Constipation Last Admin: 09/24/19 08:32 Dose: 100 mg Folic Acid (Folic Acid) 1 mg PO BEDTIME [facility] Last Admin: 09/26/19 21:21 Dose: 1 mg Heparin Sodium (Porcine) (Heparin Sodium) 5,000 units SUBCUT Q8H [facility] Last Admin: 09/27/19 09:35 Dose: 5,000 units Pantoprazole Sodium 40 mg/ (Sodium Chloride) 10 mls @ 300 mls/hr IV BID [facility] Last Admin: 09/27/19 09:36 Dose: 300 mls/hr Ibuprofen (Motrin) 400 mg PO Q8H PRN PRN Reason: Pain Last Admin: 09/26/19 21:21 Dose: 400 mg Lorazepam (Ativan) 0 mg IVPUSH Q4H PRN; Protocol PRN Reason: Withdrawal Symptoms Last Admin: 09/24/19 03:20 Dose: 1 mg Lorazepam (Ativan) 1 mg PO ASDIRECTED PRN PRN Reason: SEE PROTOCOL Last Admin: 09/25/19 07:48 Dose: 1 mg Nystatin (Nystatin Crm) 0 gm TOP QID PRN PRN Reason: Rash Last Admin: 09/24/19 16:18 Dose: 1 applic Ondansetron HCl (Zofran) 4 mg IVPUSH Q4H PRN PRN Reason: Nausea/Vomiting Last Admin: 09/25/19 20:30 Dose: 4 mg Quetiapine Fumarate (Seroquel) 25 mg PO BEDTIME PRN PRN Reason: Agitation Last Admin: 09/22/19 20:28 Dose: 25 mg Sodium Chloride (Saline Flush) 10 ml FLUSH ASDIRECTED PRN PRN Reason: Keep Vein Open Last Admin: 09/20/19 12:29 Dose: 10 ml Sodium Chloride (Saline Flush) 2.5 ml FLUSH ASDIRECTED PRN PRN Reason: Keep Vein Open Sodium Phosphate (Neutra-Phos) 250 mg PO QID [facility] Last Admin: 09/27/19 11:50 Dose: 250 mg Thiamine HCl (Vitamin B-1) 100 mg PO BEDTIME [facility] Last Admin: 09/26/19 21:22 Dose: 100 mg Discontinued Medications Albuterol/Ipratropium (Duoneb 3.0-0.5 Mg/3 Ml) 3 ml NEB Q6HRRT [facility] Last Admin: 09/23/19 12:59 Dose: Not Given Chlordiazepoxide HCl (Librium) 25 mg PO QID PRN PRN Reason: Withdrawal Symptoms Last Admin: 09/18/19 14:27 Dose: 25 mg Chlordiazepoxide HCl (Librium) 25 mg PO Q8H [facility] Last Admin: 09/18/19 20:55 Dose: 25 mg Chlordiazepoxide HCl (Librium) 100 mg PO Q8H [facility] Last Admin: 09/21/19 04:32 Dose: 100 mg Chlordiazepoxide HCl (Librium) 75 mg PO ONETIME ONE Stop: 09/18/19 21:16 Last Admin: 09/18/19 21:49 Dose: 75 mg Chlordiazepoxide HCl (Librium) 50 mg PO BID [facility] Last Admin: 09/25/19 09:27 Dose: Not Given Chlordiazepoxide HCl (Librium) 25 mg PO DAILY [facility] Last Admin: 09/26/19 08:39 Dose: 25 mg Chlordiazepoxide HCl (Librium) 50 mg PO BEDTIME [facility] Last Admin: 09/25/19 20:30 Dose: 50 mg Diazepam (Valium) 50 mg IVPUSH ONETIME ONE Stop: 09/18/19 14:12 Last Admin: 09/18/19 14:41 Dose: Not Given Furosemide (Lasix) 20 mg IVPUSH NOW ONE Stop: 09/20/19 10:32 Last Admin: 09/20/19 11:01 Dose: 20 mg Sodium Chloride (Normal Saline) 1,000 mls @ 999 mls/hr IV STAT ONE Stop: 09/17/19 21:00 Last Admin: 09/17/19 20:26 Dose: 999 mls/hr Pantoprazole Sodium 80 mg/ (Sodium Chloride) 20 mls @ 420 mls/hr IVPUSH ONETIME ONE Stop: 09/17/19 20:11 Last Admin: 09/17/19 20:26 Dose: 420 mls/hr Sodium Chloride (Normal Saline) 1,000 mls @ 999 mls/hr IV STAT ONE Stop: 09/17/19 21:09 Last Admin: 09/17/19 20:14 Dose: Not Given Multivitamins/Minerals 10 ml/Thiamine HCl 100 mg/ Folic Acid 1 mg/ Sodium Chloride 1,011.2 mls @ 125 mls/hr IV ONETIME ONE Stop: 09/18/19 05:19 Last Admin: 09/17/19 22:15 Dose: 125 mls/hr Lactated Ringer's (Ringers, Lactated) 1,000 mls @ 125 mls/hr IV ASDIRECTED [facility] Last Admin: 09/18/19 14:33 Dose: 125 mls/hr Pantoprazole Sodium 40 mg/ (Sodium Chloride) 10 mls @ 300 mls/hr IV DAILY [facility] Last Admin: 09/18/19 08:07 Dose: 300 mls/hr Magnesium Sulfate 4 gm/ Premix 100 mls @ 25 mls/hr IV ONETIME ONE Stop: 09/18/19 11:15 Last Admin: 09/18/19 08:01 Dose: 25 mls/hr Lactated Ringer's (Ringers, Lactated) 1,000 mls @ 175 mls/hr IV ASDIRECTED [facility] Last Admin: 09/20/19 05:44 Dose: 175 mls/hr Magnesium Sulfate 4 gm/ Premix 100 mls @ 33.333 mls/hr IV ONETIME ONE Stop: 09/19/19 10:18 Last Admin: 09/19/19 07:50 Dose: 33.333 mls/hr Magnesium Sulfate 2 gm/ Premix 50 mls @ 50 mls/hr IV ONETIME ONE Stop: 09/20/19 08:44 Last Admin: 09/20/19 08:02 Dose: 50 mls/hr Sodium Chloride (Normal Saline) 1,000 mls @ [facility] 09/24/19 08:18 Dose: 100 mls/hr Magnesium Sulfate 4 gm/ Premix 100 mls @ 33.333 mls/hr IV ONETIME ONE Stop: 09/21/19 14:27 Last Admin: 09/21/19 12:36 Dose: 33.333 mls/hr Potassium Chloride 40 meq/ (Premix) 100 mls @ 25 mls/hr IV ONETIME ONE Stop: 09/21/19 15:28 Last Admin: 09/21/19 12:37 Dose: 25 mls/hr Magnesium Sulfate 1 gm/ Sodium (Chloride) 102 mls @ 102 mls/hr IV ONETIME ONE Stop: 09/22/19 09:14 Last Admin: 09/22/19 08:32 Dose: 102 mls/hr Magnesium Sulfate 2 gm/ Premix 50 mls @ 50 mls/hr IV ONETIME ONE Stop: 09/23/19 10:39 Last Admin: 09/23/19 10:17 Dose: 50 mls/hr Magnesium Sulfate 4 gm/ Premix 100 mls @ 25 mls/hr IV ONETIME ONE Stop: 09/24/19 11:39 Last Admin: 09/24/19 08:26 Dose: 25 mls/hr Magnesium Sulfate 4 gm/ Premix 100 mls @ 25 mls/hr IV ONETIME ONE Stop: 09/25/19 11:52 Last Admin: 09/25/19 08:25 Dose: Not Given Magnesium Sulfate 4 gm/ Premix 100 mls @ 33.333 mls/hr IV ONETIME ONE Stop: 09/25/19 11:59 Last Admin: 09/25/19 09:17 Dose: 33.333 mls/hr Magnesium Sulfate 1 gm/ Sodium (Chloride) 52 mls @ 104 mls/hr IV ONETIME [facility] Magnesium Sulfate 1 gm/ Sodium (Chloride) 52 mls @ 104 mls/hr IV ONETIME [facility] Last Admin: 09/26/19 15:51 Dose: 104 mls/hr Magnesium Sulfate 2 gm/ Premix 50 mls @ 50 mls/hr IV ONETIME [facility] Last Admin: 09/27/19 10:33 Dose: 50 mls/hr Magnesium Sulfate 2 gm/ Premix 50 mls @ 50 mls/hr IV ONETIME ONE Stop: 09/27/19 11:44 Last Admin: 09/27/19 11:34 Dose: Not Given Iopamidol (Isovue-370 (76%)) 100 ml IVPUSH ONETIME ONE Stop: 09/17/19 21:57 Last Admin: 09/17/19 21:56 Dose: 100 ml Ketorolac Tromethamine (Toradol) 15 mg IVPUSH Q6H PRN PRN Reason: Pain Stop: 09/24/19 09:26 Last Admin: 09/20/19 07:35 Dose: 15 mg Ketorolac Tromethamine (Toradol) 30 mg IVPUSH Q6H PRN PRN Reason: Pain Stop: 09/24/19 09:26 Last Admin: 09/23/19 13:17 Dose: 30 mg Lorazepam (Ativan) 2 mg IVPUSH ONETIME ONE Stop: 09/18/19 14:07 Last Admin: 09/18/19 14:17 Dose: 2 mg Lorazepam (Ativan) 1 mg IVPUSH ONETIME ONE Stop: 09/18/19 14:59 Last Admin: 09/18/19 15:14 Dose: 1 mg Magnesium Sulfate (Magnesium Sulfate 50%) 1 gm IV ONETIME ONE Stop: 09/22/19 08:08 Last Admin: 09/22/19 08:33 Dose: Not Given Morphine Sulfate (Morphine) 6 mg IVPUSH ONETIME ONE Stop: 09/17/19 22:25 Last Admin: 09/17/19 22:27 Dose: 6 mg Morphine Sulfate (Morphine) 2 mg IVPUSH Q4H PRN PRN Reason: Pain Last Admin: 09/18/19 13:53 Dose: 2 mg Ondansetron HCl (Zofran) 4 mg IVPUSH ONETIME ONE Stop: 09/17/19 20:01 Last Admin: 09/17/19 20:31 Dose: 4 mg Ondansetron HCl (Zofran) 4 mg IVPUSH ONETIME ONE Stop: 09/17/19 20:10 Last Admin: 09/17/19 20:15 Dose: Not Given Ondansetron HCl (Zofran) 4 mg IVPUSH ONETIME ONE Stop: 09/17/19 22:16 Last Admin: 09/17/19 22:19 Dose: 4 mg Potassium Chloride (Potassium Chloride) 40 meq PO ONETIME ONE Stop: 09/17/19 21:15 Last Admin: 09/17/19 22:15 Dose: 40 meq Quetiapine Fumarate (Seroquel) 100 mg PO TID [facility] Last Admin: 09/21/19 05:24 Dose: 100 mg Sodium Phosphate (Neutra-Phos) 250 mg PO QID [facility] Sepsis Event Note - Focused Exam Vital Signs: Vital Signs Temp Pulse Resp BP Pulse Ox 09/27/19 09:38 36.9 C 125 H 19 129/79 96 09/27/19 07:10 36.6 C 85 18 142/90 H 95 09/27/19 04:00 36.5 C 83 18 148/92 H 95 Date Exam was Performed: 09/27/19 Time Exam was Performed: 12:15 - Problem List & Annotations (1) Alcohol withdrawal delirium SNOMED Code(s): 4749099 Code(s): F10.231 - ALCOHOL DEPENDENCE WITH WITHDRAWAL DELIRIUM Status: Acute Current Visit: Yes (2) Alcohol abuse SNOMED Code(s): 63117686 Code(s): F10.10 - ALCOHOL ABUSE, UNCOMPLICATED Status: Acute Current Visit: Yes (3) Pancreatitis SNOMED Code(s): 74972309 Code(s): K85.90 - ACUTE PANCREATITIS WITHOUT NECROSIS OR INFECTION, UNSP Status: Acute Current Visit: Yes (4) Hypomagnesemia SNOMED Code(s): 464715164 Code(s): E83.42 - HYPOMAGNESEMIA Status: Acute Current Visit: Yes (5) Hypokalemia SNOMED Code(s): 66243851 Code(s): E87.6 - HYPOKALEMIA Status: Acute Current Visit: Yes - Plan Plan:: I have seen and evaluated the patient and agree with the residents note unless specified in my note
[2019-09-22] MEDS: Nystatin Crm 30 GM Tube TOP PRN (16:54)
[2019-09-22] MEDS: Ketorolac 30 MG/ML SDV IVPUSH PRN (17:29)
[2019-09-22] MEDS: Folic Acid 1 MG Tab PO SCH (20:17)
[2019-09-22] MEDS: Thiamine 100 MG Tab PO SCH (20:17)
[2019-09-23] MEDS: Heparin Sodium 5,000 Units/ML Vial SUBCUT SCH ×3 (00:09→16:20)
[2019-09-23] MEDS: Albuterol/Ipratropium 3.0-0.5 MG/3 ML Neb Soln NEB SCH ×3 (00:09→12:59)
[2019-09-23] MEDS: Sodium Chloride 0.9% 1,000 ML IV SCH ×3 (00:40→18:10)
[2019-09-23] MEDS: LORazepam 2 MG/ML SDV IVPUSH PRN ×2 (00:46→13:27)
[2019-09-23] MEDS: Ketorolac 30 MG/ML SDV IVPUSH PRN ×2 (00:48→13:17)
[2019-09-23 06:58] LABS: BLOOD UREA NITROGEN,BUN 7 mg/dL (7.0-18.0); CARBON DIOXIDE,CO2 23.2 mmol/L (21.0-32.0); CHLORIDE,CL 107 mmol/L (98-107); GLUCOSE RANDOM 105 mg/dL (74-106); POTASSIUM,K 3.8 mmol/L (3.5-5.1); SODIUM,NA 139 mmol/L (136-148)
[2019-09-23] MEDS: Pantoprazole 40 MG in Sodium Chloride 0.9% 10 ML IV SCH ×2 (08:07→20:48)
[2019-09-23] MEDS: chlordiazePOXIDE 25 MG Cap PO SCH ×2 (08:09→20:48)
[2019-09-23] MEDS ORDERED: Magnesium Sulfate/Water 2 GM in Premix Bag 1 BAG IV ONE (09:40)
--- NOTE | 2019-09-23 11:50 | PCM.PN ---
- General Info Date of Service: 09/23/19 Subjective Update: Patient seen at bedside: Endorsing interval improvement since admission however still complaining of some mild disorientation and dizziness. Appetite is improving however still having a lot of abdominal discomfort worsened with food. Patient otherwise has no other complaints at this time. Functional Status: Reports: Pain Controlled - Review of Systems General: Denies: Fever, Weakness, Malaise, Chills HEENT: Reports: No Symptoms Pulmonary: Reports: No Symptoms Cardiovascular: Reports: No Symptoms Gastrointestinal: Reports: Abdominal Pain, Constipation, Decreased Appetite, Flatus Genitourinary: Reports: No Symptoms Musculoskeletal: Reports: No Symptoms Neurological: Denies: Confusion, Dizziness, Headache Psychiatric: Denies: Cravings, Hallucinations - Patient Data Vitals - Most Recent: Last Vital Signs Temp 97.9 F 09/23/19 08:00 Pulse 87 09/23/19 07:00 Resp 23 H 09/23/19 11:00 BP 150/93 H 09/23/19 11:00 Pulse Ox 90 L 09/23/19 11:00 Weight - Most Recent: 109.6 kg I&O - Last 24 Hours: Intake & Output 09/22/19 09/23/19 09/23/19 22:59 06:59 14:59 Intake Total 1625 1390 60 Output Total 350 460 Balance 1275 930 60 Lab Results Last 24 Hours: Laboratory Results - last 24 hr 09/23/19 09/23/19 09/23/19 Range/Units 06:03 06:03 06:06 WBC 8.04 (4.0-11.0) K/uL RBC 3.87 L (4.50-5.90) M/uL Hgb 12.8 L (13.0-17.0) g/dL Hct 38.2 (38.0-50.0) % MCV 98.7 H (80.0-98.0) fL MCH 33.1 H (27.0-32.0) pg MCHC 33.5 (31.0-37.0) g/dL RDW Std Deviation 54.5 (28.0-62.0) fl RDW Coeff of Julissa 15 (11.0-15.0) % Plt Count 403 H (150-400) K/uL MPV 10.40 (7.40-12.00) fL Add Manual Diff YES Neutrophils % (Manual) 59 (48.0-80.0) % Band Neutrophils % 4 % Lymphocytes % (Manual) 12 L (16.0-40.0) % Monocytes % (Manual) 23 H (0.0-15.0) % Eosinophils % (Manual) 1 (0.0-7.0) % Basophils % (Manual) 1 (0.0-1.5) % Nucleated RBC % 0.0 /100WBC Absolute Seg Neuts 4.7 (1.4-5.7) Band Neutrophils # 0.3 Lymphocytes # (Manual) 1.0 (0.6-2.4) Monocytes # (Manual) 1.8 H (0.0-0.8) Eosinophils # (Manual) 0.1 (0.0-0.7) Basophils # (Manual) 0.1 (0.0-0.1) Nucleated RBCs # 0 K/uL Sodium 139 (136-148) mmol/L Potassium 3.8 (3.5-5.1) mmol/L Chloride 107 (98-107) mmol/L Carbon Dioxide 23.2 (21.0-32.0) mmol/L BUN 7 (7.0-18.0) mg/dL Creatinine 0.8 (0.8-1.3) mg/dL Est Cr Clr Drug Dosing 123.46 mL/min Estimated GFR (MDRD) > 60.0 ml/min Glucose 105 (74-106) mg/dL Calcium 7.4 L (8.5-10.1) mg/dL Magnesium 1.7 L (1.8-2.4) mg/dL Total Bilirubin 0.8 (0.2-1.0) mg/dL AST 51 H (15-37) IU/L ALT 91 H (14-63) IU/L Alkaline Phosphatase 102 (46-116) U/L Total Protein 6.1 L (6.4-8.2) g/dL Albumin 2.1 L (3.4-5.0) g/dL Globulin 4.0 (2.6-4.0) g/dL Albumin/Globulin Ratio 0.5 L (0.9-1.6) Med Orders - Current: Current Medications Albuterol/Ipratropium (Duoneb 3.0-0.5 Mg/3 Ml) 3 ml NEB Q6HRRT FIDE Last Admin: 09/23/19 05:47 Dose: 3 ml Bisacodyl (Dulcolax) 10 mg RECTAL DAILY PRN PRN Reason: Constipation Chlordiazepoxide HCl (Librium) 50 mg PO BID [facility] Last Admin: 09/23/19 08:09 Dose: 50 mg Docusate Sodium (Colace) 100 mg PO BID PRN PRN Reason: Constipation Last Admin: 09/21/19 17:17 Dose: 100 mg Folic Acid (Folic Acid) 1 mg PO BEDTIME [facility] Last Admin: 09/22/19 20:17 Dose: 1 mg Heparin Sodium (Porcine) (Heparin Sodium) 5,000 units SUBCUT Q8H [facility] Last Admin: 09/23/19 08:06 Dose: 5,000 units Pantoprazole Sodium 40 mg/ (Sodium Chloride) 10 mls @ 300 mls/hr IV BID [facility] Last Admin: 09/23/19 08:07 Dose: 300 mls/hr Sodium Chloride (Normal Saline) 1,000 mls @ 125 mls/hr IV ASDIRECTED [facility] Last Admin: 09/23/19 08:42 Dose: 125 mls/hr Ketorolac Tromethamine (Toradol) 30 mg IVPUSH Q6H PRN PRN Reason: Pain Stop: 09/24/19 09:26 Last Admin: 09/23/19 00:48 Dose: 30 mg Lorazepam (Ativan) 0 mg IVPUSH Q4H PRN; Protocol PRN Reason: Withdrawal Symptoms Last Admin: 09/23/19 00:46 Dose: 1 mg Nystatin (Nystatin Crm) 0 gm TOP QID PRN PRN Reason: Rash Last Admin: 09/22/19 16:54 Dose: 1 applic Ondansetron HCl (Zofran) 4 mg IVPUSH Q4H PRN PRN Reason: Nausea/Vomiting Last Admin: 09/22/19 06:53 Dose: 4 mg Quetiapine Fumarate (Seroquel) 25 mg PO BEDTIME PRN PRN Reason: Agitation Last Admin: 09/22/19 20:28 Dose: 25 mg Sodium Chloride (Saline Flush) 10 ml FLUSH ASDIRECTED PRN PRN Reason: Keep Vein Open Last Admin: 09/20/19 12:29 Dose: 10 ml Sodium Chloride (Saline Flush) 2.5 ml FLUSH ASDIRECTED PRN PRN Reason: Keep Vein Open Thiamine HCl (Vitamin B-1) 100 mg PO BEDTIME [facility] Last Admin: 09/22/19 20:17 Dose: 100 mg Discontinued Medications Chlordiazepoxide HCl (Librium) 25 mg PO QID PRN PRN Reason: Withdrawal Symptoms Last Admin: 09/18/19 14:27 Dose: 25 mg Chlordiazepoxide HCl (Librium) 25 mg PO Q8H [facility]IDE Last Admin: 09/18/19 20:55 Dose: 25 mg Chlordiazepoxide HCl (Librium) 100 mg PO Q8H FIDE Last Admin: 09/21/19 04:32 Dose: 100 mg Chlordiazepoxide HCl (Librium) 75 mg PO ONETIME ONE Stop: 09/18/19 21:16 Last Admin: 09/18/19 21:49 Dose: 75 mg Diazepam (Valium) 50 mg IVPUSH ONETIME ONE Stop: 09/18/19 14:12 Last Admin: 09/18/19 14:41 Dose: Not Given Furosemide (Lasix) 20 mg IVPUSH NOW ONE Stop: 09/20/19 10:32 Last Admin: 09/20/19 11:01 Dose: 20 mg Sodium Chloride (Normal Saline) 1,000 mls @ 999 mls/hr IV STAT ONE Stop: 09/17/19 21:00 Last Admin: 09/17/19 20:26 Dose: 999 mls/hr Pantoprazole Sodium 80 mg/ (Sodium Chloride) 20 mls @ 420 mls/hr IVPUSH ONETIME ONE Stop: 09/17/19 20:11 Last Admin: 09/17/19 20:26 Dose: 420 mls/hr Sodium Chloride (Normal Saline) 1,000 mls @ 999 mls/hr IV STAT ONE Stop: 09/17/19 21:09 Last Admin: 09/17/19 20:14 Dose: Not Given Multivitamins/Minerals 10 ml/Thiamine HCl 100 mg/ Folic Acid 1 mg/ Sodium Chloride 1,011.2 mls @ 125 mls/hr IV ONETIME ONE Stop: 09/18/19 05:19 Last Admin: 09/17/19 22:15 Dose: 125 mls/hr Lactated Ringer's (Ringers, Lactated) 1,000 mls @ 125 mls/hr IV ASDIRECTED [facility]IDE Last Admin: 09/18/19 14:33 Dose: 125 mls/hr Pantoprazole Sodium 40 mg/ (Sodium Chloride) 10 mls @ 300 mls/hr IV DAILY [facility] Last Admin: 09/18/19 08:07 Dose: 300 mls/hr Magnesium Sulfate 4 gm/ Premix 100 mls @ 25 mls/hr IV ONETIME ONE Stop: 09/18/19 11:15 Last Admin: 09/18/19 08:01 Dose: 25 mls/hr Lactated Ringer's (Ringers, Lactated) 1,000 mls @ 175 mls/hr IV ASDIRECTED [facility] Last Admin: 09/20/19 05:44 Dose: 175 mls/hr Magnesium Sulfate 4 gm/ Premix 100 mls @ 33.333 mls/hr IV ONETIME ONE Stop: 09/19/19 10:18 Last Admin: 09/19/19 07:50 Dose: 33.333 mls/hr Magnesium Sulfate 2 gm/ Premix 50 mls @ 50 mls/hr IV ONETIME ONE Stop: 09/20/19 08:44 Last Admin: 09/20/19 08:02 Dose: 50 mls/hr Magnesium Sulfate 4 gm/ Premix 100 mls @ 33.333 mls/hr IV ONETIME ONE Stop: 09/21/19 14:27 Last Admin: 09/21/19 12:36 Dose: 33.333 mls/hr Potassium Chloride 40 meq/ (Premix) 100 mls @ 25 mls/hr IV ONETIME ONE Stop: 09/21/19 15:28 Last Admin: 09/21/19 12:37 Dose: 25 mls/hr Magnesium Sulfate 1 gm/ Sodium (Chloride) 102 mls @ 102 mls/hr IV ONETIME ONE Stop: 09/22/19 09:14 Last Admin: 09/22/19 08:32 Dose: 102 mls/hr Magnesium Sulfate 2 gm/ Premix 50 mls @ 50 mls/hr IV ONETIME ONE Stop: 09/23/19 10:39 Last Admin: 09/23/19 10:17 Dose: 50 mls/hr Iopamidol (Isovue-370 (76%)) 100 ml IVPUSH ONETIME ONE Stop: 09/17/19 21:57 Last Admin: 09/17/19 21:56 Dose: 100 ml Ketorolac Tromethamine (Toradol) 15 mg IVPUSH Q6H PRN PRN Reason: Pain Stop: 09/24/19 09:26 Last Admin: 09/20/19 07:35 Dose: 15 mg Lorazepam (Ativan) 2 mg IVPUSH ONETIME ONE Stop: 09/18/19 14:07 Last Admin: 09/18/19 14:17 Dose: 2 mg Lorazepam (Ativan) 1 mg IVPUSH ONETIME ONE Stop: 09/18/19 14:59 Last Admin: 09/18/19 15:14 Dose: 1 mg Magnesium Sulfate (Magnesium Sulfate 50%) 1 gm IV ONETIME ONE Stop: 09/22/19 08:08 Last Admin: 09/22/19 08:33 Dose: Not Given Morphine Sulfate (Morphine) 6 mg IVPUSH ONETIME ONE Stop: 09/17/19 22:25 Last Admin: 09/17/19 22:27 Dose: 6 mg Morphine Sulfate (Morphine) 2 mg IVPUSH Q4H PRN PRN Reason: Pain Last Admin: 09/18/19 13:53 Dose: 2 mg Ondansetron HCl (Zofran) 4 mg IVPUSH ONETIME ONE Stop: 09/17/19 20:01 Last Admin: 09/17/19 20:31 Dose: 4 mg Ondansetron HCl (Zofran) 4 mg IVPUSH ONETIME ONE Stop: 09/17/19 20:10 Last Admin: 09/17/19 20:15 Dose: Not Given Ondansetron HCl (Zofran) 4 mg IVPUSH ONETIME ONE Stop: 09/17/19 22:16 Last Admin: 09/17/19 22:19 Dose: 4 mg Potassium Chloride (Potassium Chloride) 40 meq PO ONETIME ONE Stop: 09/17/19 21:15 Last Admin: 09/17/19 22:15 Dose: 40 meq Quetiapine Fumarate (Seroquel) 100 mg PO TID [facility]IDE Last Admin: 09/21/19 05:24 Dose: 100 mg - Exam Quality Assessment: Supplemental Oxygen General: Alert, Oriented, No Acute Distress HEENT: EOMI, Mucous Membr. Moist/[place] Neck: Supple Lungs: Clear to Auscultation, Normal Respiratory Effort Cardiovascular: Regular Rate, Regular Rhythm GI/Abdominal Exam: Soft, Other (diffuse abd. tenderness; no rebound tenderness; no organomegaly. ) Back Exam: Full Range of Motion Extremities: Non-Tender, No Pedal Edema Skin: Warm Neurological: No New Focal Deficit (speech a little slowed but coherent ) Sepsis Event Note - Evaluation Sepsis Screening Result: No Definite Risk - Focused Exam Vital Signs: Vital Signs Temp Pulse Resp BP Pulse Ox 09/23/19 11:00 23 H 150/93 H 90 L 09/23/19 10:00 25 H 127/88 93 L 09/23/19 09:00 19 138/92 H 96 09/23/19 08:00 97.9 F 18 151/104 H 95 09/23/19 07:00 97.9 F 87 18 150/98 H 95 09/23/19 05:55 97.6 F 78 12 128/77 97 09/23/19 04:58 97.5 F 76 12 147/91 H 93 L 09/23/19 03:57 98.1 F 79 12 139/87 93 L 09/23/19 03:00 78 12 131/92 H 93 L 09/23/19 02:00 80 12 140/85 93 L 09/23/19 01:00 98.2 F 86 12 147/95 H 93 L 09/23/19 00:00 97.9 F 88 19 129/84 92 L Date Exam was Performed: 09/23/19 Time Exam was Performed: 11:45 - Problem List Review Problem List Initiated/Reviewed/Updated: Yes - My Orders Last 24 Hours: My Active Orders 09/22/19 11:07 Consult to Physical Therapy [PT Evaluation and Treatment] [CONS] Routine 09/22/19 Lunch Soft Diet [DIET] 09/24/19 05:11 CBC WITH AUTO DIFF [HEME] AM COMPREHENSIVE METABOLIC PN,CMP [CHEM] AM - Plan Plan:: 1. Acute pancreatitis likely secondary to alcohol use- improving. continue soft diet cont IV fluids, Toradol, zofran. Will need outpatient general surgery consult for gallstone and pancreatic mass: have contacted Surgery for recommendations 2. Transaminitis- likely secondary to alcohol use- Hepatitis panel negative, continue to monitor levels daily; interval improvement 3. Alcohol withdrawal- CIWAA/Ativan protocol, will start tapering off the Librium and Seroquel Continue thiamine and folic acid. Obtain CT scan of head. Continue ativan ; continue seroqul secondary to continual signs of withdrawal; repeat EKG this yesterday showed interval improvement of Qtc:[id number] . PT will be consulted for tomorrow based off continual CIWAA assessment; this AM pt. is still dizzy in supine position; will try again tomorrow 4. Oxygen requirement- smoking history, may have COPD. continue duonebs PRN and attempt to wean. Repeat CXR showed nothing acute. NO crackles appreciated this AM ; on 1L ; continue to observe and wean 5. Pancreatic mass: US showed small pancreatic mass. They recommend [address] for further evaluation, this will be done on outpatient basis. 6. Electrolyte imbalance: replete electrolytes as needed; Magnesium repleted this AM; recheck tomorrow
[2019-09-23] MEDS: Nystatin Crm 30 GM Tube TOP PRN (15:47)
--- NOTE | 2019-09-23 15:50 | PCM.CONS ---
H&P History of Present Illness - General Date of Service: 09/23/19 Admit Problem/Dx: Admission Diagnosis/Problem Admission Diagnosis/Problem Pancreatitis Source of Information: Patient History Limitations: Reports: Altered Mental Status - History of Present Illness Initial Comments - Free Text/Narative: Patient is a 49 year old male who presented six days ago to the ER with abdominal pain and nausea/vomiting for 10 days prior to that. He is an alcoholic with withdrawl symptoms when he stops. Work up in the ER revealed hyponatremia, elevated AST and ALT, elevated lipase and a CT scan that showed fat stranding around the pancreas and thickening of the duodenum. CT scan showed no evidence of cholelithiasis, cholecystitis or choledocholithiasis. Bilirubin was normal. He was admitted to the ICU. He went through alcohol withdrawal and required CIWA protocol. His lipase and LFTs improved over time. US was performed on second day of admission. This showed a possible single gallstone and possible biliary sludge. He was also noted to have an equivocal small mass in the head of the pancreas. [address] scan recommended. I was asked to evaluate whether this was AP or GP and to weigh in on the US findings. The patient had received Ativan when I came to see him and was unable to answer questions for me. According to his PCP, he was feeling well this morning with no abdominal pain. Bilateral Lower Abdomen Pain Score (Numeric/FACES): 5 Headache Pain Score (Numeric/FACES): 2 Abdomen Pain Score (Numeric/FACES): 6 Left Hand Pain Score (Numeric/FACES): 4 epigastric Pain Score (Numeric/FACES): 4 - Related Data Allergies/Adverse Reactions: Allergies Allergy/AdvReac Type Severity Reaction Status Date / Time No Known Allergies Allergy Verified 09/18/19 01:37 Home Medications: Home Meds . [No Known Home Meds] 09/17/19 [History] Past Medical History HEENT History: Reports: Other (See Below) Other HEENT History: wears glasses Cardiovascular History: Reports: Blood Clots/VTE/DVT Other Cardiovascular History: hx of DVT in right leg after knee surgery Respiratory History: Reports: Other (See Below) Other Respiratory History: clotting in lungs Gastrointestinal History: Reports: Other (See Below) Genitourinary History: Reports: Other (See Below) Other Genitourinary History: blood in urine, unknown reason Musculoskeletal History: Reports: Fracture Other Musculoskeletal History: hx of fx right knee, clavicle, arm and fingers Neurological History: Reports: None Psychiatric History: Reports: None Endocrine/Metabolic History: Reports: Obesity/BMI 30+ Hematologic History: Reports: Blood Transfusion(s) Oncologic (Cancer) History: Reports: None Dermatologic History: Reports: None - Infectious Disease History Infectious Disease History: Reports: None - Past Surgical History Head Surgeries/Procedures: Reports: None HEENT Surgical History: Reports: Tonsillectomy Cardiovascular Surgical History: Reports: None Respiratory Surgical History: Reports: None GI Surgical History: Reports: Other (See Below) 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 Male Surgical History: Reports: None Endocrine Surgical History: Reports: None Neurological Surgical History: Reports: None Musculoskeletal Surgical History: Reports: ORIF Other Musculoskeletal Surgeries/Procedures:: right knee- has hardware Oncologic Surgical History: Reports: None Dermatological Surgical History: Reports: None Social & Family History - Family History Family Medical History: Noncontributory - Tobacco Use Smoking Status *Q: Current Every Day Smoker Years of Tobacco use: 30 Packs/Tins Daily: 0.4 Tobacco Use Comment: states smokes 3-5 cigarettes a day - Caffeine Use Caffeine Use: Reports: None - Alcohol Use Days Per Week of Alcohol Use: 7 Number of Drinks Per Day: 1 Total Drinks Per Week: 7 - Recreational Drug Use Recreational Drug Use: No H&P Review of Systems - Review of Systems: Review Of Systems: Unable To Obtain Reason Not Obtained: Altered mental status Exam - Exam Exam: See Below - Vital Signs Vital Signs: Last Vital Signs Temp 37.1 C 09/23/19 12:00 Pulse 87 09/23/19 07:00 Resp 20 09/23/19 15:00 BP 141/79 H 09/23/19 15:00 Pulse Ox 94 L 09/23/19 15:00 Weight: 109.6 kg - Exam General: Sedated HEENT: Mucosa Moist & [place] Lungs: Clear to Auscultation, Normal Respiratory Effort Cardiovascular: Regular Rate, Regular Rhythm GI/Abdominal Exam: Soft, Non-Tender, No Distention, No Mass Extremities: Normal Inspection - Patient Data Lab Results Last 24 hrs: Laboratory Results - last 24 hr 09/23/19 09/23/19 09/23/19 Range/Units 06:03 06:03 06:06 WBC 8.04 (4.0-11.0) K/uL RBC 3.87 L (4.50-5.90) M/uL Hgb 12.8 L (13.0-17.0) g/dL Hct 38.2 (38.0-50.0) % MCV 98.7 H (80.0-98.0) fL MCH 33.1 H (27.0-32.0) pg MCHC 33.5 (31.0-37.0) g/dL RDW Std Deviation 54.5 (28.0-62.0) fl RDW Coeff of Julissa 15 (11.0-15.0) % Plt Count 403 H (150-400) K/uL MPV 10.40 (7.40-12.00) fL Add Manual Diff YES Neutrophils % (Manual) 59 (48.0-80.0) % Band Neutrophils % 4 % Lymphocytes % (Manual) 12 L (16.0-40.0) % Monocytes % (Manual) 23 H (0.0-15.0) % Eosinophils % (Manual) 1 (0.0-7.0) % Basophils % (Manual) 1 (0.0-1.5) % Nucleated RBC % 0.0 /100WBC Absolute Seg Neuts 4.7 (1.4-5.7) Band Neutrophils # 0.3 Lymphocytes # (Manual) 1.0 (0.6-2.4) Monocytes # (Manual) 1.8 H (0.0-0.8) Eosinophils # (Manual) 0.1 (0.0-0.7) Basophils # (Manual) 0.1 (0.0-0.1) Nucleated RBCs # 0 K/uL Sodium 139 (136-148) mmol/L Potassium 3.8 (3.5-5.1) mmol/L Chloride 107 (98-107) mmol/L Carbon Dioxide 23.2 (21.0-32.0) mmol/L BUN 7 (7.0-18.0) mg/dL Creatinine 0.8 (0.8-1.3) mg/dL Est Cr Clr Drug Dosing 123.46 mL/min Estimated GFR (MDRD) > 60.0 ml/min Glucose 105 (74-106) mg/dL Calcium 7.4 L (8.5-10.1) mg/dL Magnesium 1.7 L (1.8-2.4) mg/dL Total Bilirubin 0.8 (0.2-1.0) mg/dL AST 51 H (15-37) IU/L ALT 91 H (14-63) IU/L Alkaline Phosphatase 102 (46-116) U/L Total Protein 6.1 L (6.4-8.2) g/dL Albumin 2.1 L (3.4-5.0) g/dL Globulin 4.0 (2.6-4.0) g/dL Albumin/Globulin Ratio 0.5 L (0.9-1.6) Result Diagrams: 09/23/19 06:03 09/23/19 06:03 Sepsis Event Note - Evaluation Sepsis Screening Result: No Definite Risk - Focused Exam Vital Signs: Vital Signs Temp Pulse Resp BP Pulse Ox Pulse Ox 09/23/19 15:00 20 141/79 H 94 L 09/23/19 14:00 20 140/84 93 L 09/23/19 13:02 92 L 09/23/19 13:00 22 H 149/100 H 92 L 09/23/19 12:00 37.1 C 15 157/84 H 93 L 09/23/19 11:00 23 H 150/93 H 90 L 09/23/19 10:00 25 H 127/88 93 L 09/23/19 09:00 19 138/92 H 96 09/23/19 08:00 36.6 C 18 151/104 H 95 09/23/19 07:00 36.6 C 87 18 150/98 H 95 09/23/19 05:55 36.4 C 78 12 128/77 97 09/23/19 04:58 36.4 C 76 12 147/91 H 93 L 09/23/19 03:57 36.7 C 79 12 139/87 93 L Date Exam was Performed: 09/23/19 Time Exam was Performed: 15:58 Consult PN Assessment/Plan Procedures: Procedures ASSAY OF LIPASE (10/03/18) ASSAY OF PSA TOTAL (10/14/18) ASSAY THYROID STIM HORMONE (11/04/18) COMPLETE CBC W/AUTO DIFF WBC (11/22/18) COMPREHEN METABOLIC PANEL (11/22/18) CT ABD & PELV W/CONTRAST (10/03/18) CULTURE SCREEN ONLY (11/22/18) CYSTOSCOPY (11/05/18) ECHO EXAM OF ABDOMEN (11/07/18) EMERGENCY DEPT VISIT (11/22/18) HYDRATE IV INFUSION ADD-ON (10/03/18) HYDRATION IV INFUSION INIT (10/03/18) PROTHROMBIN TIME (10/08/18) ROUTINE VENIPUNCTURE (11/22/18) STREP A ASSAY W/OPTIC (11/22/18) URINALYSIS AUTO W/SCOPE (10/14/18) (1) Alcohol abuse SNOMED Code(s): 18743653 Code(s): F10.10 - ALCOHOL ABUSE, UNCOMPLICATED Current Visit: Yes (2) Pancreatitis SNOMED Code(s): 78641295 Code(s): K85.90 - ACUTE PANCREATITIS WITHOUT NECROSIS OR INFECTION, UNSP Current Visit: Yes Problem List Initiated/Reviewed/Updated: Yes Plan: I favor that the patient's pancreatitis was due to alcohol rather than gallstone pancreatitis. If it is still felt that this could be the cause, a MRCP could be performed to rule out choledocholithiasis and better define if there is biliary sludge and or a stone. MRCP would also better define the "pancreatic mass" which is likely a pancreatic pseudocyst due to the pancreatitis. No need for surgery at this time. Patient can follow up with me in clinic in 2- 3 weeks to discuss gallbladder pathology and any further workup. Please call with questions or concerns.
[2019-09-23] MEDS: Folic Acid 1 MG Tab PO SCH (20:49)
[2019-09-23] MEDS: Thiamine 100 MG Tab PO SCH (20:49)
[2019-09-24] MEDS: Heparin Sodium 5,000 Units/ML Vial SUBCUT SCH ×3 (00:32→16:22)
[2019-09-24] MEDS: Sodium Chloride 0.9% 1,000 ML IV SCH (01:48)
[2019-09-24] MEDS: LORazepam 2 MG/ML SDV IVPUSH PRN (03:20)
[2019-09-24 06:26] LABS: BLOOD UREA NITROGEN,BUN 6 mg/dL (7.0-18.0); CARBON DIOXIDE,CO2 24.1 mmol/L (21.0-32.0); CHLORIDE,CL 107 mmol/L (98-107); GLUCOSE RANDOM 115 mg/dL (74-106); POTASSIUM,K 3.6 mmol/L (3.5-5.1); SODIUM,NA 140 mmol/L (136-148)
[2019-09-24] MEDS ORDERED: Magnesium Sulfate/Water 4 GM in Premix Bag 1 BAG IV ONE (07:40)
[2019-09-24] MEDS: Pantoprazole 40 MG in Sodium Chloride 0.9% 10 ML IV SCH ×2 (08:21→20:40)
[2019-09-24] MEDS: chlordiazePOXIDE 25 MG Cap PO SCH ×2 (08:24→20:41)
[2019-09-24] MEDS: Docusate Sodium 100 MG Cap PO PRN (08:32)
--- NOTE | 2019-09-24 08:33 | PCM.PN ---
- General Info Date of Service: 09/24/19 Subjective Update: : Endorsing improvement since admission: Still feels dizzy. Mentions abdominal pain is improving and appetite is up; otherwise does not have any other acute complaints at this time. - Review of Systems General: Reports: No Symptoms. Denies: Fever, Chills HEENT: Reports: No Symptoms Pulmonary: Reports: No Symptoms. Denies: Shortness of Breath, Pleuritic Chest Pain, Cough Cardiovascular: Denies: Chest Pain, Palpitations Gastrointestinal: Reports: Abdominal Pain, Flatus. Denies: Constipation, Decreased Appetite Genitourinary: Reports: No Symptoms Musculoskeletal: Reports: No Symptoms Neurological: Reports: Dizziness, Gait Disturbance. Denies: Headache Psychiatric: Denies: Hallucinations, Suicidal Ideation, Homicidal Ideation - Patient Data Vitals - Most Recent: Last Vital Signs Temp 98.2 F 09/24/19 04:00 Pulse 87 09/23/19 07:00 Resp 13 09/24/19 07:00 BP 146/89 H 09/24/19 07:00 Pulse Ox 94 L 09/24/19 07:00 Weight - Most Recent: 105 kg I&O - Last 24 Hours: Intake & Output 09/23/19 09/24/19 09/24/19 22:59 06:59 14:59 Intake Total 2747 1882 Output Total 1150 1860 Balance 1597 22 Lab Results Last 24 Hours: Laboratory Results - last 24 hr 09/23/19 09/24/19 09/24/19 Range/Units 06:06 05:50 05:50 WBC 9.21 (4.0-11.0) K/uL RBC 3.85 L (4.50-5.90) M/uL Hgb 12.6 L (13.0-17.0) g/dL Hct 37.6 L (38.0-50.0) % MCV 97.7 (80.0-98.0) fL MCH 32.7 H (27.0-32.0) pg MCHC 33.5 (31.0-37.0) g/dL RDW Std Deviation 53.1 (28.0-62.0) fl RDW Coeff of Julissa 15 (11.0-15.0) % Plt Count 520 H (150-400) K/uL MPV 10.30 (7.40-12.00) fL Add Manual Diff YES Neutrophils % (Manual) 58 (48.0-80.0) % Band Neutrophils % 9 % Lymphocytes % (Manual) 19 (16.0-40.0) % Monocytes % (Manual) 6 (0.0-15.0) % Eosinophils % (Manual) 6 (0.0-7.0) % Basophils % (Manual) 2 H (0.0-1.5) % Nucleated RBC % 0.0 /100WBC Absolute Seg Neuts 5.3 (1.4-5.7) Band Neutrophils # 0.8 Lymphocytes # (Manual) 1.7 (0.6-2.4) Monocytes # (Manual) 0.6 (0.0-0.8) Eosinophils # (Manual) 0.6 (0.0-0.7) Basophils # (Manual) 0.2 H (0.0-0.1) Nucleated RBCs # 0 K/uL Sodium 140 (136-148) mmol/L Potassium 3.6 (3.5-5.1) mmol/L Chloride 107 (98-107) mmol/L Carbon Dioxide 24.1 (21.0-32.0) mmol/L BUN 6 L (7.0-18.0) mg/dL Creatinine 0.8 (0.8-1.3) mg/dL Est Cr Clr Drug Dosing 123.46 mL/min Estimated GFR (MDRD) > 60.0 ml/min Glucose 115 H (74-106) mg/dL Calcium 7.6 L (8.5-10.1) mg/dL Magnesium 1.7 L (1.8-2.4) mg/dL Total Bilirubin 0.6 (0.2-1.0) mg/dL AST 33 (15-37) IU/L ALT 69 H (14-63) IU/L Alkaline Phosphatase 105 (46-116) U/L Total Protein 6.2 L (6.4-8.2) g/dL Albumin 2.0 L (3.4-5.0) g/dL Globulin 4.2 H (2.6-4.0) g/dL Albumin/Globulin Ratio 0.5 L (0.9-1.6) 09/24/19 Range/Units 05:50 WBC (4.0-11.0) K/uL RBC (4.50-5.90) M/uL Hgb (13.0-17.0) g/dL Hct (38.0-50.0) % MCV (80.0-98.0) fL MCH (27.0-32.0) pg MCHC (31.0-37.0) g/dL RDW Std Deviation (28.0-62.0) fl RDW Coeff of Julissa (11.0-15.0) % Plt Count (150-400) K/uL MPV (7.40-12.00) fL Add Manual Diff Neutrophils % (Manual) (48.0-80.0) % Band Neutrophils % % Lymphocytes % (Manual) (16.0-40.0) % Monocytes % (Manual) (0.0-15.0) % Eosinophils % (Manual) (0.0-7.0) % Basophils % (Manual) (0.0-1.5) % Nucleated RBC % /100WBC Absolute Seg Neuts (1.4-5.7) Band Neutrophils # Lymphocytes # (Manual) (0.6-2.4) Monocytes # (Manual) (0.0-0.8) Eosinophils # (Manual) (0.0-0.7) Basophils # (Manual) (0.0-0.1) Nucleated RBCs # K/uL Sodium (136-148) mmol/L Potassium (3.5-5.1) mmol/L Chloride (98-107) mmol/L Carbon Dioxide (21.0-32.0) mmol/L BUN (7.0-18.0) mg/dL Creatinine (0.8-1.3) mg/dL Est Cr Clr Drug Dosing mL/min Estimated GFR (MDRD) ml/min Glucose (74-106) mg/dL Calcium (8.5-10.1) mg/dL Magnesium 1.5 L (1.8-2.4) mg/dL Total Bilirubin (0.2-1.0) mg/dL AST (15-37) IU/L ALT (14-63) IU/L Alkaline Phosphatase (46-116) U/L Total Protein (6.4-8.2) g/dL Albumin (3.4-5.0) g/dL Globulin (2.6-4.0) g/dL Albumin/Globulin Ratio (0.9-1.6) Med Orders - Current: Current Medications Albuterol/Ipratropium (Duoneb 3.0-0.5 Mg/3 Ml) 3 ml NEB Q6HRRT PRN PRN Reason: Shortness of Breath Bisacodyl (Dulcolax) 10 mg RECTAL DAILY PRN PRN Reason: Constipation Chlordiazepoxide HCl (Librium) 50 mg PO BID [facility] Last Admin: 09/24/19 08:24 Dose: 50 mg Docusate Sodium (Colace) 100 mg PO BID PRN PRN Reason: Constipation Last Admin: 09/21/19 17:17 Dose: 100 mg Folic Acid (Folic Acid) 1 mg PO BEDTIME [facility] Last Admin: 09/23/19 20:49 Dose: 1 mg Heparin Sodium (Porcine) (Heparin Sodium) 5,000 units SUBCUT Q8H [facility] Last Admin: 09/24/19 00:32 Dose: 5,000 units Pantoprazole Sodium 40 mg/ (Sodium Chloride) 10 mls @ 300 mls/hr IV BID [facility] Last Admin: 09/24/19 08:21 Dose: 300 mls/hr Sodium Chloride (Normal Saline) 1,000 mls @ 100 mls/hr IV ASDIRECTED [facility] Last Infusion: 09/24/19 08:18 Dose: 100 mls/hr Magnesium Sulfate 4 gm/ Premix 100 mls @ 25 mls/hr IV ONETIME ONE Stop: 09/24/19 11:39 Last Admin: 09/24/19 08:26 Dose: 25 mls/hr Ketorolac Tromethamine (Toradol) 30 mg IVPUSH Q6H PRN PRN Reason: Pain Stop: 09/24/19 09:26 Last Admin: 09/23/19 13:17 Dose: 30 mg Lorazepam (Ativan) 0 mg IVPUSH Q4H PRN; Protocol PRN Reason: Withdrawal Symptoms Last Admin: 09/24/19 03:20 Dose: 1 mg Nystatin (Nystatin Crm) 0 gm TOP QID PRN PRN Reason: Rash Last Admin: 09/23/19 15:47 Dose: 1 applic Ondansetron HCl (Zofran) 4 mg IVPUSH Q4H PRN PRN Reason: Nausea/Vomiting Last Admin: 09/22/19 06:53 Dose: 4 mg Quetiapine Fumarate (Seroquel) 25 mg PO BEDTIME PRN PRN Reason: Agitation Last Admin: 09/22/19 20:28 Dose: 25 mg Sodium Chloride (Saline Flush) 10 ml FLUSH ASDIRECTED PRN PRN Reason: Keep Vein Open Last Admin: 09/20/19 12:29 Dose: 10 ml Sodium Chloride (Saline Flush) 2.5 ml FLUSH ASDIRECTED PRN PRN Reason: Keep Vein Open Thiamine HCl (Vitamin B-1) 100 mg PO BEDTIME [facility] Last Admin: 09/23/19 20:49 Dose: 100 mg Discontinued Medications Albuterol/Ipratropium (Duoneb 3.0-0.5 Mg/3 Ml) 3 ml NEB Q6HRRT [facility] Last Admin: 09/23/19 12:59 Dose: Not Given Chlordiazepoxide HCl (Librium) 25 mg PO QID PRN PRN Reason: Withdrawal Symptoms Last Admin: 09/18/19 14:27 Dose: 25 mg Chlordiazepoxide HCl (Librium) 25 mg PO Q8H [facility] Last Admin: 09/18/19 20:55 Dose: 25 mg Chlordiazepoxide HCl (Librium) 100 mg PO Q8H [facility] Last Admin: 09/21/19 04:32 Dose: 100 mg Chlordiazepoxide HCl (Librium) 75 mg PO ONETIME ONE Stop: 09/18/19 21:16 Last Admin: 09/18/19 21:49 Dose: 75 mg Diazepam (Valium) 50 mg IVPUSH ONETIME ONE Stop: 09/18/19 14:12 Last Admin: 09/18/19 14:41 Dose: Not Given Furosemide (Lasix) 20 mg IVPUSH NOW ONE Stop: 09/20/19 10:32 Last Admin: 09/20/19 11:01 Dose: 20 mg Sodium Chloride (Normal Saline) 1,000 mls @ 999 mls/hr IV STAT ONE Stop: 09/17/19 21:00 Last Admin: 09/17/19 20:26 Dose: 999 mls/hr Pantoprazole Sodium 80 mg/ (Sodium Chloride) 20 mls @ 420 mls/hr IVPUSH ONETIME ONE Stop: 09/17/19 20:11 Last Admin: 09/17/19 20:26 Dose: 420 mls/hr Sodium Chloride (Normal Saline) 1,000 mls @ 999 mls/hr IV STAT ONE Stop: 09/17/19 21:09 Last Admin: 09/17/19 20:14 Dose: Not Given Multivitamins/Minerals 10 ml/Thiamine HCl 100 mg/ Folic Acid 1 mg/ Sodium Chloride 1,011.2 mls @ 125 mls/hr IV ONETIME ONE Stop: 09/18/19 05:19 Last Admin: 09/17/19 22:15 Dose: 125 mls/hr Lactated Ringer's (Ringers, Lactated) 1,000 mls @ 125 mls/hr IV ASDIRECTED [facility] Last Admin: 09/18/19 14:33 Dose: 125 mls/hr Pantoprazole Sodium 40 mg/ (Sodium Chloride) 10 mls @ 300 mls/hr IV DAILY [facility] Last Admin: 09/18/19 08:07 Dose: 300 mls/hr Magnesium Sulfate 4 gm/ Premix 100 mls @ 25 mls/hr IV ONETIME ONE Stop: 09/18/19 11:15 Last Admin: 09/18/19 08:01 Dose: 25 mls/hr Lactated Ringer's (Ringers, Lactated) 1,000 mls @ 175 mls/hr IV ASDIRECTED [facility] Last Admin: 09/20/19 05:44 Dose: 175 mls/hr Magnesium Sulfate 4 gm/ Premix 100 mls @ 33.333 mls/hr IV ONETIME ONE Stop: 09/19/19 10:18 Last Admin: 09/19/19 07:50 Dose: 33.333 mls/hr Magnesium Sulfate 2 gm/ Premix 50 mls @ 50 mls/hr IV ONETIME ONE Stop: 09/20/19 08:44 Last Admin: 09/20/19 08:02 Dose: 50 mls/hr Magnesium Sulfate 4 gm/ Premix 100 mls @ 33.333 mls/hr IV ONETIME ONE Stop: 09/21/19 14:27 Last Admin: 09/21/19 12:36 Dose: 33.333 mls/hr Potassium Chloride 40 meq/ (Premix) 100 mls @ 25 mls/hr IV ONETIME ONE Stop: 09/21/19 15:28 Last Admin: 09/21/19 12:37 Dose: 25 mls/hr Magnesium Sulfate 1 gm/ Sodium (Chloride) 102 mls @ 102 mls/hr IV ONETIME ONE Stop: 09/22/19 09:14 Last Admin: 09/22/19 08:32 Dose: 102 mls/hr Magnesium Sulfate 2 gm/ Premix 50 mls @ 50 mls/hr IV ONETIME ONE Stop: 09/23/19 10:39 Last Admin: 09/23/19 10:17 Dose: 50 mls/hr Iopamidol (Isovue-370 (76%)) 100 ml IVPUSH ONETIME ONE Stop: 09/17/19 21:57 Last Admin: 09/17/19 21:56 Dose: 100 ml Ketorolac Tromethamine (Toradol) 15 mg IVPUSH Q6H PRN PRN Reason: Pain Stop: 09/24/19 09:26 Last Admin: 09/20/19 07:35 Dose: 15 mg Lorazepam (Ativan) 2 mg IVPUSH ONETIME ONE Stop: 09/18/19 14:07 Last Admin: 09/18/19 14:17 Dose: 2 mg Lorazepam (Ativan) 1 mg IVPUSH ONETIME ONE Stop: 09/18/19 14:59 Last Admin: 09/18/19 15:14 Dose: 1 mg Magnesium Sulfate (Magnesium Sulfate 50%) 1 gm IV ONETIME ONE Stop: 09/22/19 08:08 Last Admin: 09/22/19 08:33 Dose: Not Given Morphine Sulfate (Morphine) 6 mg IVPUSH ONETIME ONE Stop: 09/17/19 22:25 Last Admin: 09/17/19 22:27 Dose: 6 mg Morphine Sulfate (Morphine) 2 mg IVPUSH Q4H PRN PRN Reason: Pain Last Admin: 09/18/19 13:53 Dose: 2 mg Ondansetron HCl (Zofran) 4 mg IVPUSH ONETIME ONE Stop: 09/17/19 20:01 Last Admin: 09/17/19 20:31 Dose: 4 mg Ondansetron HCl (Zofran) 4 mg IVPUSH ONETIME ONE Stop: 09/17/19 20:10 Last Admin: 09/17/19 20:15 Dose: Not Given Ondansetron HCl (Zofran) 4 mg IVPUSH ONETIME ONE Stop: 09/17/19 22:16 Last Admin: 09/17/19 22:19 Dose: 4 mg Potassium Chloride (Potassium Chloride) 40 meq PO ONETIME ONE Stop: 09/17/19 21:15 Last Admin: 09/17/19 22:15 Dose: 40 meq Quetiapine Fumarate (Seroquel) 100 mg PO TID FIDE Last Admin: 09/21/19 05:24 Dose: 100 mg - Exam Quality Assessment: Supplemental Oxygen General: Alert, Oriented, Cooperative, No Acute Distress HEENT: EOMI Neck: Supple Lungs: Other (Left lower lung field : crackles; w, some diminshment of BS comapred to right; moving air well in upper air peña ) Cardiovascular: Regular Rate, Regular Rhythm GI/Abdominal Exam: Soft, Other (minimal diffuse tenderness; no rebound tenderness ) Back Exam: Full Range of Motion Extremities: Normal Range of Motion Skin: Warm, Dry Neurological: No: Normal Gait (cannot stand w.o assist; apparent unsteady/ shakiness persist;), Normal Speech (slow speech; ) Sepsis Event Note - Evaluation Sepsis Screening Result: No Definite Risk - Focused Exam Vital Signs: Vital Signs Temp Resp BP Pulse Ox 09/24/19 07:00 13 146/89 H 94 L 09/24/19 06:00 19 148/92 H 94 L 09/24/19 05:00 17 150/94 H 93 L 09/24/19 04:00 98.2 F 18 148/93 H 96 09/24/19 03:00 17 145/87 H 94 L 09/24/19 02:00 20 145/94 H 93 L 09/24/19 01:00 16 150/90 H 92 L 09/24/19 00:00 97.9 F 16 152/93 H 93 L 09/23/19 23:00 17 150/96 H 93 L 09/23/19 22:00 20 157/94 H 94 L 09/23/19 21:00 14 134/96 H 94 L Date Exam was Performed: 09/24/19 Time Exam was Performed: 10:32 - Problem List Review Problem List Initiated/Reviewed/Updated: Yes - My Orders Last 24 Hours: My Active Orders 09/23/19 13:01 Albuterol/Ipratropium [DuoNeb 3.0-0.5 MG/3 ML] 3 ml NEB Q6HRRT PRN 09/23/19 13:02 RT Aerosol Therapy [RC] ASDIRECTED 09/23/19 15:53 Consult to Physician [CONS] Routine 09/23/19 15:54 Notify Provider Consults [RC] ASDIRECTED 09/24/19 07:40 Magnesium Sulfate/Water [Magnesium Sulfate in Water Premix] 4 gm Premix Bag 1 bag IV ONETIME 09/24/19 08:19 Chest 2V [CR] Stat - Plan Plan:: 1. Acute pancreatitis likely secondary to alcohol use- improving. continue soft diet cont IV fluids :decrease to 100 cc/hr can dc. if lfuid overload becomes a concern, Toradol, zofran. : believe this not related to the incidental gallstone /sludge visualized; continue to monitor; appreciate Dr Cutler's help in this matter. 2. Transaminitis- likely secondary to alcohol use- Hepatitis panel negative, continue to monitor levels daily; interval improvement 3. Alcohol withdrawal- CIWAA/Ativan protocol, will start tapering off the Librium and Seroquel Continue thiamine and folic acid. Obtain CT scan of head. Continue ativan ; continue seroqul secondary to continual signs of withdrawal; repeat EKG this yesterday showed interval improvement of Qtc:[id number] . Will taper librium once ativan use is minimal PT will be consulted for tomorrow based off continual CIWAA assessment; this AM pt. is still dizzy in supine position; will try again tomorrow 4. Oxygen requirement- smoking history, may have COPD. continue duonebs PRN and attempt to wean. Increased Left lower lung field crackles; will order a repeat CXR this AM ; repeat CXR showing concerns for possible CAP; no cough and or fevers however, still requiring 1L o2 at times; will order a chest ct (increased risk factors for Aspiration CAP) 5. Pancreatic mass: US showed small pancreatic mass. They recommend [address] for further evaluation, this will be done on outpatient basis. 6. Electrolyte imbalance: replete electrolytes as needed; Magnesium repleted this AM w. 4 gms; recheck tomorrow
--- NOTE | 2019-09-24 09:14 | CR ---
Chest: Portable view of the chest was obtained. Comparison: Prior chest x-ray of 09/20/19. Increased density within the left upper chest is an interval change from previous exam. Lungs otherwise are clear. Heart size and mediastinum are within normal limits for portable technique. Impression: 1. Increased density with left upper chest as an interval change from previous study. Difficult to exclude developing area of pneumonia if patient has infectious symptoms. Diagnostic code #3 This report was dictated in MDT
--- NOTE | 2019-09-24 09:26 | PN ---
THC Physician - Brief Progress [id number]/03/2020 09:20[facility] Sara Medeiros, BETTY - JUDE (DAVIE) - JUDE GRAYSONGAILBON DelcidDate of Service 09/24/2019 09:20HPI/Events of Note eICU progress note:49-year-old male who was admitted to the hospital for alcohol withdrawal a nd acute pancreatitis. No acute events overnight. Patient seen on camera, sitting up in chair next to bed eating breakfast does not appear to be in any acute distress.Vital signs reviewed.Labs/EMR rev iewedAlcohol withdrawal-Agree with tapering off Librium as tolerated-Continue Ativan as needed-Contin ue to monitor electrolytes -PT consulted and followingAlcohol induced pancreatitis-Surgery consulted on 09/23/19 and have higher concern for Etoh pancreatitis vs gallstone thus no urgent surgical interven tion is warranted.-Continue with pain control and dietInterventions Major-Delirium, psychosis, severe agitation - evaluation and management 09 :25
[2019-09-24] MEDS: LORazepam 1 MG Tab PO PRN ×2 (10:09→15:24)
[2019-09-24] MEDS: Phosphorus #1 250 MG Tab PO SCH ×2 (11:55→18:13)
[2019-09-24] MEDS: Ondansetron 4 MG/2 ML SDV IVPUSH PRN (11:55)
--- NOTE | 2019-09-24 12:05 | CT ---
CT chest Technique: Multiple axial sections were obtained from above the lung apices inferiorly through the lung bases. Intravenous contrast was not utilized. Comparison: No prior chest CT, previous chest x-ray performed earlier on the same day (8:46 AM). Findings: Mediastinum and hilar region show no adenopathy. Aorta shows no aneurysm. Minimal coronary artery calcification is seen. No pericardial effusion is seen. Severe fatty infiltration is seen within the liver. Metallic artifact noted within the left upper abdomen. Trace pleural effusions are identified within both posterior lungs with adjacent atelectasis. Groundglass appearance is noted within both upper lungs, worse on the left side which may represent bronchiolitis. Findings can also be seen with viral infections. Lungs are otherwise clear. Bone window settings were reviewed which shows no acute osseous finding. Mild degenerative change is noted within the spine. Impression: 1. Groundglass appearance within both upper lungs, worse on the left side. Differential as described above. 2. Other findings believed to be nonacute and incidental. Diagnostic code #3 This report was dictated in MDT
[2019-09-24] MEDS: Ibuprofen 400 MG Tab PO PRN (12:11)
[2019-09-24] MEDS: Nystatin Crm 30 GM Tube TOP PRN (16:18)
[2019-09-24] MEDS: Folic Acid 1 MG Tab PO SCH (20:41)
[2019-09-24] MEDS: Thiamine 100 MG Tab PO SCH (20:42)
[2019-09-25] MEDS: Phosphorus #1 250 MG Tab PO SCH ×4 (00:13→17:17)
[2019-09-25] MEDS: Heparin Sodium 5,000 Units/ML Vial SUBCUT SCH ×3 (00:28→17:16)
[2019-09-25] MEDS: Albuterol/Ipratropium 3.0-0.5 MG/3 ML Neb Soln NEB PRN (04:53)
[2019-09-25] MEDS: Ibuprofen 400 MG Tab PO PRN ×2 (07:47→20:27)
[2019-09-25] MEDS: LORazepam 1 MG Tab PO PRN (07:48)
[2019-09-25] MEDS ORDERED: Magnesium Sulfate/Water 4 GM in Premix Bag 1 BAG IV ONE ×2 (07:53→09:00)
[2019-09-25] MEDS: Pantoprazole 40 MG in Sodium Chloride 0.9% 10 ML IV SCH ×2 (08:16→20:30)
[2019-09-25 08:25] LABS: BLOOD UREA NITROGEN,BUN 7 mg/dL (7.0-18.0); CARBON DIOXIDE,CO2 24.2 mmol/L (21.0-32.0); CHLORIDE,CL 105 mmol/L (98-107); GLUCOSE RANDOM 118 mg/dL (74-106); POTASSIUM,K 3.5 mmol/L (3.5-5.1); SODIUM,NA 139 mmol/L (136-148)
[2019-09-25] MEDS: chlordiazePOXIDE 25 MG Cap PO SCH ×2 (09:25→09:27)
--- NOTE | 2019-09-25 10:23 | PCM.PN ---
- General Info Date of Service: 09/25/19 Subjective Update: Mentions feeling stronger, less pain ,and appetite returning. Still feeling disoriented and dizzy Functional Status: Reports: Pain Controlled - Review of Systems General: Reports: No Symptoms HEENT: Reports: No Symptoms Pulmonary: Reports: No Symptoms Cardiovascular: Reports: No Symptoms Gastrointestinal: Reports: Abdominal Pain (mild ). Denies: Constipation, Decreased Appetite, Diarrhea Genitourinary: Reports: No Symptoms Musculoskeletal: Reports: No Symptoms Skin: Reports: No Symptoms Neurological: Reports: Dizziness. Denies: Headache, Numbness Psychiatric: Reports: No Symptoms. Denies: Cravings, Hallucinations - Patient Data Vitals - Most Recent: Last Vital Signs Temp 98.3 F 09/25/19 07:00 Pulse 96 09/24/19 12:45 Resp 16 09/25/19 09:00 BP 118/83 09/25/19 09:00 Pulse Ox 90 L 09/25/19 09:00 Weight - Most Recent: 102.9 kg I&O - Last 24 Hours: Intake & Output 09/24/19 09/25/19 09/25/19 22:59 06:59 14:59 Intake Total 1280 720 Output Total 2360 1940 Balance -1080 -1220 Lab Results Last 24 Hours: Laboratory Results - last 24 hr 09/25/19 09/25/19 09/25/19 Range/Units 07:42 07:42 07:42 WBC 9.06 (4.0-11.0) K/uL RBC 3.96 L (4.50-5.90) M/uL Hgb 13.2 (13.0-17.0) g/dL Hct 38.6 (38.0-50.0) % MCV 97.5 (80.0-98.0) fL MCH 33.3 H (27.0-32.0) pg MCHC 34.2 (31.0-37.0) g/dL RDW Std Deviation 53.4 (28.0-62.0) fl RDW Coeff of Julissa 15 (11.0-15.0) % Plt Count 644 H (150-400) K/uL MPV 10.20 (7.40-12.00) fL Neut % (Auto) 62.4 (48.0-80.0) % Lymph % (Auto) 17.8 (16.0-40.0) % [place] % (Auto) 15.2 H (0.0-15.0) % Eos % (Auto) 3.6 (0.0-7.0) % Baso % (Auto) 1.0 (0.0-1.5) % Neut # (Auto) 5.7 (1.4-5.7) K/uL Lymph # (Auto) 1.6 (0.6-2.4) K/uL [place] # (Auto) 1.4 H (0.0-0.8) K/uL Eos # (Auto) 0.3 (0.0-0.7) K/uL Baso # (Auto) 0.1 (0.0-0.1) K/uL Nucleated RBC % 0.0 /100WBC Nucleated RBCs # 0 K/uL Sodium 139 (136-148) mmol/L Potassium 3.5 (3.5-5.1) mmol/L Chloride 105 (98-107) mmol/L Carbon Dioxide 24.2 (21.0-32.0) mmol/L BUN 7 (7.0-18.0) mg/dL Creatinine 0.8 (0.8-1.3) mg/dL Est Cr Clr Drug Dosing 123.46 mL/min Estimated GFR (MDRD) > 60.0 ml/min Glucose 118 H (74-106) mg/dL Calcium 8.1 L (8.5-10.1) mg/dL Phosphorus (2.6-4.7) mg/dL Magnesium 1.6 L (1.8-2.4) mg/dL Total Bilirubin 0.6 (0.2-1.0) mg/dL AST 31 (15-37) IU/L ALT 63 (14-63) IU/L Alkaline Phosphatase 115 (46-116) U/L Total Protein 6.8 (6.4-8.2) g/dL Albumin 2.5 L (3.4-5.0) g/dL Globulin 4.3 H (2.6-4.0) g/dL Albumin/Globulin Ratio 0.6 L (0.9-1.6) 09/25/19 Range/Units 07:42 WBC (4.0-11.0) K/uL RBC (4.50-5.90) M/uL Hgb (13.0-17.0) g/dL Hct (38.0-50.0) % MCV (80.0-98.0) fL MCH (27.0-32.0) pg MCHC (31.0-37.0) g/dL RDW Std Deviation (28.0-62.0) fl RDW Coeff of Julissa (11.0-15.0) % Plt Count (150-400) K/uL MPV (7.40-12.00) fL Neut % (Auto) (48.0-80.0) % Lymph % (Auto) (16.0-40.0) % [place] % (Auto) (0.0-15.0) % Eos % (Auto) (0.0-7.0) % Baso % (Auto) (0.0-1.5) % Neut # (Auto) (1.4-5.7) K/uL Lymph # (Auto) (0.6-2.4) K/uL [place] # (Auto) (0.0-0.8) K/uL Eos # (Auto) (0.0-0.7) K/uL Baso # (Auto) (0.0-0.1) K/uL Nucleated RBC % /100WBC Nucleated RBCs # K/uL Sodium (136-148) mmol/L Potassium (3.5-5.1) mmol/L Chloride (98-107) mmol/L Carbon Dioxide (21.0-32.0) mmol/L BUN (7.0-18.0) mg/dL Creatinine (0.8-1.3) mg/dL Est Cr Clr Drug Dosing mL/min Estimated GFR (MDRD) ml/min Glucose (74-106) mg/dL Calcium (8.5-10.1) mg/dL Phosphorus 2.4 L (2.6-4.7) mg/dL Magnesium (1.8-2.4) mg/dL Total Bilirubin (0.2-1.0) mg/dL AST (15-37) IU/L ALT (14-63) IU/L Alkaline Phosphatase (46-116) U/L Total Protein (6.4-8.2) g/dL Albumin (3.4-5.0) g/dL Globulin (2.6-4.0) g/dL Albumin/Globulin Ratio (0.9-1.6) Med Orders - Current: Current Medications Albuterol/Ipratropium (Duoneb 3.0-0.5 Mg/3 Ml) 3 ml NEB Q6HRRT PRN PRN Reason: Shortness of Breath Last Admin: 09/25/19 04:53 Dose: 3 ml Bisacodyl (Dulcolax) 10 mg RECTAL DAILY PRN PRN Reason: Constipation Chlordiazepoxide HCl (Librium) 25 mg PO DAILY FIDE Last Admin: 09/25/19 09:25 Dose: 25 mg Chlordiazepoxide HCl (Librium) 50 mg PO BEDTIME FIDE Docusate Sodium (Colace) 100 mg PO BID PRN PRN Reason: Constipation Last Admin: 09/24/19 08:32 Dose: 100 mg Folic Acid (Folic Acid) 1 mg PO BEDTIME FIDE Last Admin: 09/24/19 20:41 Dose: 1 mg Heparin Sodium (Porcine) (Heparin Sodium) 5,000 units SUBCUT Q8H FIDE Last Admin: 09/25/19 08:24 Dose: 5,000 units Pantoprazole Sodium 40 mg/ (Sodium Chloride) 10 mls @ 300 mls/hr IV BID FIDE Last Admin: 09/25/19 08:16 Dose: 300 mls/hr Magnesium Sulfate 4 gm/ Premix 100 mls @ 33.333 mls/hr IV ONETIME ONE Stop: 09/25/19 11:59 Last Admin: 09/25/19 09:17 Dose: 33.333 mls/hr Ibuprofen (Motrin) 400 mg PO Q8H PRN PRN Reason: Pain Last Admin: 09/25/19 07:47 Dose: 400 mg Lorazepam (Ativan) 0 mg IVPUSH Q4H PRN; Protocol PRN Reason: Withdrawal Symptoms Last Admin: 09/24/19 03:20 Dose: 1 mg Lorazepam (Ativan) 1 mg PO ASDIRECTED PRN PRN Reason: SEE PROTOCOL Last Admin: 09/25/19 07:48 Dose: 1 mg Nystatin (Nystatin Crm) 0 gm TOP QID PRN PRN Reason: Rash Last Admin: 09/24/19 16:18 Dose: 1 applic Ondansetron HCl (Zofran) 4 mg IVPUSH Q4H PRN PRN Reason: Nausea/Vomiting Last Admin: 09/24/19 11:55 Dose: 4 mg Quetiapine Fumarate (Seroquel) 25 mg PO BEDTIME PRN PRN Reason: Agitation Last Admin: 09/22/19 20:28 Dose: 25 mg Sodium Chloride (Saline Flush) 10 ml FLUSH ASDIRECTED PRN PRN Reason: Keep Vein Open Last Admin: 09/20/19 12:29 Dose: 10 ml Sodium Chloride (Saline Flush) 2.5 ml FLUSH ASDIRECTED PRN PRN Reason: Keep Vein Open Sodium Phosphate (Neutra-Phos) 250 mg PO QID [facility] Last Admin: 09/25/19 05:49 Dose: 250 mg Thiamine HCl (Vitamin B-1) 100 mg PO BEDTIME [facility] Last Admin: 09/24/19 20:42 Dose: 100 mg Discontinued Medications Albuterol/Ipratropium (Duoneb 3.0-0.5 Mg/3 Ml) 3 ml NEB Q6HRRT [facility] Last Admin: 09/23/19 12:59 Dose: Not Given Chlordiazepoxide HCl (Librium) 25 mg PO QID PRN PRN Reason: Withdrawal Symptoms Last Admin: 09/18/19 14:27 Dose: 25 mg Chlordiazepoxide HCl (Librium) 25 mg PO Q8H [facility] Last Admin: 09/18/19 20:55 Dose: 25 mg Chlordiazepoxide HCl (Librium) 100 mg PO Q8H [facility] Last Admin: 09/21/19 04:32 Dose: 100 mg Chlordiazepoxide HCl (Librium) 75 mg PO ONETIME ONE Stop: 09/18/19 21:16 Last Admin: 09/18/19 21:49 Dose: 75 mg Chlordiazepoxide HCl (Librium) 50 mg PO BID [facility] Last Admin: 09/25/19 09:27 Dose: Not Given Diazepam (Valium) 50 mg IVPUSH ONETIME ONE Stop: 09/18/19 14:12 Last Admin: 09/18/19 14:41 Dose: Not Given Furosemide (Lasix) 20 mg IVPUSH NOW ONE Stop: 09/20/19 10:32 Last Admin: 09/20/19 11:01 Dose: 20 mg Sodium Chloride (Normal Saline) 1,000 mls @ 999 mls/hr IV STAT ONE Stop: 09/17/19 21:00 Last Admin: 09/17/19 20:26 Dose: 999 mls/hr Pantoprazole Sodium 80 mg/ (Sodium Chloride) 20 mls @ 420 mls/hr IVPUSH ONETIME ONE Stop: 09/17/19 20:11 Last Admin: 09/17/19 20:26 Dose: 420 mls/hr Sodium Chloride (Normal Saline) 1,000 mls @ 999 mls/hr IV STAT ONE Stop: 09/17/19 21:09 Last Admin: 09/17/19 20:14 Dose: Not Given Multivitamins/Minerals 10 ml/Thiamine HCl 100 mg/ Folic Acid 1 mg/ Sodium Chloride 1,011.2 mls @ 125 mls/hr IV ONETIME ONE Stop: 09/18/19 05:19 Last Admin: 09/17/19 22:15 Dose: 125 mls/hr Lactated Ringer's (Ringers, Lactated) 1,000 mls @ 125 mls/hr IV ASDIRECTED [facility] Last Admin: 09/18/19 14:33 Dose: 125 mls/hr Pantoprazole Sodium 40 mg/ (Sodium Chloride) 10 mls @ 300 mls/hr IV DAILY FIDE Last Admin: 09/18/19 08:07 Dose: 300 mls/hr Magnesium Sulfate 4 gm/ Premix 100 mls @ 25 mls/hr IV ONETIME ONE Stop: 09/18/19 11:15 Last Admin: 09/18/19 08:01 Dose: 25 mls/hr Lactated Ringer's (Ringers, Lactated) 1,000 mls @ 175 mls/hr IV ASDIRECTED [facility] Last Admin: 09/20/19 05:44 Dose: 175 mls/hr Magnesium Sulfate 4 gm/ Premix 100 mls @ 33.333 mls/hr IV ONETIME ONE Stop: 09/19/19 10:18 Last Admin: 09/19/19 07:50 Dose: 33.333 mls/hr Magnesium Sulfate 2 gm/ Premix 50 mls @ 50 mls/hr IV ONETIME ONE Stop: 09/20/19 08:44 Last Admin: 09/20/19 08:02 Dose: 50 mls/hr Sodium Chloride (Normal Saline) 1,000 mls @ 100 mls/hr IV ASDIRECTED [facility] Last Infusion: 09/24/19 08:18 Dose: 100 mls/hr Magnesium Sulfate 4 gm/ Premix 100 mls @ 33.333 mls/hr IV ONETIME ONE Stop: 09/21/19 14:27 Last Admin: 09/21/19 12:36 Dose: 33.333 mls/hr Potassium Chloride 40 meq/ (Premix) 100 mls @ 25 mls/hr IV ONETIME ONE Stop: 09/21/19 15:28 Last Admin: 09/21/19 12:37 Dose: 25 mls/hr Magnesium Sulfate 1 gm/ Sodium (Chloride) 102 mls @ 102 mls/hr IV ONETIME ONE Stop: 09/22/19 09:14 Last Admin: 09/22/19 08:32 Dose: 102 mls/hr Magnesium Sulfate 2 gm/ Premix 50 mls @ 50 mls/hr IV ONETIME ONE Stop: 09/23/19 10:39 Last Admin: 09/23/19 10:17 Dose: 50 mls/hr Magnesium Sulfate 4 gm/ Premix 100 mls @ 25 mls/hr IV ONETIME ONE Stop: 09/24/19 11:39 Last Admin: 09/24/19 08:26 Dose: 25 mls/hr Magnesium Sulfate 4 gm/ Premix 100 mls @ 25 mls/hr IV ONETIME ONE Stop: 09/25/19 11:52 Last Admin: 09/25/19 08:25 Dose: Not Given Iopamidol (Isovue-370 (76%)) 100 ml IVPUSH ONETIME ONE Stop: 09/17/19 21:57 Last Admin: 09/17/19 21:56 Dose: 100 ml Ketorolac Tromethamine (Toradol) 15 mg IVPUSH Q6H PRN PRN Reason: Pain Stop: 09/24/19 09:26 Last Admin: 09/20/19 07:35 Dose: 15 mg Ketorolac Tromethamine (Toradol) 30 mg IVPUSH Q6H PRN PRN Reason: Pain Stop: 09/24/19 09:26 Last Admin: 09/23/19 13:17 Dose: 30 mg Lorazepam (Ativan) 2 mg IVPUSH ONETIME ONE Stop: 09/18/19 14:07 Last Admin: 09/18/19 14:17 Dose: 2 mg Lorazepam (Ativan) 1 mg IVPUSH ONETIME ONE Stop: 09/18/19 14:59 Last Admin: 09/18/19 15:14 Dose: 1 mg Magnesium Sulfate (Magnesium Sulfate 50%) 1 gm IV ONETIME ONE Stop: 09/22/19 08:08 Last Admin: 09/22/19 08:33 Dose: Not Given Morphine Sulfate (Morphine) 6 mg IVPUSH ONETIME ONE Stop: 09/17/19 22:25 Last Admin: 09/17/19 22:27 Dose: 6 mg Morphine Sulfate (Morphine) 2 mg IVPUSH Q4H PRN PRN Reason: Pain Last Admin: 09/18/19 13:53 Dose: 2 mg Ondansetron HCl (Zofran) 4 mg IVPUSH ONETIME ONE Stop: 09/17/19 20:01 Last Admin: 09/17/19 20:31 Dose: 4 mg Ondansetron HCl (Zofran) 4 mg IVPUSH ONETIME ONE Stop: 09/17/19 20:10 Last Admin: 09/17/19 20:15 Dose: Not Given Ondansetron HCl (Zofran) 4 mg IVPUSH ONETIME ONE Stop: 09/17/19 22:16 Last Admin: 09/17/19 22:19 Dose: 4 mg Potassium Chloride (Potassium Chloride) 40 meq PO ONETIME ONE Stop: 09/17/19 21:15 Last Admin: 09/17/19 22:15 Dose: 40 meq Quetiapine Fumarate (Seroquel) 100 mg PO TID [facility] Last Admin: 09/21/19 05:24 Dose: 100 mg Sodium Phosphate (Neutra-Phos) 250 mg PO QID FIDE - Exam Quality Assessment: No: Supplemental Oxygen General: Alert, Oriented HEENT: EOMI, Mucous Membr. Moist/[place] Neck: Supple Lungs: Clear to Auscultation, Normal Respiratory Effort Cardiovascular: Regular Rate, Regular Rhythm GI/Abdominal Exam: Soft, Other (minimal tenderness ) Extremities: Normal Inspection, Normal Range of Motion, Non-Tender Skin: Warm Wound/Incisions: Healing Well Neurological: Other (dizzy with ambulation; stability better but no pronator drift. speech improving ) Sepsis Event Note - Evaluation Sepsis Screening Result: No Definite Risk - Focused Exam Vital Signs: Vital Signs Temp Resp BP Pulse Ox 09/25/19 09:00 16 118/83 90 L 09/25/19 08:00 15 132/91 H 90 L 09/25/19 07:00 98.3 F 20 138/93 H 93 L 09/25/19 06:00 15 138/85 92 L 09/25/19 05:00 15 138/88 92 L 09/25/19 04:00 97.9 F 16 132/87 92 L 09/25/19 03:00 13 129/84 92 L 09/25/19 02:00 18 126/84 92 L 09/25/19 01:00 15 124/91 H 92 L 09/25/19 00:00 98.2 F 12 117/86 92 L 09/24/19 23:00 13 108/61 92 L Date Exam was Performed: 09/25/19 Time Exam was Performed: 11:42 - Problem List Review Problem List Initiated/Reviewed/Updated: Yes - My Orders Last 24 Hours: My Active Orders 09/24/19 10:40 Ibuprofen [Motrin] 400 mg PO Q8H PRN 09/24/19 12:00 Phosphorus #1 [Neutra-Phos] 250 mg PO QID 09/25/19 09:00 Magnesium Sulfate/Water [Magnesium Sulfate in Water Premix] 4 gm Premix Bag 1 bag IV ONETIME - Plan Plan:: 1. Acute pancreatitis likely secondary to alcohol use- improving. continue soft diet cont IV fluids :decrease to 100 cc/hr can dc. if lfuid overload becomes a concern, Toradol, zofran. : believe this not related to the incidental gallstone /sludge visualized; continue to monitor; appreciate Dr Cutler's help in this matter. 2. Transaminitis- likely secondary to alcohol use- Hepatitis panel negative, continue to monitor levels daily; interval improvement 3. Alcohol withdrawal- CIWAA/Ativan protocol, will start tapering off the Librium and Seroquel Continue thiamine and folic acid. Obtain CT scan of head. Continue ativan ; continue seroqul secondary to continual signs of withdrawal; repeat EKG this yesterday showed interval improvement of [id number] . Will taper librium once ativan use is minimal PT will be consulted for tomorrow based off continual CIWAA assessment; this AM pt. is still dizzy in supine position; will try again tomorrow 4. Oxygen requirement- smoking history, may have COPD. continue duonebs PRN and attempt to wean. Increased Left lower lung field crackles; will order a repeat CXR this AM ; repeat CXR showing concerns for possible CAP; no cough and or fevers however, still requiring 1L o2 at times; will order a chest ct (increased risk factors for Aspiration CAP) 5. Pancreatic mass: US showed small pancreatic mass. They recommend [address] for further evaluation, this will be done on outpatient basis. 6. Electrolyte imbalance: replete electrolytes as needed; Magnesium repleted this AM Plan: Transfer pt. to Med-surg as pt. is improving and is more stable than arrival. Eating, drinking well; with decreased need for ativaan per CIWAA protocol. Will also continue to wean pt. down on his Librium moving forward. Original dose of 50 mg bid will be switched to 25 mg AM , and 50 mg PM; with further 25 mg reduction daily as tolerated. Continue to work with PT to assess for balance and gait stability. Electrolyes will be repleted as needed; requirement reducing as pt .is eating more; will advance diet as tolerated. BP improving throughout stay; continue to monitor. pt .no longer requiring supplemental O2; saturating well on RA
[2019-09-25] MEDS ORDERED: Phosphorus #1 250 MG Tab PO SCH (12:00)
[2019-09-25] MEDS: Thiamine 100 MG Tab PO SCH (20:29)
[2019-09-25] MEDS: Ondansetron 4 MG/2 ML SDV IVPUSH PRN (20:30)
[2019-09-25] MEDS: Folic Acid 1 MG Tab PO SCH (20:30)
[2019-09-25] MEDS ORDERED: chlordiazePOXIDE 25 MG Cap PO SCH (21:00)
[2019-09-26] MEDS: Heparin Sodium 5,000 Units/ML Vial SUBCUT SCH ×4 (00:15→23:56)
[2019-09-26] MEDS: Phosphorus #1 250 MG Tab PO SCH ×5 (00:16→23:57)
[2019-09-26] MEDS: Albuterol/Ipratropium 3.0-0.5 MG/3 ML Neb Soln NEB PRN (00:19)
[2019-09-26 06:15] LABS: BLOOD UREA NITROGEN,BUN 8 mg/dL (7.0-18.0); CARBON DIOXIDE,CO2 28.6 mmol/L (21.0-32.0); CHLORIDE,CL 105 mmol/L (98-107); GLUCOSE RANDOM 152 mg/dL (74-106); POTASSIUM,K 3.6 mmol/L (3.5-5.1); SODIUM,NA 140 mmol/L (136-148)
[2019-09-26] MEDS ORDERED: Magnesium Sulfate (4.06 MEQ/ML) 1 GM/2 ML SDV IV ONE (07:32)
[2019-09-26] MEDS: chlordiazePOXIDE 25 MG Cap PO SCH ×2 (08:39→21:21)
[2019-09-26] MEDS: Pantoprazole 40 MG in Sodium Chloride 0.9% 10 ML IV SCH ×2 (08:39→21:20)
--- NOTE | 2019-09-26 11:05 | PCM.PN ---
- General Info Date of Service: 09/26/19 Subjective Update: Bedside: pt. states he is feeling better; mentions urinating on himself overnight but has been able to maintain bladder control since. Denies any hallucinations. Still feeling some waekaness in his body. Mild non-productive cough Functional Status: Reports: Pain Controlled - Review of Systems General: Reports: No Symptoms Pulmonary: Reports: Cough. Denies: Shortness of Breath, Pleuritic Chest Pain Cardiovascular: Reports: No Symptoms Gastrointestinal: Denies: Abdominal Pain, Constipation, Decreased Appetite, Diarrhea, Nausea, Vomiting Genitourinary: Reports: Incontinence (one time episode overnight ). Denies: Dysuria, Frequency, Burning Musculoskeletal: Reports: No Symptoms Skin: Reports: No Symptoms Neurological: Reports: Weakness Psychiatric: Denies: Cravings, Hallucinations - Patient Data Vitals - Most Recent: Last Vital Signs Temp 97.0 F 09/26/19 07:05 Pulse 80 09/26/19 07:05 Resp 18 09/26/19 07:05 BP 159/89 H 09/26/19 07:05 Pulse Ox 92 L 09/26/19 07:05 Weight - Most Recent: 102.557 kg I&O - Last 24 Hours: Intake & Output 09/25/19 09/26/19 09/26/19 22:59 06:59 14:59 Intake Total 900 500 Output Total 600 1650 Balance 300 -1150 Lab Results Last 24 Hours: Laboratory Results - last 24 hr 09/26/19 09/26/19 Range/Units 05:30 05:30 WBC 8.11 (4.0-11.0) K/uL RBC 3.88 L (4.50-5.90) M/uL Hgb 12.9 L (13.0-17.0) g/dL Hct 38.3 (38.0-50.0) % MCV 98.7 H (80.0-98.0) fL MCH 33.2 H (27.0-32.0) pg MCHC 33.7 (31.0-37.0) g/dL RDW Std Deviation 55.0 (28.0-62.0) fl RDW Coeff of Julissa 15 (11.0-15.0) % Plt Count 705 H (150-400) K/uL MPV 10.30 (7.40-12.00) fL Neut % (Auto) 58.8 (48.0-80.0) % Lymph % (Auto) 17.6 (16.0-40.0) % Adams % (Auto) 18.0 H (0.0-15.0) % Eos % (Auto) 4.2 (0.0-7.0) % Baso % (Auto) 1.4 (0.0-1.5) % Neut # (Auto) 4.8 (1.4-5.7) K/uL Lymph # (Auto) 1.4 (0.6-2.4) K/uL Adams # (Auto) 1.5 H (0.0-0.8) K/uL Eos # (Auto) 0.3 (0.0-0.7) K/uL Baso # (Auto) 0.1 (0.0-0.1) K/uL Nucleated RBC % 0.0 /100WBC Nucleated RBCs # 0 K/uL Sodium 140 (136-148) mmol/L Potassium 3.6 (3.5-5.1) mmol/L Chloride 105 (98-107) mmol/L Carbon Dioxide 28.6 (21.0-32.0) mmol/L BUN 8 (7.0-18.0) mg/dL Creatinine 0.9 (0.8-1.3) mg/dL Est Cr Clr Drug Dosing 109.74 mL/min Estimated GFR (MDRD) > 60.0 ml/min Glucose 152 H (74-106) mg/dL Calcium 8.3 L (8.5-10.1) mg/dL Phosphorus 3.1 (2.6-4.7) mg/dL Magnesium 1.7 L (1.8-2.4) mg/dL Total Bilirubin 0.6 (0.2-1.0) mg/dL AST 28 (15-37) IU/L ALT 54 (14-63) IU/L Alkaline Phosphatase 106 (46-116) U/L Total Protein 6.2 L (6.4-8.2) g/dL Albumin 2.3 L (3.4-5.0) g/dL Globulin 3.9 (2.6-4.0) g/dL Albumin/Globulin Ratio 0.6 L (0.9-1.6) Med Orders - Current: Current Medications Albuterol/Ipratropium (Duoneb 3.0-0.5 Mg/3 Ml) 3 ml NEB Q6HRRT PRN PRN Reason: Shortness of Breath Last Admin: 09/26/19 00:19 Dose: 3 ml Bisacodyl (Dulcolax) 10 mg RECTAL DAILY PRN PRN Reason: Constipation Chlordiazepoxide HCl (Librium) 25 mg PO BID FIDE Docusate Sodium (Colace) 100 mg PO BID PRN PRN Reason: Constipation Last Admin: 09/24/19 08:32 Dose: 100 mg Folic Acid (Folic Acid) 1 mg PO BEDTIME FIDE Last Admin: 09/25/19 20:30 Dose: 1 mg Heparin Sodium (Porcine) (Heparin Sodium) 5,000 units SUBCUT Q8H FIDE Last Admin: 09/26/19 08:39 Dose: 5,000 units Pantoprazole Sodium 40 mg/ (Sodium Chloride) 10 mls @ 300 mls/hr IV BID FIDE Last Admin: 09/26/19 08:39 Dose: 300 mls/hr Magnesium Sulfate 1 gm/ Sodium (Chloride) 52 mls @ 104 mls/hr IV ONETIME FIDE Ibuprofen (Motrin) 400 mg PO Q8H PRN PRN Reason: Pain Last Admin: 09/25/19 20:27 Dose: 400 mg Lorazepam (Ativan) 0 mg IVPUSH Q4H PRN; Protocol PRN Reason: Withdrawal Symptoms Last Admin: 09/24/19 03:20 Dose: 1 mg Lorazepam (Ativan) 1 mg PO ASDIRECTED PRN PRN Reason: SEE PROTOCOL Last Admin: 09/25/19 07:48 Dose: 1 mg Nystatin (Nystatin Crm) 0 gm TOP QID PRN PRN Reason: Rash Last Admin: 09/24/19 16:18 Dose: 1 applic Ondansetron HCl (Zofran) 4 mg IVPUSH Q4H PRN PRN Reason: Nausea/Vomiting Last Admin: 09/25/19 20:30 Dose: 4 mg Quetiapine Fumarate (Seroquel) 25 mg PO BEDTIME PRN PRN Reason: Agitation Last Admin: 09/22/19 20:28 Dose: 25 mg Sodium Chloride (Saline Flush) 10 ml FLUSH ASDIRECTED PRN PRN Reason: Keep Vein Open Last Admin: 09/20/19 12:29 Dose: 10 ml Sodium Chloride (Saline Flush) 2.5 ml FLUSH ASDIRECTED PRN PRN Reason: Keep Vein Open Sodium Phosphate (Neutra-Phos) 250 mg PO QID ON LICENSE OF [facility] Last Admin: 09/26/19 06:31 Dose: 250 mg Thiamine HCl (Vitamin B-1) 100 mg PO BEDTIME ON LICENSE OF [facility] Last Admin: 09/25/19 20:29 Dose: 100 mg Discontinued Medications Albuterol/Ipratropium (Duoneb 3.0-0.5 Mg/3 Ml) 3 ml NEB Q6HRRT ON LICENSE OF [facility] Last Admin: 09/23/19 12:59 Dose: Not Given Chlordiazepoxide HCl (Librium) 25 mg PO QID PRN PRN Reason: Withdrawal Symptoms Last Admin: 09/18/19 14:27 Dose: 25 mg Chlordiazepoxide HCl (Librium) 25 mg PO Q8H ON LICENSE OF [facility] Last Admin: 09/18/19 20:55 Dose: 25 mg Chlordiazepoxide HCl (Librium) 100 mg PO Q8H ON LICENSE OF [facility] Last Admin: 09/21/19 04:32 Dose: 100 mg Chlordiazepoxide HCl (Librium) 75 mg PO ONETIME ONE Stop: 09/18/19 21:16 Last Admin: 09/18/19 21:49 Dose: 75 mg Chlordiazepoxide HCl (Librium) 50 mg PO BID ON LICENSE OF [facility] Last Admin: 09/25/19 09:27 Dose: Not Given Chlordiazepoxide HCl (Librium) 25 mg PO DAILY ON LICENSE OF [facility] Last Admin: 09/26/19 08:39 Dose: 25 mg Chlordiazepoxide HCl (Librium) 50 mg PO BEDTIME ON LICENSE OF [facility] Last Admin: 09/25/19 20:30 Dose: 50 mg Diazepam (Valium) 50 mg IVPUSH ONETIME ONE Stop: 09/18/19 14:12 Last Admin: 09/18/19 14:41 Dose: Not Given Furosemide (Lasix) 20 mg IVPUSH NOW ONE Stop: 09/20/19 10:32 Last Admin: 09/20/19 11:01 Dose: 20 mg Sodium Chloride (Normal Saline) 1,000 mls @ 999 mls/hr IV STAT ONE Stop: 09/17/19 21:00 Last Admin: 09/17/19 20:26 Dose: 999 mls/hr Pantoprazole Sodium 80 mg/ (Sodium Chloride) 20 mls @ 420 mls/hr IVPUSH ONETIME ONE Stop: 09/17/19 20:11 Last Admin: 09/17/19 20:26 Dose: 420 mls/hr Sodium Chloride (Normal Saline) 1,000 mls @ 999 mls/hr IV STAT ONE Stop: 09/17/19 21:09 Last Admin: 09/17/19 20:14 Dose: Not Given Multivitamins/Minerals 10 ml/Thiamine HCl 100 mg/ Folic Acid 1 mg/ Sodium Chloride 1,011.2 mls @ 125 mls/hr IV ONETIME ONE Stop: 09/18/19 05:19 Last Admin: 09/17/19 22:15 Dose: 125 mls/hr Lactated Ringer's (Ringers, Lactated) 1,000 mls @ 125 mls/hr IV ASDIRECTED ON LICENSE OF [facility] Last Admin: 09/18/19 14:33 Dose: 125 mls/hr Pantoprazole Sodium 40 mg/ (Sodium Chloride) 10 mls @ 300 mls/hr IV DAILY ON LICENSE OF [facility] Last Admin: 09/18/19 08:07 Dose: 300 mls/hr Magnesium Sulfate 4 gm/ Premix 100 mls @ 25 mls/hr IV ONETIME ONE Stop: 09/18/19 11:15 Last Admin: 09/18/19 08:01 Dose: 25 mls/hr Lactated Ringer's (Ringers, Lactated) 1,000 mls @ 175 mls/hr IV ASDIRECTED ON LICENSE OF [facility] Last Admin: 09/20/19 05:44 Dose: 175 mls/hr Magnesium Sulfate 4 gm/ Premix 100 mls @ 33.333 mls/hr IV ONETIME ONE Stop: 09/19/19 10:18 Last Admin: 09/19/19 07:50 Dose: 33.333 mls/hr Magnesium Sulfate 2 gm/ Premix 50 mls @ 50 mls/hr IV ONETIME ONE Stop: 09/20/19 08:44 Last Admin: 09/20/19 08:02 Dose: 50 mls/hr Sodium Chloride (Normal Saline) 1,000 mls @ 100 mls/hr IV ASDIRECTED ON LICENSE OF [facility] Last Infusion: 09/24/19 08:18 Dose: 100 mls/hr Magnesium Sulfate 4 gm/ Premix 100 mls @ 33.333 mls/hr IV ONETIME ONE Stop: 09/21/19 14:27 Last Admin: 09/21/19 12:36 Dose: 33.333 mls/hr Potassium Chloride 40 meq/ (Premix) 100 mls @ 25 mls/hr IV ONETIME ONE Stop: 09/21/19 15:28 Last Admin: 09/21/19 12:37 Dose: 25 mls/hr Magnesium Sulfate 1 gm/ Sodium (Chloride) 102 mls @ 102 mls/hr IV ONETIME ONE Stop: 09/22/19 09:14 Last Admin: 09/22/19 08:32 Dose: 102 mls/hr Magnesium Sulfate 2 gm/ Premix 50 mls @ 50 mls/hr IV ONETIME ONE Stop: 09/23/19 10:39 Last Admin: 09/23/19 10:17 Dose: 50 mls/hr Magnesium Sulfate 4 gm/ Premix 100 mls @ 25 mls/hr IV ONETIME ONE Stop: 09/24/19 11:39 Last Admin: 09/24/19 08:26 Dose: 25 mls/hr Magnesium Sulfate 4 gm/ Premix 100 mls @ 25 mls/hr IV ONETIME ONE Stop: 09/25/19 11:52 Last Admin: 09/25/19 08:25 Dose: Not Given Magnesium Sulfate 4 gm/ Premix 100 mls @ 33.333 mls/hr IV ONETIME ONE Stop: 09/25/19 11:59 Last Admin: 09/25/19 09:17 Dose: 33.333 mls/hr Iopamidol (Isovue-370 (76%)) 100 ml IVPUSH ONETIME ONE Stop: 09/17/19 21:57 Last Admin: 09/17/19 21:56 Dose: 100 ml Ketorolac Tromethamine (Toradol) 15 mg IVPUSH Q6H PRN PRN Reason: Pain Stop: 09/24/19 09:26 Last Admin: 09/20/19 07:35 Dose: 15 mg Ketorolac Tromethamine (Toradol) 30 mg IVPUSH Q6H PRN PRN Reason: Pain Stop: 09/24/19 09:26 Last Admin: 09/23/19 13:17 Dose: 30 mg Lorazepam (Ativan) 2 mg IVPUSH ONETIME ONE Stop: 09/18/19 14:07 Last Admin: 09/18/19 14:17 Dose: 2 mg Lorazepam (Ativan) 1 mg IVPUSH ONETIME ONE Stop: 09/18/19 14:59 Last Admin: 09/18/19 15:14 Dose: 1 mg Magnesium Sulfate (Magnesium Sulfate 50%) 1 gm IV ONETIME ONE Stop: 09/22/19 08:08 Last Admin: 09/22/19 08:33 Dose: Not Given Morphine Sulfate (Morphine) 6 mg IVPUSH ONETIME ONE Stop: 09/17/19 22:25 Last Admin: 09/17/19 22:27 Dose: 6 mg Morphine Sulfate (Morphine) 2 mg IVPUSH Q4H PRN PRN Reason: Pain Last Admin: 09/18/19 13:53 Dose: 2 mg Ondansetron HCl (Zofran) 4 mg IVPUSH ONETIME ONE Stop: 09/17/19 20:01 Last Admin: 09/17/19 20:31 Dose: 4 mg Ondansetron HCl (Zofran) 4 mg IVPUSH ONETIME ONE Stop: 09/17/19 20:10 Last Admin: 09/17/19 20:15 Dose: Not Given Ondansetron HCl (Zofran) 4 mg IVPUSH ONETIME ONE Stop: 09/17/19 22:16 Last Admin: 09/17/19 22:19 Dose: 4 mg Potassium Chloride (Potassium Chloride) 40 meq PO ONETIME ONE Stop: 09/17/19 21:15 Last Admin: 09/17/19 22:15 Dose: 40 meq Quetiapine Fumarate (Seroquel) 100 mg PO TID ON LICENSE OF [facility] Last Admin: 09/21/19 05:24 Dose: 100 mg Sodium Phosphate (Neutra-Phos) 250 mg PO QID ON LICENSE OF [facility] - Exam Quality Assessment: No: Supplemental Oxygen General: Alert, Oriented, Cooperative, No Acute Distress HEENT: EOMI Neck: Supple Lungs: Normal Respiratory Effort, Other (mild diminshment of BS lower lung peña; unchanged from yesterday) Cardiovascular: Regular Rate, Regular Rhythm GI/Abdominal Exam: Soft, Other (minimal diffuse tenderness ) Extremities: Non-Tender, No Pedal Edema Wound/Incisions: Healing Well Neurological: No New Focal Deficit, Other (requires assist to walk; more balanced today ) Psy/Mental Status: Alert Sepsis Event Note - Evaluation Sepsis Screening Result: No Definite Risk - Focused Exam Vital Signs: Vital Signs Temp Pulse Resp BP Pulse Ox 09/26/19 07:05 97.0 F 80 18 159/89 H 92 L 09/26/19 03:35 97.0 F 91 16 139/88 94 L 09/26/19 00:00 97.9 F 79 18 136/88 93 L Date Exam was Performed: 09/26/19 Time Exam was Performed: 10:59 - Problem List Review Problem List Initiated/Reviewed/Updated: Yes - My Orders Last 24 Hours: My Active Orders 09/26/19 07:45 Magnesium Sulfate [Magnesium Sulfate 50%] 1 gm Sodium Chloride 0.9% [Normal Saline] 50 ml IV ONETIME 09/26/19 08:47 Incentive Spirometry [RT Incentive Spirometry] [RC] ASDIRECTED - Plan Plan:: 1. Acute pancreatitis likely secondary to alcohol use- improving. continue soft diet cont IV fluids :decrease to 100 cc/hr can dc. if lfuid overload becomes a concern, Toradol, zofran. : believe this not related to the incidental gallstone /sludge visualized; continue to monitor; appreciate Dr Cutler's help in this matter. 2. Transaminitis- likely secondary to alcohol use- Hepatitis panel negative, continue to monitor levels daily; interval improvement 3. Alcohol withdrawal- CIWAA/Ativan protocol, will start tapering off the Librium and Seroquel Continue thiamine and folic acid. Obtain CT scan of head. Continue ativan ; continue seroqul secondary to continual signs of withdrawal; repeat EKG this yesterday showed interval improvement of [id number] . Will taper librium once ativan use is minimal PT will be consulted for tomorrow based off continual CIWAA assessment; this AM pt. is still dizzy in supine position; will try again tomorrow 4. Oxygen requirement- smoking history, may have COPD. continue duonebs PRN and attempt to wean. Increased Left lower lung field crackles; will order a repeat CXR this AM ; repeat CXR showing concerns for possible CAP; no cough and or fevers however, still requiring 1L o2 at times; will order a chest ct (increased risk factors for Aspiration CAP) 5. Pancreatic mass: US showed small pancreatic mass. They recommend [address] for further evaluation, this will be done on outpatient basis. 6. Electrolyte imbalance: replete electrolytes as needed; Magnesium repleted this AM Plan: Continue to monitor patient; will further reduce Librium to 25 mg BID; continue Ativan per [id number]; work w. PT to address balance issue. Overnight episodes of urinary incontinence ; ordered UA. Hypomagnesemia: repleted this AM. Thrombocytosis: s/p splenectomy Will investigate for any outpatient ETOH detox resources.
[2019-09-26] MEDS: Folic Acid 1 MG Tab PO SCH (21:21)
[2019-09-26] MEDS: Ibuprofen 400 MG Tab PO PRN (21:21)
[2019-09-26] MEDS: Thiamine 100 MG Tab PO SCH (21:22)
[2019-09-27] MEDS: Phosphorus #1 250 MG Tab PO SCH ×4 (06:26→23:48)
[2019-09-27 06:33] LABS: BLOOD UREA NITROGEN,BUN 8 mg/dL (7.0-18.0); CHLORIDE,CL 105 mmol/L (98-107); GLUCOSE RANDOM 121 mg/dL (74-106); SODIUM,NA 142 mmol/L (136-148)
[2019-09-27] MEDS ORDERED: Magnesium Sulfate (4.06 MEQ/ML) 1 GM/2 ML SDV IV ONE (08:16)
[2019-09-27] MEDS ORDERED: Magnesium Sulfate/Water 2 GM in Premix Bag 1 BAG IV SCH (08:30)
[2019-09-27] MEDS: Heparin Sodium 5,000 Units/ML Vial SUBCUT SCH ×3 (09:35→23:48)
[2019-09-27] MEDS: chlordiazePOXIDE 25 MG Cap PO SCH ×2 (09:35→20:30)
[2019-09-27] MEDS: Pantoprazole 40 MG in Sodium Chloride 0.9% 10 ML IV SCH ×2 (09:36→20:30)
--- NOTE | 2019-09-27 09:49 | PCM.PN ---
- General Info Date of Service: 09/27/19 Functional Status: Reports: Pain Controlled - Review of Systems General: Reports: No Symptoms HEENT: Reports: No Symptoms Pulmonary: Reports: Cough, Wheezing. Denies: Shortness of Breath Cardiovascular: Reports: No Symptoms Gastrointestinal: Reports: No Symptoms Genitourinary: Reports: No Symptoms Musculoskeletal: Reports: No Symptoms Skin: Reports: No Symptoms Neurological: Reports: Gait Disturbance Psychiatric: Reports: No Symptoms - Patient Data Vitals - Most Recent: Last Vital Signs Temp 97.9 F 09/27/19 07:10 Pulse 85 09/27/19 07:10 Resp 18 09/27/19 07:10 BP 142/90 H 09/27/19 07:10 Pulse Ox 95 09/27/19 07:10 Weight - Most Recent: 101.06 kg I&O - Last 24 Hours: Intake & Output 09/26/19 09/27/19 09/27/19 22:59 06:59 14:59 Intake Total 650 840 Output Total 980 1012 Balance -330 -172 Lab Results Last 24 Hours: Laboratory Results - last 24 hr 09/26/19 09/27/19 09/27/19 Range/Units 11:07 05:55 05:55 WBC 9.32 (4.0-11.0) K/uL RBC 4.03 L (4.50-5.90) M/uL Hgb 13.4 (13.0-17.0) g/dL Hct 39.8 (38.0-50.0) % MCV 98.8 H (80.0-98.0) fL MCH 33.3 H (27.0-32.0) pg MCHC 33.7 (31.0-37.0) g/dL RDW Std Deviation 54.7 (28.0-62.0) fl RDW Coeff of Julissa 15 (11.0-15.0) % Plt Count 713 H (150-400) K/uL MPV 10.10 (7.40-12.00) fL Neut % (Auto) 60.1 (48.0-80.0) % Lymph % (Auto) 18.2 (16.0-40.0) % [place] % (Auto) 17.1 H (0.0-15.0) % Eos % (Auto) 3.6 (0.0-7.0) % Baso % (Auto) 1.0 (0.0-1.5) % Neut # (Auto) 5.6 (1.4-5.7) K/uL Lymph # (Auto) 1.7 (0.6-2.4) K/uL [place] # (Auto) 1.6 H (0.0-0.8) K/uL Eos # (Auto) 0.3 (0.0-0.7) K/uL Baso # (Auto) 0.1 (0.0-0.1) K/uL Nucleated RBC % 0.0 /100WBC Nucleated RBCs # 0 K/uL Sodium 142 (136-148) mmol/L Potassium 4.0 (3.5-5.1) mmol/L Chloride 105 (98-107) mmol/L Carbon Dioxide 30.0 (21.0-32.0) mmol/L BUN 8 (7.0-18.0) mg/dL Creatinine 1.0 (0.8-1.3) mg/dL Est Cr Clr Drug Dosing 98.77 mL/min Estimated GFR (MDRD) > 60.0 ml/min Glucose 121 H (74-106) mg/dL Calcium 8.8 (8.5-10.1) mg/dL Magnesium (1.8-2.4) mg/dL Total Bilirubin 0.6 (0.2-1.0) mg/dL AST 29 (15-37) IU/L ALT 51 (14-63) IU/L Alkaline Phosphatase 109 (46-116) U/L Total Protein 6.5 (6.4-8.2) g/dL Albumin 2.4 L (3.4-5.0) g/dL Globulin 4.1 H (2.6-4.0) g/dL Albumin/Globulin Ratio 0.6 L (0.9-1.6) Urine Color YELLOW Urine Appearance SLT CLOUDY Urine pH 8.0 (5.0-8.0) Ur Specific [place] 1.020 (1.001-1.035) Urine Protein TRACE H (NEGATIVE) mg/dL Urine Glucose (UA) NEGATIVE (NEGATIVE) mg/dL Urine Ketones NEGATIVE (NEGATIVE) mg/dL Urine Occult Blood NEGATIVE (NEGATIVE) Urine Nitrite NEGATIVE (NEGATIVE) Urine Bilirubin NEGATIVE (NEGATIVE) Urine Urobilinogen >=8.0 H (<2.0) EU/dL Ur Leukocyte Esterase NEGATIVE (NEGATIVE) Urine RBC NONE SEEN (0-2/HPF) Urine WBC RARE (0-5/HPF) Ur Epithelial Cells FEW (NONE-FEW) Amorphous Sediment MODERATE (NEGATIVE) Urine Bacteria FEW (NEGATIVE) Urine Mucus MODERATE (NONE-MOD) 09/27/19 Range/Units 05:55 WBC (4.0-11.0) K/uL RBC (4.50-5.90) M/uL Hgb (13.0-17.0) g/dL Hct (38.0-50.0) % MCV (80.0-98.0) fL MCH (27.0-32.0) pg MCHC (31.0-37.0) g/dL RDW Std Deviation (28.0-62.0) fl RDW Coeff of Julissa (11.0-15.0) % Plt Count (150-400) K/uL MPV (7.40-12.00) fL Neut % (Auto) (48.0-80.0) % Lymph % (Auto) (16.0-40.0) % [place] % (Auto) (0.0-15.0) % Eos % (Auto) (0.0-7.0) % Baso % (Auto) (0.0-1.5) % Neut # (Auto) (1.4-5.7) K/uL Lymph # (Auto) (0.6-2.4) K/uL [place] # (Auto) (0.0-0.8) K/uL Eos # (Auto) (0.0-0.7) K/uL Baso # (Auto) (0.0-0.1) K/uL Nucleated RBC % /100WBC Nucleated RBCs # K/uL Sodium (136-148) mmol/L Potassium (3.5-5.1) mmol/L Chloride (98-107) mmol/L Carbon Dioxide (21.0-32.0) mmol/L BUN (7.0-18.0) mg/dL Creatinine (0.8-1.3) mg/dL Est Cr Clr Drug Dosing mL/min Estimated GFR (MDRD) ml/min Glucose (74-106) mg/dL Calcium (8.5-10.1) mg/dL Magnesium 1.7 L (1.8-2.4) mg/dL Total Bilirubin (0.2-1.0) mg/dL AST (15-37) IU/L ALT (14-63) IU/L Alkaline Phosphatase (46-116) U/L Total Protein (6.4-8.2) g/dL Albumin (3.4-5.0) g/dL Globulin (2.6-4.0) g/dL Albumin/Globulin Ratio (0.9-1.6) Urine Color Urine Appearance Urine pH (5.0-8.0) Ur Specific [place] (1.001-1.035) Urine Protein (NEGATIVE) mg/dL Urine Glucose (UA) (NEGATIVE) mg/dL Urine Ketones (NEGATIVE) mg/dL Urine Occult Blood (NEGATIVE) Urine Nitrite (NEGATIVE) Urine Bilirubin (NEGATIVE) Urine Urobilinogen (<2.0) EU/dL Ur Leukocyte Esterase (NEGATIVE) Urine RBC (0-2/HPF) Urine WBC (0-5/HPF) Ur Epithelial Cells (NONE-FEW) Amorphous Sediment (NEGATIVE) Urine Bacteria (NEGATIVE) Urine Mucus (NONE-MOD) Med Orders - Current: Current Medications Albuterol/Ipratropium (Duoneb 3.0-0.5 Mg/3 Ml) 3 ml NEB Q6HRRT PRN PRN Reason: Shortness of Breath Last Admin: 09/26/19 00:19 Dose: 3 ml Bisacodyl (Dulcolax) 10 mg RECTAL DAILY PRN PRN Reason: Constipation Chlordiazepoxide HCl (Librium) 25 mg PO BID [facility] Last Admin: 09/27/19 09:35 Dose: 25 mg Docusate Sodium (Colace) 100 mg PO BID PRN PRN Reason: Constipation Last Admin: 09/24/19 08:32 Dose: 100 mg Folic Acid (Folic Acid) 1 mg PO BEDTIME [facility] Last Admin: 09/26/19 21:21 Dose: 1 mg Heparin Sodium (Porcine) (Heparin Sodium) 5,000 units SUBCUT Q8H [facility] Last Admin: 09/27/19 09:35 Dose: 5,000 units Pantoprazole Sodium 40 mg/ (Sodium Chloride) 10 mls @ 300 mls/hr IV BID [facility] Last Admin: 09/27/19 09:36 Dose: 300 mls/hr Magnesium Sulfate 2 gm/ Premix 50 mls @ 50 mls/hr IV ONETIME [facility] Ibuprofen (Motrin) 400 mg PO Q8H PRN PRN Reason: Pain Last Admin: 09/26/19 21:21 Dose: 400 mg Lorazepam (Ativan) 0 mg IVPUSH Q4H PRN; Protocol PRN Reason: Withdrawal Symptoms Last Admin: 09/24/19 03:20 Dose: 1 mg Lorazepam (Ativan) 1 mg PO ASDIRECTED PRN PRN Reason: SEE PROTOCOL Last Admin: 09/25/19 07:48 Dose: 1 mg Nystatin (Nystatin Crm) 0 gm TOP QID PRN PRN Reason: Rash Last Admin: 09/24/19 16:18 Dose: 1 applic Ondansetron HCl (Zofran) 4 mg IVPUSH Q4H PRN PRN Reason: Nausea/Vomiting Last Admin: 09/25/19 20:30 Dose: 4 mg Quetiapine Fumarate (Seroquel) 25 mg PO BEDTIME PRN PRN Reason: Agitation Last Admin: 09/22/19 20:28 Dose: 25 mg Sodium Chloride (Saline Flush) 10 ml FLUSH ASDIRECTED PRN PRN Reason: Keep Vein Open Last Admin: 09/20/19 12:29 Dose: 10 ml Sodium Chloride (Saline Flush) 2.5 ml FLUSH ASDIRECTED PRN PRN Reason: Keep Vein Open Sodium Phosphate (Neutra-Phos) 250 mg PO QID [facility] Last Admin: 09/27/19 06:26 Dose: 250 mg Thiamine HCl (Vitamin B-1) 100 mg PO BEDTIME [facility] Last Admin: 09/26/19 21:22 Dose: 100 mg Discontinued Medications Albuterol/Ipratropium (Duoneb 3.0-0.5 Mg/3 Ml) 3 ml NEB Q6HRRT [facility] Last Admin: 09/23/19 12:59 Dose: Not Given Chlordiazepoxide HCl (Librium) 25 mg PO QID PRN PRN Reason: Withdrawal Symptoms Last Admin: 09/18/19 14:27 Dose: 25 mg Chlordiazepoxide HCl (Librium) 25 mg PO Q8H [facility] Last Admin: 09/18/19 20:55 Dose: 25 mg Chlordiazepoxide HCl (Librium) 100 mg PO Q8H [facility] Last Admin: 09/21/19 04:32 Dose: 100 mg Chlordiazepoxide HCl (Librium) 75 mg PO ONETIME ONE Stop: 09/18/19 21:16 Last Admin: 09/18/19 21:49 Dose: 75 mg Chlordiazepoxide HCl (Librium) 50 mg PO BID [facility] Last Admin: 09/25/19 09:27 Dose: Not Given Chlordiazepoxide HCl (Librium) 25 mg PO DAILY [facility] Last Admin: 09/26/19 08:39 Dose: 25 mg Chlordiazepoxide HCl (Librium) 50 mg PO BEDTIME [facility] Last Admin: 09/25/19 20:30 Dose: 50 mg Diazepam (Valium) 50 mg IVPUSH ONETIME ONE Stop: 09/18/19 14:12 Last Admin: 09/18/19 14:41 Dose: Not Given Furosemide (Lasix) 20 mg IVPUSH NOW ONE Stop: 09/20/19 10:32 Last Admin: 09/20/19 11:01 Dose: 20 mg Sodium Chloride (Normal Saline) 1,000 mls @ 999 mls/hr IV STAT ONE Stop: 09/17/19 21:00 Last Admin: 09/17/19 20:26 Dose: 999 mls/hr Pantoprazole Sodium 80 mg/ (Sodium Chloride) 20 mls @ 420 mls/hr IVPUSH ONETIME ONE Stop: 09/17/19 20:11 Last Admin: 09/17/19 20:26 Dose: 420 mls/hr Sodium Chloride (Normal Saline) 1,000 mls @ 999 mls/hr IV STAT ONE Stop: 09/17/19 21:09 Last Admin: 09/17/19 20:14 Dose: Not Given Multivitamins/Minerals 10 ml/Thiamine HCl 100 mg/ Folic Acid 1 mg/ Sodium Chloride 1,011.2 mls @ 125 mls/hr IV ONETIME ONE Stop: 09/18/19 05:19 Last Admin: 09/17/19 22:15 Dose: 125 mls/hr Lactated Ringer's (Ringers, Lactated) 1,000 mls @ 125 mls/hr IV ASDIRECTED [facility] Last Admin: 09/18/19 14:33 Dose: 125 mls/hr Pantoprazole Sodium 40 mg/ (Sodium Chloride) 10 mls @ 300 mls/hr IV DAILY [facility] Last Admin: 09/18/19 08:07 Dose: 300 mls/hr Magnesium Sulfate 4 gm/ Premix 100 mls @ 25 mls/hr IV ONETIME ONE Stop: 09/18/19 11:15 Last Admin: 09/18/19 08:01 Dose: 25 mls/hr Lactated Ringer's (Ringers, Lactated) 1,000 mls @ 175 mls/hr IV ASDIRECTED [facility] Last Admin: 09/20/19 05:44 Dose: 175 mls/hr Magnesium Sulfate 4 gm/ Premix 100 mls @ 33.333 mls/hr IV ONETIME ONE Stop: 09/19/19 10:18 Last Admin: 09/19/19 07:50 Dose: 33.333 mls/hr Magnesium Sulfate 2 gm/ Premix 50 mls @ 50 mls/hr IV ONETIME ONE Stop: 09/20/19 08:44 Last Admin: 09/20/19 08:02 Dose: 50 mls/hr Sodium Chloride (Normal Saline) 1,000 mls @ 100 mls/hr IV ASDIRECTED [facility] Last Infusion: 09/24/19 08:18 Dose: 100 mls/hr Magnesium Sulfate 4 gm/ Premix 100 mls @ 33.333 mls/hr IV ONETIME ONE Stop: 09/21/19 14:27 Last Admin: 09/21/19 12:36 Dose: 33.333 mls/hr Potassium Chloride 40 meq/ (Premix) 100 mls @ 25 mls/hr IV ONETIME ONE Stop: 09/21/19 15:28 Last Admin: 09/21/19 12:37 Dose: 25 mls/hr Magnesium Sulfate 1 gm/ Sodium (Chloride) 102 mls @ 102 mls/hr IV ONETIME ONE Stop: 09/22/19 09:14 Last Admin: 09/22/19 08:32 Dose: 102 mls/hr Magnesium Sulfate 2 gm/ Premix 50 mls @ 50 mls/hr IV ONETIME ONE Stop: 09/23/19 10:39 Last Admin: 09/23/19 10:17 Dose: 50 mls/hr Magnesium Sulfate 4 gm/ Premix 100 mls @ 25 mls/hr IV ONETIME ONE Stop: 09/24/19 11:39 Last Admin: 09/24/19 08:26 Dose: 25 mls/hr Magnesium Sulfate 4 gm/ Premix 100 mls @ 25 mls/hr IV ONETIME ONE Stop: 09/25/19 11:52 Last Admin: 09/25/19 08:25 Dose: Not Given Magnesium Sulfate 4 gm/ Premix 100 mls @ 33.333 mls/hr IV ONETIME ONE Stop: 09/25/19 11:59 Last Admin: 09/25/19 09:17 Dose: 33.333 mls/hr Magnesium Sulfate 1 gm/ Sodium (Chloride) 52 mls @ 104 mls/hr IV ONETIME FIDE Magnesium Sulfate 1 gm/ Sodium (Chloride) 52 mls @ 104 mls/hr IV ONETIME [facility]IDE Last Admin: 09/26/19 15:51 Dose: 104 mls/hr Iopamidol (Isovue-370 (76%)) 100 ml IVPUSH ONETIME ONE Stop: 09/17/19 21:57 Last Admin: 09/17/19 21:56 Dose: 100 ml Ketorolac Tromethamine (Toradol) 15 mg IVPUSH Q6H PRN PRN Reason: Pain Stop: 09/24/19 09:26 Last Admin: 09/20/19 07:35 Dose: 15 mg Ketorolac Tromethamine (Toradol) 30 mg IVPUSH Q6H PRN PRN Reason: Pain Stop: 09/24/19 09:26 Last Admin: 09/23/19 13:17 Dose: 30 mg Lorazepam (Ativan) 2 mg IVPUSH ONETIME ONE Stop: 09/18/19 14:07 Last Admin: 09/18/19 14:17 Dose: 2 mg Lorazepam (Ativan) 1 mg IVPUSH ONETIME ONE Stop: 09/18/19 14:59 Last Admin: 09/18/19 15:14 Dose: 1 mg Magnesium Sulfate (Magnesium Sulfate 50%) 1 gm IV ONETIME ONE Stop: 09/22/19 08:08 Last Admin: 09/22/19 08:33 Dose: Not Given Morphine Sulfate (Morphine) 6 mg IVPUSH ONETIME ONE Stop: 09/17/19 22:25 Last Admin: 09/17/19 22:27 Dose: 6 mg Morphine Sulfate (Morphine) 2 mg IVPUSH Q4H PRN PRN Reason: Pain Last Admin: 09/18/19 13:53 Dose: 2 mg Ondansetron HCl (Zofran) 4 mg IVPUSH ONETIME ONE Stop: 09/17/19 20:01 Last Admin: 09/17/19 20:31 Dose: 4 mg Ondansetron HCl (Zofran) 4 mg IVPUSH ONETIME ONE Stop: 09/17/19 20:10 Last Admin: 09/17/19 20:15 Dose: Not Given Ondansetron HCl (Zofran) 4 mg IVPUSH ONETIME ONE Stop: 09/17/19 22:16 Last Admin: 09/17/19 22:19 Dose: 4 mg Potassium Chloride (Potassium Chloride) 40 meq PO ONETIME ONE Stop: 09/17/19 21:15 Last Admin: 09/17/19 22:15 Dose: 40 meq Quetiapine Fumarate (Seroquel) 100 mg PO TID [facility] Last Admin: 09/21/19 05:24 Dose: 100 mg Sodium Phosphate (Neutra-Phos) 250 mg PO QID [facility] - Exam Quality Assessment: Supplemental Oxygen General: Alert, Oriented, Cooperative, No Acute Distress HEENT: Pupils Equal, EOMI Neck: Supple Lungs: Other (mild diminshemnt of BS w. mild end expiratory wheeze ) Cardiovascular: Regular Rate, Regular Rhythm GI/Abdominal Exam: Soft, Other (minima ldiffuse tenderness; large imroment since admission ) Back Exam: Full Range of Motion Extremities: Normal Inspection, Normal Range of Motion Wound/Incisions: Healing Well Neurological: No: Normal Gait (gait: unbalanced when standing fopr long periords ; still trouble moving from seated to standing position; good strength ) Psy/Mental Status: Alert, Normal Affect, Normal Mood Sepsis Event Note - Evaluation Sepsis Screening Result: No Definite Risk - Focused Exam Vital Signs: Vital Signs Temp Pulse Resp BP Pulse Ox 09/27/19 07:10 97.9 F 85 18 142/90 H 95 09/27/19 04:00 97.7 F 83 18 148/92 H 95 09/27/19 00:03 97.2 F 88 17 126/78 94 L Date Exam was Performed: 09/27/19 Time Exam was Performed: 09:43 - Problem List Review Problem List Initiated/Reviewed/Updated: Yes - My Orders Last 24 Hours: My Active Orders 09/26/19 08:47 Incentive Spirometry [RT Incentive Spirometry] [RC] ASDIRECTED 09/27/19 08:30 Magnesium Sulfate/Water [Magnesium Sulfate in Water Premix] 2 gm Premix Bag 1 bag IV ONETIME - Plan Plan:: 1. Acute pancreatitis likely secondary to alcohol use- improving. continue soft diet cont IV fluids :decrease to 100 cc/hr can dc. if lfuid overload becomes a concern, Toradol, zofran. : believe this not related to the incidental gallstone /sludge visualized; continue to monitor; appreciate Dr Cutler's help in this matter. 2. Transaminitis- likely secondary to alcohol use- Hepatitis panel negative, continue to monitor levels daily; interval improvement 3. Alcohol withdrawal- CIWAA/Ativan protocol, will start tapering off the Librium and Seroquel Continue thiamine and folic acid. Obtain CT scan of head. Continue ativan ; continue seroqul secondary to continual signs of withdrawal; repeat EKG this yesterday showed interval improvement of [id number] . Will taper librium once ativan use is minimal PT will be consulted for tomorrow based off continual CIWAA assessment; this AM pt. is still dizzy in supine position; will try again tomorrow 4. Oxygen requirement- smoking history, may have COPD. continue duonebs PRN and attempt to wean. Increased Left lower lung field crackles; will order a repeat CXR this AM ; repeat CXR showing concerns for possible CAP; no cough and or fevers however, still requiring 1L o2 at times; will order a chest ct (increased risk factors for Aspiration CAP) 5. Pancreatic mass: US showed small pancreatic mass. They recommend [address] for further evaluation, this will be done on outpatient basis. 6. Electrolyte imbalance: replete electrolytes as needed; Magnesium repleted this AM Plan: Continue to monitor patient; will further reduce Librium to 25 mg BID; continue Ativan per CIWAA; PT continue to work with pt. regarding balance issue ; interval improvement; however pt. requires retirement outpatint balance work for possible cerebellar issues Cough with wheeze: This AM after working w. PT; CT chest showed concerns for possible viral bronchiolitis; PRN duo-nebs continued; PRN O2 for sats; will continue to monitor for concerns for CAP UA ordered yesterday secondary to overnight incontinence; negative ; possible unwitnessed seizure; continue to monitor w. CIWAA, maintain Librium at current dose. Hypomagnesemia: repleted this AM. Thrombocytosis: s/p splenectomy Will investigate for any outpatient ETOH detox resources.
[2019-09-27] MEDS: Albuterol/Ipratropium 3.0-0.5 MG/3 ML Neb Soln NEB PRN ×2 (10:01→17:28)
[2019-09-27] MEDS ORDERED: Magnesium Sulfate/Water 2 GM in Premix Bag 1 BAG IV ONE (10:45)
[2019-09-27] MEDS: Benzonatate 100 MG Cap PO PRN (13:51)
[2019-09-27] MEDS: guaiFENesin/Dextromethorphan 100-10 MG/5 ML Soln 10 ML Cup PO PRN (16:12)
[2019-09-27] MEDS: Thiamine 100 MG Tab PO SCH (20:31)
[2019-09-27] MEDS: Folic Acid 1 MG Tab PO SCH (20:31)
[2019-09-28] MEDS: guaiFENesin/Dextromethorphan 100-10 MG/5 ML Soln 10 ML Cup PO PRN ×4 (00:09→17:07)
[2019-09-28] MEDS: Benzonatate 100 MG Cap PO PRN ×2 (00:09→12:53)
[2019-09-28] MEDS: Phosphorus #1 250 MG Tab PO SCH ×3 (05:30→17:00)
[2019-09-28 06:49] LABS: BLOOD UREA NITROGEN,BUN 8 mg/dL (7.0-18.0); CHLORIDE,CL 103 mmol/L (98-107); GLUCOSE RANDOM 120 mg/dL (74-106); POTASSIUM,K 3.8 mmol/L (3.5-5.1); SODIUM,NA 141 mmol/L (136-148)
[2019-09-28] MEDS: Pantoprazole 40 MG in Sodium Chloride 0.9% 10 ML IV SCH ×2 (09:02→21:21)
[2019-09-28] MEDS: Heparin Sodium 5,000 Units/ML Vial SUBCUT SCH ×2 (09:06→16:45)
[2019-09-28] MEDS: chlordiazePOXIDE 25 MG Cap PO SCH (09:07)
--- NOTE | 2019-09-28 11:20 | PCM.PN ---
- General Info Date of Service: 09/28/19 Admission Dx/Problem (Free Text): Admission Diagnosis/Problem Admission Diagnosis/Problem Pancreatitis Subjective Update: Patient states he feels a little better , more stronger, does have ongoing cough , no fever, chills - Review of Systems General: Reports: Weakness, Fatigue. Denies: Fever, Malaise, Chills Pulmonary: Denies: Shortness of Breath, Pleuritic Chest Pain Cardiovascular: Denies: Chest Pain, Palpitations, Dyspnea on Exertion Gastrointestinal: Denies: Abdominal Pain, Constipation, Decreased Appetite Genitourinary: Denies: Dysuria, Frequency, Burning Musculoskeletal: Denies: Neck Pain, Shoulder Pain, Arm Pain Skin: Denies: Cyanosis, Jaundice - Patient Data Vitals - Most Recent: Last Vital Signs Temp 36.6 C 09/28/19 07:45 Pulse 106 H 09/28/19 07:45 Resp 19 09/28/19 07:45 BP 109/78 09/28/19 07:45 Pulse Ox 95 09/28/19 07:45 Weight - Most Recent: 101.06 kg I&O - Last 24 Hours: Intake & Output 09/27/19 09/28/19 09/28/19 22:59 06:59 14:59 Intake Total 850 400 20 Output Total 700 1200 Balance 150 -800 20 Lab Results Last 24 Hours: Laboratory Results - last 24 hr 09/28/19 09/28/19 Range/Units 05:55 05:55 WBC 11.30 H (4.0-11.0) K/uL RBC 4.01 L (4.50-5.90) M/uL Hgb 13.2 (13.0-17.0) g/dL Hct 39.6 (38.0-50.0) % MCV 98.8 H (80.0-98.0) fL MCH 32.9 H (27.0-32.0) pg MCHC 33.3 (31.0-37.0) g/dL RDW Std Deviation 55.5 (28.0-62.0) fl RDW Coeff of Julissa 15 (11.0-15.0) % Plt Count 694 H (150-400) K/uL MPV 10.20 (7.40-12.00) fL Neut % (Auto) 60.9 (48.0-80.0) % Lymph % (Auto) 17.2 (16.0-40.0) % [place] % (Auto) 17.9 H (0.0-15.0) % Eos % (Auto) 3.5 (0.0-7.0) % Baso % (Auto) 0.5 (0.0-1.5) % Neut # (Auto) 6.9 H (1.4-5.7) K/uL Lymph # (Auto) 1.9 (0.6-2.4) K/uL [place] # (Auto) 2.0 H (0.0-0.8) K/uL Eos # (Auto) 0.4 (0.0-0.7) K/uL Baso # (Auto) 0.1 (0.0-0.1) K/uL Nucleated RBC % 0.0 /100WBC Nucleated RBCs # 0 K/uL Sodium 141 (136-148) mmol/L Potassium 3.8 (3.5-5.1) mmol/L Chloride 103 (98-107) mmol/L Carbon Dioxide 29.0 (21.0-32.0) mmol/L BUN 8 (7.0-18.0) mg/dL Creatinine 1.0 (0.8-1.3) mg/dL Est Cr Clr Drug Dosing 98.77 mL/min Estimated GFR (MDRD) > 60.0 ml/min Glucose 120 H (74-106) mg/dL Calcium 8.9 (8.5-10.1) mg/dL Total Bilirubin 0.6 (0.2-1.0) mg/dL AST 28 (15-37) IU/L ALT 49 (14-63) IU/L Alkaline Phosphatase 113 (46-116) U/L Total Protein 6.8 (6.4-8.2) g/dL Albumin 2.5 L (3.4-5.0) g/dL Globulin 4.3 H (2.6-4.0) g/dL Albumin/Globulin Ratio 0.6 L (0.9-1.6) Med Orders - Current: Current Medications Albuterol/Ipratropium (Duoneb 3.0-0.5 Mg/3 Ml) 3 ml NEB Q4HRRT PRN PRN Reason: Cough Last Admin: 09/27/19 17:28 Dose: 3 ml Benzonatate (Tessalon Perles) 200 mg PO BID PRN PRN Reason: Cough Last Admin: 09/28/19 00:09 Dose: 200 mg Bisacodyl (Dulcolax) 10 mg RECTAL DAILY PRN PRN Reason: Constipation Chlordiazepoxide HCl (Librium) 12.5 mg PO BID FIDE Docusate Sodium (Colace) 100 mg PO BID PRN PRN Reason: Constipation Last Admin: 09/24/19 08:32 Dose: 100 mg Folic Acid (Folic Acid) 1 mg PO BEDTIME FIDE Last Admin: 09/27/19 20:31 Dose: 1 mg Guaifenesin/Dextromethorphan (Robitussin Dm) 10 ml PO Q4H PRN PRN Reason: Cough Last Admin: 09/28/19 10:26 Dose: 10 ml Heparin Sodium (Porcine) (Heparin Sodium) 5,000 units SUBCUT Q8H FIDE Last Admin: 09/28/19 09:06 Dose: 5,000 units Pantoprazole Sodium 40 mg/ (Sodium Chloride) 10 mls @ 300 mls/hr IV BID FIDE Last Admin: 09/28/19 09:02 Dose: 300 mls/hr Ibuprofen (Motrin) 400 mg PO Q8H PRN PRN Reason: Pain Last Admin: 09/26/19 21:21 Dose: 400 mg Lorazepam (Ativan) 0 mg IVPUSH Q4H PRN; Protocol PRN Reason: Withdrawal Symptoms Last Admin: 09/24/19 03:20 Dose: 1 mg Lorazepam (Ativan) 1 mg PO ASDIRECTED PRN PRN Reason: SEE PROTOCOL Last Admin: 09/25/19 07:48 Dose: 1 mg Nystatin (Nystatin Crm) 0 gm TOP QID PRN PRN Reason: Rash Last Admin: 09/24/19 16:18 Dose: 1 applic Ondansetron HCl (Zofran) 4 mg IVPUSH Q4H PRN PRN Reason: Nausea/Vomiting Last Admin: 09/25/19 20:30 Dose: 4 mg Quetiapine Fumarate (Seroquel) 25 mg PO BEDTIME PRN PRN Reason: Agitation Last Admin: 09/28/19 00:09 Dose: 25 mg Sodium Chloride (Saline Flush) 10 ml FLUSH ASDIRECTED PRN PRN Reason: Keep Vein Open Last Admin: 09/20/19 12:29 Dose: 10 ml Sodium Chloride (Saline Flush) 2.5 ml FLUSH ASDIRECTED PRN PRN Reason: Keep Vein Open Sodium Phosphate (Neutra-Phos) 250 mg PO QID [facility] Last Admin: 09/28/19 05:30 Dose: 250 mg Thiamine HCl (Vitamin B-1) 100 mg PO BEDTIME [facility] Last Admin: 09/27/19 20:31 Dose: 100 mg Discontinued Medications Albuterol/Ipratropium (Duoneb 3.0-0.5 Mg/3 Ml) 3 ml NEB Q6HRRT [facility] Last Admin: 09/23/19 12:59 Dose: Not Given Albuterol/Ipratropium (Duoneb 3.0-0.5 Mg/3 Ml) 3 ml NEB Q6HRRT PRN PRN Reason: Shortness of Breath Last Admin: 09/27/19 10:01 Dose: 3 ml Chlordiazepoxide HCl (Librium) 25 mg PO QID PRN PRN Reason: Withdrawal Symptoms Last Admin: 09/18/19 14:27 Dose: 25 mg Chlordiazepoxide HCl (Librium) 25 mg PO Q8H [facility] Last Admin: 09/18/19 20:55 Dose: 25 mg Chlordiazepoxide HCl (Librium) 100 mg PO Q8H [facility] Last Admin: 09/21/19 04:32 Dose: 100 mg Chlordiazepoxide HCl (Librium) 75 mg PO ONETIME ONE Stop: 09/18/19 21:16 Last Admin: 09/18/19 21:49 Dose: 75 mg Chlordiazepoxide HCl (Librium) 50 mg PO BID [facility] Last Admin: 09/25/19 09:27 Dose: Not Given Chlordiazepoxide HCl (Librium) 25 mg PO DAILY [facility] Last Admin: 09/26/19 08:39 Dose: 25 mg Chlordiazepoxide HCl (Librium) 50 mg PO BEDTIME [facility] Last Admin: 09/25/19 20:30 Dose: 50 mg Chlordiazepoxide HCl (Librium) 25 mg PO BID [facility] Last Admin: 09/28/19 09:07 Dose: 25 mg Diazepam (Valium) 50 mg IVPUSH ONETIME ONE Stop: 09/18/19 14:12 Last Admin: 09/18/19 14:41 Dose: Not Given Furosemide (Lasix) 20 mg IVPUSH NOW ONE Stop: 09/20/19 10:32 Last Admin: 09/20/19 11:01 Dose: 20 mg Sodium Chloride (Normal Saline) 1,000 mls @ 999 mls/hr IV STAT ONE Stop: 09/17/19 21:00 Last Admin: 09/17/19 20:26 Dose: 999 mls/hr Pantoprazole Sodium 80 mg/ (Sodium Chloride) 20 mls @ 420 mls/hr IVPUSH ONETIME ONE Stop: 09/17/19 20:11 Last Admin: 09/17/19 20:26 Dose: 420 mls/hr Sodium Chloride (Normal Saline) 1,000 mls @ 999 mls/hr IV STAT ONE Stop: 09/17/19 21:09 Last Admin: 09/17/19 20:14 Dose: Not Given Multivitamins/Minerals 10 ml/Thiamine HCl 100 mg/ Folic Acid 1 mg/ Sodium Chloride 1,011.2 mls @ 125 mls/hr IV ONETIME ONE Stop: 09/18/19 05:19 Last Admin: 09/17/19 22:15 Dose: 125 mls/hr Lactated Ringer's (Ringers, Lactated) 1,000 mls @ 125 mls/hr IV ASDIRECTED [facility] Last Admin: 09/18/19 14:33 Dose: 125 mls/hr Pantoprazole Sodium 40 mg/ (Sodium Chloride) 10 mls @ 300 mls/hr IV DAILY [facility] Last Admin: 09/18/19 08:07 Dose: 300 mls/hr Magnesium Sulfate 4 gm/ Premix 100 mls @ 25 mls/hr IV ONETIME ONE Stop: 09/18/19 11:15 Last Admin: 09/18/19 08:01 Dose: 25 mls/hr Lactated Ringer's (Ringers, Lactated) 1,000 mls @ 175 mls/hr IV ASDIRECTED [facility] Last Admin: 09/20/19 05:44 Dose: 175 mls/hr Magnesium Sulfate 4 gm/ Premix 100 mls @ 33.333 mls/hr IV ONETIME ONE Stop: 09/19/19 10:18 Last Admin: 09/19/19 07:50 Dose: 33.333 mls/hr Magnesium Sulfate 2 gm/ Premix 50 mls @ 50 mls/hr IV ONETIME ONE Stop: 09/20/19 08:44 Last Admin: 09/20/19 08:02 Dose: 50 mls/hr Sodium Chloride (Normal Saline) 1,000 mls @ 100 mls/hr IV ASDIRECTED FIDE Last Infusion: 09/24/19 08:18 Dose: 100 mls/hr Magnesium Sulfate 4 gm/ Premix 100 mls @ 33.333 mls/hr IV ONETIME ONE Stop: 09/21/19 14:27 Last Admin: 09/21/19 12:36 Dose: 33.333 mls/hr Potassium Chloride 40 meq/ (Premix) 100 mls @ 25 mls/hr IV ONETIME ONE Stop: 09/21/19 15:28 Last Admin: 09/21/19 12:37 Dose: 25 mls/hr Magnesium Sulfate 1 gm/ Sodium (Chloride) 102 mls @ 102 mls/hr IV ONETIME ONE Stop: 09/22/19 09:14 Last Admin: 09/22/19 08:32 Dose: 102 mls/hr Magnesium Sulfate 2 gm/ Premix 50 mls @ 50 mls/hr IV ONETIME ONE Stop: 09/23/19 10:39 Last Admin: 09/23/19 10:17 Dose: 50 mls/hr Magnesium Sulfate 4 gm/ Premix 100 mls @ 25 mls/hr IV ONETIME ONE Stop: 09/24/19 11:39 Last Admin: 09/24/19 08:26 Dose: 25 mls/hr Magnesium Sulfate 4 gm/ Premix 100 mls @ 25 mls/hr IV ONETIME ONE Stop: 09/25/19 11:52 Last Admin: 09/25/19 08:25 Dose: Not Given Magnesium Sulfate 4 gm/ Premix 100 mls @ 33.333 mls/hr IV ONETIME ONE Stop: 09/25/19 11:59 Last Admin: 09/25/19 09:17 Dose: 33.333 mls/hr Magnesium Sulfate 1 gm/ Sodium (Chloride) 52 mls @ 104 mls/hr IV ONETIME FIDE Magnesium Sulfate 1 gm/ Sodium (Chloride) 52 mls @ 104 mls/hr IV ONETIME FIDE Last Admin: 09/26/19 15:51 Dose: 104 mls/hr Magnesium Sulfate 2 gm/ Premix 50 mls @ 50 mls/hr IV ONETIME FIDE Last Admin: 09/27/19 10:33 Dose: 50 mls/hr Magnesium Sulfate 2 gm/ Premix 50 mls @ 50 mls/hr IV ONETIME ONE Stop: 09/27/19 11:44 Last Admin: 09/27/19 11:34 Dose: Not Given Iopamidol (Isovue-370 (76%)) 100 ml IVPUSH ONETIME ONE Stop: 09/17/19 21:57 Last Admin: 09/17/19 21:56 Dose: 100 ml Ketorolac Tromethamine (Toradol) 15 mg IVPUSH Q6H PRN PRN Reason: Pain Stop: 09/24/19 09:26 Last Admin: 09/20/19 07:35 Dose: 15 mg Ketorolac Tromethamine (Toradol) 30 mg IVPUSH Q6H PRN PRN Reason: Pain Stop: 09/24/19 09:26 Last Admin: 09/23/19 13:17 Dose: 30 mg Lorazepam (Ativan) 2 mg IVPUSH ONETIME ONE Stop: 09/18/19 14:07 Last Admin: 09/18/19 14:17 Dose: 2 mg Lorazepam (Ativan) 1 mg IVPUSH ONETIME ONE Stop: 09/18/19 14:59 Last Admin: 09/18/19 15:14 Dose: 1 mg Magnesium Sulfate (Magnesium Sulfate 50%) 1 gm IV ONETIME ONE Stop: 09/22/19 08:08 Last Admin: 09/22/19 08:33 Dose: Not Given Morphine Sulfate (Morphine) 6 mg IVPUSH ONETIME ONE Stop: 09/17/19 22:25 Last Admin: 09/17/19 22:27 Dose: 6 mg Morphine Sulfate (Morphine) 2 mg IVPUSH Q4H PRN PRN Reason: Pain Last Admin: 09/18/19 13:53 Dose: 2 mg Ondansetron HCl (Zofran) 4 mg IVPUSH ONETIME ONE Stop: 09/17/19 20:01 Last Admin: 09/17/19 20:31 Dose: 4 mg Ondansetron HCl (Zofran) 4 mg IVPUSH ONETIME ONE Stop: 09/17/19 20:10 Last Admin: 09/17/19 20:15 Dose: Not Given Ondansetron HCl (Zofran) 4 mg IVPUSH ONETIME ONE Stop: 09/17/19 22:16 Last Admin: 09/17/19 22:19 Dose: 4 mg Potassium Chloride (Potassium Chloride) 40 meq PO ONETIME ONE Stop: 09/17/19 21:15 Last Admin: 09/17/19 22:15 Dose: 40 meq Quetiapine Fumarate (Seroquel) 100 mg PO TID FIDE Last Admin: 09/21/19 05:24 Dose: 100 mg Sodium Phosphate (Neutra-Phos) 250 mg PO QID [facility] - Exam General: Alert, Oriented Neck: Supple, Trachea Midline Lungs: Clear to Auscultation, Normal Respiratory Effort Cardiovascular: Regular Rate, Regular Rhythm GI/Abdominal Exam: Normal Bowel Sounds, Soft, Non-Tender Neurological: No New Focal Deficit, Normal Speech, Sensation Intact Psy/Mental Status: Alert, Normal Affect Sepsis Event Note - Evaluation Sepsis Screening Result: No Definite Risk - Focused Exam Vital Signs: Vital Signs Temp Temp Pulse Resp BP BP Pulse Ox 09/28/19 07:45 36.6 C 106 H 19 109/78 95 09/28/19 04:45 36.6 C 98 20 153/82 H 91 L 09/28/19 00:00 36.8 C 103 H 20 125/79 95 Date Exam was Performed: 09/28/19 Time Exam was Performed: 14:10 - Problem List & Annotations (1) Alcohol withdrawal delirium SNOMED Code(s): 1675653 Code(s): F10.231 - ALCOHOL DEPENDENCE WITH WITHDRAWAL DELIRIUM Status: Acute Current Visit: Yes (2) Alcohol abuse SNOMED Code(s): 83976582 Code(s): F10.10 - ALCOHOL ABUSE, UNCOMPLICATED Status: Acute Current Visit: Yes (3) Pancreatitis SNOMED Code(s): 50994718 Code(s): K85.90 - ACUTE PANCREATITIS WITHOUT NECROSIS OR INFECTION, UNSP Status: Acute Current Visit: Yes (4) Mass of pancreas SNOMED Code(s): 072944162 Code(s): K86.89 - OTHER SPECIFIED DISEASES OF PANCREAS Status: Acute Current Visit: Yes - My Orders Last 24 Hours: My Active Orders 09/28/19 11:19 Chest 1V Frontal [CR] Routine UA W/ROSMERY RFLX IF INDICATED [URIN] Routine 09/28/19 21:00 chlordiazePOXIDE [Librium] 12.5 mg PO BID - Plan Plan:: Plan: Continue to monitor patient; will further reduce Librium to 10 mg BID; continue Ativan per CIWAA; PT continue to work with pt. regarding balance issue ; interval improvement; however pt. requires [employer] outpatint balance work for possible cerebellar issues Cough with wheeze: WBC count up, CXR negative, will start Azithromycin, PRN duo- nebs continued; PRN O2 for sats; will continue to monitor for concerns for CAP F/U on UA , possible UTI? cont soft diet, abdominal pain resolved Thrombocytosis: s/p splenectomy Pancreatic mass: US showed small pancreatic mass. They recommend [address] for further evaluation, this will be done on outpatient basis. Will investigate for any outpatient ETOH detox resources.
--- NOTE | 2019-09-28 13:25 | CR ---
Chest: Frontal view of the chest was obtained utilizing portable technique. Comparison: Prior chest CT study performed on 09/24/19 and chest x-ray performed on 09/24/19. Prior study showed increased density with left upper chest which is not seen on current exam. Lungs are felt to be clear. Heart size at the upper limits of normal. Upper mediastinum is normal. Bony structures shows an old healed left clavicle fracture. Impression: 1. Chest is improved from previous exam. 2. Heart size at the upper limits of normal. 3. Nothing acute is suspected Diagnostic code #2 This report was dictated in MDT
[2019-09-28] MEDS ORDERED: Azithromycin 500 MG in Sodium Chloride 0.9% 250 ML IV ONE (14:00)
[2019-09-28] MEDS: Ondansetron 4 MG/2 ML SDV IVPUSH PRN (17:07)
[2019-09-28] MEDS ORDERED: chlordiazePOXIDE 10 MG Cap PO SCH (21:00)
[2019-09-28] MEDS: Folic Acid 1 MG Tab PO SCH (21:21)
[2019-09-28] MEDS: Thiamine 100 MG Tab PO SCH (21:22)
[2019-09-29] MEDS: Heparin Sodium 5,000 Units/ML Vial SUBCUT SCH ×4 (00:17→23:50)
[2019-09-29] MEDS: Phosphorus #1 250 MG Tab PO SCH ×2 (00:18→06:20)
[2019-09-29] MEDS: guaiFENesin/Dextromethorphan 100-10 MG/5 ML Soln 10 ML Cup PO PRN ×3 (03:21→17:30)
[2019-09-29] MEDS: Benzonatate 100 MG Cap PO PRN ×2 (03:21→18:34)
[2019-09-29 06:34] LABS: BLOOD UREA NITROGEN,BUN 10 mg/dL (7.0-18.0); CARBON DIOXIDE,CO2 27.8 mmol/L (21.0-32.0); CHLORIDE,CL 103 mmol/L (98-107); GLUCOSE RANDOM 123 mg/dL (74-106); SODIUM,NA 139 mmol/L (136-148)
--- NOTE | 2019-09-29 08:44 | PCM.PN ---
- General Info Date of Service: 09/29/19 Subjective Update: Feeling better and stronger; wanting to go home ; states feeling disoriented at times; but interval improvement Functional Status: Reports: Pain Controlled - Review of Systems General: Denies: Fever, Weakness Pulmonary: Reports: Cough. Denies: Shortness of Breath, Pleuritic Chest Pain, Sputum, Wheezing Cardiovascular: Denies: Chest Pain, Palpitations Gastrointestinal: Reports: No Symptoms Genitourinary: Reports: No Symptoms Musculoskeletal: Reports: No Symptoms Neurological: Denies: Headache Psychiatric: Denies: Anxiety - Patient Data Vitals - Most Recent: Last Vital Signs Temp 97.5 F 09/29/19 04:37 Pulse 107 H 09/29/19 04:37 Resp 20 09/29/19 04:37 BP 113/83 09/29/19 04:37 Pulse Ox 93 L 09/29/19 04:37 Weight - Most Recent: 99.019 kg I&O - Last 24 Hours: Intake & Output 09/28/19 09/29/19 09/29/19 22:59 06:59 14:59 Intake Total 950 350 Output Total 950 1050 Balance 0 -700 Lab Results Last 24 Hours: Laboratory Results - last 24 hr 09/28/19 09/29/19 09/29/19 Range/Units 17:01 05:53 05:53 WBC 12.04 H (4.0-11.0) K/uL RBC 3.94 L (4.50-5.90) M/uL Hgb 13.0 (13.0-17.0) g/dL Hct 39.1 (38.0-50.0) % MCV 99.2 H (80.0-98.0) fL MCH 33.0 H (27.0-32.0) pg MCHC 33.2 (31.0-37.0) g/dL RDW Std Deviation 55.3 (28.0-62.0) fl RDW Coeff of Julissa 15 (11.0-15.0) % Plt Count 686 H (150-400) K/uL MPV 10.10 (7.40-12.00) fL Neut % (Auto) 65.9 (48.0-80.0) % Lymph % (Auto) 15.0 L (16.0-40.0) % [place] % (Auto) 14.6 (0.0-15.0) % Eos % (Auto) 3.8 (0.0-7.0) % Baso % (Auto) 0.7 (0.0-1.5) % Neut # (Auto) 7.9 H (1.4-5.7) K/uL Lymph # (Auto) 1.8 (0.6-2.4) K/uL [place] # (Auto) 1.8 H (0.0-0.8) K/uL Eos # (Auto) 0.5 (0.0-0.7) K/uL Baso # (Auto) 0.1 (0.0-0.1) K/uL Nucleated RBC % 0.0 /100WBC Nucleated RBCs # 0 K/uL Sodium 139 (136-148) mmol/L Potassium 4.0 (3.5-5.1) mmol/L Chloride 103 (98-107) mmol/L Carbon Dioxide 27.8 (21.0-32.0) mmol/L BUN 10 (7.0-18.0) mg/dL Creatinine 0.9 (0.8-1.3) mg/dL Est Cr Clr Drug Dosing 109.74 mL/min Estimated GFR (MDRD) > 60.0 ml/min Glucose 123 H (74-106) mg/dL Calcium 8.8 (8.5-10.1) mg/dL Urine Color YELLOW Urine Appearance SLT CLOUDY Urine pH 8.0 (5.0-8.0) Ur Specific [place] 1.020 (1.001-1.035) Urine Protein NEGATIVE (NEGATIVE) mg/dL Urine Glucose (UA) NEGATIVE (NEGATIVE) mg/dL Urine Ketones NEGATIVE (NEGATIVE) mg/dL Urine Occult Blood NEGATIVE (NEGATIVE) Urine Nitrite NEGATIVE (NEGATIVE) Urine Bilirubin NEGATIVE (NEGATIVE) Urine Urobilinogen >=8.0 H (<2.0) EU/dL Ur Leukocyte Esterase NEGATIVE (NEGATIVE) Med Orders - Current: Current Medications Albuterol/Ipratropium (Duoneb 3.0-0.5 Mg/3 Ml) 3 ml NEB Q4HRRT PRN PRN Reason: Cough Last Admin: 09/27/19 17:28 Dose: 3 ml Azithromycin (Zithromax) 250 mg PO Q24H FIDE Benzonatate (Tessalon Perles) 200 mg PO BID PRN PRN Reason: Cough Last Admin: 09/29/19 03:21 Dose: 200 mg Bisacodyl (Dulcolax) 10 mg RECTAL DAILY PRN PRN Reason: Constipation Chlordiazepoxide HCl (Librium) 10 mg PO BID [facility] Last Admin: 09/28/19 21:48 Dose: 10 mg Docusate Sodium (Colace) 100 mg PO BID PRN PRN Reason: Constipation Last Admin: 09/24/19 08:32 Dose: 100 mg Folic Acid (Folic Acid) 1 mg PO BEDTIME [facility] Last Admin: 09/28/19 21:21 Dose: 1 mg Guaifenesin/Dextromethorphan (Robitussin Dm) 10 ml PO Q4H PRN PRN Reason: Cough Last Admin: 09/29/19 03:21 Dose: 10 ml Heparin Sodium (Porcine) (Heparin Sodium) 5,000 units SUBCUT Q8H [facility] Last Admin: 09/29/19 00:17 Dose: 5,000 units Pantoprazole Sodium 40 mg/ (Sodium Chloride) 10 mls @ 300 mls/hr IV BID [facility] Last Admin: 09/28/19 21:21 Dose: 300 mls/hr Ibuprofen (Motrin) 400 mg PO Q8H PRN PRN Reason: Pain Last Admin: 09/26/19 21:21 Dose: 400 mg Lorazepam (Ativan) 0 mg IVPUSH Q4H PRN; Protocol PRN Reason: Withdrawal Symptoms Last Admin: 09/24/19 03:20 Dose: 1 mg Lorazepam (Ativan) 1 mg PO ASDIRECTED PRN PRN Reason: SEE PROTOCOL Last Admin: 09/25/19 07:48 Dose: 1 mg Nystatin (Nystatin Crm) 0 gm TOP QID PRN PRN Reason: Rash Last Admin: 09/24/19 16:18 Dose: 1 applic Ondansetron HCl (Zofran) 4 mg IVPUSH Q4H PRN PRN Reason: Nausea/Vomiting Last Admin: 09/28/19 17:07 Dose: 4 mg Quetiapine Fumarate (Seroquel) 25 mg PO BEDTIME PRN PRN Reason: Agitation Last Admin: 09/28/19 00:09 Dose: 25 mg Sodium Chloride (Saline Flush) 10 ml FLUSH ASDIRECTED PRN PRN Reason: Keep Vein Open Last Admin: 09/20/19 12:29 Dose: 10 ml Sodium Chloride (Saline Flush) 2.5 ml FLUSH ASDIRECTED PRN PRN Reason: Keep Vein Open Sodium Phosphate (Neutra-Phos) 250 mg PO QID [facility] Last Admin: 09/29/19 06:20 Dose: 250 mg Thiamine HCl (Vitamin B-1) 100 mg PO BEDTIME [facility] Last Admin: 09/28/19 21:22 Dose: 100 mg Discontinued Medications Albuterol/Ipratropium (Duoneb 3.0-0.5 Mg/3 Ml) 3 ml NEB Q6HRRT [facility] Last Admin: 09/23/19 12:59 Dose: Not Given Albuterol/Ipratropium (Duoneb 3.0-0.5 Mg/3 Ml) 3 ml NEB Q6HRRT PRN PRN Reason: Shortness of Breath Last Admin: 09/27/19 10:01 Dose: 3 ml Chlordiazepoxide HCl (Librium) 25 mg PO QID PRN PRN Reason: Withdrawal Symptoms Last Admin: 09/18/19 14:27 Dose: 25 mg Chlordiazepoxide HCl (Librium) 25 mg PO Q8H [facility] Last Admin: 09/18/19 20:55 Dose: 25 mg Chlordiazepoxide HCl (Librium) 100 mg PO Q8H [facility] Last Admin: 09/21/19 04:32 Dose: 100 mg Chlordiazepoxide HCl (Librium) 75 mg PO ONETIME ONE Stop: 09/18/19 21:16 Last Admin: 09/18/19 21:49 Dose: 75 mg Chlordiazepoxide HCl (Librium) 50 mg PO BID [facility] Last Admin: 09/25/19 09:27 Dose: Not Given Chlordiazepoxide HCl (Librium) 25 mg PO DAILY [facility] Last Admin: 09/26/19 08:39 Dose: 25 mg Chlordiazepoxide HCl (Librium) 50 mg PO BEDTIME [facility] Last Admin: 09/25/19 20:30 Dose: 50 mg Chlordiazepoxide HCl (Librium) 25 mg PO BID [facility] Last Admin: 09/28/19 09:07 Dose: 25 mg Chlordiazepoxide HCl (Librium) 10 mg PO BID [facility] Last Admin: 09/28/19 21:22 Dose: Not Given Chlordiazepoxide HCl (Librium) 10 mg PO BID [facility] Diazepam (Valium) 50 mg IVPUSH ONETIME ONE Stop: 09/18/19 14:12 Last Admin: 09/18/19 14:41 Dose: Not Given Furosemide (Lasix) 20 mg IVPUSH NOW ONE Stop: 09/20/19 10:32 Last Admin: 09/20/19 11:01 Dose: 20 mg Sodium Chloride (Normal Saline) 1,000 mls @ 999 mls/hr IV STAT ONE Stop: 09/17/19 21:00 Last Admin: 09/17/19 20:26 Dose: 999 mls/hr Pantoprazole Sodium 80 mg/ (Sodium Chloride) 20 mls @ 420 mls/hr IVPUSH ONETIME ONE Stop: 09/17/19 20:11 Last Admin: 09/17/19 20:26 Dose: 420 mls/hr Sodium Chloride (Normal Saline) 1,000 mls @ 999 mls/hr IV STAT ONE Stop: 09/17/19 21:09 Last Admin: 09/17/19 20:14 Dose: Not Given Multivitamins/Minerals 10 ml/Thiamine HCl 100 mg/ Folic Acid 1 mg/ Sodium Chloride 1,011.2 mls @ 125 mls/hr IV ONETIME ONE Stop: 09/18/19 05:19 Last Admin: 09/17/19 22:15 Dose: 125 mls/hr Lactated Ringer's (Ringers, Lactated) 1,000 mls @ 125 mls/hr IV ASDIRECTED [facility] Last Admin: 09/18/19 14:33 Dose: 125 mls/hr Pantoprazole Sodium 40 mg/ (Sodium Chloride) 10 mls @ 300 mls/hr IV DAILY [facility] Last Admin: 09/18/19 08:07 Dose: 300 mls/hr Magnesium Sulfate 4 gm/ Premix 100 mls @ 25 mls/hr IV ONETIME ONE Stop: 09/18/19 11:15 Last Admin: 09/18/19 08:01 Dose: 25 mls/hr Lactated Ringer's (Ringers, Lactated) 1,000 mls @ 175 mls/hr IV ASDIRECTED [facility] Last Admin: 09/20/19 05:44 Dose: 175 mls/hr Magnesium Sulfate 4 gm/ Premix 100 mls @ 33.333 mls/hr IV ONETIME ONE Stop: 09/19/19 10:18 Last Admin: 09/19/19 07:50 Dose: 33.333 mls/hr Magnesium Sulfate 2 gm/ Premix 50 mls @ 50 mls/hr IV ONETIME ONE Stop: 09/20/19 08:44 Last Admin: 09/20/19 08:02 Dose: 50 mls/hr Sodium Chloride (Normal Saline) 1,000 mls @ 100 mls/hr IV ASDIRECTED [facility]IDE Last Infusion: 09/24/19 08:18 Dose: 100 mls/hr Magnesium Sulfate 4 gm/ Premix 100 mls @ 33.333 mls/hr IV ONETIME ONE Stop: 09/21/19 14:27 Last Admin: 09/21/19 12:36 Dose: 33.333 mls/hr Potassium Chloride 40 meq/ (Premix) 100 mls @ 25 mls/hr IV ONETIME ONE Stop: 09/21/19 15:28 Last Admin: 09/21/19 12:37 Dose: 25 mls/hr Magnesium Sulfate 1 gm/ Sodium (Chloride) 102 mls @ 102 mls/hr IV ONETIME ONE Stop: 09/22/19 09:14 Last Admin: 09/22/19 08:32 Dose: 102 mls/hr Magnesium Sulfate 2 gm/ Premix 50 mls @ 50 mls/hr IV ONETIME ONE Stop: 09/23/19 10:39 Last Admin: 09/23/19 10:17 Dose: 50 mls/hr Magnesium Sulfate 4 gm/ Premix 100 mls @ 25 mls/hr IV ONETIME ONE Stop: 09/24/19 11:39 Last Admin: 09/24/19 08:26 Dose: 25 mls/hr Magnesium Sulfate 4 gm/ Premix 100 mls @ 25 mls/hr IV ONETIME ONE Stop: 09/25/19 11:52 Last Admin: 09/25/19 08:25 Dose: Not Given Magnesium Sulfate 4 gm/ Premix 100 mls @ 33.333 mls/hr IV ONETIME ONE Stop: 09/25/19 11:59 Last Admin: 09/25/19 09:17 Dose: 33.333 mls/hr Magnesium Sulfate 1 gm/ Sodium (Chloride) 52 mls @ 104 mls/hr IV ONETIME FIDE Magnesium Sulfate 1 gm/ Sodium (Chloride) 52 mls @ 104 mls/hr IV ONETIME FIDE Last Admin: 09/26/19 15:51 Dose: 104 mls/hr Magnesium Sulfate 2 gm/ Premix 50 mls @ 50 mls/hr IV ONETIME FIDE Last Admin: 09/27/19 10:33 Dose: 50 mls/hr Magnesium Sulfate 2 gm/ Premix 50 mls @ 50 mls/hr IV ONETIME ONE Stop: 09/27/19 11:44 Last Admin: 09/27/19 11:34 Dose: Not Given Azithromycin 500 mg/ Sodium (Chloride) 250 mls @ 250 mls/hr IV ONETIME ONE Stop: 09/28/19 14:59 Last Admin: 09/28/19 14:10 Dose: 250 mls/hr Iopamidol (Isovue-370 (76%)) 100 ml IVPUSH ONETIME ONE Stop: 09/17/19 21:57 Last Admin: 09/17/19 21:56 Dose: 100 ml Ketorolac Tromethamine (Toradol) 15 mg IVPUSH Q6H PRN PRN Reason: Pain Stop: 09/24/19 09:26 Last Admin: 09/20/19 07:35 Dose: 15 mg Ketorolac Tromethamine (Toradol) 30 mg IVPUSH Q6H PRN PRN Reason: Pain Stop: 09/24/19 09:26 Last Admin: 09/23/19 13:17 Dose: 30 mg Lorazepam (Ativan) 2 mg IVPUSH ONETIME ONE Stop: 09/18/19 14:07 Last Admin: 09/18/19 14:17 Dose: 2 mg Lorazepam (Ativan) 1 mg IVPUSH ONETIME ONE Stop: 09/18/19 14:59 Last Admin: 09/18/19 15:14 Dose: 1 mg Magnesium Sulfate (Magnesium Sulfate 50%) 1 gm IV ONETIME ONE Stop: 09/22/19 08:08 Last Admin: 09/22/19 08:33 Dose: Not Given Morphine Sulfate (Morphine) 6 mg IVPUSH ONETIME ONE Stop: 09/17/19 22:25 Last Admin: 09/17/19 22:27 Dose: 6 mg Morphine Sulfate (Morphine) 2 mg IVPUSH Q4H PRN PRN Reason: Pain Last Admin: 09/18/19 13:53 Dose: 2 mg Ondansetron HCl (Zofran) 4 mg IVPUSH ONETIME ONE Stop: 09/17/19 20:01 Last Admin: 09/17/19 20:31 Dose: 4 mg Ondansetron HCl (Zofran) 4 mg IVPUSH ONETIME ONE Stop: 09/17/19 20:10 Last Admin: 09/17/19 20:15 Dose: Not Given Ondansetron HCl (Zofran) 4 mg IVPUSH ONETIME ONE Stop: 09/17/19 22:16 Last Admin: 09/17/19 22:19 Dose: 4 mg Potassium Chloride (Potassium Chloride) 40 meq PO ONETIME ONE Stop: 09/17/19 21:15 Last Admin: 09/17/19 22:15 Dose: 40 meq Quetiapine Fumarate (Seroquel) 100 mg PO TID [facility] Last Admin: 09/21/19 05:24 Dose: 100 mg Sodium Phosphate (Neutra-Phos) 250 mg PO QID FIDE - Exam Quality Assessment: Supplemental Oxygen General: Alert, Oriented, Cooperative, No Acute Distress HEENT: Pupils Equal, Pupils Reactive Neck: Supple Lungs: Other (mild end expiratory wheeze ) Cardiovascular: Regular Rate, Regular Rhythm GI/Abdominal Exam: Soft, Non-Tender Back Exam: Full Range of Motion Extremities: Normal Range of Motion Wound/Incisions: Healing Well Neurological: No New Focal Deficit, Other (EOMI' +nystagmus/vertical; vision intact. memory and orientation intact ) Psy/Mental Status: Alert, Normal Affect, Normal Mood Sepsis Event Note - Evaluation Sepsis Screening Result: No Definite Risk - Focused Exam Vital Signs: Vital Signs Temp Pulse Resp BP BP Pulse Ox 09/29/19 04:37 97.5 F 107 H 20 113/83 93 L 09/29/19 00:38 97.5 F 89 21 H 122/75 95 09/28/19 23:10 97.9 F 90 20 120/73 95 09/28/19 22:00 97.5 F 91 20 111/67 94 L 09/28/19 21:15 98.8 F 113 H 20 111/72 93 L Date Exam was Performed: 09/29/19 Time Exam was Performed: 11:35 - Problem List Review Problem List Initiated/Reviewed/Updated: Yes - Plan Plan:: Assessment: 1. Suspicion for Wernicke Encephalopathy 2. ETOH Withdrawal w. DT:improving 3. Macrocytic anemia 4. Hyperglycemia 5. Bronchitics w. concerns for COPD Plan: 1. Concerns for Wernicke encephalopathy: nystagmus, concerns for cerebellar dysfunction; multiple falls backwards w. ambulation/PT; memory and cognition intact Will start high dose Thiamine supplementation IV 500 mg TID x 2 days; followed by 250 daily x 3 days ; total 5 days Continue folic acid Continue to monitor patient; continue Librium at 10 mg BID; continue Ativan per [facility]; PT continue to work with pt. regarding balance issue; interval improvement;still having issues with balance as witnessed w. PT this AM ; however pt. requires senior care outpatient balance work for possible cerebellar issues Cough with wheeze/marginal leukocytosis: WBC count up, CXR negative, will start Azithromycin, PRN duo-nebs continued; PRN O2 for sats; will continue to monitor for concerns for CAP UA negative cont soft diet, abdominal pain resolved Thrombocytosis: s/p splenectomy Macrocytic Anemia: receiving folate daily; Pancreatic mass: US showed small pancreatic mass. They recommend [address] for further evaluation, this will be done on outpatient basis. Will investigate for any outpatient ETOH detox resources.
[2019-09-29] MEDS: Pantoprazole 40 MG in Sodium Chloride 0.9% 10 ML IV SCH ×2 (08:59→20:21)
[2019-09-29] MEDS: Azithromycin 250 MG Tab PO SCH (08:59)
[2019-09-29] MEDS: Albuterol/Ipratropium 3.0-0.5 MG/3 ML Neb Soln NEB PRN (12:11)
[2019-09-29] MEDS: Thiamine 500 MG in Sodium Chloride 0.9% 100 ML IV SCH ×2 (14:22→21:16)
[2019-09-29] MEDS: Folic Acid 1 MG Tab PO SCH (20:22)
[2019-09-30] MEDS: guaiFENesin/Dextromethorphan 100-10 MG/5 ML Soln 10 ML Cup PO PRN ×5 (05:00→21:17)
[2019-09-30] MEDS: Thiamine 500 MG in Sodium Chloride 0.9% 100 ML IV SCH ×3 (05:05→21:22)
[2019-09-30 06:33] LABS: BLOOD UREA NITROGEN,BUN 10 mg/dL (7.0-18.0); CARBON DIOXIDE,CO2 26.3 mmol/L (21.0-32.0); CHLORIDE,CL 104 mmol/L (98-107); GLUCOSE RANDOM 129 mg/dL (74-106); SODIUM,NA 138 mmol/L (136-148)
[2019-09-30] MEDS: Heparin Sodium 5,000 Units/ML Vial SUBCUT SCH ×2 (09:02→16:32)
[2019-09-30] MEDS: Azithromycin 250 MG Tab PO SCH (09:06)
--- NOTE | 2019-09-30 09:14 | PCM.PN ---
- General Info Date of Service: 09/30/19 Subjective Update: Seen at bedside; seeming unchanged from yesterday; no acute complaints otherwise. Functional Status: Reports: Pain Controlled - Review of Systems General: Reports: No Symptoms HEENT: Reports: No Symptoms Pulmonary: Reports: Cough. Denies: Shortness of Breath, Pleuritic Chest Pain Cardiovascular: Reports: No Symptoms Gastrointestinal: Reports: No Symptoms Genitourinary: Reports: No Symptoms Musculoskeletal: Reports: No Symptoms Skin: Reports: No Symptoms Neurological: Reports: Gait Disturbance Psychiatric: Reports: No Symptoms. Denies: Confusion, Depression - Patient Data Vitals - Most Recent: Last Vital Signs Temp 98.4 F 09/30/19 08:00 Pulse 89 09/30/19 08:00 Resp 16 09/30/19 08:00 BP 120/79 09/30/19 08:00 Pulse Ox 95 09/30/19 08:00 Weight - Most Recent: 98.702 kg I&O - Last 24 Hours: Intake & Output 09/29/19 09/30/19 09/30/19 22:59 06:59 14:59 Intake Total 900 550 Output Total 800 650 Balance 100 -100 Lab Results Last 24 Hours: Laboratory Results - last 24 hr 09/29/19 09/30/19 09/30/19 Range/Units 05:53 05:46 05:46 WBC 12.10 H (4.0-11.0) K/uL RBC 4.05 L (4.50-5.90) M/uL Hgb 13.4 (13.0-17.0) g/dL Hct 40.4 (38.0-50.0) % MCV 99.8 H (80.0-98.0) fL MCH 33.1 H (27.0-32.0) pg MCHC 33.2 (31.0-37.0) g/dL RDW Std Deviation 54.0 (28.0-62.0) fl RDW Coeff of Julissa 15 (11.0-15.0) % Plt Count 668 H (150-400) K/uL MPV 10.20 (7.40-12.00) fL Neut % (Auto) 70.0 (48.0-80.0) % Lymph % (Auto) 13.0 L (16.0-40.0) % [place] % (Auto) 11.7 (0.0-15.0) % Eos % (Auto) 4.4 (0.0-7.0) % Baso % (Auto) 0.9 (0.0-1.5) % Neut # (Auto) 8.5 H (1.4-5.7) K/uL Lymph # (Auto) 1.6 (0.6-2.4) K/uL [place] # (Auto) 1.4 H (0.0-0.8) K/uL Eos # (Auto) 0.5 (0.0-0.7) K/uL Baso # (Auto) 0.1 (0.0-0.1) K/uL Nucleated RBC % 0.0 /100WBC Nucleated RBCs # 0 K/uL Sodium 138 (136-148) mmol/L Potassium 4.0 (3.5-5.1) mmol/L Chloride 104 (98-107) mmol/L Carbon Dioxide 26.3 (21.0-32.0) mmol/L BUN 10 (7.0-18.0) mg/dL Creatinine 0.8 (0.8-1.3) mg/dL Est Cr Clr Drug Dosing 123.46 mL/min Estimated GFR (MDRD) > 60.0 ml/min Glucose 129 H (74-106) mg/dL Calcium 8.7 (8.5-10.1) mg/dL Total Bilirubin 0.5 (0.2-1.0) mg/dL AST 29 (15-37) IU/L ALT 44 (14-63) IU/L Alkaline Phosphatase 107 (46-116) U/L Total Protein 6.6 (6.4-8.2) g/dL Albumin 2.4 L (3.4-5.0) g/dL Globulin 4.2 H (2.6-4.0) g/dL Albumin/Globulin Ratio 0.6 L (0.9-1.6) Vitamin B12 1226 H (193-986) pg/mL Folate 16.40 (8.60-58.90) ng/mL Med Orders - Current: Current Medications Albuterol/Ipratropium (Duoneb 3.0-0.5 Mg/3 Ml) 3 ml NEB Q4HRRT PRN PRN Reason: Cough Last Admin: 09/29/19 12:11 Dose: 3 ml Azithromycin (Zithromax) 250 mg PO Q24H [facility] Last Admin: 09/29/19 08:59 Dose: 250 mg Benzonatate (Tessalon Perles) 200 mg PO BID PRN PRN Reason: Cough Last Admin: 09/29/19 18:34 Dose: 200 mg Bisacodyl (Dulcolax) 10 mg RECTAL DAILY PRN PRN Reason: Constipation Chlordiazepoxide HCl (Librium) 10 mg PO BID [facility] Last Admin: 09/29/19 20:21 Dose: 10 mg Docusate Sodium (Colace) 100 mg PO BID PRN PRN Reason: Constipation Last Admin: 09/24/19 08:32 Dose: 100 mg Folic Acid (Folic Acid) 1 mg PO BEDTIME [facility] Last Admin: 09/29/19 20:22 Dose: 1 mg Guaifenesin/Dextromethorphan (Robitussin Dm) 10 ml PO Q4H PRN PRN Reason: Cough Last Admin: 09/30/19 05:00 Dose: 10 ml Heparin Sodium (Porcine) (Heparin Sodium) 5,000 units SUBCUT Q8H [facility] Last Admin: 09/29/19 23:50 Dose: 5,000 units Pantoprazole Sodium 40 mg/ (Sodium Chloride) 10 mls @ 300 mls/hr IV BID [facility] Last Admin: 09/29/19 20:21 Dose: 300 mls/hr Thiamine HCl 500 mg/ Sodium (Chloride) 105 mls @ 210 mls/hr IV TID [facility] Stop: 10/01/19 06:01 Last Admin: 09/30/19 05:05 Dose: 210 mls/hr Ibuprofen (Motrin) 400 mg PO Q8H PRN PRN Reason: Pain Last Admin: 09/26/19 21:21 Dose: 400 mg Lorazepam (Ativan) 0 mg IVPUSH Q4H PRN; Protocol PRN Reason: Withdrawal Symptoms Last Admin: 09/24/19 03:20 Dose: 1 mg Lorazepam (Ativan) 1 mg PO ASDIRECTED PRN PRN Reason: SEE PROTOCOL Last Admin: 09/25/19 07:48 Dose: 1 mg Nystatin (Nystatin Crm) 0 gm TOP QID PRN PRN Reason: Rash Last Admin: 09/24/19 16:18 Dose: 1 applic Ondansetron HCl (Zofran) 4 mg IVPUSH Q4H PRN PRN Reason: Nausea/Vomiting Last Admin: 09/28/19 17:07 Dose: 4 mg Quetiapine Fumarate (Seroquel) 25 mg PO BEDTIME PRN PRN Reason: Agitation Last Admin: 09/28/19 00:09 Dose: 25 mg Sodium Chloride (Saline Flush) 10 ml FLUSH ASDIRECTED PRN PRN Reason: Keep Vein Open Last Admin: 09/20/19 12:29 Dose: 10 ml Sodium Chloride (Saline Flush) 2.5 ml FLUSH ASDIRECTED PRN PRN Reason: Keep Vein Open Discontinued Medications Albuterol/Ipratropium (Duoneb 3.0-0.5 Mg/3 Ml) 3 ml NEB Q6HRRT [facility] Last Admin: 09/23/19 12:59 Dose: Not Given Albuterol/Ipratropium (Duoneb 3.0-0.5 Mg/3 Ml) 3 ml NEB Q6HRRT PRN PRN Reason: Shortness of Breath Last Admin: 09/27/19 10:01 Dose: 3 ml Chlordiazepoxide HCl (Librium) 25 mg PO QID PRN PRN Reason: Withdrawal Symptoms Last Admin: 09/18/19 14:27 Dose: 25 mg Chlordiazepoxide HCl (Librium) 25 mg PO Q8H [facility] Last Admin: 09/18/19 20:55 Dose: 25 mg Chlordiazepoxide HCl (Librium) 100 mg PO Q8H [facility] Last Admin: 09/21/19 04:32 Dose: 100 mg Chlordiazepoxide HCl (Librium) 75 mg PO ONETIME ONE Stop: 09/18/19 21:16 Last Admin: 09/18/19 21:49 Dose: 75 mg Chlordiazepoxide HCl (Librium) 50 mg PO BID [facility] Last Admin: 09/25/19 09:27 Dose: Not Given Chlordiazepoxide HCl (Librium) 25 mg PO DAILY [facility] Last Admin: 09/26/19 08:39 Dose: 25 mg Chlordiazepoxide HCl (Librium) 50 mg PO BEDTIME [facility] Last Admin: 09/25/19 20:30 Dose: 50 mg Chlordiazepoxide HCl (Librium) 25 mg PO BID [facility] Last Admin: 09/28/19 09:07 Dose: 25 mg Chlordiazepoxide HCl (Librium) 10 mg PO BID [facility] Last Admin: 09/28/19 21:22 Dose: Not Given Chlordiazepoxide HCl (Librium) 10 mg PO BID [facility] Diazepam (Valium) 50 mg IVPUSH ONETIME ONE Stop: 09/18/19 14:12 Last Admin: 09/18/19 14:41 Dose: Not Given Furosemide (Lasix) 20 mg IVPUSH NOW ONE Stop: 09/20/19 10:32 Last Admin: 09/20/19 11:01 Dose: 20 mg Sodium Chloride (Normal Saline) 1,000 mls @ 999 mls/hr IV STAT ONE Stop: 09/17/19 21:00 Last Admin: 09/17/19 20:26 Dose: 999 mls/hr Pantoprazole Sodium 80 mg/ (Sodium Chloride) 20 mls @ 420 mls/hr IVPUSH ONETIME ONE Stop: 09/17/19 20:11 Last Admin: 09/17/19 20:26 Dose: 420 mls/hr Sodium Chloride (Normal Saline) 1,000 mls @ 999 mls/hr IV STAT ONE Stop: 09/17/19 21:09 Last Admin: 09/17/19 20:14 Dose: Not Given Multivitamins/Minerals 10 ml/Thiamine HCl 100 mg/ Folic Acid 1 mg/ Sodium Chloride 1,011.2 mls @ 125 mls/hr IV ONETIME ONE Stop: 09/18/19 05:19 Last Admin: 09/17/19 22:15 Dose: 125 mls/hr Lactated Ringer's (Ringers, Lactated) 1,000 mls @ 125 mls/hr IV ASDIRECTED [facility] Last Admin: 09/18/19 14:33 Dose: 125 mls/hr Pantoprazole Sodium 40 mg/ (Sodium Chloride) 10 mls @ 300 mls/hr IV DAILY [facility] Last Admin: 09/18/19 08:07 Dose: 300 mls/hr Magnesium Sulfate 4 gm/ Premix 100 mls @ 25 mls/hr IV ONETIME ONE Stop: 09/18/19 11:15 Last Admin: 09/18/19 08:01 Dose: 25 mls/hr Lactated Ringer's (Ringers, Lactated) 1,000 mls @ 175 mls/hr IV ASDIRECTED [facility] Last Admin: 09/20/19 05:44 Dose: 175 mls/hr Magnesium Sulfate 4 gm/ Premix 100 mls @ 33.333 mls/hr IV ONETIME ONE Stop: 09/19/19 10:18 Last Admin: 09/19/19 07:50 Dose: 33.333 mls/hr Magnesium Sulfate 2 gm/ Premix 50 mls @ 50 mls/hr IV ONETIME ONE Stop: 09/20/19 08:44 Last Admin: 09/20/19 08:02 Dose: 50 mls/hr Sodium Chloride (Normal Saline) 1,000 mls @ 100 mls/hr IV ASDIRECTED [facility] Last Infusion: 09/24/19 08:18 Dose: 100 mls/hr Magnesium Sulfate 4 gm/ Premix 100 mls @ 33.333 mls/hr IV ONETIME ONE Stop: 09/21/19 14:27 Last Admin: 09/21/19 12:36 Dose: 33.333 mls/hr Potassium Chloride 40 meq/ (Premix) 100 mls @ 25 mls/hr IV ONETIME ONE Stop: 09/21/19 15:28 Last Admin: 09/21/19 12:37 Dose: 25 mls/hr Magnesium Sulfate 1 gm/ Sodium (Chloride) 102 mls @ 102 mls/hr IV ONETIME ONE Stop: 09/22/19 09:14 Last Admin: 09/22/19 08:32 Dose: 102 mls/hr Magnesium Sulfate 2 gm/ Premix 50 mls @ 50 mls/hr IV ONETIME ONE Stop: 09/23/19 10:39 Last Admin: 09/23/19 10:17 Dose: 50 mls/hr Magnesium Sulfate 4 gm/ Premix 100 mls @ 25 mls/hr IV ONETIME ONE Stop: 09/24/19 11:39 Last Admin: 09/24/19 08:26 Dose: 25 mls/hr Magnesium Sulfate 4 gm/ Premix 100 mls @ 25 mls/hr IV ONETIME ONE Stop: 09/25/19 11:52 Last Admin: 09/25/19 08:25 Dose: Not Given Magnesium Sulfate 4 gm/ Premix 100 mls @ 33.333 mls/hr IV ONETIME ONE Stop: 09/25/19 11:59 Last Admin: 09/25/19 09:17 Dose: 33.333 mls/hr Magnesium Sulfate 1 gm/ Sodium (Chloride) 52 mls @ 104 mls/hr IV ONETIME [facility] Magnesium Sulfate 1 gm/ Sodium (Chloride) 52 mls @ 104 mls/hr IV ONETIME [facility] Last Admin: 09/26/19 15:51 Dose: 104 mls/hr Magnesium Sulfate 2 gm/ Premix 50 mls @ 50 mls/hr IV ONETIME [facility] Last Admin: 09/27/19 10:33 Dose: 50 mls/hr Magnesium Sulfate 2 gm/ Premix 50 mls @ 50 mls/hr IV ONETIME ONE Stop: 09/27/19 11:44 Last Admin: 09/27/19 11:34 Dose: Not Given Azithromycin 500 mg/ Sodium (Chloride) 250 mls @ 250 mls/hr IV ONETIME ONE Stop: 09/28/19 14:59 Last Admin: 09/28/19 14:10 Dose: 250 mls/hr Iopamidol (Isovue-370 (76%)) 100 ml IVPUSH ONETIME ONE Stop: 09/17/19 21:57 Last Admin: 09/17/19 21:56 Dose: 100 ml Ketorolac Tromethamine (Toradol) 15 mg IVPUSH Q6H PRN PRN Reason: Pain Stop: 09/24/19 09:26 Last Admin: 09/20/19 07:35 Dose: 15 mg Ketorolac Tromethamine (Toradol) 30 mg IVPUSH Q6H PRN PRN Reason: Pain Stop: 09/24/19 09:26 Last Admin: 09/23/19 13:17 Dose: 30 mg Lorazepam (Ativan) 2 mg IVPUSH ONETIME ONE Stop: 09/18/19 14:07 Last Admin: 09/18/19 14:17 Dose: 2 mg Lorazepam (Ativan) 1 mg IVPUSH ONETIME ONE Stop: 09/18/19 14:59 Last Admin: 09/18/19 15:14 Dose: 1 mg Magnesium Sulfate (Magnesium Sulfate 50%) 1 gm IV ONETIME ONE Stop: 09/22/19 08:08 Last Admin: 09/22/19 08:33 Dose: Not Given Morphine Sulfate (Morphine) 6 mg IVPUSH ONETIME ONE Stop: 09/17/19 22:25 Last Admin: 09/17/19 22:27 Dose: 6 mg Morphine Sulfate (Morphine) 2 mg IVPUSH Q4H PRN PRN Reason: Pain Last Admin: 09/18/19 13:53 Dose: 2 mg Ondansetron HCl (Zofran) 4 mg IVPUSH ONETIME ONE Stop: 09/17/19 20:01 Last Admin: 09/17/19 20:31 Dose: 4 mg Ondansetron HCl (Zofran) 4 mg IVPUSH ONETIME ONE Stop: 09/17/19 20:10 Last Admin: 09/17/19 20:15 Dose: Not Given Ondansetron HCl (Zofran) 4 mg IVPUSH ONETIME ONE Stop: 09/17/19 22:16 Last Admin: 09/17/19 22:19 Dose: 4 mg Potassium Chloride (Potassium Chloride) 40 meq PO ONETIME ONE Stop: 09/17/19 21:15 Last Admin: 09/17/19 22:15 Dose: 40 meq Quetiapine Fumarate (Seroquel) 100 mg PO TID [facility] Last Admin: 09/21/19 05:24 Dose: 100 mg Sodium Phosphate (Neutra-Phos) 250 mg PO QID [facility] Last Admin: 09/29/19 06:20 Dose: 250 mg Sodium Phosphate (Neutra-Phos) 250 mg PO QID [facility] Thiamine HCl (Vitamin B-1) 100 mg PO BEDTIME [facility] Last Admin: 09/28/19 21:22 Dose: 100 mg - Exam Quality Assessment: Supplemental Oxygen General: Alert, Oriented HEENT: Other (+Nystagmus ) Neck: Supple Lungs: Clear to Auscultation, Normal Respiratory Effort Cardiovascular: Regular Rate, Regular Rhythm GI/Abdominal Exam: Soft, Non-Tender Back Exam: Normal Inspection, Full Range of Motion Extremities: Normal Range of Motion, Non-Tender Skin: Warm, Dry, Intact Neurological: Normal Speech (improving ), Other (ambulation improving; sit to stand slightly unstable; cannot stand for too long, colleen w. eyes closed; continually falls backwards) Psy/Mental Status: Alert, Normal Affect, Normal Mood - Problem List Review Problem List Initiated/Reviewed/Updated: Yes - Plan Plan:: Assessment: 1. Suspicion for Wernicke Encephalopathy 2. ETOH Withdrawal w. DT:improving 3. Macrocytic anemia 4. Hyperglycemia 5. Bronchitics w. concerns for COPD Plan: 1. Concerns for Wernicke encephalopathy: nystagmus, concerns for cerebellar dysfunction; multiple falls backwards w. ambulation/PT; memory and cognition intact Continue high dose Thiamine supplementation IV 500 mg x 2 days; followed by 250 daily x 5 days ; total 7 days Continue folic acid Discussed case with Dr Alba of Neurology: agrees pt. will require rehabilitation for gait stability/ambulatory dysfunction. Agrees with current regimen including thiamine infusion. Will hold off on further imaging of brain including MRI unless symptoms change and or worsen. Clinically pt. is improving since admission but this will be an ongoing issue. Will continue to monitor. WE appreciate Dr Alba expertise and assistance. pt. is refusing inpatient rehab at this time; conversation w. pt. daily regarding benefit of therapy discussed, still refusing; will try again. pt. will require at least home health w. OT; concerns about balance/fall risk; will need assistance. Can possibly due high dose thiamine infusion on discharge. Case management on board; will advise to start process on home health and other at-home needs. Continue to monitor patient; continue Librium ; will however reduce AM dose to 5mg; continue 10 mg PM continue Ativan per [facility]; PT continue to work with pt. regarding balance issue; interval improvement;still having issues with balance as witnessed w. PT this AM ; however pt. requires supervisor intermediates outpatient balance work for possible cerebellar issues Cough with wheeze (wheeze improving) /marginal leukocytosis: WBC count up, CXR negative, continue Azithromycin, PRN duo-nebs continued; PRN O2 for sats; will continue to monitor for concerns for CAP Encourage IS UA negative cont soft diet, abdominal pain resolved Thrombocytosis: s/p splenectomy Macrocytic Anemia: receiving folate daily; B12 WNL Pancreatic mass: US showed small pancreatic mass. They recommend [address] for further evaluation, this will be done on outpatient basis. Will investigate for any outpatient ETOH detox resources. Sepsis Event Note - Evaluation Sepsis Screening Result: Sepsis Risk - Focused Exam Vital Signs: Vital Signs Temp Temp Pulse Pulse Resp BP Pulse Ox 09/30/19 08:00 98.4 F 89 16 120/79 95 09/30/19 03:56 98.0 F 97 18 128/83 93 L 09/29/19 23:53 97.7 F 91 16 123/74 93 L Date Exam was Performed: 09/30/19 Time Exam was Performed: 11:17
[2019-09-30] MEDS: Pantoprazole 40 MG in Sodium Chloride 0.9% 10 ML IV SCH ×2 (09:29→21:13)
[2019-09-30] MEDS: Folic Acid 1 MG Tab PO SCH (21:16)
[2019-09-30] MEDS: Ibuprofen 400 MG Tab PO PRN (21:21)
[2019-10-01] MEDS: Heparin Sodium 5,000 Units/ML Vial SUBCUT SCH ×3 (00:36→16:58)
[2019-10-01] MEDS: guaiFENesin/Dextromethorphan 100-10 MG/5 ML Soln 10 ML Cup PO PRN ×4 (04:52→16:58)
[2019-10-01] MEDS: Thiamine 500 MG in Sodium Chloride 0.9% 100 ML IV SCH (06:13)
[2019-10-01 06:38] LABS: BLOOD UREA NITROGEN,BUN 13 mg/dL (7.0-18.0); CARBON DIOXIDE,CO2 26.6 mmol/L (21.0-32.0); CHLORIDE,CL 104 mmol/L (98-107); GLUCOSE RANDOM 126 mg/dL (74-106); SODIUM,NA 137 mmol/L (136-148)
[2019-10-01] MEDS: Benzonatate 100 MG Cap PO PRN (08:19)
[2019-10-01] MEDS: Azithromycin 250 MG Tab PO SCH (08:19)
[2019-10-01] MEDS: Pantoprazole 40 MG in Sodium Chloride 0.9% 10 ML IV SCH ×2 (08:20→21:53)
--- NOTE | 2019-10-01 08:52 | PCM.PN ---
- General Info Date of Service: 10/01/19 Subjective Update: Endorsing feeling better and less disoriented today Functional Status: Reports: Pain Controlled - Review of Systems General: Reports: No Symptoms Pulmonary: Reports: No Symptoms, Cough. Denies: Shortness of Breath Cardiovascular: Denies: Chest Pain, Palpitations, Dyspnea on Exertion Gastrointestinal: Denies: Abdominal Pain Genitourinary: Reports: No Symptoms Musculoskeletal: Reports: No Symptoms, Joint Swelling Neurological: Reports: Dizziness. Denies: Confusion, Headache Psychiatric: Denies: Confusion, Depression - Patient Data Vitals - Most Recent: Last Vital Signs Temp 98 F 10/01/19 07:22 Pulse 89 10/01/19 07:22 Resp 16 10/01/19 07:22 BP 123/67 10/01/19 07:22 Pulse Ox 94 L 10/01/19 07:22 Weight - Most Recent: 97.3 kg I&O - Last 24 Hours: Intake & Output 09/30/19 10/01/19 10/01/19 22:59 06:59 14:59 Intake Total 835 645 Output Total 1675 1250 Balance -840 -605 Lab Results Last 24 Hours: Laboratory Results - last 24 hr 10/01/19 10/01/19 Range/Units 05:51 05:51 WBC 10.86 (4.0-11.0) K/uL RBC 4.17 L (4.50-5.90) M/uL Hgb 13.8 (13.0-17.0) g/dL Hct 41.7 (38.0-50.0) % MCV 100.0 H (80.0-98.0) fL MCH 33.1 H (27.0-32.0) pg MCHC 33.1 (31.0-37.0) g/dL RDW Std Deviation 53.5 (28.0-62.0) fl RDW Coeff of Julissa 15 (11.0-15.0) % Plt Count 647 H (150-400) K/uL MPV 10.10 (7.40-12.00) fL Neut % (Auto) 66.6 (48.0-80.0) % Lymph % (Auto) 16.1 (16.0-40.0) % [place] % (Auto) 10.6 (0.0-15.0) % Eos % (Auto) 5.7 (0.0-7.0) % Baso % (Auto) 1.0 (0.0-1.5) % Neut # (Auto) 7.2 H (1.4-5.7) K/uL Lymph # (Auto) 1.8 (0.6-2.4) K/uL [place] # (Auto) 1.2 H (0.0-0.8) K/uL Eos # (Auto) 0.6 (0.0-0.7) K/uL Baso # (Auto) 0.1 (0.0-0.1) K/uL Nucleated RBC % 0.0 /100WBC Nucleated RBCs # 0 K/uL Sodium 137 (136-148) mmol/L Potassium 4.0 (3.5-5.1) mmol/L Chloride 104 (98-107) mmol/L Carbon Dioxide 26.6 (21.0-32.0) mmol/L BUN 13 (7.0-18.0) mg/dL Creatinine 1.0 (0.8-1.3) mg/dL Est Cr Clr Drug Dosing 98.77 mL/min Estimated GFR (MDRD) > 60.0 ml/min Glucose 126 H (74-106) mg/dL Calcium 9.2 (8.5-10.1) mg/dL Total Bilirubin 0.5 (0.2-1.0) mg/dL AST 33 (15-37) IU/L ALT 49 (14-63) IU/L Alkaline Phosphatase 112 (46-116) U/L Total Protein 6.9 (6.4-8.2) g/dL Albumin 2.5 L (3.4-5.0) g/dL Globulin 4.4 H (2.6-4.0) g/dL Albumin/Globulin Ratio 0.6 L (0.9-1.6) Med Orders - Current: Current Medications Albuterol/Ipratropium (Duoneb 3.0-0.5 Mg/3 Ml) 3 ml NEB Q4HRRT PRN PRN Reason: Cough Last Admin: 09/29/19 12:11 Dose: 3 ml Azithromycin (Zithromax) 250 mg PO Q24H FIDE Last Admin: 10/01/19 08:19 Dose: 250 mg Benzonatate (Tessalon Perles) 200 mg PO BID PRN PRN Reason: Cough Last Admin: 10/01/19 08:19 Dose: 200 mg Bisacodyl (Dulcolax) 10 mg RECTAL DAILY PRN PRN Reason: Constipation Chlordiazepoxide HCl (Librium) 5 mg PO DAILY PENDING SALE TO [facility] Last Admin: 10/01/19 08:18 Dose: 5 mg Chlordiazepoxide HCl (Librium) 10 mg PO BEDTIME PENDING SALE TO [facility] Last Admin: 09/30/19 21:16 Dose: 10 mg Docusate Sodium (Colace) 100 mg PO BID PRN PRN Reason: Constipation Last Admin: 09/24/19 08:32 Dose: 100 mg Folic Acid (Folic Acid) 1 mg PO BEDTIME PENDING SALE TO [facility] Last Admin: 09/30/19 21:16 Dose: 1 mg Guaifenesin/Dextromethorphan (Robitussin Dm) 10 ml PO Q4H PRN PRN Reason: Cough Last Admin: 10/01/19 08:30 Dose: 10 ml Heparin Sodium (Porcine) (Heparin Sodium) 5,000 units SUBCUT Q8H PENDING SALE TO [facility] Last Admin: 10/01/19 08:23 Dose: 5,000 units Pantoprazole Sodium 40 mg/ (Sodium Chloride) 10 mls @ 300 mls/hr IV BID PENDING SALE TO [facility] Last Admin: 10/01/19 08:20 Dose: 300 mls/hr Ibuprofen (Motrin) 400 mg PO Q8H PRN PRN Reason: Pain Last Admin: 09/30/19 21:21 Dose: 400 mg Lorazepam (Ativan) 0 mg IVPUSH Q4H PRN; Protocol PRN Reason: Withdrawal Symptoms Last Admin: 09/24/19 03:20 Dose: 1 mg Lorazepam (Ativan) 1 mg PO ASDIRECTED PRN PRN Reason: SEE PROTOCOL Last Admin: 09/25/19 07:48 Dose: 1 mg Nystatin (Nystatin Crm) 0 gm TOP QID PRN PRN Reason: Rash Last Admin: 09/24/19 16:18 Dose: 1 applic Ondansetron HCl (Zofran) 4 mg IVPUSH Q4H PRN PRN Reason: Nausea/Vomiting Last Admin: 09/28/19 17:07 Dose: 4 mg Quetiapine Fumarate (Seroquel) 25 mg PO BEDTIME PRN PRN Reason: Agitation Last Admin: 09/28/19 00:09 Dose: 25 mg Sodium Chloride (Saline Flush) 10 ml FLUSH ASDIRECTED PRN PRN Reason: Keep Vein Open Last Admin: 09/20/19 12:29 Dose: 10 ml Sodium Chloride (Saline Flush) 2.5 ml FLUSH ASDIRECTED PRN PRN Reason: Keep Vein Open Discontinued Medications Albuterol/Ipratropium (Duoneb 3.0-0.5 Mg/3 Ml) 3 ml NEB Q6HRRT PENDING SALE TO [facility] Last Admin: 09/23/19 12:59 Dose: Not Given Albuterol/Ipratropium (Duoneb 3.0-0.5 Mg/3 Ml) 3 ml NEB Q6HRRT PRN PRN Reason: Shortness of Breath Last Admin: 09/27/19 10:01 Dose: 3 ml Chlordiazepoxide HCl (Librium) 25 mg PO QID PRN PRN Reason: Withdrawal Symptoms Last Admin: 09/18/19 14:27 Dose: 25 mg Chlordiazepoxide HCl (Librium) 25 mg PO Q8H PENDING SALE TO [facility] Last Admin: 09/18/19 20:55 Dose: 25 mg Chlordiazepoxide HCl (Librium) 100 mg PO Q8H PENDING SALE TO [facility] Last Admin: 09/21/19 04:32 Dose: 100 mg Chlordiazepoxide HCl (Librium) 75 mg PO ONETIME ONE Stop: 09/18/19 21:16 Last Admin: 09/18/19 21:49 Dose: 75 mg Chlordiazepoxide HCl (Librium) 50 mg PO BID PENDING SALE TO [facility] Last Admin: 09/25/19 09:27 Dose: Not Given Chlordiazepoxide HCl (Librium) 25 mg PO DAILY PENDING SALE TO [facility] Last Admin: 09/26/19 08:39 Dose: 25 mg Chlordiazepoxide HCl (Librium) 50 mg PO BEDTIME PENDING SALE TO [facility] Last Admin: 09/25/19 20:30 Dose: 50 mg Chlordiazepoxide HCl (Librium) 25 mg PO BID PENDING SALE TO [facility] Last Admin: 09/28/19 09:07 Dose: 25 mg Chlordiazepoxide HCl (Librium) 10 mg PO BID PENDING SALE TO [facility] Last Admin: 09/28/19 21:22 Dose: Not Given Chlordiazepoxide HCl (Librium) 10 mg PO BID PENDING SALE TO [facility] Chlordiazepoxide HCl (Librium) 10 mg PO BID PENDING SALE TO [facility] Last Admin: 09/30/19 09:06 Dose: 10 mg Diazepam (Valium) 50 mg IVPUSH ONETIME ONE Stop: 09/18/19 14:12 Last Admin: 09/18/19 14:41 Dose: Not Given Furosemide (Lasix) 20 mg IVPUSH NOW ONE Stop: 09/20/19 10:32 Last Admin: 09/20/19 11:01 Dose: 20 mg Sodium Chloride (Normal Saline) 1,000 mls @ 999 mls/hr IV STAT ONE Stop: 09/17/19 21:00 Last Admin: 09/17/19 20:26 Dose: 999 mls/hr Pantoprazole Sodium 80 mg/ (Sodium Chloride) 20 mls @ 420 mls/hr IVPUSH ONETIME ONE Stop: 09/17/19 20:11 Last Admin: 09/17/19 20:26 Dose: 420 mls/hr Sodium Chloride (Normal Saline) 1,000 mls @ 999 mls/hr IV STAT ONE Stop: 09/17/19 21:09 Last Admin: 09/17/19 20:14 Dose: Not Given Multivitamins/Minerals 10 ml/Thiamine HCl 100 mg/ Folic Acid 1 mg/ Sodium Chloride 1,011.2 mls @ 125 mls/hr IV ONETIME ONE Stop: 09/18/19 05:19 Last Admin: 09/17/19 22:15 Dose: 125 mls/hr Lactated Ringer's (Ringers, Lactated) 1,000 mls @ 125 mls/hr IV ASDIRECTED PENDING SALE TO [facility] Last Admin: 09/18/19 14:33 Dose: 125 mls/hr Pantoprazole Sodium 40 mg/ (Sodium Chloride) 10 mls @ 300 mls/hr IV DAILY PENDING SALE TO [facility] Last Admin: 09/18/19 08:07 Dose: 300 mls/hr Magnesium Sulfate 4 gm/ Premix 100 mls @ 25 mls/hr IV ONETIME ONE Stop: 09/18/19 11:15 Last Admin: 09/18/19 08:01 Dose: 25 mls/hr Lactated Ringer's (Ringers, Lactated) 1,000 mls @ 175 mls/hr IV ASDIRECTED PENDING SALE TO [facility] Last Admin: 09/20/19 05:44 Dose: 175 mls/hr Magnesium Sulfate 4 gm/ Premix 100 mls @ 33.333 mls/hr IV ONETIME ONE Stop: 09/19/19 10:18 Last Admin: 09/19/19 07:50 Dose: 33.333 mls/hr Magnesium Sulfate 2 gm/ Premix 50 mls @ 50 mls/hr IV ONETIME ONE Stop: 09/20/19 08:44 Last Admin: 09/20/19 08:02 Dose: 50 mls/hr Sodium Chloride (Normal Saline) 1,000 mls @ 100 mls/hr IV ASDIRECTED PENDING SALE TO [facility] Last Infusion: 09/24/19 08:18 Dose: 100 mls/hr Magnesium Sulfate 4 gm/ Premix 100 mls @ 33.333 mls/hr IV ONETIME ONE Stop: 09/21/19 14:27 Last Admin: 09/21/19 12:36 Dose: 33.333 mls/hr Potassium Chloride 40 meq/ (Premix) 100 mls @ 25 mls/hr IV ONETIME ONE Stop: 09/21/19 15:28 Last Admin: 09/21/19 12:37 Dose: 25 mls/hr Magnesium Sulfate 1 gm/ Sodium (Chloride) 102 mls @ 102 mls/hr IV ONETIME ONE Stop: 09/22/19 09:14 Last Admin: 09/22/19 08:32 Dose: 102 mls/hr Magnesium Sulfate 2 gm/ Premix 50 mls @ 50 mls/hr IV ONETIME ONE Stop: 09/23/19 10:39 Last Admin: 09/23/19 10:17 Dose: 50 mls/hr Magnesium Sulfate 4 gm/ Premix 100 mls @ 25 mls/hr IV ONETIME ONE Stop: 09/24/19 11:39 Last Admin: 09/24/19 08:26 Dose: 25 mls/hr Magnesium Sulfate 4 gm/ Premix 100 mls @ 25 mls/hr IV ONETIME ONE Stop: 09/25/19 11:52 Last Admin: 09/25/19 08:25 Dose: Not Given Magnesium Sulfate 4 gm/ Premix 100 mls @ 33.333 mls/hr IV ONETIME ONE Stop: 09/25/19 11:59 Last Admin: 09/25/19 09:17 Dose: 33.333 mls/hr Magnesium Sulfate 1 gm/ Sodium (Chloride) 52 mls @ 104 mls/hr IV ONETIME FIDE Magnesium Sulfate 1 gm/ Sodium (Chloride) 52 mls @ 104 mls/hr IV ONETIME FIDE Last Admin: 09/26/19 15:51 Dose: 104 mls/hr Magnesium Sulfate 2 gm/ Premix 50 mls @ 50 mls/hr IV ONETIME FIDE Last Admin: 09/27/19 10:33 Dose: 50 mls/hr Magnesium Sulfate 2 gm/ Premix 50 mls @ 50 mls/hr IV ONETIME ONE Stop: 09/27/19 11:44 Last Admin: 09/27/19 11:34 Dose: Not Given Azithromycin 500 mg/ Sodium (Chloride) 250 mls @ 250 mls/hr IV ONETIME ONE Stop: 09/28/19 14:59 Last Admin: 09/28/19 14:10 Dose: 250 mls/hr Thiamine HCl 500 mg/ Sodium (Chloride) 105 mls @ 210 mls/hr IV TID FIDE Stop: 10/01/19 06:01 Last Admin: 10/01/19 06:13 Dose: 210 mls/hr Iopamidol (Isovue-370 (76%)) 100 ml IVPUSH ONETIME ONE Stop: 09/17/19 21:57 Last Admin: 09/17/19 21:56 Dose: 100 ml Ketorolac Tromethamine (Toradol) 15 mg IVPUSH Q6H PRN PRN Reason: Pain Stop: 09/24/19 09:26 Last Admin: 09/20/19 07:35 Dose: 15 mg Ketorolac Tromethamine (Toradol) 30 mg IVPUSH Q6H PRN PRN Reason: Pain Stop: 09/24/19 09:26 Last Admin: 09/23/19 13:17 Dose: 30 mg Lorazepam (Ativan) 2 mg IVPUSH ONETIME ONE Stop: 09/18/19 14:07 Last Admin: 09/18/19 14:17 Dose: 2 mg Lorazepam (Ativan) 1 mg IVPUSH ONETIME ONE Stop: 09/18/19 14:59 Last Admin: 09/18/19 15:14 Dose: 1 mg Magnesium Sulfate (Magnesium Sulfate 50%) 1 gm IV ONETIME ONE Stop: 09/22/19 08:08 Last Admin: 09/22/19 08:33 Dose: Not Given Morphine Sulfate (Morphine) 6 mg IVPUSH ONETIME ONE Stop: 09/17/19 22:25 Last Admin: 09/17/19 22:27 Dose: 6 mg Morphine Sulfate (Morphine) 2 mg IVPUSH Q4H PRN PRN Reason: Pain Last Admin: 09/18/19 13:53 Dose: 2 mg Ondansetron HCl (Zofran) 4 mg IVPUSH ONETIME ONE Stop: 09/17/19 20:01 Last Admin: 09/17/19 20:31 Dose: 4 mg Ondansetron HCl (Zofran) 4 mg IVPUSH ONETIME ONE Stop: 09/17/19 20:10 Last Admin: 09/17/19 20:15 Dose: Not Given Ondansetron HCl (Zofran) 4 mg IVPUSH ONETIME ONE Stop: 09/17/19 22:16 Last Admin: 09/17/19 22:19 Dose: 4 mg Potassium Chloride (Potassium Chloride) 40 meq PO ONETIME ONE Stop: 09/17/19 21:15 Last Admin: 09/17/19 22:15 Dose: 40 meq Quetiapine Fumarate (Seroquel) 100 mg PO TID PENDING SALE TO [facility] Last Admin: 09/21/19 05:24 Dose: 100 mg Sodium Phosphate (Neutra-Phos) 250 mg PO QID PENDING SALE TO [facility] Last Admin: 09/29/19 06:20 Dose: 250 mg Sodium Phosphate (Neutra-Phos) 250 mg PO QID PENDING SALE TO [facility] Thiamine HCl (Vitamin B-1) 100 mg PO BEDTIME PENDING SALE TO [facility] Last Admin: 09/28/19 21:22 Dose: 100 mg - Exam Quality Assessment: No: Supplemental Oxygen General: Alert, Oriented, Cooperative, No Acute Distress HEENT: EOMI, Other (mild nystagmus ) Neck: Supple Lungs: Normal Respiratory Effort Cardiovascular: Regular Rate, Regular Rhythm GI/Abdominal Exam: Soft, Non-Tender Skin: Warm, Dry Neurological: Normal Speech, Strength Equal Bilateral. No: Normal Gait Psy/Mental Status: Alert, Normal Affect, Normal Mood Sepsis Event Note - Evaluation Sepsis Screening Result: Sepsis Risk - Focused Exam Vital Signs: Vital Signs Temp Pulse Resp BP BP Pulse Ox 10/01/19 07:22 98 F 89 16 123/67 94 L 10/01/19 04:40 96.8 F L 94 19 119/71 95 10/01/19 00:43 97.3 F 84 19 117/76 93 L Date Exam was Performed: 06/10/20 Time Exam was Performed: 11:07 - Problem List Review Problem List Initiated/Reviewed/Updated: Yes - Plan Plan:: Assessment: 1. Suspicion for Wernicke Encephalopathy 2. ETOH Withdrawal w. DT:improving 3. Macrocytic anemia 4. Hyperglycemia 5. Bronchitics w. concerns for COPD Plan: 1. Concerns for Wernicke encephalopathy: nystagmus, concerns for cerebellar dysfunction; multiple falls backwards w. ambulation/PT; memory and cognition intact Continue high dose Thiamine supplementation IV 500 mg x 2 days; followed by 250 daily x 5 days ; total 7 days Continue folic acid Will speak with family/ [place]ita, regarding at home care; consent received from patient this AM. pt is still refusing inpatient rehab and since facilities are not available in [place]; will advise to follow up on outpatient basis. Pt. will still require additional days of Thiamine infusion; can return to hospital for these daily ; Rx will be given to pt at discharge. Will continue to work with PT/OT inpatient and at home per home health. Librium will be reduced to 5 mg BID as tolerated. pt. is more lucid, no seizure activity reported; still having cerebellar/gait disturbances; most likely a chronic if not permanent issue; will need longer evaluation for finding pt. baseline. Discussed case with Dr Alba of Neurology: agrees pt. will require rehabilitation for gait stability/ambulatory dysfunction. Agrees with current regimen including thiamine infusion. Will hold off on further imaging of brain including MRI unless symptoms change and or worsen. Clinically pt. is improving since admission but this will be an ongoing issue. Will continue to monitor. WE appreciate Dr Alba expertise and assistance. pt. is refusing inpatient rehab at this time; conversation w. pt. daily regarding benefit of therapy discussed, still refusing; will try again. pt. will require at least home health w. OT; concerns about balance/fall risk; will need assistance. Can possibly due high dose thiamine infusion on discharge. Case management on board; will advise to start process on home health and other at-home needs. Continue to monitor patient; continue Librium ; will however reduce AM dose to 5mg; continue 10 mg PM continue Ativan per [facility]; PT continue to work with pt. regarding balance issue; interval improvement;still having issues with balance as witnessed w. PT this AM ; however pt. requires rn long term care outpatient balance work for possible cerebellar issues Cough with wheeze (wheeze improving) /marginal leukocytosis: WBC count up, CXR negative, continue Azithromycin, PRN duo-nebs continued; PRN O2 for sats; will continue to monitor for concerns for CAP Encourage IS UA negative cont soft diet, abdominal pain resolved Thrombocytosis: s/p splenectomy Macrocytic Anemia: receiving folate daily; B12 WNL Pancreatic mass: US showed small pancreatic mass. They recommend [address] for further evaluation, this will be done on outpatient basis. Will investigate for any outpatient ETOH detox resources.
[2019-10-01] MEDS ORDERED: Sodium Chloride 0.9% 500 ML IV SCH (13:45)
[2019-10-01] MEDS: Ibuprofen 400 MG Tab PO PRN (21:51)
[2019-10-01] MEDS: Folic Acid 1 MG Tab PO SCH (21:53)
[2019-10-01] MEDS: LORazepam 1 MG Tab PO PRN (21:53)
[2019-10-01] MEDS ORDERED: Lactated Ringers 1,000 ML IV SCH (22:00)
[2019-10-02] MEDS: Heparin Sodium 5,000 Units/ML Vial SUBCUT SCH ×3 (01:32→15:54)
[2019-10-02] MEDS: Benzonatate 100 MG Cap PO PRN (05:51)
[2019-10-02] MEDS: guaiFENesin/Dextromethorphan 100-10 MG/5 ML Soln 10 ML Cup PO PRN ×2 (05:51→13:39)
[2019-10-02] MEDS: Albuterol/Ipratropium 3.0-0.5 MG/3 ML Neb Soln NEB PRN (05:59)
[2019-10-02 07:00] LABS: BLOOD UREA NITROGEN,BUN 14 mg/dL (7.0-18.0); CARBON DIOXIDE,CO2 27.1 mmol/L (21.0-32.0); CHLORIDE,CL 104 mmol/L (98-107); GLUCOSE RANDOM 119 mg/dL (74-106); POTASSIUM,K 4.4 mmol/L (3.5-5.1); SODIUM,NA 140 mmol/L (136-148)
[2019-10-02] MEDS: Azithromycin 250 MG Tab PO SCH (09:54)
[2019-10-02] MEDS: Pantoprazole 40 MG in Sodium Chloride 0.9% 10 ML IV SCH (09:55)
[2019-10-02] MEDS ORDERED: Thiamine 500 MG in Sodium Chloride 0.9% 100 ML IV ONE (11:17)
--- NOTE | 2019-10-02 11:26 | PCM.DCSUM1 ---
<Errol Lopez - Last Filed: 10/04/19 13:46> Discharge Summary - Hospital Course Free Text/Narrative:: Patient is a 49 year old male who presented to the ER with abdominal pain and nausea/vomiting for 10 days prior to that. He is an alcoholic with withdrawal symptoms when he stops. Work up in the ER revealed hyponatremia, elevated AST and ALT, elevated lipase and a CT scan that showed fat stranding around the pancreas and thickening of the duodenum. CT scan showed no evidence of cholelithiasis, cholecystitis or choledocholithiasis. Bilirubin was normal. He was admitted to the ICU. He went through alcohol withdrawal and required CIWA protocol. His lipase and LFTs improved over time. US was performed on second day of admission. This showed a possible single gallstone and possible biliary sludge. He was also noted to have an equivocal small mass in the head of the pancreas. [address] scan recommended. Surgery asked to evaluate whether this was AP or GP and to weigh in on the US findings. Pt. was ultimately downgraded to med-surg for increasing improvement as far as ETOH withdrawals. Pt. however did, on the 10th day , develop signs/suspicions for Wernicke encephalopathy: including increasing cerebellar symptoms of ambulatory dysfunction, nystagmus and some memory recall issues. Slurring of speech improved as pt. was weaned down on his Librium and requiring less and less ativan doses per CIWA protocol Worked w. PT daily but balance myriam were continual diusucced. Discussedcae w[facility]; agreed concerns for Wernicke is valid; pt subsequently started on high dose IV infusions of Thiamine. Pt througout stay deferred inpatient rehab; numerous times. Otherwise outpatient self-referral paperwork and resources provided to marcie. Deemed pt. rehab will be an ongoing process; outpatient thiamine infusions prescribed with additional MV's. Advised to follow up in outpatint setting for repeat thiamine infusions, PCP follow up. Pt also advised to get a CT abdomen pelvis;triple phase scan to further evaluate pancreatic mas appreciated on iniital CT; pt .made aware regarding this. Follow up and referral in place. Advised to DC etoh; pt, motivated and requesting discharge. home health , outpatient PT/OT ordered and placed. home safety evaluation also ordered. Discharged in stable condition . - Discharge Data Discharge Date: 10/02/19 Discharge Disposition: Home, Self-Care 01 Condition: Fair - Referral to Home Health Date of Face to Face Encounter: 10/02/19 Reason for Homebound Status: AMbulatory dysfunction secondary to concerns for Wernickes Encephalopathy. poss. Cerebellar dysfunction Primary Care Physician: David Hunter MD Skilled Need: PT/OT. Home safey evaluation; fall precautions - Patient Summary/Data Consults: Consultations 09/22/19 11:07 Consult to Physical Therapy [PT Evaluation and Treatment] [CONS] Routine 09/23/19 15:53 Consult to Physician [CONS] Routine - Patient Instructions Diet: Heart Healthy Diet, No Alcoholic Beverages Driving: Do Not Drive Notify Provider of: Fever, Increased Pain, Nausea and/or Vomiting Other/Special Instructions: Please abvoid any form of alcohol especialyl while on this medication called Librium. A prescription for home health , physical therapy and occupational therapy have been ordered. A prescription for a walker has also been provided. We recommend to follow with an inpatient rehab facility for alcohol use. Outpatient services are also available but you will need to contact them on your own. You will yoshi to return for [facility] for your thiamine infusions; this will be set up on discharge. recommmeded; a repeat triple-phase CT scan will need to be ordered for your abdomen to further evaluate the mass in your pancreas. Please follow up with both your primary care and outpatient surgeon - Discharge Plan Prescriptions/Med Rec: Azithromycin [Zithromax] 250 mg PO Q24H 3 Days #3 tablet Folic Acid 1 mg PO BEDTIME 30 Days #30 tablet Home Medications: Home Meds Azithromycin [Zithromax] 250 mg PO Q24H 3 Days #3 tablet 10/02/19 [Rx] Dextromethorphan/guaiFENesin [Robitussin DM] 10 ml PO Q4H PRN cup 10/02/19 [Rx] Folic Acid 1 mg PO BEDTIME 30 Days #30 tablet 10/02/19 [Rx] chlordiazePOXIDE [Librium] 5 mg PO BID cap 10/02/19 [Rx] Oxygen Therapy Mode: Room Air Patient Handouts: Alcohol Withdrawal Syndrome, Acute Pancreatitis, [id number] , Azithromycin tablets, Folic Acid, Vitamin B9 tablets Referrals: You Nichols MD [Physician] - 10/06/19 10:00 David Aguero MD [Primary Care Provider] - 10/09/19 9:00 am - Discharge Summary/Plan Comment DC Time >30 min.: No - Patient Data Vitals - Most Recent: Last Vital Signs Temp 97.6 F 10/02/19 04:25 Pulse 83 10/02/19 04:25 Resp 18 10/02/19 04:25 BP 119/79 10/02/19 04:25 Pulse Ox 93 L 10/02/19 04:25 Weight - Most Recent: 96.706 kg I&O - Last 24 hours: Intake & Output 10/01/19 10/02/19 10/02/19 22:59 06:59 14:59 Intake Total 500 200 Output Total 900 550 Balance -400 -350 Lab Results - Last 24 hrs: Laboratory Results - last 24 hr 10/01/19 10/02/19 10/02/19 Range/Units 13:25 05:50 05:50 WBC 10.39 (4.0-11.0) K/uL RBC 4.31 L (4.50-5.90) M/uL Hgb 14.5 (13.0-17.0) g/dL Hct 42.6 (38.0-50.0) % MCV 98.8 H (80.0-98.0) fL MCH 33.6 H (27.0-32.0) pg MCHC 34.0 (31.0-37.0) g/dL RDW Std Deviation 50.4 (28.0-62.0) fl RDW Coeff of Julissa 14 (11.0-15.0) % Plt Count 617 H (150-400) K/uL MPV 10.30 (7.40-12.00) fL Neut % (Auto) 64.2 (48.0-80.0) % Lymph % (Auto) 16.5 (16.0-40.0) % Scott % (Auto) 13.1 (0.0-15.0) % Eos % (Auto) 5.6 (0.0-7.0) % Baso % (Auto) 0.6 (0.0-1.5) % Neut # (Auto) 6.7 H (1.4-5.7) K/uL Lymph # (Auto) 1.7 (0.6-2.4) K/uL Scott # (Auto) 1.4 H (0.0-0.8) K/uL Eos # (Auto) 0.6 (0.0-0.7) K/uL Baso # (Auto) 0.1 (0.0-0.1) K/uL Sodium 140 (136-148) mmol/L Potassium 4.4 (3.5-5.1) mmol/L Chloride 104 (98-107) mmol/L Carbon Dioxide 27.1 (21.0-32.0) mmol/L BUN 14 (7.0-18.0) mg/dL Creatinine 1.0 (0.8-1.3) mg/dL Est Cr Clr Drug Dosing 98.77 mL/min Estimated GFR (MDRD) > 60.0 ml/min Glucose 119 H (74-106) mg/dL Calcium 9.7 (8.5-10.1) mg/dL Phosphorus 4.1 (2.6-4.7) mg/dL Magnesium 1.8 (1.8-2.4) mg/dL Troponin I < 0.050 (0.000-0.056) ng/mL Med Orders - Current: Current Medications Albuterol/Ipratropium (Duoneb 3.0-0.5 Mg/3 Ml) 3 ml NEB Q4HRRT PRN PRN Reason: Cough Last Admin: 10/02/19 05:59 Dose: 3 ml Azithromycin (Zithromax) 250 mg PO Q24H ON LICENSE OF [facility] Last Admin: 10/02/19 09:54 Dose: 250 mg Benzonatate (Tessalon Perles) 200 mg PO BID PRN PRN Reason: Cough Last Admin: 10/02/19 05:51 Dose: 200 mg Bisacodyl (Dulcolax) 10 mg RECTAL DAILY PRN PRN Reason: Constipation Chlordiazepoxide HCl (Librium) 5 mg PO BID ON LICENSE OF [facility] Last Admin: 10/02/19 09:54 Dose: 5 mg Docusate Sodium (Colace) 100 mg PO BID PRN PRN Reason: Constipation Last Admin: 09/24/19 08:32 Dose: 100 mg Folic Acid (Folic Acid) 1 mg PO BEDTIME ON LICENSE OF [facility] Last Admin: 10/01/19 21:53 Dose: 1 mg Guaifenesin/Dextromethorphan (Robitussin Dm) 10 ml PO Q4H PRN PRN Reason: Cough Last Admin: 10/02/19 05:51 Dose: 10 ml Heparin Sodium (Porcine) (Heparin Sodium) 5,000 units SUBCUT Q8H FIDE Last Admin: 10/02/19 09:55 Dose: 5,000 units Pantoprazole Sodium 40 mg/ (Sodium Chloride) 10 mls @ 300 mls/hr IV BID FIDE Last Admin: 10/02/19 09:55 Dose: 300 mls/hr Sodium Chloride (Normal Saline) 500 mls @ 999 mls/hr IV STAT FIDE Last Admin: 10/01/19 13:51 Dose: 999 mls/hr Thiamine HCl 500 mg/ Sodium (Chloride) 105 mls @ 210 mls/hr IV ONETIME ONE Stop: 10/02/19 11:18 Ibuprofen (Motrin) 400 mg PO Q8H PRN PRN Reason: Pain Last Admin: 10/01/19 21:51 Dose: 400 mg Lorazepam (Ativan) 0 mg IVPUSH Q4H PRN; Protocol PRN Reason: Withdrawal Symptoms Last Admin: 09/24/19 03:20 Dose: 1 mg Lorazepam (Ativan) 1 mg PO ASDIRECTED PRN PRN Reason: SEE PROTOCOL Last Admin: 10/01/19 21:53 Dose: 1 mg Nystatin (Nystatin Crm) 0 gm TOP QID PRN PRN Reason: Rash Last Admin: 09/24/19 16:18 Dose: 1 applic Ondansetron HCl (Zofran) 4 mg IVPUSH Q4H PRN PRN Reason: Nausea/Vomiting Last Admin: 09/28/19 17:07 Dose: 4 mg Quetiapine Fumarate (Seroquel) 25 mg PO BEDTIME PRN PRN Reason: Agitation Last Admin: 09/28/19 00:09 Dose: 25 mg Sodium Chloride (Saline Flush) 10 ml FLUSH ASDIRECTED PRN PRN Reason: Keep Vein Open Last Admin: 09/20/19 12:29 Dose: 10 ml Sodium Chloride (Saline Flush) 2.5 ml FLUSH ASDIRECTED PRN PRN Reason: Keep Vein Open Discontinued Medications Albuterol/Ipratropium (Duoneb 3.0-0.5 Mg/3 Ml) 3 ml NEB Q6HRRT ON LICENSE OF [facility] Last Admin: 09/23/19 12:59 Dose: Not Given Albuterol/Ipratropium (Duoneb 3.0-0.5 Mg/3 Ml) 3 ml NEB Q6HRRT PRN PRN Reason: Shortness of Breath Last Admin: 09/27/19 10:01 Dose: 3 ml Chlordiazepoxide HCl (Librium) 25 mg PO QID PRN PRN Reason: Withdrawal Symptoms Last Admin: 09/18/19 14:27 Dose: 25 mg Chlordiazepoxide HCl (Librium) 25 mg PO Q8H ON LICENSE OF [facility] Last Admin: 09/18/19 20:55 Dose: 25 mg Chlordiazepoxide HCl (Librium) 100 mg PO Q8H ON LICENSE OF [facility] Last Admin: 09/21/19 04:32 Dose: 100 mg Chlordiazepoxide HCl (Librium) 75 mg PO ONETIME ONE Stop: 09/18/19 21:16 Last Admin: 09/18/19 21:49 Dose: 75 mg Chlordiazepoxide HCl (Librium) 50 mg PO BID ON LICENSE OF [facility] Last Admin: 09/25/19 09:27 Dose: Not Given Chlordiazepoxide HCl (Librium) 25 mg PO DAILY ON LICENSE OF [facility] Last Admin: 09/26/19 08:39 Dose: 25 mg Chlordiazepoxide HCl (Librium) 50 mg PO BEDTIME ON LICENSE OF [facility] Last Admin: 09/25/19 20:30 Dose: 50 mg Chlordiazepoxide HCl (Librium) 25 mg PO BID ON LICENSE OF [facility] Last Admin: 09/28/19 09:07 Dose: 25 mg Chlordiazepoxide HCl (Librium) 10 mg PO BID ON LICENSE OF [facility] Last Admin: 09/28/19 21:22 Dose: Not Given Chlordiazepoxide HCl (Librium) 10 mg PO BID ON LICENSE OF [facility] Chlordiazepoxide HCl (Librium) 10 mg PO BID ON LICENSE OF [facility] Last Admin: 09/30/19 09:06 Dose: 10 mg Chlordiazepoxide HCl (Librium) 5 mg PO DAILY ON LICENSE OF [facility] Last Admin: 10/01/19 08:18 Dose: 5 mg Chlordiazepoxide HCl (Librium) 10 mg PO BEDTIME ON LICENSE OF [facility] Last Admin: 09/30/19 21:16 Dose: 10 mg Diazepam (Valium) 50 mg IVPUSH ONETIME ONE Stop: 09/18/19 14:12 Last Admin: 09/18/19 14:41 Dose: Not Given Furosemide (Lasix) 20 mg IVPUSH NOW ONE Stop: 09/20/19 10:32 Last Admin: 09/20/19 11:01 Dose: 20 mg Sodium Chloride (Normal Saline) 1,000 mls @ 999 mls/hr IV STAT ONE Stop: 09/17/19 21:00 Last Admin: 09/17/19 20:26 Dose: 999 mls/hr Pantoprazole Sodium 80 mg/ (Sodium Chloride) 20 mls @ 420 mls/hr IVPUSH ONETIME ONE Stop: 09/17/19 20:11 Last Admin: 09/17/19 20:26 Dose: 420 mls/hr Sodium Chloride (Normal Saline) 1,000 mls @ 999 mls/hr IV STAT ONE Stop: 09/17/19 21:09 Last Admin: 09/17/19 20:14 Dose: Not Given Multivitamins/Minerals 10 ml/Thiamine HCl 100 mg/ Folic Acid 1 mg/ Sodium Chloride 1,011.2 mls @ 125 mls/hr IV ONETIME ONE Stop: 09/18/19 05:19 Last Admin: 09/17/19 22:15 Dose: 125 mls/hr Lactated Ringer's (Ringers, Lactated) 1,000 mls @ 125 mls/hr IV ASDIRECTED ON LICENSE OF [facility] Last Admin: 09/18/19 14:33 Dose: 125 mls/hr Pantoprazole Sodium 40 mg/ (Sodium Chloride) 10 mls @ 300 mls/hr IV DAILY ON LICENSE OF [facility] Last Admin: 09/18/19 08:07 Dose: 300 mls/hr Magnesium Sulfate 4 gm/ Premix 100 mls @ 25 mls/hr IV ONETIME ONE Stop: 09/18/19 11:15 Last Admin: 09/18/19 08:01 Dose: 25 mls/hr Lactated Ringer's (Ringers, Lactated) 1,000 mls @ 175 mls/hr IV ASDIRECTED ON LICENSE OF [facility] Last Admin: 09/20/19 05:44 Dose: 175 mls/hr Magnesium Sulfate 4 gm/ Premix 100 mls @ 33.333 mls/hr IV ONETIME ONE Stop: 09/19/19 10:18 Last Admin: 09/19/19 07:50 Dose: 33.333 mls/hr Magnesium Sulfate 2 gm/ Premix 50 mls @ 50 mls/hr IV ONETIME ONE Stop: 09/20/19 08:44 Last Admin: 09/20/19 08:02 Dose: 50 mls/hr Sodium Chloride (Normal Saline) 1,000 mls @ 100 mls/hr IV ASDIRECTED FIDE Last Infusion: 09/24/19 08:18 Dose: 100 mls/hr Magnesium Sulfate 4 gm/ Premix 100 mls @ 33.333 mls/hr IV ONETIME ONE Stop: 09/21/19 14:27 Last Admin: 09/21/19 12:36 Dose: 33.333 mls/hr Potassium Chloride 40 meq/ (Premix) 100 mls @ 25 mls/hr IV ONETIME ONE Stop: 09/21/19 15:28 Last Admin: 09/21/19 12:37 Dose: 25 mls/hr Magnesium Sulfate 1 gm/ Sodium (Chloride) 102 mls @ 102 mls/hr IV ONETIME ONE Stop: 09/22/19 09:14 Last Admin: 09/22/19 08:32 Dose: 102 mls/hr Magnesium Sulfate 2 gm/ Premix 50 mls @ 50 mls/hr IV ONETIME ONE Stop: 09/23/19 10:39 Last Admin: 09/23/19 10:17 Dose: 50 mls/hr Magnesium Sulfate 4 gm/ Premix 100 mls @ 25 mls/hr IV ONETIME ONE Stop: 09/24/19 11:39 Last Admin: 09/24/19 08:26 Dose: 25 mls/hr Magnesium Sulfate 4 gm/ Premix 100 mls @ 25 mls/hr IV ONETIME ONE Stop: 09/25/19 11:52 Last Admin: 09/25/19 08:25 Dose: Not Given Magnesium Sulfate 4 gm/ Premix 100 mls @ 33.333 mls/hr IV ONETIME ONE Stop: 09/25/19 11:59 Last Admin: 09/25/19 09:17 Dose: 33.333 mls/hr Magnesium Sulfate 1 gm/ Sodium (Chloride) 52 mls @ 104 mls/hr IV ONETIME FIDE Magnesium Sulfate 1 gm/ Sodium (Chloride) 52 mls @ 104 mls/hr IV ONETIME FIDE Last Admin: 09/26/19 15:51 Dose: 104 mls/hr Magnesium Sulfate 2 gm/ Premix 50 mls @ 50 mls/hr IV ONETIME FIDE Last Admin: 09/27/19 10:33 Dose: 50 mls/hr Magnesium Sulfate 2 gm/ Premix 50 mls @ 50 mls/hr IV ONETIME ONE Stop: 09/27/19 11:44 Last Admin: 09/27/19 11:34 Dose: Not Given Azithromycin 500 mg/ Sodium (Chloride) 250 mls @ 250 mls/hr IV ONETIME ONE Stop: 09/28/19 14:59 Last Admin: 09/28/19 14:10 Dose: 250 mls/hr Thiamine HCl 500 mg/ Sodium (Chloride) 105 mls @ 210 mls/hr IV TID FIDE Stop: 10/01/19 06:01 Last Admin: 10/01/19 06:13 Dose: 210 mls/hr Lactated Ringer's (Ringers, Lactated) 1,000 mls @ 999 mls/hr IV ASDIRECTED ON LICENSE OF [facility] Iopamidol (Isovue-370 (76%)) 100 ml IVPUSH ONETIME ONE Stop: 09/17/19 21:57 Last Admin: 09/17/19 21:56 Dose: 100 ml Ketorolac Tromethamine (Toradol) 15 mg IVPUSH Q6H PRN PRN Reason: Pain Stop: 09/24/19 09:26 Last Admin: 09/20/19 07:35 Dose: 15 mg Ketorolac Tromethamine (Toradol) 30 mg IVPUSH Q6H PRN PRN Reason: Pain Stop: 09/24/19 09:26 Last Admin: 09/23/19 13:17 Dose: 30 mg Lorazepam (Ativan) 2 mg IVPUSH ONETIME ONE Stop: 09/18/19 14:07 Last Admin: 09/18/19 14:17 Dose: 2 mg Lorazepam (Ativan) 1 mg IVPUSH ONETIME ONE Stop: 09/18/19 14:59 Last Admin: 09/18/19 15:14 Dose: 1 mg Magnesium Sulfate (Magnesium Sulfate 50%) 1 gm IV ONETIME ONE Stop: 09/22/19 08:08 Last Admin: 09/22/19 08:33 Dose: Not Given Morphine Sulfate (Morphine) 6 mg IVPUSH ONETIME ONE Stop: 09/17/19 22:25 Last Admin: 09/17/19 22:27 Dose: 6 mg Morphine Sulfate (Morphine) 2 mg IVPUSH Q4H PRN PRN Reason: Pain Last Admin: 09/18/19 13:53 Dose: 2 mg Ondansetron HCl (Zofran) 4 mg IVPUSH ONETIME ONE Stop: 09/17/19 20:01 Last Admin: 09/17/19 20:31 Dose: 4 mg Ondansetron HCl (Zofran) 4 mg IVPUSH ONETIME ONE Stop: 09/17/19 20:10 Last Admin: 09/17/19 20:15 Dose: Not Given Ondansetron HCl (Zofran) 4 mg IVPUSH ONETIME ONE Stop: 09/17/19 22:16 Last Admin: 09/17/19 22:19 Dose: 4 mg Potassium Chloride (Potassium Chloride) 40 meq PO ONETIME ONE Stop: 09/17/19 21:15 Last Admin: 09/17/19 22:15 Dose: 40 meq Quetiapine Fumarate (Seroquel) 100 mg PO TID ON LICENSE OF [facility] Last Admin: 09/21/19 05:24 Dose: 100 mg Sodium Phosphate (Neutra-Phos) 250 mg PO QID ON LICENSE OF [facility] Last Admin: 09/29/19 06:20 Dose: 250 mg Sodium Phosphate (Neutra-Phos) 250 mg PO QID ON LICENSE OF [facility] Thiamine HCl (Vitamin B-1) 100 mg PO BEDTIME ON LICENSE OF [facility] Last Admin: 09/28/19 21:22 Dose: 100 mg <Adam Villanueva - Last Filed: 10/06/19 14:01> Discharge Summary - Referral to Home Health Primary Care Physician: David Hunter MD - Patient Summary/Data Consults: Consultations 09/22/19 11:07 Consult to Physical Therapy [PT Evaluation and Treatment] [CONS] Routine 09/23/19 15:53 Consult to Physician [CONS] Routine - Patient Data Vitals - Most Recent: Last Vital Signs Temp 36.7 C 10/02/19 12:00 Pulse 118 H 10/02/19 12:00 Resp 20 10/02/19 12:00 BP 108/64 10/02/19 12:00 Pulse Ox 91 L 10/02/19 12:00 Med Orders - Current: Current Medications Discontinued Medications Albuterol/Ipratropium (Duoneb 3.0-0.5 Mg/3 Ml) 3 ml NEB Q6HRRT ON LICENSE OF [facility] Last Admin: 09/23/19 12:59 Dose: Not Given Albuterol/Ipratropium (Duoneb 3.0-0.5 Mg/3 Ml) 3 ml NEB Q6HRRT PRN PRN Reason: Shortness of Breath Last Admin: 09/27/19 10:01 Dose: 3 ml Albuterol/Ipratropium (Duoneb 3.0-0.5 Mg/3 Ml) 3 ml NEB Q4HRRT PRN PRN Reason: Cough Last Admin: 10/02/19 05:59 Dose: 3 ml Azithromycin (Zithromax) 250 mg PO Q24H ON LICENSE OF [facility] Last Admin: 10/02/19 09:54 Dose: 250 mg Benzonatate (Tessalon Perles) 200 mg PO BID PRN PRN Reason: Cough Last Admin: 10/02/19 05:51 Dose: 200 mg Bisacodyl (Dulcolax) 10 mg RECTAL DAILY PRN PRN Reason: Constipation Chlordiazepoxide HCl (Librium) 25 mg PO QID PRN PRN Reason: Withdrawal Symptoms Last Admin: 09/18/19 14:27 Dose: 25 mg Chlordiazepoxide HCl (Librium) 25 mg PO Q8H ON LICENSE OF [facility] Last Admin: 09/18/19 20:55 Dose: 25 mg Chlordiazepoxide HCl (Librium) 100 mg PO Q8H ON LICENSE OF [facility] Last Admin: 09/21/19 04:32 Dose: 100 mg Chlordiazepoxide HCl (Librium) 75 mg PO ONETIME ONE Stop: 09/18/19 21:16 Last Admin: 09/18/19 21:49 Dose: 75 mg Chlordiazepoxide HCl (Librium) 50 mg PO BID ON LICENSE OF [facility] Last Admin: 09/25/19 09:27 Dose: Not Given Chlordiazepoxide HCl (Librium) 25 mg PO DAILY ON LICENSE OF [facility] Last Admin: 09/26/19 08:39 Dose: 25 mg Chlordiazepoxide HCl (Librium) 50 mg PO BEDTIME ON LICENSE OF [facility] Last Admin: 09/25/19 20:30 Dose: 50 mg Chlordiazepoxide HCl (Librium) 25 mg PO BID ON LICENSE OF [facility] Last Admin: 09/28/19 09:07 Dose: 25 mg Chlordiazepoxide HCl (Librium) 10 mg PO BID ON LICENSE OF [facility] Last Admin: 09/28/19 21:22 Dose: Not Given Chlordiazepoxide HCl (Librium) 10 mg PO BID ON LICENSE OF [facility] Chlordiazepoxide HCl (Librium) 10 mg PO BID ON LICENSE OF [facility] Last Admin: 09/30/19 09:06 Dose: 10 mg Chlordiazepoxide HCl (Librium) 5 mg PO DAILY ON LICENSE OF [facility] Last Admin: 10/01/19 08:18 Dose: 5 mg Chlordiazepoxide HCl (Librium) 10 mg PO BEDTIME ON LICENSE OF [facility] Last Admin: 09/30/19 21:16 Dose: 10 mg Chlordiazepoxide HCl (Librium) 5 mg PO BID ON LICENSE OF [facility] Last Admin: 10/02/19 09:54 Dose: 5 mg Diazepam (Valium) 50 mg IVPUSH ONETIME ONE Stop: 09/18/19 14:12 Last Admin: 09/18/19 14:41 Dose: Not Given Docusate Sodium (Colace) 100 mg PO BID PRN PRN Reason: Constipation Last Admin: 09/24/19 08:32 Dose: 100 mg Folic Acid (Folic Acid) 1 mg PO BEDTIME ON LICENSE OF [facility] Last Admin: 10/01/19 21:53 Dose: 1 mg Furosemide (Lasix) 20 mg IVPUSH NOW ONE Stop: 09/20/19 10:32 Last Admin: 09/20/19 11:01 Dose: 20 mg Guaifenesin/Dextromethorphan (Robitussin Dm) 10 ml PO Q4H PRN PRN Reason: Cough Last Admin: 10/02/19 13:39 Dose: 10 ml Heparin Sodium (Porcine) (Heparin Sodium) 5,000 units SUBCUT Q8H ON LICENSE OF [facility] Last Admin: 10/02/19 15:54 Dose: 5,000 units Sodium Chloride (Normal Saline) 1,000 mls @ 999 mls/hr IV STAT ONE Stop: 09/17/19 21:00 Last Admin: 09/17/19 20:26 Dose: 999 mls/hr Pantoprazole Sodium 80 mg/ (Sodium Chloride) 20 mls @ 420 mls/hr IVPUSH ONETIME ONE Stop: 09/17/19 20:11 Last Admin: 09/17/19 20:26 Dose: 420 mls/hr Sodium Chloride (Normal Saline) 1,000 mls @ 999 mls/hr IV STAT ONE Stop: 09/17/19 21:09 Last Admin: 09/17/19 20:14 Dose: Not Given Multivitamins/Minerals 10 ml/Thiamine HCl 100 mg/ Folic Acid 1 mg/ Sodium Chloride 1,011.2 mls @ 125 mls/hr IV ONETIME ONE Stop: 09/18/19 05:19 Last Admin: 09/17/19 22:15 Dose: 125 mls/hr Lactated Ringer's (Ringers, Lactated) 1,000 mls @ 125 mls/hr IV ASDIRECTED ON LICENSE OF [facility] Last Admin: 09/18/19 14:33 Dose: 125 mls/hr Pantoprazole Sodium 40 mg/ (Sodium Chloride) 10 mls @ 300 mls/hr IV DAILY ON LICENSE OF [facility] Last Admin: 09/18/19 08:07 Dose: 300 mls/hr Magnesium Sulfate 4 gm/ Premix 100 mls @ 25 mls/hr IV ONETIME ONE Stop: 09/18/19 11:15 Last Admin: 09/18/19 08:01 Dose: 25 mls/hr Pantoprazole Sodium 40 mg/ (Sodium Chloride) 10 mls @ 300 mls/hr IV BID ON LICENSE OF [facility] Last Admin: 10/02/19 09:55 Dose: 300 mls/hr Lactated Ringer's (Ringers, Lactated) 1,000 mls @ 175 mls/hr IV ASDIRECTED ON LICENSE OF [facility] Last Admin: 09/20/19 05:44 Dose: 175 mls/hr Magnesium Sulfate 4 gm/ Premix 100 mls @ 33.333 mls/hr IV ONETIME ONE Stop: 09/19/19 10:18 Last Admin: 09/19/19 07:50 Dose: 33.333 mls/hr Magnesium Sulfate 2 gm/ Premix 50 mls @ 50 mls/hr IV ONETIME ONE Stop: 09/20/19 08:44 Last Admin: 09/20/19 08:02 Dose: 50 mls/hr Sodium Chloride (Normal Saline) 1,000 mls @ 100 mls/hr IV ASDIRECTED ON LICENSE OF [facility] Last Infusion: 09/24/19 08:18 Dose: 100 mls/hr Magnesium Sulfate 4 gm/ Premix 100 mls @ 33.333 mls/hr IV ONETIME ONE Stop: 09/21/19 14:27 Last Admin: 09/21/19 12:36 Dose: 33.333 mls/hr Potassium Chloride 40 meq/ (Premix) 100 mls @ 25 mls/hr IV ONETIME ONE Stop: 09/21/19 15:28 Last Admin: 09/21/19 12:37 Dose: 25 mls/hr Magnesium Sulfate 1 gm/ Sodium (Chloride) 102 mls @ 102 mls/hr IV ONETIME ONE Stop: 09/22/19 09:14 Last Admin: 09/22/19 08:32 Dose: 102 mls/hr Magnesium Sulfate 2 gm/ Premix 50 mls @ 50 mls/hr IV ONETIME ONE Stop: 09/23/19 10:39 Last Admin: 09/23/19 10:17 Dose: 50 mls/hr Magnesium Sulfate 4 gm/ Premix 100 mls @ 25 mls/hr IV ONETIME ONE Stop: 09/24/19 11:39 Last Admin: 09/24/19 08:26 Dose: 25 mls/hr Magnesium Sulfate 4 gm/ Premix 100 mls @ 25 mls/hr IV ONETIME ONE Stop: 09/25/19 11:52 Last Admin: 09/25/19 08:25 Dose: Not Given Magnesium Sulfate 4 gm/ Premix 100 mls @ 33.333 mls/hr IV ONETIME ONE Stop: 09/25/19 11:59 Last Admin: 09/25/19 09:17 Dose: 33.333 mls/hr Magnesium Sulfate 1 gm/ Sodium (Chloride) 52 mls @ 104 mls/hr IV ONETIME FIDE Magnesium Sulfate 1 gm/ Sodium (Chloride) 52 mls @ 104 mls/hr IV ONETIME FIDE Last Admin: 09/26/19 15:51 Dose: 104 mls/hr Magnesium Sulfate 2 gm/ Premix 50 mls @ 50 mls/hr IV ONETIME FIDE Last Admin: 09/27/19 10:33 Dose: 50 mls/hr Magnesium Sulfate 2 gm/ Premix 50 mls @ 50 mls/hr IV ONETIME ONE Stop: 09/27/19 11:44 Last Admin: 09/27/19 11:34 Dose: Not Given Azithromycin 500 mg/ Sodium (Chloride) 250 mls @ 250 mls/hr IV ONETIME ONE Stop: 09/28/19 14:59 Last Admin: 09/28/19 14:10 Dose: 250 mls/hr Thiamine HCl 500 mg/ Sodium (Chloride) 105 mls @ 210 mls/hr IV TID FIDE Stop: 10/01/19 06:01 Last Admin: 10/01/19 06:13 Dose: 210 mls/hr Sodium Chloride (Normal Saline) 500 mls @ 999 mls/hr IV STAT FIDE Last Admin: 10/01/19 13:51 Dose: 999 mls/hr Lactated Ringer's (Ringers, Lactated) 1,000 mls @ 999 mls/hr IV ASDIRECTED FIDE Thiamine HCl 500 mg/ Sodium (Chloride) 105 mls @ 210 mls/hr IV ONETIME ONE Stop: 10/02/19 11:18 Last Admin: 10/02/19 13:33 Dose: 210 mls/hr Ibuprofen (Motrin) 400 mg PO Q8H PRN PRN Reason: Pain Last Admin: 10/01/19 21:51 Dose: 400 mg Iopamidol (Isovue-370 (76%)) 100 ml IVPUSH ONETIME ONE Stop: 09/17/19 21:57 Last Admin: 09/17/19 21:56 Dose: 100 ml Ketorolac Tromethamine (Toradol) 15 mg IVPUSH Q6H PRN PRN Reason: Pain Stop: 09/24/19 09:26 Last Admin: 09/20/19 07:35 Dose: 15 mg Ketorolac Tromethamine (Toradol) 30 mg IVPUSH Q6H PRN PRN Reason: Pain Stop: 09/24/19 09:26 Last Admin: 09/23/19 13:17 Dose: 30 mg Lorazepam (Ativan) 0 mg IVPUSH Q4H PRN; Protocol PRN Reason: Withdrawal Symptoms Last Admin: 09/24/19 03:20 Dose: 1 mg Lorazepam (Ativan) 2 mg IVPUSH ONETIME ONE Stop: 09/18/19 14:07 Last Admin: 09/18/19 14:17 Dose: 2 mg Lorazepam (Ativan) 1 mg IVPUSH ONETIME ONE Stop: 09/18/19 14:59 Last Admin: 09/18/19 15:14 Dose: 1 mg Lorazepam (Ativan) 1 mg PO ASDIRECTED PRN PRN Reason: SEE PROTOCOL Last Admin: 10/01/19 21:53 Dose: 1 mg Magnesium Sulfate (Magnesium Sulfate 50%) 1 gm IV ONETIME ONE Stop: 09/22/19 08:08 Last Admin: 09/22/19 08:33 Dose: Not Given Morphine Sulfate (Morphine) 6 mg IVPUSH ONETIME ONE Stop: 09/17/19 22:25 Last Admin: 09/17/19 22:27 Dose: 6 mg Morphine Sulfate (Morphine) 2 mg IVPUSH Q4H PRN PRN Reason: Pain Last Admin: 09/18/19 13:53 Dose: 2 mg Nystatin (Nystatin Crm) 0 gm TOP QID PRN PRN Reason: Rash Last Admin: 09/24/19 16:18 Dose: 1 applic Ondansetron HCl (Zofran) 4 mg IVPUSH ONETIME ONE Stop: 09/17/19 20:01 Last Admin: 09/17/19 20:31 Dose: 4 mg Ondansetron HCl (Zofran) 4 mg IVPUSH ONETIME ONE Stop: 09/17/19 20:10 Last Admin: 09/17/19 20:15 Dose: Not Given Ondansetron HCl (Zofran) 4 mg IVPUSH ONETIME ONE Stop: 09/17/19 22:16 Last Admin: 09/17/19 22:19 Dose: 4 mg Ondansetron HCl (Zofran) 4 mg IVPUSH Q4H PRN PRN Reason: Nausea/Vomiting Last Admin: 09/28/19 17:07 Dose: 4 mg Potassium Chloride (Potassium Chloride) 40 meq PO ONETIME ONE Stop: 09/17/19 21:15 Last Admin: 09/17/19 22:15 Dose: 40 meq Quetiapine Fumarate (Seroquel) 100 mg PO TID ON LICENSE OF [facility] Last Admin: 09/21/19 05:24 Dose: 100 mg Quetiapine Fumarate (Seroquel) 25 mg PO BEDTIME PRN PRN Reason: Agitation Last Admin: 09/28/19 00:09 Dose: 25 mg Sodium Chloride (Saline Flush) 10 ml FLUSH ASDIRECTED PRN PRN Reason: Keep Vein Open Last Admin: 09/20/19 12:29 Dose: 10 ml Sodium Chloride (Saline Flush) 2.5 ml FLUSH ASDIRECTED PRN PRN Reason: Keep Vein Open Sodium Phosphate (Neutra-Phos) 250 mg PO QID ON LICENSE OF [facility] Last Admin: 09/29/19 06:20 Dose: 250 mg Sodium Phosphate (Neutra-Phos) 250 mg PO QID FIDE Thiamine HCl (Vitamin B-1) 100 mg PO BEDTIME ON LICENSE OF [facility] Last Admin: 09/28/19 21:22 Dose: 100 mg - Free Text/Narrative Note: I have seen and evaluated the patient with the resident. I have discussed findings and treatment plan with resident. I agree with the assessment and plan as outlined in the following note.
== END 2019-10-02 17:10 | disposition home or self-care (01) | DRG 896 ==
LOC: MW.ED 19:50 → MW.MS 23:00 → MW.ICU 09-18 16:22 → MW.MS 09-25 10:10
PROVIDERS: ADMIT Student in an Organized Health Care Education/Training Program; ATTEND Student in an Organized Health Care Education/Training Program
DX: F10.239 Alcohol dependence with withdrawal, unspecified (principal); K85.20 Alcohol induced acute pancreatitis without necrosis or infection; E51.2 Wernicke's encephalopathy; R65.10 Systemic inflammatory response syndrome (SIRS) of non-infectious origin without acute organ dysfunction; E87.1 Hypo-osmolality and hyponatremia; F10.231 Alcohol dependence with withdrawal delirium; K70.10 Alcoholic hepatitis without ascites; E83.42 Hypomagnesemia; K86.89 Other specified diseases of pancreas; E87.6 Hypokalemia; D47.3 Essential (hemorrhagic) thrombocythemia; D53.9 Nutritional anemia, unspecified; J40 Bronchitis, not specified as acute or chronic; E66.9 Obesity, unspecified; F17.210 Nicotine dependence, cigarettes, uncomplicated; Z99.81 Dependence on supplemental oxygen; Z86.718 Personal history of other venous thrombosis and embolism; Z68.28 Body mass index [BMI] 28.0-28.9, adult; Z90.81 Acquired absence of spleen
CPT/HCPCS: 36415; 51702; 70450; 70450-26; 71045; 71045-26; 71250; 71250-26; 74177; 74177-26; 76705; 76705-26; 80048; 80053; 80061; 80074; 81001; 81003; 82607; 82746; 82962; 83690; 83735; 84100; 84484; 85025; 93005; 94640; 96361; 96365; 96375; 96376; 97110-GP; 97161-GP; 97530-GP; 99284; 99285-25; A9270-GY; C9113; J0456; J1644; J1885; J1940; J2060; J2270; J2405; J3411; J3475; J3480; J7030; J7040; J7050; J7120; J7620-GY; Q9967; U0002

== ENCOUNTER 2019-10-22 07:26 | Day surgery (SDC) | payer MEDICAID, OTHER ==
[~2019-10-22 07:26] MED LIST changes: +Lidocaine 2% 5 ML SDV ONE; +Midazolam 1 MG/ML 2 ML SDV ONE; +Propofol 200 MG/20 ML SDV ONE; -Sodium Chloride 0.9% 10 ML SDV IV PRN; -Sodium Chloride 0.9% 10 ML Syringe FLUSH PRN; -Sodium Chloride 0.9% 2.5 ML Syringe FLUSH PRN; +fentaNYL 100 MCG/2 ML SDV ONE
--- NOTE | 2019-10-22 08:36 | PCM.PREANE ---
Preanesthetic Assessment - Anesthesia/Transfusion/Family Hx Anesthesia History: Prior Anesthesia Without Reaction Other Type of Anesthesia Reaction Comment: slow to wake up after splenectomy Family History of Anesthesia Reaction: No Transfusion History: Prior Transfusion Without Reaction Intubation History: Unknown - Review of Systems General: No Symptoms Pulmonary: No Symptoms Cardiovascular: No Symptoms Gastrointestinal: No Symptoms Neurological: No Symptoms Other: Reports: None - Physical Assessment NPO Status Date: 10/21/19 Vital Signs: Last Vital Signs Temp 97.5 F 10/22/19 07:45 Pulse 98 10/22/19 07:45 Resp 16 10/22/19 07:45 BP 105/71 10/22/19 07:45 Pulse Ox 94 L 10/22/19 07:45 Height: 6 ft Weight: 103.419 kg ASA Class: 2 Mental Status: Alert & Oriented x3 Airway Class: Mallampati = 2 Dentition: Reports: Normal Dentition - Allergies Allergies/Adverse Reactions: Allergies Allergy/AdvReac Type Severity Reaction Status Date / Time No Known Allergies Allergy Verified 10/16/19 08:12 - Blood Blood Available: No - Anesthesia Plan Pre-Op Medication Ordered: None - Acknowledgements Anesthesia Type Planned: General Anesthesia (tiva) Pt an Appropriate Candidate for the Planned Anesthesia: Yes Alternatives and Risks of Anesthesia Discussed w Pt/Guardian: Yes Pt/Guardian Understands and Agrees with Anesthesia Plan: Yes Additional Comments: PMH: alcohol use disorder, recent pancreatitis, on folic acid, no longer taking ativan, smoker PLAN: tiva PreAnesthesia Questionnaire HEENT History: Reports: Other (See Below) Other HEENT History: wears glasses Cardiovascular History: Reports: Blood Clots/VTE/DVT Other Cardiovascular History: hx of DVT in right leg after knee surgery Respiratory History: Reports: Other (See Below) Other Respiratory History: clotting in lungs Gastrointestinal History: Reports: Other (See Below) Genitourinary History: Reports: Other (See Below) Other Genitourinary History: blood in urine, unknown reason Musculoskeletal History: Reports: Fracture Other Musculoskeletal History: hx of fx right knee, clavicle, arm and fingers Neurological History: Reports: None Psychiatric History: Reports: None Other Psychiatric History: hx ETOH withdrawl 09/17/19 Endocrine/Metabolic History: Reports: Obesity/BMI 30+ Hematologic History: Reports: Blood Transfusion(s) Other Hematologic History: hx blood transfusion with splenectomy Immunologic History: Reports: None Oncologic (Cancer) History: Reports: None Dermatologic History: Reports: None - Infectious Disease History Infectious Disease History: Reports: None - Past Surgical History 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 - SUBSTANCE USE Smoking Status *Q: Current Every Day Smoker Tobacco Use Within Last Twelve Months: Cigarettes - HOME MEDS Home Medications: Home Meds Folic Acid 1 mg PO BEDTIME 30 Days #30 tablet 10/02/19 [Rx] Otc Antacid 1 tab PO ASDIRECTED PRN 10/20/19 [History] Thiamine HCl [Vitamin B-1] 2 tab PO DAILY 10/20/19 [History] - CURRENT (IN HOUSE) MEDS Current Meds: Current Medications Lactated Ringer's (Ringers, Lactated) 1,000 mls @ 125 mls/hr IV ASDIRECTED FIDE Last Admin: 10/22/19 08:29 Dose: 125 mls/hr Documented by: Discontinued Medications Fentanyl (Sublimaze) Confirm Administered Dose 100 mcg .ROUTE .STK-MED ONE Stop: 10/22/19 07:09 Lidocaine (Xylocaine-Mpf 2%) Confirm Administered Dose 5 ml .ROUTE .STK-MED ONE Stop: 10/22/19 07:09 Midazolam HCl (Versed 1 Mg/Ml) Confirm Administered Dose 2 mg .ROUTE .STK-MED ONE Stop: 10/22/19 07:09 Propofol (Diprivan 20 Ml) Confirm Administered Dose 400 mg .ROUTE .STK-MED ONE Stop: 10/22/19 07:09
[2019-10-22] MEDS ORDERED: Propofol 200 MG/20 ML SDV ONE (10:01)
--- NOTE | 2019-10-22 11:04 | PCM.POSTAN ---
POST ANESTHESIA ASSESSMENT - MENTAL STATUS Mental Status: Alert, Oriented - VITAL SIGNS Vital Signs: Last Vital Signs Temp 36.4 C 10/22/19 07:45 Pulse 76 10/22/19 11:00 Resp 17 10/22/19 11:00 BP 101/69 10/22/19 11:00 Pulse Ox 94 L 10/22/19 11:00 - RESPIRATORY Respiratory Status: Respiratory Rate WNL, Airway Patent, O2 Saturation Stable - CARDIOVASCULAR CV Status: Pulse Rate WNL, Blood Pressure Stable - GASTROINTESTINAL GI Status: No Symptoms - PAIN Pain Score: 0 - POST OP HYDRATION Hydration Status: Adequate & Stable
--- NOTE | 2019-10-22 11:07 | PCM.OPNOTE ---
- General Post-Op/Procedure Note Date of Surgery/Procedure: 10/22/19 Operative Procedure(s): egd w bx. colonoscopy w snare polypectomy Findings: see [id number] Pre Op Diagnosis: abd pain and duodenal thickening Post-Op Diagnosis: gastritis and colon polyps Anesthesia Technique: Moderate Sedation Primary Surgeon: You Nichols Pathology: sent Complications: None Condition: Good Free Text/Narrative:: Intake & Output 10/21/19 10/22/19 10/22/19 22:59 06:59 14:59 Intake Total 1550 Balance 1550
--- NOTE | 2019-10-22 13:35 | OR ---
SURGEON: You Nichols MD DATE OF PROCEDURE: 10/22/2019 PREOPERATIVE DIAGNOSES: Abdominal pain and duodenal abnormal CAT scan. POSTOPERATIVE DIAGNOSES: Abdominal pain and duodenal abnormal CAT scan. PROCEDURES PERFORMED: Esophagogastroduodenoscopy with biopsy and colonoscopy with snare polypectomy. DESCRIPTION OF PROCEDURE: EGD: The patient was taken to the endoscopy room, and with the SYSTEMS DESIGN ENGINEER, Diprivan was administered. A well-lubricated EGD scope was gently inserted through the oropharynx, down the esophagus, passing through the gastroesophageal junction, into the stomach. The mucosa was examined upon the passage. Any etiology will be noted. Once in the stomach, we continued to advance to the distal antrum, passed through the pylorus into the second portion of the duodenum. Again, the mucosa was examined for any abnormality and etiology. The scope was then retrieved back to the stomach and then retroflexed to look at the fundus of the stomach. If a biopsy was indicated, we will biopsy the antrum, body, and gastroesophageal junction. The air will be sucked out while the scope is retrieved to reduce the patient's discomfort. The patient tolerated the procedure well. There were no intraoperative complications. Dr. Nichols was present through the whole procedure. Prior to surgery, a time-out had been called, the patient identified, procedure identified and antibiotic administered. The patient was taken to the endoscopy room. A time out was called, patient identified, and procedure identified. Diprivan was then administrated. Patient went from awake to sleep, hearing doctor talking or door closing is normal. Perineum inspection and digital examination were then performed. A well- lubricated colonoscope was gently inserted through the rectum, advanced past the rectosigmoid junction, the descending colon, splenic flexure, transverse colon, hepatic flexure, ascending colon, arrived to the cecum. Cecum was identified as dictated in the finding. Then the scope was carefully withdrawn while attention was paid to the mucosal surface for any abnormality. Air will be sucked out during the scope withdrawal. At the rectum, retroflexed to examine any rectal diseases, fistula or hemorrhoids. During mucosal examination, abnormality or polyp encountered. Using snare equipment, the abnormality or the polyp was then snared off using electrocautery. The patient tolerated procedure well. There were no intraoperative complications, and Dr. Nichols was present throughout the whole procedure. FINDINGS: EGD findings: 1. The patient is easily sedated with SYSTEMS DESIGN ENGINEER and Diprivan, the patient is soundly snoring. 2. Oropharynx and proximal esophagus are free of disease, stricture, or inflammation. Distal esophagus at GE junction at 40 shows mild salmon- colored change consistent with mild acid reflux. Stomach rugae are normal in appearance. Antrum is slightly inflamed and with little bit of blood, likely nosebleed, may be clinically insignificant. No ulcer observed. Duodenum is grossly normal in appearance and biopsy of the duodenal bulb and the duodenum second portion because the CAT scan abnormal. Then, retroflexed look at the fundus of the stomach, there is no hiatal hernia. Biopsy done at antrum, body, GE junction at 40 and sucked out the gas while scope pulling out. During the whole study, there is no ulcer, bile, or food particle observed. Colonoscopy findings: 1. The patient is easily sedated with SYSTEMS DESIGN ENGINEER and Diprivan, the patient is soundly snoring. 2. Bowel prep is a little bit suboptimal, just a little bit, with moderate amount of liquid stools, no semi-formed stool. 3. Colon rather straightforward. Cecum indicated by ileocecal fold, one-to- one indentation, appendiceal orifice. Light emittance is not observed. ScopeGuide is pointing south. Mucosa examined upon scope pulling out. The patient does not have diverticulosis. Has many polyps and refer to the specimen for the polyp distance. One of them is a large polyp at distance 30 when scope pulling out and that one is at least 15 mm, sessile, and was snared and captured and a little bit left behind, that needs to be addressed. I do not want to do two times of snare polypectomy that can be at risk for complication. Tattooed in the area and left a little bit of the polyp behind. The patient does not have internal hemorrhoid, external hemorrhoid. The patient would benefit from repeat colonoscopy 6 to 12 months from today and also depends on the pathology report of the polyp. TRACY / LAUREN /[id number]
--- NOTE | 2019-10-22 13:43 | PCM48HPAN ---
Post Anesthesia Note - EVALUATION WITHIN 48HRS OF ANESTHETIC Vital Signs in Normal Range: Yes Patient Participated in Evaluation: Yes Respiratory Function Stable: Yes Airway Patent: Yes Cardiovascular Function Stable: Yes Hydration Status Stable: Yes Pain Control Satisfactory: Yes Nausea and Vomiting Control Satisfactory: Yes Mental Status Recovered: Yes Vital Signs: Last Vital Signs Temp 97.2 F 10/22/19 11:05 Pulse 78 10/22/19 11:05 Resp 16 10/22/19 11:05 BP 102/68 10/22/19 11:05 Pulse Ox 96 10/22/19 11:05
== END 2019-10-22 11:45 | disposition home or self-care (01) ==
LOC: MW.SDS 07:26
PROVIDERS: ATTEND Surgery
DX: Z12.11 Encounter for screening for malignant neoplasm of colon (principal); D12.6 Benign neoplasm of colon, unspecified; K62.1 Rectal polyp; K21.0 Gastro-esophageal reflux disease with esophagitis; K29.50 Unspecified chronic gastritis without bleeding; E66.9 Obesity, unspecified; F17.210 Nicotine dependence, cigarettes, uncomplicated; Z68.30 Body mass index [BMI] 30.0-30.9, adult
CPT/HCPCS: 43239; 45381; 45385; J2001; J2250; J2704; J3010; J7120

== ENCOUNTER 2019-11-07 06:52 | Day surgery (SDC) | payer MEDICAID ==
[~2019-11-07 06:52] MED LIST changes: -Lidocaine 2% 5 ML SDV ONE; +ceFAZolin 2 GM in Premix Bag 1 BAG IV ONE; -fentaNYL 100 MCG/2 ML SDV ONE; +fentaNYL 250 MCG/5 ML SDV ONE
[2019-11-07] MEDS ORDERED: Ondansetron 4 MG/2 ML SDV ONE (06:53)
[2019-11-07] MEDS ORDERED: Glycopyrrolate 0.2 MG/ML SDV ONE (06:53)
[2019-11-07] MEDS ORDERED: Rocuronium Bromide 50 MG/5 ML Syringe ONE ×2 (06:53→08:51)
[2019-11-07] MEDS ORDERED: Lidocaine 2% 5 ML SDV ONE (06:53)
[2019-11-07] MEDS ORDERED: Ketorolac 30 MG/ML SDV ONE (06:53)
[2019-11-07] MEDS ORDERED: Sugammadex Sodium 200 MG/2 ML VIAL ONE (06:56)
[2019-11-07] MEDS ORDERED: Scopolamine 1.5 MG Transdermal Patch TRDERM PRN (07:18)
--- NOTE | 2019-11-07 07:20 | PCM.PREANE ---
Preanesthetic Assessment - Anesthesia/Transfusion/Family Hx Anesthesia History: Prior Anesthesia Without Reaction Other Type of Anesthesia Reaction Comment: slow to wake up after splenectomy Family History of Anesthesia Reaction: No Transfusion History: No Prior Transfusion(s) Intubation History: Unknown - Review of Systems General: No Symptoms Pulmonary: No Symptoms Cardiovascular: No Symptoms Gastrointestinal: No Symptoms Neurological: No Symptoms Other: Reports: None - Physical Assessment Height: 6 ft 1 in Weight: 97.522 kg ASA Class: 2 Mental Status: Alert & Oriented x3 Airway Class: Mallampati = 3 Dentition: Reports: Normal Dentition, Broken Tooth/Teeth (chiped front upper tooth) Thyro-Mental Finger Breadths: 3 Mouth Opening Finger Breadths: 3 ROM/Head Extension: Limited/Partial Lungs: Clear to Auscultation, Normal Respiratory Effort Cardiovascular: Regular Rate, Regular Rhythm - Allergies Allergies/Adverse Reactions: Allergies Allergy/AdvReac Type Severity Reaction Status Date / Time No Known Allergies Allergy Verified 11/05/19 10:09 - Blood Blood Available: No - Anesthesia Plan Pre-Op Medication Ordered: None - Acknowledgements Anesthesia Type Planned: General Anesthesia Pt an Appropriate Candidate for the Planned Anesthesia: Yes Alternatives and Risks of Anesthesia Discussed w Pt/Guardian: Yes Pt/Guardian Understands and Agrees with Anesthesia Plan: Yes PreAnesthesia Questionnaire HEENT History: Reports: Other (See Below) Other HEENT History: wears glasses Cardiovascular History: Reports: Blood Clots/VTE/DVT Other Cardiovascular History: hx of DVT in right leg after knee surgery Respiratory History: Reports: Other (See Below) Other Respiratory History: clotting in lungs Gastrointestinal History: Reports: Other (See Below) Genitourinary History: Reports: Other (See Below) Other Genitourinary History: blood in urine, unknown reason Musculoskeletal History: Reports: Fracture Other Musculoskeletal History: hx of fx right knee, clavicle, arm and fingers Neurological History: Reports: None Psychiatric History: Reports: None Other Psychiatric History: hx ETOH withdrawl 09/17/19 Endocrine/Metabolic History: Reports: Obesity/BMI 30+ Hematologic History: Reports: Blood Transfusion(s) Other Hematologic History: hx blood transfusion with splenectomy Immunologic History: Reports: None Oncologic (Cancer) History: Reports: None Dermatologic History: Reports: None - Infectious Disease History Infectious Disease History: Reports: None - Past Surgical History Head Surgeries/Procedures: Reports: None HEENT Surgical History: Reports: Tonsillectomy Cardiovascular Surgical History: Reports: None Respiratory Surgical History: Reports: None GI Surgical History: Reports: Colonoscopy, EGD, Other (See Below) 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 tibia Oncologic Surgical History: Reports: None Dermatological Surgical History: Reports: None - SUBSTANCE USE Smoking Status *Q: Current Every Day Smoker (down to 2-3 cigarettes. reducing last 5 years) Tobacco Use Within Last Twelve Months: Cigarettes Recreational Drug Use History: No - HOME MEDS Home Medications: Home Meds Folic Acid 1 mg PO BEDTIME 30 Days #30 tablet 10/02/19 [Rx] - CURRENT (IN HOUSE) MEDS Current Meds: Current Medications Lactated Ringer's (Ringers, Lactated) 1,000 mls @ 125 mls/hr IV ASDIRECTED FIDE Discontinued Medications Fentanyl (Sublimaze) Confirm Administered Dose 250 mcg .ROUTE .STK-MED ONE Stop: 11/07/19 06:53 Glycopyrrolate (Robinul) Confirm Administered Dose 0.2 mg .ROUTE .STK-MED ONE Stop: 11/07/19 06:54 Cefazolin Sodium/Dextrose 2 gm (/ Premix) 50 mls @ 100 mls/hr IV ONETIME ONE Stop: 11/07/19 05:29 Ketorolac Tromethamine (Toradol) Confirm Administered Dose 30 mg .ROUTE .STK-MED ONE Stop: 11/07/19 06:54 Lidocaine (Xylocaine-Mpf 2%) Confirm Administered Dose 5 ml .ROUTE .STK-MED ONE Stop: 11/07/19 06:54 Midazolam HCl (Versed 1 Mg/Ml) Confirm Administered Dose 2 mg .ROUTE .STK-MED ONE Stop: 11/07/19 06:53 Ondansetron HCl (Zofran) Confirm Administered Dose 4 mg .ROUTE .STK-MED ONE Stop: 11/07/19 06:54 Propofol (Diprivan 20 Ml) Confirm Administered Dose 200 mg .ROUTE .STK-MED ONE Stop: 11/07/19 06:53 Rocuronium [place] (Rocuronium [place]) Confirm Administered Dose 50 mg .ROUTE .STK-MED ONE Stop: 11/07/19 06:54 Sugammadex Sodium (Bridion) Confirm Administered Dose 200 mg .ROUTE .STK-MED ONE Stop: 11/07/19 06:57
[2019-11-07] MEDS ORDERED: Scopolamine 1.5 MG Transdermal Patch ONE (07:22)
[2019-11-07] MEDS ORDERED: ceFAZolin 1 GM Vial ONE (07:27)
[2019-11-07] MEDS ORDERED: Sodium Chloride 0.9% 20 ML ONE (07:27)
[2019-11-07] MEDS ORDERED: Octyl 2-Cyanoacrylate 1 Tube ONE (07:40)
[2019-11-07] MEDS ORDERED: Bupivacaine 0.25%/EPINEPHrine 1:200,000 10 ML SDV ONE (07:40)
[2019-11-07] MEDS ORDERED: fentaNYL 250 MCG/5 ML SDV ONE (08:19)
[2019-11-07] MEDS ORDERED: Acetaminophen 1,000 MG in Premix Bag 1 BAG IV PRN (08:21)
--- NOTE | 2019-11-07 10:15 | PCM.OPNOTE ---
- General Post-Op/Procedure Note Date of Surgery/Procedure: 11/07/19 Operative Procedure(s): lap isai Findings: gb was distended and yellow and green, cw chronic cholecystitis and pain; wall was not thickened; hostile abd from previous surgery; [id number] Pre Op Diagnosis: acute and chronic cholecystitis Post-Op Diagnosis: Same Anesthesia Technique: General ET Tube Primary Surgeon: You Nichols Pathology: sent Complications: None Condition: Good
[2019-11-07] MEDS ORDERED: Acetaminophen/oxyCODONE 325-5 MG Tab PO PRN (10:16)
[2019-11-07] MEDS: fentaNYL 100 MCG/2 ML SDV IVPUSH PRN ×2 (10:16→10:31)
[2019-11-07] MEDS ORDERED: HYDROmorphone 2 MG/ML Syringe IVPUSH PRN (10:42)
--- NOTE | 2019-11-07 11:07 | PCM.POSTAN ---
POST ANESTHESIA ASSESSMENT - MENTAL STATUS Mental Status: Alert, Oriented - VITAL SIGNS Vital Signs: Last Vital Signs Temp 36.4 C 11/07/19 10:02 Pulse 92 11/07/19 11:05 Resp 14 11/07/19 11:05 BP 123/83 11/07/19 11:05 Pulse Ox 95 11/07/19 11:05 - RESPIRATORY Respiratory Status: Respiratory Rate WNL, Airway Patent, O2 Saturation Stable - CARDIOVASCULAR CV Status: Pulse Rate WNL, Blood Pressure Stable - GASTROINTESTINAL GI Status: No Symptoms - PAIN Pain Score: 4 - POST OP HYDRATION Hydration Status: Adequate & Stable - OBSERVATIONS Free Text/Narrative:: No anesthesia problems
[2019-11-07] MEDS ORDERED: oxyCODONE 5 MG Tab PO ONE (11:20)
[2019-11-07] MEDS: HYDROmorphone 2 MG/ML Syringe IVPUSH PRN ×2 (11:32→13:00)
--- NOTE | 2019-11-07 12:31 | OR ---
SURGEON: You Nichols MD DATE OF PROCEDURE: 11/07/2019 PREOPERATIVE DIAGNOSIS: Acute on chronic cholecystitis. POSTOPERATIVE DIAGNOSIS: Acute on chronic cholecystitis. PROCEDURE PROPOSED: Laparoscopic cholecystectomy. PROCEDURE PERFORMED: Laparoscopic cholecystectomy. PRIMARY SURGEON: You Nichols MD COMPLICATIONS: None. FINDINGS: Very hostile abdomen from prior surgery and severe adherence. The gallbladder was yellow and green and with adherence consistent with chronic cholecystitis and pain. Wall was not thickened. PROCEDURE NOTE: The patient was taken to the operating room and placed in the supine position. After the intubation of general endotracheal anesthesia, the patient's abdomen was prepped and draped in the usual sterile fashion. Using [employer], a 12 mm trocar was placed supraumbilically and then followed with pneumoperitoneum. A 5 mm trocar was placed in the epigastrium and two 5 mm trocars placed in the right upper quadrant. The placement of the last three trocars was done under direct video supervision. Upon gaining entrance to the abdominal cavity, an extensive examination was then performed. The gallbladder was located and identified and retracted to the dome of the liver at the triangle of Calot. The cystic duct was clipped three more times and then using the endoscopic clip, was transected with placement of the endoscopic clip and transection was performed with care, ensuring the posterior prong of the instruments were clearly visualized prior to exercising the procedure. The gallbladder was dissected using electrocautery out of the liver bed and then removed using endoscopic bag through the umbilical site. The gallbladder was removed en bloc and there was no bile spillage and this was then followed with extensive irrigation until the bile was clear from blood and bile. The trocars were then removed under direct video supervision. The 12 mm umbilical site was then closed with deep stitches using 0 Vicryl followed with proximal stitches using 3-0 Vicryl and Dermabond. The other three trocar sites were closed with 3-0 Vicryl followed with approximation of skin with Dermabond. The patient was then awakened and extubated and transferred to the recovery room in hemodynamically stable condition. At the conclusion of the surgery, before closing the abdominal wound, instrument count and sponge count were done and were correct. The patient tolerated the procedure well and there were no intraoperative complications. Dr. Nichols was present through the whole procedure. Just before surgery, a timeout was called. The patient was identified and procedure identified and procedure started. At the conclusion of the surgery, a piece of Surgicel was inserted for hemostasis and a flat 10 NUSRAT drain was also inserted. TRACY AGUILAR /[id number]
--- NOTE | 2019-11-07 13:31 | PCM48HPAN ---
Post Anesthesia Note - EVALUATION WITHIN 48HRS OF ANESTHETIC Vital Signs in Normal Range: Yes Patient Participated in Evaluation: Yes Respiratory Function Stable: Yes Airway Patent: Yes Cardiovascular Function Stable: Yes Hydration Status Stable: Yes Pain Control Satisfactory: Yes (Pt continues to report some pain, but states it is tolerable.) Nausea and Vomiting Control Satisfactory: Yes Mental Status Recovered: Yes Vital Signs: Last Vital Signs Temp 36.4 C 11/07/19 10:02 Pulse 92 11/07/19 11:05 Resp 14 11/07/19 11:05 BP 123/83 11/07/19 11:05 Pulse Ox 95 11/07/19 11:05 - COMMENTS/OBSERVATIONS Free Text/Narrative:: Able to dress self with minimal assist, VSS.
== END 2019-11-07 14:15 | disposition home or self-care (01) ==
LOC: MW.SDS 06:52
PROVIDERS: ATTEND Surgery
DX: K81.2 Acute cholecystitis with chronic cholecystitis (principal); E66.9 Obesity, unspecified; F17.210 Nicotine dependence, cigarettes, uncomplicated; Z68.28 Body mass index [BMI] 28.0-28.9, adult; Z98.890 Other specified postprocedural states
CPT/HCPCS: 47562; A9270; J0131; J0690; J1170; J2001; J2250; J2405; J2704; J3010; J3490; J7120; 00790; 88304; J1885

== ENCOUNTER 2020-09-22 08:37 | Inpatient (IN) | payer MEDICAID ==
[2020-09-22] MEDS ORDERED: Sodium Chloride 0.9% 10 ML Syringe FLUSH PRN (08:50)
[2020-09-22] MEDS ORDERED: Sodium Chloride 0.9% 2.5 ML Syringe FLUSH PRN (08:50)
[2020-09-22] MEDS ORDERED: MVI, Adult with Vitamin K 10 ML, Thiamine 100 MG, Folic Acid 1 MG in Sodium Chloride 0.... IV ONE ×8 (09:00→09:15)
[2020-09-22] MEDS ORDERED: cefTRIAXone 1 GM in Premix Bag 1 BAG IV ONE (09:00)
[2020-09-22] MEDS ORDERED: Sodium Chloride 0.9% 1,000 ML IV ONE ×3 (09:02→14:52)
--- NOTE | 2020-09-22 09:05 | EDM.PDOC ---
ED HPI GENERAL MEDICAL PROBLEM - General Chief Complaint: Respiratory Problem Stated Complaint: COUGH Time Seen by Provider: 09/22/20 08:56 - History of Present Illness INITIAL COMMENTS - FREE TEXT/NARRATIVE: History of present illness: [] This patient is short of breath. For 2 days he has severe shortness of breath was epigastric pain. Its not worse pain with exertion but or shortness of breath until he cannot walk this morning because of it. He was supposed to see his doctor this morning but he was too short of breath to walk. He has not really improved with nebulized DuoNeb given by EMS in route driven by oxygen. H is saturation is 93% on the oxygen driven DuoNeb. He still working to breathe. The patient has had a oxygen saturation of 80% on room air when EMS arrived and that is dangerously low. The patient smokes 2 cigarettes a day and drinks half 1/5 of liquor every day. He considers himself alcohol dependent. The patient has epigastric pain that is increasing over 2 days. He has been vomiting 4 times a day or more for the last 4 days and he has black or dark vomitus. He has loose stool 4 or 5 times a day for the last 3 or 4 days but it is not black or melanotic or bloody. The patient has a past history of splenectomy secondary to trauma. He also has recent cholecystectomy. His urine is diminished and he is making dark urine. Review of systems: As per history of present illness and below otherwise all systems reviewed and negative. Past medical history: As per history of present illness and as reviewed below otherwise noncontributory. Surgical history: As per history of present illness and as reviewed below otherwise noncontributory. Social history: No reported history of drug or alcohol abuse. Family history: As per history of present illness and as reviewed below otherwise noncontributory. Physical exam: Constitutional - well developed, well-nourished and in no acute distress HEENT - normocephalic, no evidence of trauma - external nose and mouth normal - no mass in neck and no JVD - mucosae moist EYES - full EOM, PERRL, no icterus - no evidence of inflammation, injection, or drainage Respiratory -moderate respiratory distress, equal bilateral expansion, lungs minutes to auscultation. Cardiovascular - Regular Rhythm with S1 and S2 appreciated and no murmur, gallop or rub. GI - abdomen soft and distended and minimally tender in the epigastrium. There is a large healed incision in the anterior ventral surface and the small incisions from a laparoscopic cholecystectomy are healed as well.- normal bowel sounds - no guard or rebound Musculoskeletal no gross deformity of long bones or joints - no tenderness, swelling or edema Neurologic - Alert and oriented times four - CN II-XII grossly intact - motor sensory and coordination symmetrically normal Psychiatric - appropriate mood and affect with normal thought content Hematologic - No petechiae or purpura - mucosa appropriate color and sclera not pale - normal nail bed color and refill Integument - no rash or evidence of trauma - normal turgor Diagnostics: [] Therapeutics: [] Impression: [] Plan: [] Definitive disposition and diagnosis as appropriate pending reevaluation and review of above. - Related Data Allergies Allergy/AdvReac Type Severity Reaction Status Date / Time No Known Allergies Allergy Verified 09/22/20 08:52 Home Meds: Home Meds Omeprazole 1 tab PO ASDIRECTED 09/22/20 [History] traMADol [Ultram] 1 tab PO ASDIRECTED 09/22/20 [History] Past Medical History HEENT History: Reports: Other (See Below) Other HEENT History: wears glasses Cardiovascular History: Reports: Blood Clots/VTE/DVT Other Cardiovascular History: hx of DVT in right leg after knee surgery Respiratory History: Reports: Other (See Below) Other Respiratory History: clotting in lungs Gastrointestinal History: Reports: Other (See Below) Genitourinary History: Reports: Other (See Below) Other Genitourinary History: blood in urine, unknown reason Musculoskeletal History: Reports: Fracture Other Musculoskeletal History: hx of fx right knee, clavicle, arm and fingers Neurological History: Reports: None Psychiatric History: Reports: None Other Psychiatric History: hx ETOH withdrawl 09/17/19 Endocrine/Metabolic History: Reports: Obesity/BMI 30+ Hematologic History: Reports: Blood Transfusion(s) Other Hematologic History: hx blood transfusion with splenectomy Immunologic History: Reports: None Oncologic (Cancer) History: Reports: None Dermatologic History: Reports: None - Infectious Disease History Infectious Disease History: Reports: None - Past Surgical History Head Surgeries/Procedures: Reports: None HEENT Surgical History: Reports: Tonsillectomy Cardiovascular Surgical History: Reports: None Respiratory Surgical History: Reports: None GI Surgical History: Reports: Colonoscopy, EGD, Other (See Below) 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 tibia Oncologic Surgical History: Reports: None Dermatological Surgical History: Reports: None Social & Family History - Family History Family Medical History: No Pertinent Family History - Tobacco Use Tobacco Use Status *Q: Unknown Ever Used Tobacco - Caffeine Use Caffeine Use: Reports: None - Recreational Drug Use Recreational Drug Use: No ED ROS GENERAL - Review of Systems Review Of Systems: Comprehensive ROS is negative, except as noted in HPI. ED EXAM, GENERAL - Physical Exam Exam: See Below Free Text/Narrative:: My physical exam is in the HPI #1 Interpretation EKG Interpretation Comments: KG sinus tachycardia heart rate 127.. Her interval 128. QT duration 447 axis 79. There is baseline wander in V1 and V2 but there appears to be ST depression in those leads as well as some minimal ST changes in the inferior leads. Compared to 10/01/[address] changes are new. Impression there is possible anterior and anterior ischemia. Course - Vital Signs Text/Narrative:: Sepsis note-the patient's fluid bolus of 30/kg was based on an ideal body weight of 78 kg. 10:19 AM the patient has multiple systems involved in his illness. He has pneumonia. He has pancreatitis. He has newly discovered diabetes. The patient has a 88% sat on 5 L of nasal cannula. 11:01 AM blood sugar 432 after 2340 mL of fluid. See insulin orders. 11:11 AM the patient's lactate actually went up to 4.9 after the fluid. Discussed with Dr. Villanueva and because the patient's not acidotic he agreed to place [facility] and follow him closely. He will be admitted for pneumonia hypoxia newly discovered diabetes and pancreatitis. Last Recorded V/S: Last Vital Signs Temp 36.8 C 09/22/20 08:50 Pulse 124 H 09/22/20 10:18 Resp 20 09/22/20 10:18 BP 131/92 H 09/22/20 10:18 Pulse Ox 90 L 09/22/20 10:18 - Orders/Labs/Meds Orders: Active Orders 24 hr Category Date Time Status Blood Glucose Check, Bedside [RC] ONETIME Care 09/22/20 08:51 Active Blood Glucose Check, Bedside [] ONETIME Care 09/22/20 10:18 Active EKG Documentation Completion [] STAT Care 09/22/20 08:50 Active Oxygen Therapy, ED [] ASDIRECTED Care 09/22/20 08:50 Active RT Aerosol Therapy [] ASDIRECTED Care 09/22/20 10:21 Active RT Aerosol Therapy [] ASDIRECTED Care 09/22/20 10:32 Active CULTURE BLOOD [] Stat Lab 09/22/20 08:47 Received CULTURE BLOOD [] Stat Lab 09/22/20 08:48 Received REFLEX LACTIC ACID YES OR NO [CHEM] Routine Lab 09/22/20 09:21 Received Albuterol [Proventil] Med 09/22/20 11:00 Active 2.5 mg NEB QIDRT Azithromycin [Zithromax] 500 mg Med 09/22/20 10:15 Active Sodium Chloride 0.9% [Normal Saline (AdvBag)] 250 ml IV ONETIME Dextrose 50% in Water Med 09/22/20 11:00 Ordered 50 ml IV ASDIRECTED PRN Glucagon,Human Recombinant [GlucaGen] Med 09/22/20 11:00 Ordered 1 mg IM ASDIRECTED PRN Sodium Chloride 0.9% [Normal Saline] 500 ml Med 09/22/20 09:30 Active IV .BOLUS Sodium Chloride 0.9% [Saline Flush] Med 09/22/20 08:50 Active 10 ml FLUSH ASDIRECTED PRN Sodium Chloride 0.9% [Saline Flush] Med 09/22/20 08:50 Active 2.5 ml FLUSH ASDIRECTED PRN Blood Culture x2 Reflex Set [OM.PC] Stat Ot 09/22/20 08:51 Ordered Saline Lock Insert [OM.PC] Stat Ot 09/22/20 08:50 Ordered Medication Orders Albuterol (Albuterol 0.5% 2.5 Mg/0.5 Ml Neb Soln) 2.5 mg NEB QIDRT FIDE Dextrose/Water (50% Dextrose In Water 50 Ml Syringe) 50 ml IV ASDIRECTED PRN PRN Reason: Hypoglycemia Glucagon (Glucagon,Human Recombinant 1 Mg Vial) 1 mg IM ASDIRECTED PRN PRN Reason: Hypoglycemia Sodium Chloride (Normal Saline) 500 mls @ 999 mls/hr IV .BOLUS FIDE Last Admin: 09/22/20 10:02 Dose: 999 mls/hr Documented by: ELIZABETH Azithromycin 500 mg/ Sodium (Chloride) 250 mls @ 250 mls/hr IV ONETIME FIDE Last Admin: 09/22/20 10:55 Dose: 250 mls/hr Documented by: ELIZABETH Sodium Chloride (Sodium Chloride 0.9% 10 Ml Syringe) 10 ml FLUSH ASDIRECTED PRN PRN Reason: Keep Vein Open Last Admin: 09/22/20 09:22 Dose: 10 ml Documented by: ELIZABETH Sodium Chloride (Sodium Chloride 0.9% 2.5 Ml Syringe) 2.5 ml FLUSH ASDIRECTED PRN PRN Reason: Keep Vein Open Last Admin: 09/22/20 09:21 Dose: 2.5 ml Documented by: ELIZABETH Labs: Laboratory Tests 09/22/20 09/22/20 09/22/20 Range/Units 08:48 08:48 08:48 WBC 17.78 H (4.0-11.0) K/uL RBC 4.42 L (4.50-5.90) M/uL Hgb 15.3 (13.0-17.0) g/dL Hct 43.1 (38.0-50.0) % MCV 97.5 (80.0-98.0) fL MCH 34.6 H (27.0-32.0) pg MCHC 35.5 (31.0-37.0) g/dL RDW Std Deviation 52.2 (28.0-62.0) fl RDW Coeff of Julissa 15 (11.0-15.0) % Plt Count 80 L (150-400) K/uL MPV 13.40 H (7.40-12.00) fL Neut % (Auto) 73.8 (48.0-80.0) % Lymph % (Auto) 9.2 L (16.0-40.0) % Whitley % (Auto) 16.8 H (0.0-15.0) % Eos % (Auto) 0.0 (0.0-7.0) % Baso % (Auto) 0.2 (0.0-1.5) % Neut # (Auto) 13.1 H (1.4-5.7) K/uL Lymph # (Auto) 1.6 (0.6-2.4) K/uL Whitley # (Auto) 3.0 H (0.0-0.8) K/uL Eos # (Auto) 0.0 (0.0-0.7) K/uL Baso # (Auto) 0.0 (0.0-0.1) K/uL Nucleated RBC % 0.2 /100WBC Nucleated RBCs # 0 K/uL Sodium 133 L (136-148) mmol/L Potassium 4.0 (3.5-5.1) mmol/L Chloride 93 L (98-107) mmol/L Carbon Dioxide 23.9 (21.0-32.0) mmol/L BUN 23 H (7.0-18.0) mg/dL Creatinine 1.0 (0.8-1.3) mg/dL Est Cr Clr Drug Dosing 94.84 mL/min Estimated GFR (MDRD) > 60.0 ml/min Glucose 476 H (74-106) mg/dL Lactic Acid 4.7 H* (0.4-2.0) mmol/L Calcium 8.9 (8.5-10.1) mg/dL Total Bilirubin 1.2 H (0.2-1.0) mg/dL AST 105 H (15-37) IU/L ALT 71 H (14-63) IU/L Alkaline Phosphatase 136 H (46-116) U/L Troponin I (0.000-0.056) ng/mL Total Protein 7.9 (6.4-8.2) g/dL Albumin 2.8 L (3.4-5.0) g/dL Globulin 5.1 H (2.6-4.0) g/dL Albumin/Globulin Ratio 0.6 L (0.9-1.6) Lipase (73-393) U/L Urine Color Urine Appearance Urine pH (5.0-8.0) Ur Specific [place] (1.001-1.035) Urine Protein (NEGATIVE) mg/dL Urine Glucose (UA) (NEGATIVE) mg/dL Urine Ketones (NEGATIVE) mg/dL Urine Occult Blood (NEGATIVE) Urine Nitrite (NEGATIVE) Urine Bilirubin (NEGATIVE) Urine Urobilinogen (<2.0) EU/dL Ur Leukocyte Esterase (NEGATIVE) Urine RBC (0-2/HPF) Urine WBC (0-5/HPF) Ur Epithelial Cells (NONE-FEW) Urine Bacteria (NEGATIVE) Urine Mucus (NONE-MOD) Influenza Type A RNA (NEGATIVE) Influenza Type B RNA (NEGATIVE) SARS-CoV-2 RNA (THAI) (NEGATIVE) 09/22/20 09/22/20 09/22/20 Range/Units 08:48 08:48 08:54 WBC (4.0-11.0) K/uL RBC (4.50-5.90) M/uL Hgb (13.0-17.0) g/dL Hct (38.0-50.0) % MCV (80.0-98.0) fL MCH (27.0-32.0) pg MCHC (31.0-37.0) g/dL RDW Std Deviation (28.0-62.0) fl RDW Coeff of Julissa (11.0-15.0) % Plt Count (150-400) K/uL MPV (7.40-12.00) fL Neut % (Auto) (48.0-80.0) % Lymph % (Auto) (16.0-40.0) % Whitley % (Auto) (0.0-15.0) % Eos % (Auto) (0.0-7.0) % Baso % (Auto) (0.0-1.5) % Neut # (Auto) (1.4-5.7) K/uL Lymph # (Auto) (0.6-2.4) K/uL Whitley # (Auto) (0.0-0.8) K/uL Eos # (Auto) (0.0-0.7) K/uL Baso # (Auto) (0.0-0.1) K/uL Nucleated RBC % /100WBC Nucleated RBCs # K/uL Sodium (136-148) mmol/L Potassium (3.5-5.1) mmol/L Chloride (98-107) mmol/L Carbon Dioxide (21.0-32.0) mmol/L BUN (7.0-18.0) mg/dL Creatinine (0.8-1.3) mg/dL Est Cr Clr Drug Dosing mL/min Estimated GFR (MDRD) ml/min Glucose (74-106) mg/dL Lactic Acid (0.4-2.0) mmol/L Calcium (8.5-10.1) mg/dL Total Bilirubin (0.2-1.0) mg/dL AST (15-37) IU/L ALT (14-63) IU/L Alkaline Phosphatase (46-116) U/L Troponin I < 0.050 (0.000-0.056) ng/mL Total Protein (6.4-8.2) g/dL Albumin (3.4-5.0) g/dL Globulin (2.6-4.0) g/dL Albumin/Globulin Ratio (0.9-1.6) Lipase 530 H (73-393) U/L Urine Color Urine Appearance Urine pH (5.0-8.0) Ur Specific [place] (1.001-1.035) Urine Protein (NEGATIVE) mg/dL Urine Glucose (UA) (NEGATIVE) mg/dL Urine Ketones (NEGATIVE) mg/dL Urine Occult Blood (NEGATIVE) Urine Nitrite (NEGATIVE) Urine Bilirubin (NEGATIVE) Urine Urobilinogen (<2.0) EU/dL Ur Leukocyte Esterase (NEGATIVE) Urine RBC (0-2/HPF) Urine WBC (0-5/HPF) Ur Epithelial Cells (NONE-FEW) Urine Bacteria (NEGATIVE) Urine Mucus (NONE-MOD) Influenza Type A RNA NEGATIVE (NEGATIVE) Influenza Type B RNA NEGATIVE (NEGATIVE) SARS-CoV-2 RNA (THAI) NEGATIVE (NEGATIVE) 09/22/20 09/22/20 09/22/20 Range/Units 09:49 10:28 10:28 WBC (4.0-11.0) K/uL RBC (4.50-5.90) M/uL Hgb (13.0-17.0) g/dL Hct (38.0-50.0) % MCV (80.0-98.0) fL MCH (27.0-32.0) pg MCHC (31.0-37.0) g/dL RDW Std Deviation (28.0-62.0) fl RDW Coeff of Julissa (11.0-15.0) % Plt Count (150-400) K/uL MPV (7.40-12.00) fL Neut % (Auto) (48.0-80.0) % Lymph % (Auto) (16.0-40.0) % Whitley % (Auto) (0.0-15.0) % Eos % (Auto) (0.0-7.0) % Baso % (Auto) (0.0-1.5) % Neut # (Auto) (1.4-5.7) K/uL Lymph # (Auto) (0.6-2.4) K/uL Whitley # (Auto) (0.0-0.8) K/uL Eos # (Auto) (0.0-0.7) K/uL Baso # (Auto) (0.0-0.1) K/uL Nucleated RBC % /100WBC Nucleated RBCs # K/uL Sodium (136-148) mmol/L Potassium (3.5-5.1) mmol/L Chloride (98-107) mmol/L Carbon Dioxide (21.0-32.0) mmol/L BUN (7.0-18.0) mg/dL Creatinine (0.8-1.3) mg/dL Est Cr Clr Drug Dosing mL/min Estimated GFR (MDRD) ml/min Glucose 432 H (74-106) mg/dL Lactic Acid 4.9 H* (0.4-2.0) mmol/L Calcium (8.5-10.1) mg/dL Total Bilirubin (0.2-1.0) mg/dL AST (15-37) IU/L ALT (14-63) IU/L Alkaline Phosphatase (46-116) U/L Troponin I (0.000-0.056) ng/mL Total Protein (6.4-8.2) g/dL Albumin (3.4-5.0) g/dL Globulin (2.6-4.0) g/dL Albumin/Globulin Ratio (0.9-1.6) Lipase (73-393) U/L Urine Color YELLOW Urine Appearance CLEAR Urine pH 6.0 (5.0-8.0) Ur Specific [place] 1.015 (1.001-1.035) Urine Protein 100 H (NEGATIVE) mg/dL Urine Glucose (UA) >=1000 (NEGATIVE) mg/dL Urine Ketones 15 H (NEGATIVE) mg/dL Urine Occult Blood LARGE H (NEGATIVE) Urine Nitrite NEGATIVE (NEGATIVE) Urine Bilirubin NEGATIVE (NEGATIVE) Urine Urobilinogen 1.0 (<2.0) EU/dL Ur Leukocyte Esterase NEGATIVE (NEGATIVE) Urine RBC NONE SEEN (0-2/HPF) Urine WBC 0-1 (0-5/HPF) Ur Epithelial Cells RARE (NONE-FEW) Urine Bacteria FEW (NEGATIVE) Urine Mucus LIGHT (NONE-MOD) Influenza Type A RNA (NEGATIVE) Influenza Type B RNA (NEGATIVE) SARS-CoV-2 RNA (THAI) (NEGATIVE) Meds: Medications Generic Name Dose Route Start Last Admin Trade Name Ghulam PRN Reason Stop Dose Admin Albuterol 2.5 mg 09/22/20 11:00 Albuterol 0.5% 2.5 Mg/0.5 Ml Neb Soln NEB QIDRT FIDE Dextrose/Water 50 ml 09/22/20 11:00 50% Dextrose In Water 50 Ml Syringe IV ASDIRECTED PRN Hypoglycemia Glucagon 1 mg 09/22/20 11:00 Glucagon,Human Recombinant 1 Mg Vial IM ASDIRECTED PRN Hypoglycemia Sodium Chloride 500 mls @ 999 mls/hr 09/22/20 09:30 09/22/20 10:02 Normal Saline IV 999 mls/hr .BOLUS FIDE Administration Azithromycin 500 mg/ Sodium 250 mls @ 250 mls/hr 09/22/20 10:15 09/22/20 10:55 Chloride IV 250 mls/hr ONETIME FIDE Administration Sodium Chloride 10 ml 09/22/20 08:50 09/22/20 09:22 Sodium Chloride 0.9% 10 Ml Syringe FLUSH 10 ml ASDIRECTED PRN Administration Keep Vein Open Sodium Chloride 2.5 ml 09/22/20 08:50 09/22/20 09:21 Sodium Chloride 0.9% 2.5 Ml Syringe FLUSH 2.5 ml ASDIRECTED PRN Administration Keep Vein Open Discontinued Medications Generic Name Dose Route Start Last Admin Trade Name Ghulam PRN Reason Stop Dose Admin Albuterol 10 mg 09/22/20 10:20 Albuterol 0.5% 5 Mg/Ml Neb Soln 20 Ml Bottle NEB 09/22/20 10:21 ONETIME ONE Albuterol 2.5 mg 09/22/20 10:31 09/22/20 10:39 Albuterol 0.083% 2.5 Mg/3 Ml Neb Soln NEB 09/22/20 10:32 2.5 mg ONETIME ONE Administration Ceftriaxone Sodium/Dextrose 1 50 mls @ 100 mls/hr 09/22/20 09:00 09/22/20 09:21 gm/ Premix IV 09/22/20 09:29 100 mls/hr ONETIME ONE Administration Multivitamins/Minerals 10 ml/ 1,011.2 mls @ 1,000 mls/hr 09/22/20 09:00 09/22/20 09:36 Thiamine HCl 100 mg/ Folic IV 09/22/20 10:00 Not Given Acid 1 mg/ Sodium Chloride ONETIME ONE Sodium Chloride 1,000 mls @ 1,000 mls/hr 09/22/20 09:02 09/22/20 09:21 Normal Saline IV 09/22/20 10:01 1,000 mls/hr .Bolus ONE Administration Multivitamins/Minerals 10 ml/ 1,011.2 mls @ 1,000 mls/hr 09/22/20 09:15 09/22/20 09:24 Thiamine HCl 100 mg/ Folic IV 09/22/20 10:15 1,000 mls/hr Acid 1 mg/ Sodium Chloride ONETIME ONE Administration Pantoprazole Sodium 40 mg/ 20 mls @ 420 mls/hr 09/22/20 10:18 09/22/20 10:25 Sodium Chloride IVPUSH 09/22/20 10:20 420 mls/hr ONETIME ONE Administration Insulin Human Regular 15 unit 09/22/20 11:00 Insulin Regular, Human 100 Units/Ml 10 Ml Vial IVPUSH 09/22/20 11:01 ONETIME ONE Protocol Metoclopramide HCl 10 mg 09/22/20 10:17 09/22/20 10:25 Metoclopramide 10 Mg/2 Ml Sdv IVPUSH 09/22/20 10:18 10 mg ONETIME ONE Administration Departure - Departure Time of Disposition: 11:13 Disposition: Admitted As Inpatient 64 Condition: Fair Clinical Impression: Right lower lobe pneumonia, Hypoxia, Alcohol dependence, Pancreatitis, New onset type 2 diabetes mellitus, Elevated lactic acid level - Discharge Information Referrals: David Hunter MD [Primary Care Provider] - Forms: ED Department Discharge Sepsis Event Note (ED) - Evaluation Sepsis Screening Result: Possible Sepsis Risk - Focused Exam Vital Signs: Vital Signs Temp Pulse Resp BP Pulse Ox 09/22/20 10:18 124 H 20 131/92 H 90 L 09/22/20 10:02 129 H 20 127/85 94 L 09/22/20 09:47 120 H 22 H 127/75 94 L 09/22/20 09:33 132 H 22 H 142/109 H 94 L 09/22/20 09:17 129 H 24 H 144/93 H 93 L 09/22/20 09:02 124 H 24 H 150/93 H 93 L 09/22/20 08:50 36.8 C 135 H 26 H 141/85 H 96 - My Orders Last 24 Hours: My Active Orders 09/22/20 08:47 CULTURE BLOOD [BC] Stat 09/22/20 08:48 CULTURE BLOOD [BC] Stat 09/22/20 08:50 EKG Documentation Completion [RC] STAT Oxygen Therapy, ED [RC] ASDIRECTED Sodium Chloride 0.9% [Saline Flush] 10 ml FLUSH ASDIRECTED PRN Sodium Chloride 0.9% [Saline Flush] 2.5 ml FLUSH ASDIRECTED PRN Saline Lock Insert [OM.PC] Stat 09/22/20 08:51 Blood Glucose Check, Bedside [RC] ONETIME Blood Culture x2 Reflex Set [OM.PC] Stat 09/22/20 09:21 REFLEX LACTIC ACID YES OR NO [CHEM] Routine 09/22/20 09:30 Sodium Chloride 0.9% [Normal Saline] 500 ml IV .BOLUS 09/22/20 10:15 Azithromycin [Zithromax] 500 mg Sodium Chloride 0.9% [Normal Saline (AdvBag)] 250 ml IV ONETIME 09/22/20 10:18 Blood Glucose Check, Bedside [RC] ONETIME 09/22/20 10:21 RT Aerosol Therapy [RC] ASDIRECTED 09/22/20 10:32 RT Aerosol Therapy [RC] ASDIRECTED 09/22/20 11:00 Albuterol [Proventil] 2.5 mg NEB QIDRT Dextrose 50% in Water 50 ml IV ASDIRECTED PRN Glucagon,Human Recombinant [GlucaGen] 1 mg IM ASDIRECTED PRN - Assessment/Plan Last 24 Hours: My Active Orders 09/22/20 08:47 CULTURE BLOOD [BC] Stat 09/22/20 08:48 CULTURE BLOOD [BC] Stat 09/22/20 08:50 EKG Documentation Completion [RC] STAT Oxygen Therapy, ED [RC] ASDIRECTED Sodium Chloride 0.9% [Saline Flush] 10 ml FLUSH ASDIRECTED PRN Sodium Chloride 0.9% [Saline Flush] 2.5 ml FLUSH ASDIRECTED PRN Saline Lock Insert [OM.PC] Stat 09/22/20 08:51 Blood Glucose Check, Bedside [RC] ONETIME Blood Culture x2 Reflex Set [OM.PC] Stat 09/22/20 09:21 REFLEX LACTIC ACID YES OR NO [CHEM] Routine 09/22/20 09:30 Sodium Chloride 0.9% [Normal Saline] 500 ml IV .BOLUS 09/22/20 10:15 Azithromycin [Zithromax] 500 mg Sodium Chloride 0.9% [Normal Saline (AdvBag)] 250 ml IV ONETIME 09/22/20 10:18 Blood Glucose Check, Bedside [RC] ONETIME 09/22/20 10:21 RT Aerosol Therapy [RC] ASDIRECTED 09/22/20 10:32 RT Aerosol Therapy [RC] ASDIRECTED 09/22/20 11:00 Albuterol [Proventil] 2.5 mg NEB QIDRT Dextrose 50% in Water 50 ml IV ASDIRECTED PRN Glucagon,Human Recombinant [GlucaGen] 1 mg IM ASDIRECTED PRN
[2020-09-22 09:23] LABS: BLOOD UREA NITROGEN,BUN 23 mg/dL (7.0-18.0); CARBON DIOXIDE,CO2 23.9 mmol/L (21.0-32.0); CHLORIDE,CL 93 mmol/L (98-107); GLUCOSE RANDOM 476 mg/dL (74-106); SODIUM,NA 133 mmol/L (136-148)
[2020-09-22] MEDS ORDERED: Sodium Chloride 0.9% 500 ML IV SCH (09:30)
--- NOTE | 2020-09-22 09:32 | CR ---
For Patients: As a result of the Cures Act, medical imaging exams and procedure reports are released immediately into your electronic medical record. You may view this report before your referring provider. If you have questions, please contact your health care provider. INDICATION: Dyspnea, cough TECHNIQUE: Chest 2 views. COMPARISON: 09/28/2019 FINDINGS: The heart size and central vascular pattern remain stable and within the normal range. No pleural effusions are evident. There are mild patchy infiltrates/atelectasis identified in the right mid and right lower lung. Mild scarring is suspected laterally at the left lung base with no definite left lung infiltrate. Atherosclerotic calcifications are identified in the aortic arch. An old healed midshaft left clavicular fracture is present. IMPRESSION: Mild right mid and lower lung infiltrates/pneumonia. Dictated by Ramiro Dyson MD @ 09/22/2020 9:32:[address] Ramiro Dyson @ Sep 22 2020 9:32AM
[2020-09-22 09:40] LABS: CORONAVIRUS COVID-19 NAA NEGATIVE (NEGATIVE); INFLUENZA A NAA NEGATIVE (NEGATIVE); INFLUENZA B NAA NEGATIVE (NEGATIVE)
[2020-09-22] MEDS ORDERED: Azithromycin 500 MG in Sodium Chloride 0.9% 250 ML IV SCH (10:15)
[2020-09-22] MEDS ORDERED: Metoclopramide 10 MG/2 ML SDV IVPUSH ONE (10:17)
[2020-09-22] MEDS ORDERED: Pantoprazole 40 MG in Sodium Chloride 0.9% 20 ML IVPUSH ONE (10:18)
[2020-09-22] MEDS ORDERED: Albuterol 0.5% 5 MG/ML Neb Soln 20 ML Bottle NEB ONE (10:20)
[2020-09-22] MEDS: Albuterol 0.083% 2.5 MG/3 ML Neb Soln NEB ONE ×2 (10:38→10:39)
[2020-09-22] MEDS ORDERED: Glucagon,Human Recombinant 1 MG Vial IM PRN (11:00)
[2020-09-22] MEDS ORDERED: Insulin Regular, Human 100 Units/ML 10 ML Vial IVPUSH ONE (11:00)
[2020-09-22] MEDS ORDERED: 50% Dextrose in Water 50 ML Syringe IV PRN (11:00)
[2020-09-22] MEDS ORDERED: LORazepam 2 MG/ML SDV IVPUSH ONE ×2 (11:40→13:50)
[2020-09-22] MEDS ORDERED: chlordiazePOXIDE 10 MG Cap PO ONE (11:40)
[2020-09-22] MEDS: Albuterol 0.5% 2.5 MG/0.5 ML Neb Soln NEB SCH ×2 (12:56→17:33)
[2020-09-22] MEDS ORDERED: chlordiazePOXIDE 25 MG Cap PO ONE (13:50)
--- NOTE | 2020-09-22 14:33 | PCM.HP.2 ---
H&P History of Present Illness - General Date of Service: 09/22/20 Admit Problem/Dx: Admission Diagnosis/Problem Admission Diagnosis/Problem Hypoxia - History of Present Illness Initial Comments - Free Text/Narative: 50 yo male with pmh of ETOH abuse, pancreatitis, s/p cholecystectomy who presented to the ED with complaints of abdominal pain, nausea and vomiting. Patient reports he has been trying to quit drinking but has difficulty with shakes and withdrawal symptoms. He does report a nonproductive cough. He denies any shortness of breath, fevers, or chest pain. - Related Data Allergies/Adverse Reactions: Allergies Allergy/AdvReac Type Severity Reaction Status Date / Time No Known Allergies Allergy Verified 09/23/20 02:55 Home Medications: Home Meds Omeprazole 1 tab PO DAILY 09/22/20 [History] traZODone HCl [Trazodone HCl] 1 tab PO BEDTIME 09/23/20 [History] Past Medical History HEENT History: Reports: Other (See Below) Other HEENT History: wears glasses Cardiovascular History: Reports: Blood Clots/VTE/DVT Other Cardiovascular History: hx of DVT in right leg after knee surgery Respiratory History: Reports: Other (See Below) Other Respiratory History: clotting in lungs Gastrointestinal History: Reports: Other (See Below) Genitourinary History: Reports: Other (See Below) Other Genitourinary History: blood in urine, unknown reason Musculoskeletal History: Reports: Fracture Other Musculoskeletal History: hx of fx right knee, clavicle, arm and fingers Neurological History: Reports: None Psychiatric History: Reports: None Other Psychiatric History: hx ETOH withdrawl 09/17/19 Endocrine/Metabolic History: Reports: Obesity/BMI 30+ Hematologic History: Reports: Blood Transfusion(s) Other Hematologic History: hx blood transfusion with splenectomy Immunologic History: Reports: None Oncologic (Cancer) History: Reports: None Dermatologic History: Reports: None - Infectious Disease History Infectious Disease History: Reports: None - Past Surgical History Head Surgeries/Procedures: Reports: None HEENT Surgical History: Reports: Tonsillectomy Cardiovascular Surgical History: Reports: None Respiratory Surgical History: Reports: None GI Surgical History: Reports: Colonoscopy, EGD, Other (See Below) 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 tibia Oncologic Surgical History: Reports: None Dermatological Surgical History: Reports: None Social & Family History - Family History Family Medical History: No Pertinent Family History - Tobacco Use Tobacco Use Status *Q: Unknown Ever Used Tobacco - Caffeine Use Caffeine Use: Reports: None - Recreational Drug Use Recreational Drug Use: No H&P Review of Systems - Review of Systems: Review Of Systems: Comprehensive ROS is negative, except as noted in HPI. Exam - Exam Exam: See Below - Vital Signs Vital Signs: Last Vital Signs Temp 36.8 C 09/22/20 08:50 Pulse 138 H 09/22/20 14:01 Resp 20 09/22/20 14:01 BP 125/83 09/22/20 14:01 Pulse Ox 92 L 09/22/20 14:01 Weight: 102.058 kg - Exam General: Alert, Cooperative, Other (diaphoritic). No: Mild Distress HEENT: Mucosa Moist & [place] Neck: Supple Lungs: Clear to Auscultation, Normal Respiratory Effort Cardiovascular: Regular Rate, Regular Rhythm GI/Abdominal Exam: Normal Bowel Sounds, Soft, Non-Tender Extremities: Non-Tender, No Pedal Edema Skin: Warm, Intact, Moist Neurological: Cranial Nerves Intact. No: Focal Deficit - Patient Data Lab Results Last 24 hrs: Laboratory Results - last 24 hr 09/22/20 09/22/20 09/22/20 Range/Units 08:48 08:48 08:48 WBC 17.78 H (4.0-11.0) K/uL RBC 4.42 L (4.50-5.90) M/uL Hgb 15.3 (13.0-17.0) g/dL Hct 43.1 (38.0-50.0) % MCV 97.5 (80.0-98.0) fL MCH 34.6 H (27.0-32.0) pg MCHC 35.5 (31.0-37.0) g/dL RDW Std Deviation 52.2 (28.0-62.0) fl RDW Coeff of Julissa 15 (11.0-15.0) % Plt Count 80 L (150-400) K/uL MPV 13.40 H (7.40-12.00) fL Neut % (Auto) 73.8 (48.0-80.0) % Lymph % (Auto) 9.2 L (16.0-40.0) % Morris % (Auto) 16.8 H (0.0-15.0) % Eos % (Auto) 0.0 (0.0-7.0) % Baso % (Auto) 0.2 (0.0-1.5) % Neut # (Auto) 13.1 H (1.4-5.7) K/uL Lymph # (Auto) 1.6 (0.6-2.4) K/uL Morris # (Auto) 3.0 H (0.0-0.8) K/uL Eos # (Auto) 0.0 (0.0-0.7) K/uL Baso # (Auto) 0.0 (0.0-0.1) K/uL Nucleated RBC % 0.2 /100WBC Nucleated RBCs # 0 K/uL Sodium 133 L (136-148) mmol/L Potassium 4.0 (3.5-5.1) mmol/L Chloride 93 L (98-107) mmol/L Carbon Dioxide 23.9 (21.0-32.0) mmol/L BUN 23 H (7.0-18.0) mg/dL Creatinine 1.0 (0.8-1.3) mg/dL Est Cr Clr Drug Dosing 94.84 mL/min Estimated GFR (MDRD) > 60.0 ml/min Glucose 476 H (74-106) mg/dL POC Glucose (70-99) mg/dL Lactic Acid 4.7 H* (0.4-2.0) mmol/L Calcium 8.9 (8.5-10.1) mg/dL Total Bilirubin 1.2 H (0.2-1.0) mg/dL AST 105 H (15-37) IU/L ALT 71 H (14-63) IU/L Alkaline Phosphatase 136 H (46-116) U/L Troponin I (0.000-0.056) ng/mL Total Protein 7.9 (6.4-8.2) g/dL Albumin 2.8 L (3.4-5.0) g/dL Globulin 5.1 H (2.6-4.0) g/dL Albumin/Globulin Ratio 0.6 L (0.9-1.6) Lipase (73-393) U/L Urine Color Urine Appearance Urine pH (5.0-8.0) Ur Specific [place] (1.001-1.035) Urine Protein (NEGATIVE) mg/dL Urine Glucose (UA) (NEGATIVE) mg/dL Urine Ketones (NEGATIVE) mg/dL Urine Occult Blood (NEGATIVE) Urine Nitrite (NEGATIVE) Urine Bilirubin (NEGATIVE) Urine Urobilinogen (<2.0) EU/dL Ur Leukocyte Esterase (NEGATIVE) Urine RBC (0-2/HPF) Urine WBC (0-5/HPF) Ur Epithelial Cells (NONE-FEW) Urine Bacteria (NEGATIVE) Urine Mucus (NONE-MOD) Ethyl Alcohol mg/dL Influenza Type A RNA (NEGATIVE) Influenza Type B RNA (NEGATIVE) SARS-CoV-2 RNA (THAI) (NEGATIVE) 09/22/20 09/22/20 09/22/20 Range/Units 08:48 08:48 08:54 WBC (4.0-11.0) K/uL RBC (4.50-5.90) M/uL Hgb (13.0-17.0) g/dL Hct (38.0-50.0) % MCV (80.0-98.0) fL MCH (27.0-32.0) pg MCHC (31.0-37.0) g/dL RDW Std Deviation (28.0-62.0) fl RDW Coeff of Julissa (11.0-15.0) % Plt Count (150-400) K/uL MPV (7.40-12.00) fL Neut % (Auto) (48.0-80.0) % Lymph % (Auto) (16.0-40.0) % Morris % (Auto) (0.0-15.0) % Eos % (Auto) (0.0-7.0) % Baso % (Auto) (0.0-1.5) % Neut # (Auto) (1.4-5.7) K/uL Lymph # (Auto) (0.6-2.4) K/uL Morris # (Auto) (0.0-0.8) K/uL Eos # (Auto) (0.0-0.7) K/uL Baso # (Auto) (0.0-0.1) K/uL Nucleated RBC % /100WBC Nucleated RBCs # K/uL Sodium (136-148) mmol/L Potassium (3.5-5.1) mmol/L Chloride (98-107) mmol/L Carbon Dioxide (21.0-32.0) mmol/L BUN (7.0-18.0) mg/dL Creatinine (0.8-1.3) mg/dL Est Cr Clr Drug Dosing mL/min Estimated GFR (MDRD) ml/min Glucose (74-106) mg/dL POC Glucose (70-99) mg/dL Lactic Acid (0.4-2.0) mmol/L Calcium (8.5-10.1) mg/dL Total Bilirubin (0.2-1.0) mg/dL AST (15-37) IU/L ALT (14-63) IU/L Alkaline Phosphatase (46-116) U/L Troponin I < 0.050 (0.000-0.056) ng/mL Total Protein (6.4-8.2) g/dL Albumin (3.4-5.0) g/dL Globulin (2.6-4.0) g/dL Albumin/Globulin Ratio (0.9-1.6) Lipase 530 H (73-393) U/L Urine Color Urine Appearance Urine pH (5.0-8.0) Ur Specific [place] (1.001-1.035) Urine Protein (NEGATIVE) mg/dL Urine Glucose (UA) (NEGATIVE) mg/dL Urine Ketones (NEGATIVE) mg/dL Urine Occult Blood (NEGATIVE) Urine Nitrite (NEGATIVE) Urine Bilirubin (NEGATIVE) Urine Urobilinogen (<2.0) EU/dL Ur Leukocyte Esterase (NEGATIVE) Urine RBC (0-2/HPF) Urine WBC (0-5/HPF) Ur Epithelial Cells (NONE-FEW) Urine Bacteria (NEGATIVE) Urine Mucus (NONE-MOD) Ethyl Alcohol mg/dL Influenza Type A RNA NEGATIVE (NEGATIVE) Influenza Type B RNA NEGATIVE (NEGATIVE) SARS-CoV-2 RNA (THAI) NEGATIVE (NEGATIVE) 09/22/20 09/22/20 09/22/20 Range/Units 09:49 10:28 10:28 WBC (4.0-11.0) K/uL RBC (4.50-5.90) M/uL Hgb (13.0-17.0) g/dL Hct (38.0-50.0) % MCV (80.0-98.0) fL MCH (27.0-32.0) pg MCHC (31.0-37.0) g/dL RDW Std Deviation (28.0-62.0) fl RDW Coeff of Julissa (11.0-15.0) % Plt Count (150-400) K/uL MPV (7.40-12.00) fL Neut % (Auto) (48.0-80.0) % Lymph % (Auto) (16.0-40.0) % Morris % (Auto) (0.0-15.0) % Eos % (Auto) (0.0-7.0) % Baso % (Auto) (0.0-1.5) % Neut # (Auto) (1.4-5.7) K/uL Lymph # (Auto) (0.6-2.4) K/uL Morris # (Auto) (0.0-0.8) K/uL Eos # (Auto) (0.0-0.7) K/uL Baso # (Auto) (0.0-0.1) K/uL Nucleated RBC % /100WBC Nucleated RBCs # K/uL Sodium (136-148) mmol/L Potassium (3.5-5.1) mmol/L Chloride (98-107) mmol/L Carbon Dioxide (21.0-32.0) mmol/L BUN (7.0-18.0) mg/dL Creatinine (0.8-1.3) mg/dL Est Cr Clr Drug Dosing mL/min Estimated GFR (MDRD) ml/min Glucose 432 H (74-106) mg/dL POC Glucose (70-99) mg/dL Lactic Acid 4.9 H* (0.4-2.0) mmol/L Calcium (8.5-10.1) mg/dL Total Bilirubin (0.2-1.0) mg/dL AST (15-37) IU/L ALT (14-63) IU/L Alkaline Phosphatase (46-116) U/L Troponin I (0.000-0.056) ng/mL Total Protein (6.4-8.2) g/dL Albumin (3.4-5.0) g/dL Globulin (2.6-4.0) g/dL Albumin/Globulin Ratio (0.9-1.6) Lipase (73-393) U/L Urine Color YELLOW Urine Appearance CLEAR Urine pH 6.0 (5.0-8.0) Ur Specific [place] 1.015 (1.001-1.035) Urine Protein 100 H (NEGATIVE) mg/dL Urine Glucose (UA) >=1000 (NEGATIVE) mg/dL Urine Ketones 15 H (NEGATIVE) mg/dL Urine Occult Blood LARGE H (NEGATIVE) Urine Nitrite NEGATIVE (NEGATIVE) Urine Bilirubin NEGATIVE (NEGATIVE) Urine Urobilinogen 1.0 (<2.0) EU/dL Ur Leukocyte Esterase NEGATIVE (NEGATIVE) Urine RBC NONE SEEN (0-2/HPF) Urine WBC 0-1 (0-5/HPF) Ur Epithelial Cells RARE (NONE-FEW) Urine Bacteria FEW (NEGATIVE) Urine Mucus LIGHT (NONE-MOD) Ethyl Alcohol mg/dL Influenza Type A RNA (NEGATIVE) Influenza Type B RNA (NEGATIVE) SARS-CoV-2 RNA (THAI) (NEGATIVE) 09/22/20 09/22/20 09/22/20 Range/Units 12:43 13:35 13:35 WBC (4.0-11.0) K/uL RBC (4.50-5.90) M/uL Hgb (13.0-17.0) g/dL Hct (38.0-50.0) % MCV (80.0-98.0) fL MCH (27.0-32.0) pg MCHC (31.0-37.0) g/dL RDW Std Deviation (28.0-62.0) fl RDW Coeff of Julissa (11.0-15.0) % Plt Count (150-400) K/uL MPV (7.40-12.00) fL Neut % (Auto) (48.0-80.0) % Lymph % (Auto) (16.0-40.0) % Morris % (Auto) (0.0-15.0) % Eos % (Auto) (0.0-7.0) % Baso % (Auto) (0.0-1.5) % Neut # (Auto) (1.4-5.7) K/uL Lymph # (Auto) (0.6-2.4) K/uL [place] # (Auto) (0.0-0.8) K/uL Eos # (Auto) (0.0-0.7) K/uL Baso # (Auto) (0.0-0.1) K/uL Nucleated RBC % /100WBC Nucleated RBCs # K/uL Sodium (136-148) mmol/L Potassium (3.5-5.1) mmol/L Chloride (98-107) mmol/L Carbon Dioxide (21.0-32.0) mmol/L BUN (7.0-18.0) mg/dL Creatinine (0.8-1.3) mg/dL Est Cr Clr Drug Dosing mL/min Estimated GFR (MDRD) ml/min Glucose (74-106) mg/dL POC Glucose 364 H (70-99) mg/dL Lactic Acid 5.3 H* (0.4-2.0) mmol/L Calcium (8.5-10.1) mg/dL Total Bilirubin (0.2-1.0) mg/dL AST (15-37) IU/L ALT (14-63) IU/L Alkaline Phosphatase (46-116) U/L Troponin I (0.000-0.056) ng/mL Total Protein (6.4-8.2) g/dL Albumin (3.4-5.0) g/dL Globulin (2.6-4.0) g/dL Albumin/Globulin Ratio (0.9-1.6) Lipase (73-393) U/L Urine Color Urine Appearance Urine pH (5.0-8.0) Ur Specific [place] (1.001-1.035) Urine Protein (NEGATIVE) mg/dL Urine Glucose (UA) (NEGATIVE) mg/dL Urine Ketones (NEGATIVE) mg/dL Urine Occult Blood (NEGATIVE) Urine Nitrite (NEGATIVE) Urine Bilirubin (NEGATIVE) Urine Urobilinogen (<2.0) EU/dL Ur Leukocyte Esterase (NEGATIVE) Urine RBC (0-2/HPF) Urine WBC (0-5/HPF) Ur Epithelial Cells (NONE-FEW) Urine Bacteria (NEGATIVE) Urine Mucus (NONE-MOD) Ethyl Alcohol 192 mg/dL Influenza Type A RNA (NEGATIVE) Influenza Type B RNA (NEGATIVE) SARS-CoV-2 RNA (THAI) (NEGATIVE) Result Diagrams: 09/25/20 05:03 09/25/20 05:03 Sepsis Event Note - Evaluation Sepsis Screening Result: Possible Sepsis Risk - Focused Exam Vital Signs: Vital Signs Temp Pulse Resp BP Pulse Ox 09/22/20 14:01 138 H 20 125/83 92 L 09/22/20 13:32 128 H 22 H 140/86 92 L 09/22/20 12:48 137 H 22 H 133/89 90 L 09/22/20 12:07 122 H 20 130/90 91 L 09/22/20 11:17 133 H 24 H 151/82 H 90 L 09/22/20 10:48 130 H 22 H 138/90 91 L 09/22/20 10:18 124 H 20 131/92 H 90 L 09/22/20 10:02 129 H 20 127/85 94 L 09/22/20 09:47 120 H 22 H 127/75 94 L 09/22/20 09:33 132 H 22 H 142/109 H 94 L 09/22/20 09:17 129 H 24 H 144/93 H 93 L 09/22/20 09:02 124 H 24 H 150/93 H 93 L 09/22/20 08:50 36.8 C 135 H 26 H 141/85 H 96 - Problem List (1) Hyperglycemia SNOMED Code(s): 64729154 ICD Code: R73.9 - HYPERGLYCEMIA, UNSPECIFIED Status: Acute Current Visit: Yes (2) Sepsis SNOMED Code(s): 98693222 ICD Code: A41.9 - SEPSIS, UNSPECIFIED ORGANISM Status: Acute Current Visit: Yes (3) Alcohol dependence SNOMED Code(s): 21890769 ICD Code: F10.20 - ALCOHOL DEPENDENCE, UNCOMPLICATED Status: Acute Current Visit: Yes (4) Elevated lactic acid level SNOMED Code(s): 1123368 ICD Code: R79.89 - OTHER SPECIFIED ABNORMAL FINDINGS OF BLOOD CHEMISTRY Status: Acute Current Visit: Yes (5) Hypoxia SNOMED Code(s): 026889624 ICD Code: R09.02 - HYPOXEMIA Status: Acute Current Visit: Yes (6) New onset type 2 diabetes mellitus SNOMED Code(s): 84331778 ICD Code: E11.9 - TYPE 2 DIABETES MELLITUS WITHOUT COMPLICATIONS Status: Acute Current Visit: Yes (7) Pancreatitis SNOMED Code(s): 17830013 ICD Code: K85.90 - ACUTE PANCREATITIS WITHOUT NECROSIS OR INFECTION, UNSP Status: Acute Current Visit: Yes (8) Right lower lobe pneumonia SNOMED Code(s): 499954097 ICD Code: J18.9 - PNEUMONIA, UNSPECIFIED ORGANISM Status: Acute Current Visit: Yes (9) Abdominal pain SNOMED Code(s): 06832270 ICD Code: R10.9 - UNSPECIFIED ABDOMINAL PAIN Status: Acute Current Visit: No Qualifiers: Abdominal location: lower abdomen, unspecified Qualified Code(s): R10.30 - Lower abdominal pain, unspecified (10) Alcohol abuse SNOMED Code(s): 74571602 ICD Code: F10.10 - ALCOHOL ABUSE, UNCOMPLICATED Status: Acute Current Visit: No (11) Alcohol withdrawal delirium SNOMED Code(s): 5378421 ICD Code: F10.231 - ALCOHOL DEPENDENCE WITH WITHDRAWAL DELIRIUM Status: Ac desmond Current Visit: No Problem List Initiated/Reviewed/Updated: Yes Orders Last 24hrs: Active Orders 24 hr Category Date Time Status Admission Status [Patient Status] [ADT] Routine ADT 09/22/20 12:15 Active Blood Glucose Check, Bedside [RC] ONETIME Care 09/22/20 08:51 Active Blood Glucose Check, Bedside [RC] ONETIME Care 09/22/20 10:18 Active EKG Documentation Completion [RC] STAT Care 09/22/20 08:50 Active Oxygen Therapy, ED [RC] ASDIRECTED Care 09/22/20 08:50 Active RT Aerosol Therapy [RC] ASDIRECTED Care 09/22/20 10:21 Active RT Aerosol Therapy [RC] ASDIRECTED Care 09/22/20 10:32 Active Telemetry Monitoring [Cardiac Monitoring] [RC] Q8H Care 09/22/20 11:20 Active CULTURE BLOOD [BC] Stat Lab 09/22/20 08:47 Received CULTURE BLOOD [BC] Stat Lab 09/22/20 08:48 Received Albuterol [Proventil] Med 09/22/20 11:00 Active 2.5 mg NEB QIDRT Azithromycin [Zithromax] 500 mg Med 09/22/20 10:15 Active Sodium Chloride 0.9% [Normal Saline (AdvBag)] 250 ml IV ONETIME Dextrose 50% in Water Med 09/22/20 11:00 Active 50 ml IV ASDIRECTED PRN Glucagon,Human Recombinant [GlucaGen] Med 09/22/20 11:00 Active 1 mg IM ASDIRECTED PRN Sodium Chloride 0.9% [Normal Saline] 1,000 ml [facility] 09/22/20 14:03 Active IV .Bolus Sodium Chloride 0.9% [Normal Saline] 500 ml [facility] 09/22/20 09:30 Active IV .BOLUS Sodium Chloride 0.9% [Saline Flush] [facility] 09/22/20 08:50 Active 10 ml FLUSH ASDIRECTED PRN Sodium Chloride 0.9% [Saline Flush] [facility] 09/22/20 08:50 Active 2.5 ml FLUSH ASDIRECTED PRN Blood Culture x2 Reflex Set [OM.PC] Stat Ot 09/22/20 08:51 Ordered Saline Lock Insert [OM.PC] Stat Ot 09/22/20 08:50 Ordered Medication Orders Albuterol (Albuterol 0.5% 2.5 Mg/0.5 Ml Neb Soln) 2.5 mg NEB QIDRT [facility] Last Admin: 09/22/20 12:56 Dose: Not Given Documented by: ELIZABETH Dextrose/Water (50% Dextrose In Water 50 Ml Syringe) 50 ml IV ASDIRECTED PRN PRN Reason: Hypoglycemia Glucagon (Glucagon,Human Recombinant 1 Mg Vial) 1 mg IM ASDIRECTED PRN PRN Reason: Hypoglycemia Sodium Chloride (Normal Saline) 500 mls @ 999 mls/hr IV .BOLUS [facility] Last Admin: 09/22/20 10:02 Dose: 999 mls/hr Documented by: ELIZABETH Azithromycin 500 mg/ Sodium (Chloride) 250 mls @ 250 mls/hr IV ONETIME [facility] Last Admin: 09/22/20 10:55 Dose: 250 mls/hr Documented by: ELIZABETH Sodium Chloride (Normal Saline) 1,000 mls @ 999 mls/hr IV .Bolus ONE Stop: 09/22/20 15:03 Last Admin: 09/22/20 14:07 Dose: 999 mls/hr Documented by: MURDNIC Sodium Chloride (Sodium Chloride 0.9% 10 Ml Syringe) 10 ml FLUSH ASDIRECTED PRN PRN Reason: Keep Vein Open Last Admin: 09/22/20 09:22 Dose: 10 ml Documented by: BERNARDADNRAUL Sodium Chloride (Sodium Chloride 0.9% 2.5 Ml Syringe) 2.5 ml FLUSH ASDIRECTED PRN PRN Reason: Keep Vein Open Last Admin: 09/22/20 09:21 Dose: 2.5 ml Documented by: ELIZABETH Assessment/Plan Comment:: 50 yo male admitted with ETOH withdrawal, pneumonia with SIRS criteria ETOH withdrawal: will place on librium 25mb TID, Ativan prn CIWAA protocol, and thiamin and folic acid. Elevated lactic acid: possible due to combination of sepsis, pancreatitis and ETOH withdrawal, possible source of infection is pneumonia, treating with broad spectrum antibiotics, and will check CT abdomen and pelvis. Pancreatitis: treating with IV fluids will keep NPO for now Hyperglycemia: will check HgA1c, will place on insulin drip while acutely ill.
[2020-09-22] MEDS ORDERED: Iopamidol 755 MG/ML 500 ML Multipack Bottle IVPUSH STA ×2 (15:36→20:23)
--- NOTE | 2020-09-22 15:45 | PN ---
THC Physician - Brief Progress [id number]/02/2021 15:43[facility] Sara Medeiros, BETTY - [facility] - MWN SUZANNESANJIV RODRIGUEZAvDate of Service 09/22/2020 15:43HPI/Events of Note eICU Admission [id number] admitted for sepsis and EtOH withdrawal. History obtained from review of EMR and discussion with bedside physician over telephonePMH: EtOH use with prior withdrawalCamera exam: Laying in bed. Vitals monitor reviewed. eICU Recommendations:Positive SIRS criteria in the sett ing of elevated lactate - differential including sepsis/septic shock. Pancreatitis is in the differen tial given lipase elevation. Of note urinalysis not suggestive of UTI, no obvious consolidation on ch est x-ray.Lactic acidosis, appears to have actually worsened with fluid resuscitation. Of note patien t is not hypotensive on review of vitals, suggesting a potential type B etiology - differential inclu ding EtOH use, impaired hepatic clearanceEtOH use with concern for EtOH withdrawalTransaminitis, like ly related to EtOH hepatitisThrombocytopenia, hyperbilirubinemia in the setting of EtOH use, suspect hepatic dysfunction/possible cirrhosisCT abd/pelvis to rule out acute intra-abdominal process given d egree of lactate elevationGiven worsening of lactate with IV fluid administration (per report has rec eived ~30cc/kg with worsening of lactate), would hold off on further IV fluids at this time, and emily tor other signs of perfusion (ie urine output, mental status, trend of BP), continue to trend lactate until normalized. If a fluid responsive etiology of lactic acidosis is determined, would use boluses targeted to a specific endpoint of perfusion over continuous IV fluidsTTE, BNP to rule out EtOH rela kerry cardiomyopathyAlcohol withdrawal protocol per institutional policy, including administration of P RN benzodiazepinesContinued telemetry monitoringThiamine and folate supplementationAs infectious etio logy is still in differential, would start/continue broad spectrum antibiotics. Would draw blood cult ures (already ordered)Titrate insulin therapy as needed for hyperglycemiaSCDs ordered for DVT ppxTtoby nava you for allowing us to participate in the care of this patient.Unless otherwise specified, defer im plementation of above recommendations to discretion of bedside provider. Please do not hesitate to co ntact the eICU service for questions, clarification, or assistance with implementation.The above note transcribed with the assistance of dictation software. Please excuse any errors.Interventions Major- Other: lactic acidosis, sirs criteria, pancreatitis, etoh withdrawal
[2020-09-22 15:46] LABS: HEMOGLOBIN A1C 7.5 %
[2020-09-22] MEDS: Piperacillin/Tazobactam 4.5 GM in Sodium Chloride 0.9% 100 ML IV SCH ×2 (15:59→20:43)
[2020-09-22] MEDS: Insulin Regular in 0.9 % NACL 100 ML IV SCH (16:10)
--- NOTE | 2020-09-22 16:22 | CT ---
For Patients: As a result of the Century Cures Act, medical imaging exams and procedure reports are released immediately into your electronic medical record. You may view this report before your referring provider. If you have questions, please contact your health care provider. INDICATION: Elevated lactate and abdominal pain. TECHNIQUE: Volumetric helical scanning of the abdomen and pelvis was performed with 100 cc of Isovue 370 contrast material IV. Coronal and sagittal reconstructions were obtained. COMPARISON: Abdomen/pelvis CT of 09/17/2019. FINDINGS: Acute pancreatitis is demonstrated with considerable peripancreatic edema as well as peritoneal fluid loculated in the lesser sac. Normal enhancement of the pancreatic parenchyma in the head and body is demonstrated but there is diminished or absent enhancement in the tail, suggesting necrosis. No dilation of the pancreatic duct or bile ducts is evident. The gallbladder has been removed in the interval. Mild to moderate hepatomegaly is demonstrated along with marked fatty change in the liver. Postop changes of splenectomy are again demonstrated. The adrenal glands and kidneys are negative. No lymphadenopathy is evident. The prostate is normal. Bowel is negative. No lymphadenopathy is evident in the abdomen or pelvis. On image 37 of series 201, a right retrocrural lymph node measuring 2.3 x 1.9 cm is demonstrated and on the previous examination measured 1.5 x 1.1 cm. Patchy ground-glass infiltrates are present in both lung bases along with subsegmental atelectasis. The heart size is normal. IMPRESSION: 1. Acute pancreatitis with possible pancreatic tail necrosis. 2. Mild to moderate hepatomegaly and marked fatty change in the liver. 3. Patchy ground-glass infiltrates and subsegmental atelectasis in both lung bases. 4. Interval cholecystectomy and pre-existing postop changes of splenectomy. 5. 2.3 x 1.9 cm right retrocrural lymph node which previously measured 1.5 x 1.1 cm. No adenopathy evident in the abdomen or pelvis. Please note that all CT scans at this facility use dose modulation, iterative reconstruction, and/or weight-based dosing when appropriate to reduce radiation dose to as low as reasonably achievable. Dictated by Henok Hill MD @ 09/22/2020 4:21:[address] Henok Hill @ Sep 22 2020 4:21PM
[2020-09-22] MEDS: VANCOmycin 1.5 GM/300 ML 1.5 GM in Premix Bag 1 BAG IV SCH ×2 (17:09→23:57)
[2020-09-22] MEDS ORDERED: Diltiazem 25 MG/5 ML SDV IVPUSH ONE ×4 (17:09→19:31)
[2020-09-22] MEDS ORDERED: Diltiazem 25 MG/5 ML SDV ONE (17:09)
[2020-09-22] MEDS: Albuterol 0.083% 2.5 MG/3 ML Neb Soln NEB SCH ×2 (17:13→20:55)
[2020-09-22] MEDS ORDERED: Diltiazem 100 MG in Sodium Chloride 0.9% 100 ML IV SCH (17:45)
--- NOTE | 2020-09-22 17:45 | PN ---
THC Physician - Brief Progress [id number]/02/2021 17:19[facility] Brown helioSara, BETTY - JUDE (DAVIE) - SANJIV BRIGGSDate of Service 09/22/2020 17:19HPI/Events of Note eICU Update NoteNotified patient developed afib RVR with complaints of chest pain.Will order magnesium, troponin, TSH, d-dimer for work up, as well as diltiazem 10mg x1 now.Interventions Major-A rrhythmia - evaluation and management 17: 20
[2020-09-22 18:05] LABS: BLOOD UREA NITROGEN,BUN 15 mg/dL (7.0-18.0); CARBON DIOXIDE,CO2 24.2 mmol/L (21.0-32.0); CHLORIDE,CL 99 mmol/L (98-107); GLUCOSE RANDOM 281 mg/dL (74-106); POTASSIUM,K 3.8 mmol/L (3.5-5.1); SODIUM,NA 137 mmol/L (136-148)
--- NOTE | 2020-09-22 18:41 | CR ---
For Patients: As a result of the Cures Act, medical imaging exams and procedure reports are released immediately into your electronic medical record. You may view this report before your referring provider. If you have questions, please contact your health care provider. Indication: Hypoxia Technique: Chest 1 view Comparison: September 22, 2020 at 9:10 a.m. Findings/Impression: Stable cardiac size. Low lung volumes accentuates the vascular markings. No definite focal infiltrate. No pneumothorax or effusion. Healed left clavicle fracture. Embolization coils in the left upper quadrant. Dictated by Regla Liu MD @ 09/22/2020 6:40:[address] Regla Liu @ Sep 22 2020 6:40PM
[2020-09-22] MEDS ORDERED: Digoxin 500 MCG/2 ML Amp IVPUSH ONE (18:49)
[2020-09-22] MEDS: LORazepam 2 MG/ML SDV IVPUSH PRN ×2 (19:01→21:52)
--- NOTE | 2020-09-22 19:14 | PCM.SN.2 ---
- Free Text/Narrative Note: Patient's CT scan reports acute pancreatitis with possible necrosis and peripancreatic edema. Patient has received 3 L of NS without much change in lactic acid. Patient has developed a.fib with RVR. He is still alert and orientated, but lethargic likely from librium. He does not appear in pain. We have started a diltiazem drip. D.dimer is elevated so will check CT angio of chest.
[2020-09-22] MEDS: Morphine 2 MG/ML SYRINGE IVPUSH PRN (20:40)
--- NOTE | 2020-09-22 20:42 | CT ---
For Patients: As a result of the Century Cures Act, medical imaging exams and procedure reports are released immediately into your electronic medical record. You may view this report before your referring provider. If you have questions, please contact your health care provider. INDICATION: Hypoxia COMPARISON: none TECHNIQUE: CT volumetric acquisition was performed of the thorax during intravenous infusion of 75 cc Isovue 370 nonionic intravenous contrast. Please note that all CT scans at this facility use dose modulation, iterative reconstruction, and/or weight-based dosing when appropriate to reduce radiation dose to as low as reasonably achievable. FINDINGS: No pulmonary embolism in the main, lobar or segmental pulmonary arteries. Mild mediastinal adenopathy. No fracture. Patchy bilateral parenchymal opacities. No pleural effusion or pneumothorax. Fatty infiltration liver. Edema about the pancreas. Status post cholecystectomy and splenectomy. IMPRESSION: No evidence of pulmonary thromboembolism. Bilateral patchy ground-glass opacities throughout the lungs consistent with COVID. Hepatic steatosis and pancreatitis. Please note that all CT scans at this facility use dose modulation, iterative reconstruction, and/or weight-based dosing when appropriate to reduce radiation dose to as low as reasonably achievable. Dictated by Ramiro Shelley MD @ 09/22/2020 8:40:[address] Ramiro Shelley @ Sep 22 2020 8:40PM
[2020-09-22] MEDS ORDERED: Amiodarone In Dextrose,Iso-Osm 150 MG in Premix Bag 1 BAG IV ONE ×2 (20:46)
[2020-09-22] MEDS ORDERED: Magnesium Sulfate/Water 2 GM in Premix Bag 1 BAG IV ONE (20:46)
[2020-09-22] MEDS ORDERED: Potassium Chloride Riders 40 MEQ in Premix Bag 1 BAG IV ONE (20:46)
--- NOTE | 2020-09-22 20:46 | PN ---
DEONDRE Physician - Brief Progress [id number]/02/2021 20:40[facility] helio [place], [place] - JUDE (DAVIE) - SANJIV BRIGGSDate of Service 09/22/2020 20:40HPI/Events of Note Discussed with RN: HR 170s on cardizem and dig.170s 148/81Plan: amio bolus and drip, wean o ff cardizem, replace 1gm mag and 40 mEq K.Interventions Minor-Communication with other healthcare pro viders and/or family
[2020-09-22] MEDS: chlordiazePOXIDE 25 MG Cap PO SCH (21:12)
[2020-09-22] MEDS: Sodium Chloride 0.9% 1,000 ML IV SCH (21:15)
[2020-09-22] MEDS ORDERED: Albuterol 0.5% 5 MG/ML Neb Soln 20 ML Bottle NEB PRN (22:40)
--- NOTE | 2020-09-22 22:46 | PN ---
THC Physician - Brief Progress [id number]/02/2021 22:35[facility] helioSaraBETTY - JUDE (DAVIE) - SANJIV BRIGGSDate of Service 09/22/2020 22:35HPI/Events of Note Discussed with RN: Pt with increased WOB.Plan: add BiPAP for improved resp support, check ABG , add precedex to allow for BiPAP, change bronchodilator frequency to q 4hr PRN SOB/wheezing.Interven tions Minor-Communication with other healthcare providers and/or family
[2020-09-23] MEDS: Albuterol 0.083% 2.5 MG/3 ML Neb Soln NEB PRN ×2 (00:28→04:20)
[2020-09-23] MEDS: Piperacillin/Tazobactam 4.5 GM in Sodium Chloride 0.9% 100 ML IV SCH ×4 (03:25→21:11)
[2020-09-23] MEDS: LORazepam 2 MG/ML SDV IVPUSH PRN ×2 (04:19→06:43)
[2020-09-23 04:50] LABS: BLOOD UREA NITROGEN,BUN 14 mg/dL (7.0-18.0); CARBON DIOXIDE,CO2 29.5 mmol/L (21.0-32.0); CHLORIDE,CL 101 mmol/L (98-107); GLUCOSE RANDOM 231 mg/dL (74-106); POTASSIUM,K 3.8 mmol/L (3.5-5.1); SODIUM,NA 139 mmol/L (136-148)
[2020-09-23] MEDS: chlordiazePOXIDE 25 MG Cap PO SCH ×2 (06:01→19:57)
[2020-09-23] MEDS: Albuterol 0.083% 2.5 MG/3 ML Neb Soln NEB SCH ×4 (06:33→21:03)
[2020-09-23] MEDS: VANCOmycin 1.5 GM/300 ML 1.5 GM in Premix Bag 1 BAG IV SCH ×2 (08:12→16:33)
[2020-09-23] MEDS ORDERED: DEXMEDETOMIDINE IV PRN (08:13)
[2020-09-23] MEDS: Folic Acid 50 MG/10 ML MDV SUBCUT SCH (08:15)
[2020-09-23] MEDS: Thiamine 200 MG/2 ML MDV IVPUSH SCH (08:17)
[2020-09-23] MEDS: Sodium Chloride 0.9% 1,000 ML IV SCH (08:26)
[2020-09-23] MEDS ORDERED: Azithromycin 500 MG in Sodium Chloride 0.9% 250 ML IV SCH (09:00)
[2020-09-23] MEDS ORDERED: cefTRIAXone 1 GM in Premix Bag 1 BAG IV SCH (09:00)
[2020-09-23] MEDS: Heparin Sodium 5,000 Units/ML Vial SUBCUT SCH ×2 (10:27→19:25)
[2020-09-23] MEDS: Pantoprazole 40 MG in Sodium Chloride 0.9% 10 ML IV SCH (10:28)
[2020-09-23] MEDS: Diltiazem IR 60 MG Tab PO SCH ×2 (11:35→16:33)
[2020-09-23] MEDS ORDERED: Potassium Phosphates 30 MMOLE in Sodium Chloride 0.9% 250 ML IV ONE (11:45)
--- NOTE | 2020-09-23 17:16 | PN ---
THC Physician - Brief Progress [id number]/03/2021 17:00[facility] [place], [place] - MWN (SHANNAN) - MWN SANJIV GRAYSONAvDate of Service 09/23/2020 17:00HPI/Events of Note SUBJECTIVE: Pt admitted for alcohol intoxication, respiratory failure. Currently on BiPAP. Nu rse reports pt sleeping all day, not requiring PRN Ativan per CIWA protocol. Etiology of respiratory failure still not clear.OBJECTIVE:VSS, other than mild tachycardia. Sleeping comfortably on NIPPV wih out sedation. NAD. Mild sinus tachycardia.ASSESSMENT:Acute hypoxic respiratory failure - etiology unc learAcute pancreatitis (mild)Atrial fibrillation with RVRLactic acidosis - resolvedPLAN:O2 via NIPPV, wean as toleratedMaintain Spo2 >90 and Pao2 >60 mmHgCTA chest negative for PENo infiltrates, effusio n, or pulmonary edema on chest x-ray2D echo done, results pendingS/P aggressive IV hydration. Further hydration at discretion of bedside team.TelemetryAmiodarone gttContinue PO diltiazem, increase to 90 PO Q6HPt is on prophylactic dose heparin. Recommend full dose anticoagulation unless lath tier sa ys otherwise.Lactate corrected to 1.6Interventions Major-Arrhythmia - evaluation and management, Resp iratory failure - evaluation and management, Other: acute pancreatitis
[2020-09-23] MEDS ORDERED: Heparin Sodium/0.45% NaCl 500 ML IV SCH (19:15)
[2020-09-23] MEDS ORDERED: Heparin Sodium 5,000 Units/ML Vial IVPUSH ONE (19:15)
[2020-09-23] MEDS: Heparin Sodium/0.45% NaCl 500 ML IV SCH (20:37)
[2020-09-23] MEDS: Phosphorus #1 250 MG Tab PO SCH (20:54)
--- NOTE | 2020-09-23 21:28 | PCM.PN ---
- General Info Date of Service: 09/23/20 Admission Dx/Problem (Free Text): Admission Diagnosis/Problem Admission Diagnosis/Problem Hypoxia Subjective Update: 50-year-old gentleman with a history of alcohol abuse was admitted for pancreatitis with necrosis found to have A. fib with RVR admitted to the ICU started on Cardizem drip transition to amiodarone overnight. Patient appears to be still in withdrawal. Overnight had CTA ruling out PE, this morning patient is alert and oriented x1. Continued on BiPAP FiO2 45 for hypoxia secondary to pulmonary edema. - Review of Systems General: Reports: Other (In withdrawal, disheveled, alert and oriented x1 therefore unable to assess review of systems) Neurological: Reports: Confusion Psychiatric: Reports: Confusion, Agitation - Patient Data Vitals - Most Recent: Last Vital Signs Temp 99.5 F 09/23/20 16:00 Pulse 161 H 09/22/20 19:09 Resp 12 09/23/20 17:00 BP 134/91 H 09/23/20 17:00 Pulse Ox 95 09/23/20 17:00 Weight - Most Recent: 234 lb 12.8 oz I&O - Last 24 Hours: Intake & Output 09/23/20 09/23/20 09/23/20 06:59 14:59 22:59 Intake Total 0 250 Balance 0 250 Lab Results Last 24 Hours: Laboratory Results - last 24 hr 09/22/20 09/22/20 09/22/20 Range/Units 21:37 22:22 22:40 WBC (4.0-11.0) K/uL RBC (4.50-5.90) M/uL Hgb (13.0-17.0) g/dL Hct (38.0-50.0) % MCV (80.0-98.0) fL MCH (27.0-32.0) pg MCHC (31.0-37.0) g/dL RDW Std Deviation (28.0-62.0) fl RDW Coeff of Julissa (11.0-15.0) % Plt Count (150-400) K/uL MPV (7.40-12.00) fL Add Manual Diff Neutrophils % (Manual) (48.0-80.0) % Band Neutrophils % % Lymphocytes % (Manual) (16.0-40.0) % Monocytes % (Manual) (0.0-15.0) % Nucleated RBC % /100WBC Absolute Seg Neuts (1.4-5.7) Band Neutrophils # Lymphocytes # (Manual) (0.6-2.4) Monocytes # (Manual) (0.0-0.8) Nucleated RBCs # K/uL APTT (18.6-31.3) SEC ABG pH (7.35-7.45) ABG pCO2 (35-45) mmHG ABG pO2 (80-105) mmHG ABG HCO3 (22-26) mEq/L ABG Total CO2 (23-27) mmol/L ABG Base Excess (-2.0-3.0) Sodium (136-148) mmol/L Potassium (3.5-5.1) mmol/L Chloride (98-107) mmol/L Carbon Dioxide (21.0-32.0) mmol/L BUN (7.0-18.0) mg/dL Creatinine (0.8-1.3) mg/dL Est Cr Clr Drug Dosing mL/min Estimated GFR (MDRD) ml/min Glucose (74-106) mg/dL POC Glucose 243 H 233 H (70-99) mg/dL Lactic Acid 2.3 H* (0.4-2.0) mmol/L Calcium (8.5-10.1) mg/dL Phosphorus (2.6-4.7) mg/dL Magnesium (1.8-2.4) mg/dL Total Bilirubin (0.2-1.0) mg/dL AST (15-37) IU/L ALT (14-63) IU/L Alkaline Phosphatase (46-116) U/L Ammonia (19-54) ug/dL B-Natriuretic Peptide (<100) PG/ML Total Protein (6.4-8.2) g/dL Albumin (3.4-5.0) g/dL Globulin (2.6-4.0) g/dL Albumin/Globulin Ratio (0.9-1.6) Vancomycin Trough (5.0-10.0) ug/mL SARS-CoV-2 RNA (THAI) (NEGATIVE) 09/22/20 09/22/20 09/23/20 Range/Units 22:43 23:17 00:31 WBC (4.0-11.0) K/uL RBC (4.50-5.90) M/uL Hgb (13.0-17.0) g/dL Hct (38.0-50.0) % MCV (80.0-98.0) fL MCH (27.0-32.0) pg MCHC (31.0-37.0) g/dL RDW Std Deviation (28.0-62.0) fl RDW Coeff of Julissa (11.0-15.0) % Plt Count (150-400) K/uL MPV (7.40-12.00) fL Add Manual Diff Neutrophils % (Manual) (48.0-80.0) % Band Neutrophils % % Lymphocytes % (Manual) (16.0-40.0) % Monocytes % (Manual) (0.0-15.0) % Nucleated RBC % /100WBC Absolute Seg Neuts (1.4-5.7) Band Neutrophils # Lymphocytes # (Manual) (0.6-2.4) Monocytes # (Manual) (0.0-0.8) Nucleated RBCs # K/uL APTT (18.6-31.3) SEC ABG pH 7.50 H (7.35-7.45) ABG pCO2 37 (35-45) mmHG ABG pO2 77 L (80-105) mmHG ABG HCO3 29 H (22-26) mEq/L ABG Total CO2 25.0 (23-27) mmol/L ABG Base Excess 5.3 H (-2.0-3.0) Sodium (136-148) mmol/L Potassium (3.5-5.1) mmol/L Chloride (98-107) mmol/L Carbon Dioxide (21.0-32.0) mmol/L BUN (7.0-18.0) mg/dL Creatinine (0.8-1.3) mg/dL Est Cr Clr Drug Dosing mL/min Estimated GFR (MDRD) ml/min Glucose (74-106) mg/dL POC Glucose 242 H 208 H (70-99) mg/dL Lactic Acid (0.4-2.0) mmol/L Calcium (8.5-10.1) mg/dL Phosphorus (2.6-4.7) mg/dL Magnesium (1.8-2.4) mg/dL Total Bilirubin (0.2-1.0) mg/dL AST (15-37) IU/L ALT (14-63) IU/L Alkaline Phosphatase (46-116) U/L Ammonia (19-54) ug/dL B-Natriuretic Peptide (<100) PG/ML Total Protein (6.4-8.2) g/dL Albumin (3.4-5.0) g/dL Globulin (2.6-4.0) g/dL Albumin/Globulin Ratio (0.9-1.6) Vancomycin Trough (5.0-10.0) ug/mL SARS-CoV-2 RNA (THAI) (NEGATIVE) 09/23/20 09/23/20 09/23/20 Range/Units 01:13 02:11 03:05 WBC (4.0-11.0) K/uL RBC (4.50-5.90) M/uL Hgb (13.0-17.0) g/dL Hct (38.0-50.0) % MCV (80.0-98.0) fL MCH (27.0-32.0) pg MCHC (31.0-37.0) g/dL RDW Std Deviation (28.0-62.0) fl RDW Coeff of Julissa (11.0-15.0) % Plt Count (150-400) K/uL MPV (7.40-12.00) fL Add Manual Diff Neutrophils % (Manual) (48.0-80.0) % Band Neutrophils % % Lymphocytes % (Manual) (16.0-40.0) % Monocytes % (Manual) (0.0-15.0) % Nucleated RBC % /100WBC Absolute Seg Neuts (1.4-5.7) Band Neutrophils # Lymphocytes # (Manual) (0.6-2.4) Monocytes # (Manual) (0.0-0.8) Nucleated RBCs # K/uL APTT (18.6-31.3) SEC ABG pH (7.35-7.45) ABG pCO2 (35-45) mmHG ABG pO2 (80-105) mmHG ABG HCO3 (22-26) mEq/L ABG Total CO2 (23-27) mmol/L ABG Base Excess (-2.0-3.0) Sodium (136-148) mmol/L Potassium (3.5-5.1) mmol/L Chloride (98-107) mmol/L Carbon Dioxide (21.0-32.0) mmol/L BUN (7.0-18.0) mg/dL Creatinine (0.8-1.3) mg/dL Est Cr Clr Drug Dosing mL/min Estimated GFR (MDRD) ml/min Glucose (74-106) mg/dL POC Glucose 175 H 182 H 187 H (70-99) mg/dL Lactic Acid (0.4-2.0) mmol/L Calcium (8.5-10.1) mg/dL Phosphorus (2.6-4.7) mg/dL Magnesium (1.8-2.4) mg/dL Total Bilirubin (0.2-1.0) mg/dL AST (15-37) IU/L ALT (14-63) IU/L Alkaline Phosphatase (46-116) U/L Ammonia (19-54) ug/dL B-Natriuretic Peptide (<100) PG/ML Total Protein (6.4-8.2) g/dL Albumin (3.4-5.0) g/dL Globulin (2.6-4.0) g/dL Albumin/Globulin Ratio (0.9-1.6) Vancomycin Trough (5.0-10.0) ug/mL SARS-CoV-2 RNA (THAI) (NEGATIVE) 09/23/20 09/23/20 09/23/20 Range/Units 04:01 04:20 04:20 WBC 14.71 H (4.0-11.0) K/uL RBC 3.93 L (4.50-5.90) M/uL Hgb 13.7 (13.0-17.0) g/dL Hct 38.9 (38.0-50.0) % MCV 99.0 H (80.0-98.0) fL MCH 34.9 H (27.0-32.0) pg MCHC 35.2 (31.0-37.0) g/dL RDW Std Deviation 54.0 (28.0-62.0) fl RDW Coeff of Julissa 15 (11.0-15.0) % Plt Count 79 L (150-400) K/uL MPV 12.80 H (7.40-12.00) fL Add Manual Diff YES Neutrophils % (Manual) 69 (48.0-80.0) % Band Neutrophils % 8 % Lymphocytes % (Manual) 13 L (16.0-40.0) % Monocytes % (Manual) 10 (0.0-15.0) % Nucleated RBC % 0.6 /100WBC Absolute Seg Neuts 10.1 H (1.4-5.7) Band Neutrophils # 1.2 Lymphocytes # (Manual) 1.9 (0.6-2.4) Monocytes # (Manual) 1.5 H (0.0-0.8) Nucleated RBCs # 0 K/uL APTT (18.6-31.3) SEC ABG pH (7.35-7.45) ABG pCO2 (35-45) mmHG ABG pO2 (80-105) mmHG ABG HCO3 (22-26) mEq/L ABG Total CO2 (23-27) mmol/L ABG Base Excess (-2.0-3.0) Sodium 139 (136-148) mmol/L Potassium 3.8 (3.5-5.1) mmol/L Chloride 101 (98-107) mmol/L Carbon Dioxide 29.5 (21.0-32.0) mmol/L BUN 14 (7.0-18.0) mg/dL Creatinine 0.9 (0.8-1.3) mg/dL Est Cr Clr Drug Dosing 105.38 mL/min Estimated GFR (MDRD) > 60.0 ml/min Glucose 231 H (74-106) mg/dL POC Glucose 209 H (70-99) mg/dL Lactic Acid (0.4-2.0) mmol/L Calcium 7.7 L (8.5-10.1) mg/dL Phosphorus (2.6-4.7) mg/dL Magnesium (1.8-2.4) mg/dL Total Bilirubin 1.9 H (0.2-1.0) mg/dL AST 182 H (15-37) IU/L ALT 69 H (14-63) IU/L Alkaline Phosphatase 148 H (46-116) U/L Ammonia (19-54) ug/dL B-Natriuretic Peptide (<100) PG/ML Total Protein 6.3 L (6.4-8.2) g/dL Albumin 2.2 L (3.4-5.0) g/dL Globulin 4.1 H (2.6-4.0) g/dL Albumin/Globulin Ratio 0.5 L (0.9-1.6) Vancomycin Trough (5.0-10.0) ug/mL SARS-CoV-2 RNA (THAI) (NEGATIVE) 09/23/20 09/23/20 09/23/20 Range/Units 04:20 04:20 05:07 WBC (4.0-11.0) K/uL RBC (4.50-5.90) M/uL Hgb (13.0-17.0) g/dL Hct (38.0-50.0) % MCV (80.0-98.0) fL MCH (27.0-32.0) pg MCHC (31.0-37.0) g/dL RDW Std Deviation (28.0-62.0) fl RDW Coeff of Julissa (11.0-15.0) % Plt Count (150-400) K/uL MPV (7.40-12.00) fL Add Manual Diff Neutrophils % (Manual) (48.0-80.0) % Band Neutrophils % % Lymphocytes % (Manual) (16.0-40.0) % Monocytes % (Manual) (0.0-15.0) % Nucleated RBC % /100WBC Absolute Seg Neuts (1.4-5.7) Band Neutrophils # Lymphocytes # (Manual) (0.6-2.4) Monocytes # (Manual) (0.0-0.8) Nucleated RBCs # K/uL APTT (18.6-31.3) SEC ABG pH (7.35-7.45) ABG pCO2 (35-45) mmHG ABG pO2 (80-105) mmHG ABG HCO3 (22-26) mEq/L ABG Total CO2 (23-27) mmol/L ABG Base Excess (-2.0-3.0) Sodium (136-148) mmol/L Potassium (3.5-5.1) mmol/L Chloride (98-107) mmol/L Carbon Dioxide (21.0-32.0) mmol/L BUN (7.0-18.0) mg/dL Creatinine (0.8-1.3) mg/dL Est Cr Clr Drug Dosing mL/min Estimated GFR (MDRD) ml/min Glucose (74-106) mg/dL POC Glucose 206 H (70-99) mg/dL Lactic Acid 1.6 (0.4-2.0) mmol/L Calcium (8.5-10.1) mg/dL Phosphorus 1.1 L (2.6-4.7) mg/dL Magnesium 1.9 (1.8-2.4) mg/dL Total Bilirubin (0.2-1.0) mg/dL AST (15-37) IU/L ALT (14-63) IU/L Alkaline Phosphatase (46-116) U/L Ammonia (19-54) ug/dL B-Natriuretic Peptide (<100) PG/ML Total Protein (6.4-8.2) g/dL Albumin (3.4-5.0) g/dL Globulin (2.6-4.0) g/dL Albumin/Globulin Ratio (0.9-1.6) Vancomycin Trough (5.0-10.0) ug/mL SARS-CoV-2 RNA (THAI) (NEGATIVE) 09/23/20 09/23/20 09/23/20 Range/Units 06:04 06:52 07:35 WBC (4.0-11.0) K/uL RBC (4.50-5.90) M/uL Hgb (13.0-17.0) g/dL Hct (38.0-50.0) % MCV (80.0-98.0) fL MCH (27.0-32.0) pg MCHC (31.0-37.0) g/dL RDW Std Deviation (28.0-62.0) fl RDW Coeff of Julissa (11.0-15.0) % Plt Count (150-400) K/uL MPV (7.40-12.00) fL Add Manual Diff Neutrophils % (Manual) (48.0-80.0) % Band Neutrophils % % Lymphocytes % (Manual) (16.0-40.0) % Monocytes % (Manual) (0.0-15.0) % Nucleated RBC % /100WBC Absolute Seg Neuts (1.4-5.7) Band Neutrophils # Lymphocytes # (Manual) (0.6-2.4) Monocytes # (Manual) (0.0-0.8) Nucleated RBCs # K/uL APTT (18.6-31.3) SEC ABG pH 7.49 H (7.35-7.45) ABG pCO2 40 (35-45) mmHG ABG pO2 73 L (80-105) mmHG ABG HCO3 31 H (22-26) mEq/L ABG Total CO2 27.1 H (23-27) mmol/L ABG Base Excess 6.8 H (-2.0-3.0) Sodium (136-148) mmol/L Potassium (3.5-5.1) mmol/L Chloride (98-107) mmol/L Carbon Dioxide (21.0-32.0) mmol/L BUN (7.0-18.0) mg/dL Creatinine (0.8-1.3) mg/dL Est Cr Clr Drug Dosing mL/min Estimated GFR (MDRD) ml/min Glucose (74-106) mg/dL POC Glucose 212 H 199 H (70-99) mg/dL Lactic Acid (0.4-2.0) mmol/L Calcium (8.5-10.1) mg/dL Phosphorus (2.6-4.7) mg/dL Magnesium (1.8-2.4) mg/dL Total Bilirubin (0.2-1.0) mg/dL AST (15-37) IU/L ALT (14-63) IU/L Alkaline Phosphatase (46-116) U/L Ammonia (19-54) ug/dL B-Natriuretic Peptide (<100) PG/ML Total Protein (6.4-8.2) g/dL Albumin (3.4-5.0) g/dL Globulin (2.6-4.0) g/dL Albumin/Globulin Ratio (0.9-1.6) Vancomycin Trough (5.0-10.0) ug/mL SARS-CoV-2 RNA (THAI) (NEGATIVE) 09/23/20 09/23/20 09/23/20 Range/Units 08:00 09:34 10:36 WBC (4.0-11.0) K/uL RBC (4.50-5.90) M/uL Hgb (13.0-17.0) g/dL Hct (38.0-50.0) % MCV (80.0-98.0) fL MCH (27.0-32.0) pg MCHC (31.0-37.0) g/dL RDW Std Deviation (28.0-62.0) fl RDW Coeff of Julissa (11.0-15.0) % Plt Count (150-400) K/uL MPV (7.40-12.00) fL Add Manual Diff Neutrophils % (Manual) (48.0-80.0) % Band Neutrophils % % Lymphocytes % (Manual) (16.0-40.0) % Monocytes % (Manual) (0.0-15.0) % Nucleated RBC % /100WBC Absolute Seg Neuts (1.4-5.7) Band Neutrophils # Lymphocytes # (Manual) (0.6-2.4) Monocytes # (Manual) (0.0-0.8) Nucleated RBCs # K/uL APTT (18.6-31.3) SEC ABG pH (7.35-7.45) ABG pCO2 (35-45) mmHG ABG pO2 (80-105) mmHG ABG HCO3 (22-26) mEq/L ABG Total CO2 (23-27) mmol/L ABG Base Excess (-2.0-3.0) Sodium (136-148) mmol/L Potassium (3.5-5.1) mmol/L Chloride (98-107) mmol/L Carbon Dioxide (21.0-32.0) mmol/L BUN (7.0-18.0) mg/dL Creatinine (0.8-1.3) mg/dL Est Cr Clr Drug Dosing mL/min Estimated GFR (MDRD) ml/min Glucose (74-106) mg/dL POC Glucose 174 H 204 H 174 H (70-99) mg/dL Lactic Acid (0.4-2.0) mmol/L Calcium (8.5-10.1) mg/dL Phosphorus (2.6-4.7) mg/dL Magnesium (1.8-2.4) mg/dL Total Bilirubin (0.2-1.0) mg/dL AST (15-37) IU/L ALT (14-63) IU/L Alkaline Phosphatase (46-116) U/L Ammonia (19-54) ug/dL B-Natriuretic Peptide (<100) PG/ML Total Protein (6.4-8.2) g/dL Albumin (3.4-5.0) g/dL Globulin (2.6-4.0) g/dL Albumin/Globulin Ratio (0.9-1.6) Vancomycin Trough (5.0-10.0) ug/mL SARS-CoV-2 RNA (THAI) (NEGATIVE) 09/23/20 09/23/20 09/23/20 Range/Units 11:34 12:35 13:29 WBC (4.0-11.0) K/uL RBC (4.50-5.90) M/uL Hgb (13.0-17.0) g/dL Hct (38.0-50.0) % MCV (80.0-98.0) fL MCH (27.0-32.0) pg MCHC (31.0-37.0) g/dL RDW Std Deviation (28.0-62.0) fl RDW Coeff of Julissa (11.0-15.0) % Plt Count (150-400) K/uL MPV (7.40-12.00) fL Add Manual Diff Neutrophils % (Manual) (48.0-80.0) % Band Neutrophils % % Lymphocytes % (Manual) (16.0-40.0) % Monocytes % (Manual) (0.0-15.0) % Nucleated RBC % /100WBC Absolute Seg Neuts (1.4-5.7) Band Neutrophils # Lymphocytes # (Manual) (0.6-2.4) Monocytes # (Manual) (0.0-0.8) Nucleated RBCs # K/uL APTT (18.6-31.3) SEC ABG pH (7.35-7.45) ABG pCO2 (35-45) mmHG ABG pO2 (80-105) mmHG ABG HCO3 (22-26) mEq/L ABG Total CO2 (23-27) mmol/L ABG Base Excess (-2.0-3.0) Sodium (136-148) mmol/L Potassium (3.5-5.1) mmol/L Chloride (98-107) mmol/L Carbon Dioxide (21.0-32.0) mmol/L BUN (7.0-18.0) mg/dL Creatinine (0.8-1.3) mg/dL Est Cr Clr Drug Dosing mL/min Estimated GFR (MDRD) ml/min Glucose (74-106) mg/dL POC Glucose 146 H 166 H 166 H (70-99) mg/dL Lactic Acid (0.4-2.0) mmol/L Calcium (8.5-10.1) mg/dL Phosphorus (2.6-4.7) mg/dL Magnesium (1.8-2.4) mg/dL Total Bilirubin (0.2-1.0) mg/dL AST (15-37) IU/L ALT (14-63) IU/L Alkaline Phosphatase (46-116) U/L Ammonia (19-54) ug/dL B-Natriuretic Peptide (<100) PG/ML Total Protein (6.4-8.2) g/dL Albumin (3.4-5.0) g/dL Globulin (2.6-4.0) g/dL Albumin/Globulin Ratio (0.9-1.6) Vancomycin Trough (5.0-10.0) ug/mL SARS-CoV-2 RNA (THAI) (NEGATIVE) 09/23/20 09/23/20 09/23/20 Range/Units 14:12 15:16 16:22 WBC (4.0-11.0) K/uL RBC (4.50-5.90) M/uL Hgb (13.0-17.0) g/dL Hct (38.0-50.0) % MCV (80.0-98.0) fL MCH (27.0-32.0) pg MCHC (31.0-37.0) g/dL RDW Std Deviation (28.0-62.0) fl RDW Coeff of Julissa (11.0-15.0) % Plt Count (150-400) K/uL MPV (7.40-12.00) fL Add Manual Diff Neutrophils % (Manual) (48.0-80.0) % Band Neutrophils % % Lymphocytes % (Manual) (16.0-40.0) % Monocytes % (Manual) (0.0-15.0) % Nucleated RBC % /100WBC Absolute Seg Neuts (1.4-5.7) Band Neutrophils # Lymphocytes # (Manual) (0.6-2.4) Monocytes # (Manual) (0.0-0.8) Nucleated RBCs # K/uL APTT (18.6-31.3) SEC ABG pH (7.35-7.45) ABG pCO2 (35-45) mmHG ABG pO2 (80-105) mmHG ABG HCO3 (22-26) mEq/L ABG Total CO2 (23-27) mmol/L ABG Base Excess (-2.0-3.0) Sodium (136-148) mmol/L Potassium (3.5-5.1) mmol/L Chloride (98-107) mmol/L Carbon Dioxide (21.0-32.0) mmol/L BUN (7.0-18.0) mg/dL Creatinine (0.8-1.3) mg/dL Est Cr Clr Drug Dosing mL/min Estimated GFR (MDRD) ml/min Glucose (74-106) mg/dL POC Glucose 184 H 154 H (70-99) mg/dL Lactic Acid (0.4-2.0) mmol/L Calcium (8.5-10.1) mg/dL Phosphorus (2.6-4.7) mg/dL Magnesium (1.8-2.4) mg/dL Total Bilirubin (0.2-1.0) mg/dL AST (15-37) IU/L ALT (14-63) IU/L Alkaline Phosphatase (46-116) U/L Ammonia (19-54) ug/dL B-Natriuretic Peptide (<100) PG/ML Total Protein (6.4-8.2) g/dL Albumin (3.4-5.0) g/dL Globulin (2.6-4.0) g/dL Albumin/Globulin Ratio (0.9-1.6) Vancomycin Trough 13.2 H (5.0-10.0) ug/mL SARS-CoV-2 RNA (THAI) (NEGATIVE) 09/23/20 09/23/20 09/23/20 Range/Units 17:10 18:04 18:33 WBC (4.0-11.0) K/uL RBC (4.50-5.90) M/uL Hgb (13.0-17.0) g/dL Hct (38.0-50.0) % MCV (80.0-98.0) fL MCH (27.0-32.0) pg MCHC (31.0-37.0) g/dL RDW Std Deviation (28.0-62.0) fl RDW Coeff of Julissa (11.0-15.0) % Plt Count (150-400) K/uL MPV (7.40-12.00) fL Add Manual Diff Neutrophils % (Manual) (48.0-80.0) % Band Neutrophils % % Lymphocytes % (Manual) (16.0-40.0) % Monocytes % (Manual) (0.0-15.0) % Nucleated RBC % /100WBC Absolute Seg Neuts (1.4-5.7) Band Neutrophils # Lymphocytes # (Manual) (0.6-2.4) Monocytes # (Manual) (0.0-0.8) Nucleated RBCs # K/uL APTT (18.6-31.3) SEC ABG pH 7.46 H (7.35-7.45) ABG pCO2 41 (35-45) mmHG ABG pO2 71 L (80-105) mmHG ABG HCO3 29 H (22-26) mEq/L ABG Total CO2 25.9 (23-27) mmol/L ABG Base Excess 4.9 H (-2.0-3.0) Sodium (136-148) mmol/L Potassium (3.5-5.1) mmol/L Chloride (98-107) mmol/L Carbon Dioxide (21.0-32.0) mmol/L BUN (7.0-18.0) mg/dL Creatinine (0.8-1.3) mg/dL Est Cr Clr Drug Dosing mL/min Estimated GFR (MDRD) ml/min Glucose (74-106) mg/dL POC Glucose 136 H 124 H (70-99) mg/dL Lactic Acid (0.4-2.0) mmol/L Calcium (8.5-10.1) mg/dL Phosphorus (2.6-4.7) mg/dL Magnesium (1.8-2.4) mg/dL Total Bilirubin (0.2-1.0) mg/dL AST (15-37) IU/L ALT (14-63) IU/L Alkaline Phosphatase (46-116) U/L Ammonia (19-54) ug/dL B-Natriuretic Peptide (<100) PG/ML Total Protein (6.4-8.2) g/dL Albumin (3.4-5.0) g/dL Globulin (2.6-4.0) g/dL Albumin/Globulin Ratio (0.9-1.6) Vancomycin Trough (5.0-10.0) ug/mL SARS-CoV-2 RNA (THAI) (NEGATIVE) 09/23/20 09/23/20 09/23/20 Range/Units 19:05 19:05 19:05 WBC (4.0-11.0) K/uL RBC (4.50-5.90) M/uL Hgb (13.0-17.0) g/dL Hct (38.0-50.0) % MCV (80.0-98.0) fL MCH (27.0-32.0) pg MCHC (31.0-37.0) g/dL RDW Std Deviation (28.0-62.0) fl RDW Coeff of Julissa (11.0-15.0) % Plt Count (150-400) K/uL MPV (7.40-12.00) fL Add Manual Diff Neutrophils % (Manual) (48.0-80.0) % Band Neutrophils % % Lymphocytes % (Manual) (16.0-40.0) % Monocytes % (Manual) (0.0-15.0) % Nucleated RBC % /100WBC Absolute Seg Neuts (1.4-5.7) Band Neutrophils # Lymphocytes # (Manual) (0.6-2.4) Monocytes # (Manual) (0.0-0.8) Nucleated RBCs # K/uL APTT (18.6-31.3) SEC ABG pH (7.35-7.45) ABG pCO2 (35-45) mmHG ABG pO2 (80-105) mmHG ABG HCO3 (22-26) mEq/L ABG Total CO2 (23-27) mmol/L ABG Base Excess (-2.0-3.0) Sodium (136-148) mmol/L Potassium (3.5-5.1) mmol/L Chloride (98-107) mmol/L Carbon Dioxide (21.0-32.0) mmol/L BUN (7.0-18.0) mg/dL Creatinine (0.8-1.3) mg/dL Est Cr Clr Drug Dosing mL/min Estimated GFR (MDRD) ml/min Glucose (74-106) mg/dL POC Glucose (70-99) mg/dL Lactic Acid (0.4-2.0) mmol/L Calcium (8.5-10.1) mg/dL Phosphorus 1.8 L (2.6-4.7) mg/dL Magnesium (1.8-2.4) mg/dL Total Bilirubin (0.2-1.0) mg/dL AST (15-37) IU/L ALT (14-63) IU/L Alkaline Phosphatase (46-116) U/L Ammonia 54 (19-54) ug/dL B-Natriuretic Peptide 124 H (<100) PG/ML Total Protein (6.4-8.2) g/dL Albumin (3.4-5.0) g/dL Globulin (2.6-4.0) g/dL Albumin/Globulin Ratio (0.9-1.6) Vancomycin Trough (5.0-10.0) ug/mL SARS-CoV-2 RNA (THAI) (NEGATIVE) 09/23/20 09/23/20 09/23/20 Range/Units 19:17 19:25 20:03 WBC (4.0-11.0) K/uL RBC (4.50-5.90) M/uL Hgb (13.0-17.0) g/dL Hct (38.0-50.0) % MCV (80.0-98.0) fL MCH (27.0-32.0) pg MCHC (31.0-37.0) g/dL RDW Std Deviation (28.0-62.0) fl RDW Coeff of Julissa (11.0-15.0) % Plt Count (150-400) K/uL MPV (7.40-12.00) fL Add Manual Diff Neutrophils % (Manual) (48.0-80.0) % Band Neutrophils % % Lymphocytes % (Manual) (16.0-40.0) % Monocytes % (Manual) (0.0-15.0) % Nucleated RBC % /100WBC Absolute Seg Neuts (1.4-5.7) Band Neutrophils # Lymphocytes # (Manual) (0.6-2.4) Monocytes # (Manual) (0.0-0.8) Nucleated RBCs # K/uL APTT 24.5 (18.6-31.3) SEC ABG pH (7.35-7.45) ABG pCO2 (35-45) mmHG ABG pO2 (80-105) mmHG ABG HCO3 (22-26) mEq/L ABG Total CO2 (23-27) mmol/L ABG Base Excess (-2.0-3.0) Sodium (136-148) mmol/L Potassium (3.5-5.1) mmol/L Chloride (98-107) mmol/L Carbon Dioxide (21.0-32.0) mmol/L BUN (7.0-18.0) mg/dL Creatinine (0.8-1.3) mg/dL Est Cr Clr Drug Dosing mL/min Estimated GFR (MDRD) ml/min Glucose (74-106) mg/dL POC Glucose 127 H 130 H (70-99) mg/dL Lactic Acid (0.4-2.0) mmol/L Calcium (8.5-10.1) mg/dL Phosphorus (2.6-4.7) mg/dL Magnesium (1.8-2.4) mg/dL Total Bilirubin (0.2-1.0) mg/dL AST (15-37) IU/L ALT (14-63) IU/L Alkaline Phosphatase (46-116) U/L Ammonia (19-54) ug/dL B-Natriuretic Peptide (<100) PG/ML Total Protein (6.4-8.2) g/dL Albumin (3.4-5.0) g/dL Globulin (2.6-4.0) g/dL Albumin/Globulin Ratio (0.9-1.6) Vancomycin Trough (5.0-10.0) ug/mL SARS-CoV-2 RNA (THAI) (NEGATIVE) 09/23/20 09/23/20 Range/Units 20:10 21:08 WBC (4.0-11.0) K/uL RBC (4.50-5.90) M/uL Hgb (13.0-17.0) g/dL Hct (38.0-50.0) % MCV (80.0-98.0) fL MCH (27.0-32.0) pg MCHC (31.0-37.0) g/dL RDW Std Deviation (28.0-62.0) fl RDW Coeff of Julissa (11.0-15.0) % Plt Count (150-400) K/uL MPV (7.40-12.00) fL Add Manual Diff Neutrophils % (Manual) (48.0-80.0) % Band Neutrophils % % Lymphocytes % (Manual) (16.0-40.0) % Monocytes % (Manual) (0.0-15.0) % Nucleated RBC % /100WBC Absolute Seg Neuts (1.4-5.7) Band Neutrophils # Lymphocytes # (Manual) (0.6-2.4) Monocytes # (Manual) (0.0-0.8) Nucleated RBCs # K/uL APTT (18.6-31.3) SEC ABG pH (7.35-7.45) ABG pCO2 (35-45) mmHG ABG pO2 (80-105) mmHG ABG HCO3 (22-26) mEq/L ABG Total CO2 (23-27) mmol/L ABG Base Excess (-2.0-3.0) Sodium (136-148) mmol/L Potassium (3.5-5.1) mmol/L Chloride (98-107) mmol/L Carbon Dioxide (21.0-32.0) mmol/L BUN (7.0-18.0) mg/dL Creatinine (0.8-1.3) mg/dL Est Cr Clr Drug Dosing mL/min Estimated GFR (MDRD) ml/min Glucose (74-106) mg/dL POC Glucose 145 H (70-99) mg/dL Lactic Acid (0.4-2.0) mmol/L Calcium (8.5-10.1) mg/dL Phosphorus (2.6-4.7) mg/dL Magnesium (1.8-2.4) mg/dL Total Bilirubin (0.2-1.0) mg/dL AST (15-37) IU/L ALT (14-63) IU/L Alkaline Phosphatase (46-116) U/L Ammonia (19-54) ug/dL B-Natriuretic Peptide (<100) PG/ML Total Protein (6.4-8.2) g/dL Albumin (3.4-5.0) g/dL Globulin (2.6-4.0) g/dL Albumin/Globulin Ratio (0.9-1.6) Vancomycin Trough (5.0-10.0) ug/mL SARS-CoV-2 RNA (THAI) NEGATIVE (NEGATIVE) Chin Results Last 24 Hours: Microbiology 09/22/20 08:48 Aerobic Blood Culture - Preliminary Blood - Venous - Lab Draw NO GROWTH AFTER 1 DAY Anaerobic Blood Culture - Preliminary NO GROWTH AFTER 1 DAY 09/22/20 08:47 Aerobic Blood Culture - Preliminary Blood - Venous NO GROWTH AFTER 1 DAY Anaerobic Blood Culture - Preliminary NO GROWTH AFTER 1 DAY Med Orders - Current: Current Medications Albuterol (Albuterol 0.083% 2.5 Mg/3 Ml Neb Soln) 2.5 mg NEB QIDRT [facility] Last Admin: 09/23/20 21:03 Dose: 2.5 mg Documented by: Albuterol (Albuterol 0.083% 2.5 Mg/3 Ml Neb Soln) 2.5 mg NEB Q4HRRT PRN PRN Reason: Wheezing Last Admin: 09/23/20 04:20 Dose: 2.5 mg Documented by: Chlordiazepoxide HCl (Chlordiazepoxide 25 Mg Cap) 25 mg PO Q12H [facility] Last Admin: 09/23/20 19:57 Dose: 25 mg Documented by: Dextrose/Water (50% Dextrose In Water 50 Ml Syringe) 50 ml IV ASDIRECTED PRN PRN Reason: Hypoglycemia Diltiazem HCl (Diltiazem Ir 30 Mg Tab) 90 mg PO Q6H [facility] Folic Acid (Folic Acid 50 Mg/10 Ml Mdv) 1 mg SUBCUT DAILY [facility] Last Admin: 09/23/20 08:15 Dose: 1 mg Documented by: Glucagon (Glucagon,Human Recombinant 1 Mg Vial) 1 mg IM ASDIRECTED PRN PRN Reason: Hypoglycemia Sodium Chloride (Normal Saline) 500 mls @ 999 mls/hr IV .BOLUS [facility] Last Admin: 09/22/20 10:02 Dose: 999 mls/hr Documented by: Piperacillin Sod/Tazobactam (Sod 4.5 gm/ Sodium Chloride) 100 mls @ 100 mls/hr IV Q6H [facility] Last Admin: 09/23/20 21:11 Dose: 100 mls/hr Documented by: Vancomycin HCl 1.5 gm/ Premix 300 mls @ 200 mls/hr IV Q8H [facility] Last Admin: 09/23/20 16:33 Dose: 200 mls/hr Documented by: Insulin Regular in 0.9 % NACL (Myxredlin In Ns 100 Unit/100 Ml) 100 mls @ 3 mls/hr IV TITRATE [facility]; Protocol Last Titration: 09/23/20 18:06 Dose: 1 unit/hr, 1 mls/hr Documented by: Sodium Chloride (Normal Saline) 1,000 mls @ 100 mls/hr IV ASDIRECTED [facility] Last Admin: 09/23/20 08:26 Dose: 100 mls/hr Documented by: Amiodarone HCl/Dextrose (Nexterone In Dextrose 360 Mg/200 Ml) 360 mg in 200 mls @ 16.667 mls/hr IV ASDIRECTED FIDE; Protocol Stop: 09/24/20 21:21 Last Admin: 09/23/20 15:37 Dose: 0.5 mg/min, 16.667 mls/hr Documented by: Dexmedetomidine/Sodium (Chloride 400 mcg/ Premix) 100 mls @ 5.3 mls/hr IV TITRATE [facility]IDE; Protocol Pantoprazole Sodium 40 mg/ (Sodium Chloride) 10 mls @ 300 mls/hr IV Q24H [facility] Last Admin: 09/23/20 10:28 Dose: 300 mls/hr Documented by: Heparin Sodium/Sodium Chloride (Heparin 25,000 Units In 1/2 Ns 500 Ml) 500 mls @ 20.023 mls/hr IV TITRATE [facility]IDE; Protocol Last Admin: 09/23/20 20:37 Dose: 9.4 units/kg/hr, 20.023 mls/hr Documented by: Lorazepam (Lorazepam 2 Mg/Ml Sdv) 0 mg IVPUSH Q4H PRN; Protocol PRN Reason: [email or web address] Last Admin: 09/23/20 06:43 Dose: 1 mg Documented by: Morphine Sulfate (Morphine 2 Mg/Ml Syringe) 2 mg IVPUSH Q3H PRN PRN Reason: Pain Last Admin: 09/22/20 20:40 Dose: 2 mg Documented by: Ondansetron HCl (Ondansetron 4 Mg/2 Ml Sdv) 4 mg IVPUSH Q4H PRN PRN Reason: Nausea Sodium Chloride (Sodium Chloride 0.9% 10 Ml Syringe) 10 ml FLUSH ASDIRECTED PRN PRN Reason: Keep Vein Open Last Admin: 09/22/20 09:22 Dose: 10 ml Documented by: Sodium Chloride (Sodium Chloride 0.9% 2.5 Ml Syringe) 2.5 ml FLUSH ASDIRECTED PRN PRN Reason: Keep Vein Open Last Admin: 09/22/20 09:21 Dose: 2.5 ml Documented by: Sodium Phosphate (Phosphorus #1 250 Mg Tab) 250 mg PO QID [facility] Last Admin: 09/23/20 20:54 Dose: 250 mg Documented by: Thiamine HCl (Thiamine 200 Mg/2 Ml Mdv) 100 mg IVPUSH DAILY [facility] Last Admin: 09/23/20 08:17 Dose: 100 mg Documented by: Vancomycin HCl (Pharmacy To Dose - Vancomycin) 1 dose .XX ASDIRECTED [facility] Discontinued Medications Albuterol (Albuterol 0.5% 5 Mg/Ml Neb Soln 20 Ml Bottle) 10 mg NEB ONETIME ONE Stop: 09/22/20 10:21 Last Admin: 09/22/20 11:30 Dose: Not Given Documented by: Albuterol (Albuterol 0.083% 2.5 Mg/3 Ml Neb Soln) 2.5 mg NEB ONETIME ONE Stop: 09/22/20 10:32 Last Admin: 09/22/20 10:39 Dose: 2.5 mg Documented by: Albuterol (Albuterol 0.5% 2.5 Mg/0.5 Ml Neb Soln) 2.5 mg NEB QIDRT [facility] Last Admin: 09/22/20 17:33 Dose: Not Given Documented by: Albuterol (Albuterol 0.5% 5 Mg/Ml Neb Soln 20 Ml Bottle) 2.5 mg NEB Q4HRRT PRN PRN Reason: Wheezing Chlordiazepoxide HCl (Chlordiazepoxide 10 Mg Cap) 10 mg PO ONETIME ONE Stop: 09/22/20 11:41 Last Admin: 09/22/20 11:53 Dose: 10 mg Documented by: Chlordiazepoxide HCl (Chlordiazepoxide 25 Mg Cap) 25 mg PO ONETIME ONE Stop: 09/22/20 13:51 Last Admin: 09/22/20 13:58 Dose: 25 mg Documented by: Chlordiazepoxide HCl (Chlordiazepoxide 25 Mg Cap) 25 mg PO Q8H [facility] Last Admin: 09/23/20 06:01 Dose: 25 mg Documented by: Digoxin (Digoxin 500 Mcg/2 Ml Amp) 250 mcg IVPUSH ONETIME ONE Stop: 09/22/20 18:50 Last Admin: 09/22/20 19:09 Dose: 250 mcg Documented by: Diltiazem HCl (Diltiazem 25 Mg/5 Ml Sdv) Confirm Administered Dose 25 mg .ROUTE .STK-MED ONE Stop: 09/22/20 17:10 Last Admin: 09/22/20 17:15 Dose: Not Given Documented by: Diltiazem HCl (Diltiazem 25 Mg/5 Ml Sdv) 10 mg IVPUSH ONETIME ONE Stop: 09/22/20 17:10 Last Admin: 09/22/20 17:09 Dose: 10 mg Documented by: Diltiazem HCl (Diltiazem 25 Mg/5 Ml Sdv) 10 mg IVPUSH ONETIME ONE Stop: 09/22/20 17:19 Last Admin: 09/22/20 17:51 Dose: Not Given Documented by: Diltiazem HCl (Diltiazem 25 Mg/5 Ml Sdv) 5 mg IVPUSH ONETIME ONE Stop: 09/22/20 18:49 Last Admin: 09/22/20 18:54 Dose: 5 mg Documented by: Diltiazem HCl (Diltiazem 25 Mg/5 Ml Sdv) 5 mg IVPUSH ONETIME ONE Stop: 09/22/20 19:32 Last Admin: 09/22/20 19:39 Dose: 5 mg Documented by: Diltiazem HCl (Diltiazem Ir 60 Mg Tab) 60 mg PO Q6H [facility] Last Admin: 09/23/20 16:33 Dose: 60 mg Documented by: Heparin Sodium (Porcine) (Heparin Sodium 5,000 Units/Ml Vial) 5,000 units SUBCUT Q8H [facility] Last Admin: 09/23/20 19:25 Dose: Not Given Documented by: Ceftriaxone Sodium/Dextrose 1 (gm/ Premix) 50 mls @ 100 mls/hr IV ONETIME ONE Stop: 09/22/20 09:29 Last Admin: 09/22/20 09:21 Dose: 100 mls/hr Documented by: Multivitamins/Minerals 10 ml/Thiamine HCl 100 mg/ Folic Acid 1 mg/ Sodium Chloride 1,011.2 mls @ 1,000 mls/hr IV ONETIME ONE Stop: 09/22/20 10:00 Last Admin: 09/22/20 09:36 Dose: Not Given Documented by: Sodium Chloride (Normal Saline) 1,000 mls @ 1,000 mls/hr IV .Bolus ONE Stop: 09/22/20 10:01 Last Admin: 09/22/20 09:21 Dose: 1,000 mls/hr Documented by: Multivitamins/Minerals 10 ml/Thiamine HCl 100 mg/ Folic Acid 1 mg/ Sodium Chloride 1,011.2 mls @ 1,000 mls/hr IV ONETIME ONE Stop: 09/22/20 10:15 Last Admin: 09/22/20 09:24 Dose: 1,000 mls/hr Documented by: Azithromycin 500 mg/ Sodium (Chloride) 250 mls @ 250 mls/hr IV ONETIME [facility] Last Admin: 09/22/20 10:55 Dose: 250 mls/hr Documented by: Pantoprazole Sodium 40 mg/ (Sodium Chloride) 20 mls @ 420 mls/hr IVPUSH ONETIME ONE Stop: 09/22/20 10:20 Last Admin: 09/22/20 10:25 Dose: 420 mls/hr Documented by: Sodium Chloride (Normal Saline) 1,000 mls @ 999 mls/hr IV .Bolus ONE Stop: 09/22/20 15:03 Last Admin: 09/22/20 14:07 Dose: 999 mls/hr Documented by: Sodium Chloride (Normal Saline) 1,000 mls @ 999 mls/hr IV .Bolus ONE Stop: 09/22/20 15:52 Last Admin: 09/22/20 18:56 Dose: Not Given Documented by: Azithromycin 500 mg/ Sodium (Chloride) 250 mls @ 250 mls/hr IV DAILY [facility] Ceftriaxone Sodium/Dextrose 1 (gm/ Premix) 50 mls @ 100 mls/hr IV Q24H [facility] Insulin Human Regular 100 unit (/ Sodium Chloride) 100 mls @ 3 mls/hr IV TITRATE [facility]; Protocol Diltiazem HCl 100 mg/ Sodium (Chloride) 100 mls @ 5 mls/hr IV CONTINUOUS [facility]; Protocol Last Titration: 09/22/20 21:09 Dose: 0 mg/hr, 0 mls/hr Documented by: Amiodarone HCl/Dextrose 150 mg (/ Premix) 100 mls @ 400 mls/hr IV NOW ONE; Protocol Stop: 09/22/20 21:00 Last Admin: 09/22/20 21:04 Dose: 400 mls/hr Documented by: Amiodarone HCl/Dextrose (Nexterone In Dextrose 360 Mg/200 Ml) 360 mg in 200 mls @ 33.333 mls/hr IV ASDIRECTED [facility]; Protocol Last Admin: 09/22/20 21:22 Dose: 1 mg/min, 33.333 mls/hr Documented by: Magnesium Sulfate 2 gm/ Premix 25 mls @ 25 mls/hr IV ONETIME ONE Stop: 09/22/20 21:45 Last Admin: 09/22/20 21:57 Dose: 25 mls/hr Documented by: Potassium Chloride 40 meq/ (Premix) 100 mls @ 25 mls/hr IV ONETIME ONE Stop: 09/23/20 00:45 Last Admin: 09/22/20 23:18 Dose: 25 mls/hr Documented by: Potassium Phosphate 30 mmole/ (Sodium Chloride) 260 mls @ 32.5 mls/hr IV ONETIME ONE Stop: 09/23/20 19:44 Last Admin: 09/23/20 11:51 Dose: 32.5 mls/hr Documented by: Insulin Human Regular (Insulin Regular, Human 100 Units/Ml 10 Ml Vial) 15 unit IVPUSH ONETIME ONE; Protocol Stop: 09/22/20 11:01 Last Admin: 09/22/20 11:26 Dose: 15 units Documented by: Iopamidol (Iopamidol 755 Mg/Ml 500 Ml Multipack Bottle) 100 ml IVPUSH ONETIME STA Stop: 09/22/20 15:37 Last Admin: 09/22/20 15:36 Dose: 100 ml Documented by: Iopamidol (Iopamidol 755 Mg/Ml 500 Ml Multipack Bottle) 75 ml IVPUSH ONETIME STA Stop: 09/22/20 20:24 Last Admin: 09/22/20 20:24 Dose: 75 ml Documented by: Lorazepam (Lorazepam 2 Mg/Ml Sdv) 1 mg IVPUSH ONETIME ONE Stop: 09/22/20 11:41 Last Admin: 09/22/20 11:53 Dose: 1 mg Documented by: Lorazepam (Lorazepam 2 Mg/Ml Sdv) 1 mg IVPUSH ONETIME ONE Stop: 09/22/20 13:51 Last Admin: 09/22/20 13:58 Dose: 1 mg Documented by: Metoclopramide HCl (Metoclopramide 10 Mg/2 Ml Sdv) 10 mg IVPUSH ONETIME ONE Stop: 09/22/20 10:18 Last Admin: 09/22/20 10:25 Dose: 10 mg Documented by: Sodium Phosphate (Phosphorus #1 250 Mg Tab) 250 mg PO QID [facility] - Exam Quality Assessment: Supplemental Oxygen (On BiPAP), DVT Prophylaxis General: Alert, Oriented, Cooperative (X1), Mild Distress HEENT: Pupils Equal, Pupils Reactive, EOMI Neck: Supple, Trachea Midline, No JVD Lungs: Clear to Auscultation Cardiovascular: Irregular Rhythm, Tachycardia GI/Abdominal Exam: Distended Back Exam: Normal Inspection Extremities: Non-Tender, Normal Capillary Refill Peripheral Pulses: 2+: Carotid (L), Carotid (R), Dorsalis Pedis (L), Dorsalis Pedis (R) Skin: Warm, Dry, Intact - Patient Data Lab Results Last 24 hrs: Laboratory Results - last 24 hr 09/22/20 09/22/20 09/22/20 Range/Units 21:37 22:22 22:40 WBC (4.0-11.0) K/uL RBC (4.50-5.90) M/uL Hgb (13.0-17.0) g/dL Hct (38.0-50.0) % MCV (80.0-98.0) fL MCH (27.0-32.0) pg MCHC (31.0-37.0) g/dL RDW Std Deviation (28.0-62.0) fl RDW Coeff of Julissa (11.0-15.0) % Plt Count (150-400) K/uL MPV (7.40-12.00) fL Add Manual Diff Neutrophils % (Manual) (48.0-80.0) % Band Neutrophils % % Lymphocytes % (Manual) (16.0-40.0) % Monocytes % (Manual) (0.0-15.0) % Nucleated RBC % /100WBC Absolute Seg Neuts (1.4-5.7) Band Neutrophils # Lymphocytes # (Manual) (0.6-2.4) Monocytes # (Manual) (0.0-0.8) Nucleated RBCs # K/uL APTT (18.6-31.3) SEC ABG pH (7.35-7.45) ABG pCO2 (35-45) mmHG ABG pO2 (80-105) mmHG ABG HCO3 (22-26) mEq/L ABG Total CO2 (23-27) mmol/L ABG Base Excess (-2.0-3.0) Sodium (136-148) mmol/L Potassium (3.5-5.1) mmol/L Chloride (98-107) mmol/L Carbon Dioxide (21.0-32.0) mmol/L BUN (7.0-18.0) mg/dL Creatinine (0.8-1.3) mg/dL Est Cr Clr Drug Dosing mL/min Estimated GFR (MDRD) ml/min Glucose (74-106) mg/dL POC Glucose 243 H 233 H (70-99) mg/dL Lactic Acid 2.3 H* (0.4-2.0) mmol/L Calcium (8.5-10.1) mg/dL Phosphorus (2.6-4.7) mg/dL Magnesium (1.8-2.4) mg/dL Total Bilirubin (0.2-1.0) mg/dL AST (15-37) IU/L ALT (14-63) IU/L Alkaline Phosphatase (46-116) U/L Ammonia (19-54) ug/dL B-Natriuretic Peptide (<100) PG/ML Total Protein (6.4-8.2) g/dL Albumin (3.4-5.0) g/dL Globulin (2.6-4.0) g/dL Albumin/Globulin Ratio (0.9-1.6) Vancomycin Trough (5.0-10.0) ug/mL SARS-CoV-2 RNA (THAI) (NEGATIVE) 09/22/20 09/22/20 09/23/20 Range/Units 22:43 23:17 00:31 WBC (4.0-11.0) K/uL RBC (4.50-5.90) M/uL Hgb (13.0-17.0) g/dL Hct (38.0-50.0) % MCV (80.0-98.0) fL MCH (27.0-32.0) pg MCHC (31.0-37.0) g/dL RDW Std Deviation (28.0-62.0) fl RDW Coeff of Julissa (11.0-15.0) % Plt Count (150-400) K/uL MPV (7.40-12.00) fL Add Manual Diff Neutrophils % (Manual) (48.0-80.0) % Band Neutrophils % % Lymphocytes % (Manual) (16.0-40.0) % Monocytes % (Manual) (0.0-15.0) % Nucleated RBC % /100WBC Absolute Seg Neuts (1.4-5.7) Band Neutrophils # Lymphocytes # (Manual) (0.6-2.4) Monocytes # (Manual) (0.0-0.8) Nucleated RBCs # K/uL APTT (18.6-31.3) SEC ABG pH 7.50 H (7.35-7.45) ABG pCO2 37 (35-45) mmHG ABG pO2 77 L (80-105) mmHG ABG HCO3 29 H (22-26) mEq/L ABG Total CO2 25.0 (23-27) mmol/L ABG Base Excess 5.3 H (-2.0-3.0) Sodium (136-148) mmol/L Potassium (3.5-5.1) mmol/L Chloride (98-107) mmol/L Carbon Dioxide (21.0-32.0) mmol/L BUN (7.0-18.0) mg/dL Creatinine (0.8-1.3) mg/dL Est Cr Clr Drug Dosing mL/min Estimated GFR (MDRD) ml/min Glucose (74-106) mg/dL POC Glucose 242 H 208 H (70-99) mg/dL Lactic Acid (0.4-2.0) mmol/L Calcium (8.5-10.1) mg/dL Phosphorus (2.6-4.7) mg/dL Magnesium (1.8-2.4) mg/dL Total Bilirubin (0.2-1.0) mg/dL AST (15-37) IU/L ALT (14-63) IU/L Alkaline Phosphatase (46-116) U/L Ammonia (19-54) ug/dL B-Natriuretic Peptide (<100) PG/ML Total Protein (6.4-8.2) g/dL Albumin (3.4-5.0) g/dL Globulin (2.6-4.0) g/dL Albumin/Globulin Ratio (0.9-1.6) Vancomycin Trough (5.0-10.0) ug/mL SARS-CoV-2 RNA (THAI) (NEGATIVE) 09/23/20 09/23/20 09/23/20 Range/Units 01:13 02:11 03:05 WBC (4.0-11.0) K/uL RBC (4.50-5.90) M/uL Hgb (13.0-17.0) g/dL Hct (38.0-50.0) % MCV (80.0-98.0) fL MCH (27.0-32.0) pg MCHC (31.0-37.0) g/dL RDW Std Deviation (28.0-62.0) fl RDW Coeff of Julissa (11.0-15.0) % Plt Count (150-400) K/uL MPV (7.40-12.00) fL Add Manual Diff Neutrophils % (Manual) (48.0-80.0) % Band Neutrophils % % Lymphocytes % (Manual) (16.0-40.0) % Monocytes % (Manual) (0.0-15.0) % Nucleated RBC % /100WBC Absolute Seg Neuts (1.4-5.7) Band Neutrophils # Lymphocytes # (Manual) (0.6-2.4) Monocytes # (Manual) (0.0-0.8) Nucleated RBCs # K/uL APTT (18.6-31.3) SEC ABG pH (7.35-7.45) ABG pCO2 (35-45) mmHG ABG pO2 (80-105) mmHG ABG HCO3 (22-26) mEq/L ABG Total CO2 (23-27) mmol/L ABG Base Excess (-2.0-3.0) Sodium (136-148) mmol/L Potassium (3.5-5.1) mmol/L Chloride (98-107) mmol/L Carbon Dioxide (21.0-32.0) mmol/L BUN (7.0-18.0) mg/dL Creatinine (0.8-1.3) mg/dL Est Cr Clr Drug Dosing mL/min Estimated GFR (MDRD) ml/min Glucose (74-106) mg/dL POC Glucose 175 H 182 H 187 H (70-99) mg/dL Lactic Acid (0.4-2.0) mmol/L Calcium (8.5-10.1) mg/dL Phosphorus (2.6-4.7) mg/dL Magnesium (1.8-2.4) mg/dL Total Bilirubin (0.2-1.0) mg/dL AST (15-37) IU/L ALT (14-63) IU/L Alkaline Phosphatase (46-116) U/L Ammonia (19-54) ug/dL B-Natriuretic Peptide (<100) PG/ML Total Protein (6.4-8.2) g/dL Albumin (3.4-5.0) g/dL Globulin (2.6-4.0) g/dL Albumin/Globulin Ratio (0.9-1.6) Vancomycin Trough (5.0-10.0) ug/mL SARS-CoV-2 RNA (THAI) (NEGATIVE) 09/23/20 09/23/20 09/23/20 Range/Units 04:01 04:20 04:20 WBC 14.71 H (4.0-11.0) K/uL RBC 3.93 L (4.50-5.90) M/uL Hgb 13.7 (13.0-17.0) g/dL Hct 38.9 (38.0-50.0) % MCV 99.0 H (80.0-98.0) fL MCH 34.9 H (27.0-32.0) pg MCHC 35.2 (31.0-37.0) g/dL RDW Std Deviation 54.0 (28.0-62.0) fl RDW Coeff of Julissa 15 (11.0-15.0) % Plt Count 79 L (150-400) K/uL MPV 12.80 H (7.40-12.00) fL Add Manual Diff YES Neutrophils % (Manual) 69 (48.0-80.0) % Band Neutrophils % 8 % Lymphocytes % (Manual) 13 L (16.0-40.0) % Monocytes % (Manual) 10 (0.0-15.0) % Nucleated RBC % 0.6 /100WBC Absolute Seg Neuts 10.1 H (1.4-5.7) Band Neutrophils # 1.2 Lymphocytes # (Manual) 1.9 (0.6-2.4) Monocytes # (Manual) 1.5 H (0.0-0.8) Nucleated RBCs # 0 K/uL APTT (18.6-31.3) SEC ABG pH (7.35-7.45) ABG pCO2 (35-45) mmHG ABG pO2 (80-105) mmHG ABG HCO3 (22-26) mEq/L ABG Total CO2 (23-27) mmol/L ABG Base Excess (-2.0-3.0) Sodium 139 (136-148) mmol/L Potassium 3.8 (3.5-5.1) mmol/L Chloride 101 (98-107) mmol/L Carbon Dioxide 29.5 (21.0-32.0) mmol/L BUN 14 (7.0-18.0) mg/dL Creatinine 0.9 (0.8-1.3) mg/dL Est Cr Clr Drug Dosing 105.38 mL/min Estimated GFR (MDRD) > 60.0 ml/min Glucose 231 H (74-106) mg/dL POC Glucose 209 H (70-99) mg/dL Lactic Acid (0.4-2.0) mmol/L Calcium 7.7 L (8.5-10.1) mg/dL Phosphorus (2.6-4.7) mg/dL Magnesium (1.8-2.4) mg/dL Total Bilirubin 1.9 H (0.2-1.0) mg/dL AST 182 H (15-37) IU/L ALT 69 H (14-63) IU/L Alkaline Phosphatase 148 H (46-116) U/L Ammonia (19-54) ug/dL B-Natriuretic Peptide (<100) PG/ML Total Protein 6.3 L (6.4-8.2) g/dL Albumin 2.2 L (3.4-5.0) g/dL Globulin 4.1 H (2.6-4.0) g/dL Albumin/Globulin Ratio 0.5 L (0.9-1.6) Vancomycin Trough (5.0-10.0) ug/mL SARS-CoV-2 RNA (THAI) (NEGATIVE) 09/23/20 09/23/20 09/23/20 Range/Units 04:20 04:20 05:07 WBC (4.0-11.0) K/uL RBC (4.50-5.90) M/uL Hgb (13.0-17.0) g/dL Hct (38.0-50.0) % MCV (80.0-98.0) fL MCH (27.0-32.0) pg MCHC (31.0-37.0) g/dL RDW Std Deviation (28.0-62.0) fl RDW Coeff of Julissa (11.0-15.0) % Plt Count (150-400) K/uL MPV (7.40-12.00) fL Add Manual Diff Neutrophils % (Manual) (48.0-80.0) % Band Neutrophils % % Lymphocytes % (Manual) (16.0-40.0) % Monocytes % (Manual) (0.0-15.0) % Nucleated RBC % /100WBC Absolute Seg Neuts (1.4-5.7) Band Neutrophils # Lymphocytes # (Manual) (0.6-2.4) Monocytes # (Manual) (0.0-0.8) Nucleated RBCs # K/uL APTT (18.6-31.3) SEC ABG pH (7.35-7.45) ABG pCO2 (35-45) mmHG ABG pO2 (80-105) mmHG ABG HCO3 (22-26) mEq/L ABG Total CO2 (23-27) mmol/L ABG Base Excess (-2.0-3.0) Sodium (136-148) mmol/L Potassium (3.5-5.1) mmol/L Chloride (98-107) mmol/L Carbon Dioxide (21.0-32.0) mmol/L BUN (7.0-18.0) mg/dL Creatinine (0.8-1.3) mg/dL Est Cr Clr Drug Dosing mL/min Estimated GFR (MDRD) ml/min Glucose (74-106) mg/dL POC Glucose 206 H (70-99) mg/dL Lactic Acid 1.6 (0.4-2.0) mmol/L Calcium (8.5-10.1) mg/dL Phosphorus 1.1 L (2.6-4.7) mg/dL Magnesium 1.9 (1.8-2.4) mg/dL Total Bilirubin (0.2-1.0) mg/dL AST (15-37) IU/L ALT (14-63) IU/L Alkaline Phosphatase (46-116) U/L Ammonia (19-54) ug/dL B-Natriuretic Peptide (<100) PG/ML Total Protein (6.4-8.2) g/dL Albumin (3.4-5.0) g/dL Globulin (2.6-4.0) g/dL Albumin/Globulin Ratio (0.9-1.6) Vancomycin Trough (5.0-10.0) ug/mL SARS-CoV-2 RNA (THAI) (NEGATIVE) 09/23/20 09/23/20 09/23/20 Range/Units 06:04 06:52 07:35 WBC (4.0-11.0) K/uL RBC (4.50-5.90) M/uL Hgb (13.0-17.0) g/dL Hct (38.0-50.0) % MCV (80.0-98.0) fL MCH (27.0-32.0) pg MCHC (31.0-37.0) g/dL RDW Std Deviation (28.0-62.0) fl RDW Coeff of Julissa (11.0-15.0) % Plt Count (150-400) K/uL MPV (7.40-12.00) fL Add Manual Diff Neutrophils % (Manual) (48.0-80.0) % Band Neutrophils % % Lymphocytes % (Manual) (16.0-40.0) % Monocytes % (Manual) (0.0-15.0) % Nucleated RBC % /100WBC Absolute Seg Neuts (1.4-5.7) Band Neutrophils # Lymphocytes # (Manual) (0.6-2.4) Monocytes # (Manual) (0.0-0.8) Nucleated RBCs # K/uL APTT (18.6-31.3) SEC ABG pH 7.49 H (7.35-7.45) ABG pCO2 40 (35-45) mmHG ABG pO2 73 L (80-105) mmHG ABG HCO3 31 H (22-26) mEq/L ABG Total CO2 27.1 H (23-27) mmol/L ABG Base Excess 6.8 H (-2.0-3.0) Sodium (136-148) mmol/L Potassium (3.5-5.1) mmol/L Chloride (98-107) mmol/L Carbon Dioxide (21.0-32.0) mmol/L BUN (7.0-18.0) mg/dL Creatinine (0.8-1.3) mg/dL Est Cr Clr Drug Dosing mL/min Estimated GFR (MDRD) ml/min Glucose (74-106) mg/dL POC Glucose 212 H 199 H (70-99) mg/dL Lactic Acid (0.4-2.0) mmol/L Calcium (8.5-10.1) mg/dL Phosphorus (2.6-4.7) mg/dL Magnesium (1.8-2.4) mg/dL Total Bilirubin (0.2-1.0) mg/dL AST (15-37) IU/L ALT (14-63) IU/L Alkaline Phosphatase (46-116) U/L Ammonia (19-54) ug/dL B-Natriuretic Peptide (<100) PG/ML Total Protein (6.4-8.2) g/dL Albumin (3.4-5.0) g/dL Globulin (2.6-4.0) g/dL Albumin/Globulin Ratio (0.9-1.6) Vancomycin Trough (5.0-10.0) ug/mL SARS-CoV-2 RNA (THAI) (NEGATIVE) 09/23/20 09/23/20 09/23/20 Range/Units 08:00 09:34 10:36 WBC (4.0-11.0) K/uL RBC (4.50-5.90) M/uL Hgb (13.0-17.0) g/dL Hct (38.0-50.0) % MCV (80.0-98.0) fL MCH (27.0-32.0) pg MCHC (31.0-37.0) g/dL RDW Std Deviation (28.0-62.0) fl RDW Coeff of Julissa (11.0-15.0) % Plt Count (150-400) K/uL MPV (7.40-12.00) fL Add Manual Diff Neutrophils % (Manual) (48.0-80.0) % Band Neutrophils % % Lymphocytes % (Manual) (16.0-40.0) % Monocytes % (Manual) (0.0-15.0) % Nucleated RBC % /100WBC Absolute Seg Neuts (1.4-5.7) Band Neutrophils # Lymphocytes # (Manual) (0.6-2.4) Monocytes # (Manual) (0.0-0.8) Nucleated RBCs # K/uL APTT (18.6-31.3) SEC ABG pH (7.35-7.45) ABG pCO2 (35-45) mmHG ABG pO2 (80-105) mmHG ABG HCO3 (22-26) mEq/L ABG Total CO2 (23-27) mmol/L ABG Base Excess (-2.0-3.0) Sodium (136-148) mmol/L Potassium (3.5-5.1) mmol/L Chloride (98-107) mmol/L Carbon Dioxide (21.0-32.0) mmol/L BUN (7.0-18.0) mg/dL Creatinine (0.8-1.3) mg/dL Est Cr Clr Drug Dosing mL/min Estimated GFR (MDRD) ml/min Glucose (74-106) mg/dL POC Glucose 174 H 204 H 174 H (70-99) mg/dL Lactic Acid (0.4-2.0) mmol/L Calcium (8.5-10.1) mg/dL Phosphorus (2.6-4.7) mg/dL Magnesium (1.8-2.4) mg/dL Total Bilirubin (0.2-1.0) mg/dL AST (15-37) IU/L ALT (14-63) IU/L Alkaline Phosphatase (46-116) U/L Ammonia (19-54) ug/dL B-Natriuretic Peptide (<100) PG/ML Total Protein (6.4-8.2) g/dL Albumin (3.4-5.0) g/dL Globulin (2.6-4.0) g/dL Albumin/Globulin Ratio (0.9-1.6) Vancomycin Trough (5.0-10.0) ug/mL SARS-CoV-2 RNA (THAI) (NEGATIVE) 0609/23/20 09/23/20 Range/Units 11:34 12:35 13:29 WBC (4.0-11.0) K/uL RBC (4.50-5.90) M/uL Hgb (13.0-17.0) g/dL Hct (38.0-50.0) % MCV (80.0-98.0) fL MCH (27.0-32.0) pg MCHC (31.0-37.0) g/dL RDW Std Deviation (28.0-62.0) fl RDW Coeff of Julissa (11.0-15.0) % Plt Count (150-400) K/uL MPV (7.40-12.00) fL Add Manual Diff Neutrophils % (Manual) (48.0-80.0) % Band Neutrophils % % Lymphocytes % (Manual) (16.0-40.0) % Monocytes % (Manual) (0.0-15.0) % Nucleated RBC % /100WBC Absolute Seg Neuts (1.4-5.7) Band Neutrophils # Lymphocytes # (Manual) (0.6-2.4) Monocytes # (Manual) (0.0-0.8) Nucleated RBCs # K/uL APTT (18.6-31.3) SEC ABG pH (7.35-7.45) ABG pCO2 (35-45) mmHG ABG pO2 (80-105) mmHG ABG HCO3 (22-26) mEq/L ABG Total CO2 (23-27) mmol/L ABG Base Excess (-2.0-3.0) Sodium (136-148) mmol/L Potassium (3.5-5.1) mmol/L Chloride (98-107) mmol/L Carbon Dioxide (21.0-32.0) mmol/L BUN (7.0-18.0) mg/dL Creatinine (0.8-1.3) mg/dL Est Cr Clr Drug Dosing mL/min Estimated GFR (MDRD) ml/min Glucose (74-106) mg/dL POC Glucose 146 H 166 H 166 H (70-99) mg/dL Lactic Acid (0.4-2.0) mmol/L Calcium (8.5-10.1) mg/dL Phosphorus (2.6-4.7) mg/dL Magnesium (1.8-2.4) mg/dL Total Bilirubin (0.2-1.0) mg/dL AST (15-37) IU/L ALT (14-63) IU/L Alkaline Phosphatase (46-116) U/L Ammonia (19-54) ug/dL B-Natriuretic Peptide (<100) PG/ML Total Protein (6.4-8.2) g/dL Albumin (3.4-5.0) g/dL Globulin (2.6-4.0) g/dL Albumin/Globulin Ratio (0.9-1.6) Vancomycin Trough (5.0-10.0) ug/mL SARS-CoV-2 RNA (THAI) (NEGATIVE) 09/23/20 09/23/20 09/23/20 Range/Units 14:12 15:16 16:22 WBC (4.0-11.0) K/uL RBC (4.50-5.90) M/uL Hgb (13.0-17.0) g/dL Hct (38.0-50.0) % MCV (80.0-98.0) fL MCH (27.0-32.0) pg MCHC (31.0-37.0) g/dL RDW Std Deviation (28.0-62.0) fl RDW Coeff of Julissa (11.0-15.0) % Plt Count (150-400) K/uL MPV (7.40-12.00) fL Add Manual Diff Neutrophils % (Manual) (48.0-80.0) % Band Neutrophils % % Lymphocytes % (Manual) (16.0-40.0) % Monocytes % (Manual) (0.0-15.0) % Nucleated RBC % /100WBC Absolute Seg Neuts (1.4-5.7) Band Neutrophils # Lymphocytes # (Manual) (0.6-2.4) Monocytes # (Manual) (0.0-0.8) Nucleated RBCs # K/uL APTT (18.6-31.3) SEC ABG pH (7.35-7.45) ABG pCO2 (35-45) mmHG ABG pO2 (80-105) mmHG ABG HCO3 (22-26) mEq/L ABG Total CO2 (23-27) mmol/L ABG Base Excess (-2.0-3.0) Sodium (136-148) mmol/L Potassium (3.5-5.1) mmol/L Chloride (98-107) mmol/L Carbon Dioxide (21.0-32.0) mmol/L BUN (7.0-18.0) mg/dL Creatinine (0.8-1.3) mg/dL Est Cr Clr Drug Dosing mL/min Estimated GFR (MDRD) ml/min Glucose (74-106) mg/dL POC Glucose 184 H 154 H (70-99) mg/dL Lactic Acid (0.4-2.0) mmol/L Calcium (8.5-10.1) mg/dL Phosphorus (2.6-4.7) mg/dL Magnesium (1.8-2.4) mg/dL Total Bilirubin (0.2-1.0) mg/dL AST (15-37) IU/L ALT (14-63) IU/L Alkaline Phosphatase (46-116) U/L Ammonia (19-54) ug/dL B-Natriuretic Peptide (<100) PG/ML Total Protein (6.4-8.2) g/dL Albumin (3.4-5.0) g/dL Globulin (2.6-4.0) g/dL Albumin/Globulin Ratio (0.9-1.6) Vancomycin Trough 13.2 H (5.0-10.0) ug/mL SARS-CoV-2 RNA (THAI) (NEGATIVE) 09/23/20 09/23/20 09/23/20 Range/Units 17:10 18:04 18:33 WBC (4.0-11.0) K/uL RBC (4.50-5.90) M/uL Hgb (13.0-17.0) g/dL Hct (38.0-50.0) % MCV (80.0-98.0) fL MCH (27.0-32.0) pg MCHC (31.0-37.0) g/dL RDW Std Deviation (28.0-62.0) fl RDW Coeff of Julissa (11.0-15.0) % Plt Count (150-400) K/uL MPV (7.40-12.00) fL Add Manual Diff Neutrophils % (Manual) (48.0-80.0) % Band Neutrophils % % Lymphocytes % (Manual) (16.0-40.0) % Monocytes % (Manual) (0.0-15.0) % Nucleated RBC % /100WBC Absolute Seg Neuts (1.4-5.7) Band Neutrophils # Lymphocytes # (Manual) (0.6-2.4) Monocytes # (Manual) (0.0-0.8) Nucleated RBCs # K/uL APTT (18.6-31.3) SEC ABG pH 7.46 H (7.35-7.45) ABG pCO2 41 (35-45) mmHG ABG pO2 71 L (80-105) mmHG ABG HCO3 29 H (22-26) mEq/L ABG Total CO2 25.9 (23-27) mmol/L ABG Base Excess 4.9 H (-2.0-3.0) Sodium (136-148) mmol/L Potassium (3.5-5.1) mmol/L Chloride (98-107) mmol/L Carbon Dioxide (21.0-32.0) mmol/L BUN (7.0-18.0) mg/dL Creatinine (0.8-1.3) mg/dL Est Cr Clr Drug Dosing mL/min Estimated GFR (MDRD) ml/min Glucose (74-106) mg/dL POC Glucose 136 H 124 H (70-99) mg/dL Lactic Acid (0.4-2.0) mmol/L Calcium (8.5-10.1) mg/dL Phosphorus (2.6-4.7) mg/dL Magnesium (1.8-2.4) mg/dL Total Bilirubin (0.2-1.0) mg/dL AST (15-37) IU/L ALT (14-63) IU/L Alkaline Phosphatase (46-116) U/L Ammonia (19-54) ug/dL B-Natriuretic Peptide (<100) PG/ML Total Protein (6.4-8.2) g/dL Albumin (3.4-5.0) g/dL Globulin (2.6-4.0) g/dL Albumin/Globulin Ratio (0.9-1.6) Vancomycin Trough (5.0-10.0) ug/mL SARS-CoV-2 RNA (THAI) (NEGATIVE) 06/07/1109/23/20 09/23/20 Range/Units 19:05 19:05 19:05 WBC (4.0-11.0) K/uL RBC (4.50-5.90) M/uL Hgb (13.0-17.0) g/dL Hct (38.0-50.0) % MCV (80.0-98.0) fL MCH (27.0-32.0) pg MCHC (31.0-37.0) g/dL RDW Std Deviation (28.0-62.0) fl RDW Coeff of Julissa (11.0-15.0) % Plt Count (150-400) K/uL MPV (7.40-12.00) fL Add Manual Diff Neutrophils % (Manual) (48.0-80.0) % Band Neutrophils % % Lymphocytes % (Manual) (16.0-40.0) % Monocytes % (Manual) (0.0-15.0) % Nucleated RBC % /100WBC Absolute Seg Neuts (1.4-5.7) Band Neutrophils # Lymphocytes # (Manual) (0.6-2.4) Monocytes # (Manual) (0.0-0.8) Nucleated RBCs # K/uL APTT (18.6-31.3) SEC ABG pH (7.35-7.45) ABG pCO2 (35-45) mmHG ABG pO2 (80-105) mmHG ABG HCO3 (22-26) mEq/L ABG Total CO2 (23-27) mmol/L ABG Base Excess (-2.0-3.0) Sodium (136-148) mmol/L Potassium (3.5-5.1) mmol/L Chloride (98-107) mmol/L Carbon Dioxide (21.0-32.0) mmol/L BUN (7.0-18.0) mg/dL Creatinine (0.8-1.3) mg/dL Est Cr Clr Drug Dosing mL/min Estimated GFR (MDRD) ml/min Glucose (74-106) mg/dL POC Glucose (70-99) mg/dL Lactic Acid (0.4-2.0) mmol/L Calcium (8.5-10.1) mg/dL Phosphorus 1.8 L (2.6-4.7) mg/dL Magnesium (1.8-2.4) mg/dL Total Bilirubin (0.2-1.0) mg/dL AST (15-37) IU/L ALT (14-63) IU/L Alkaline Phosphatase (46-116) U/L Ammonia 54 (19-54) ug/dL B-Natriuretic Peptide 124 H (<100) PG/ML Total Protein (6.4-8.2) g/dL Albumin (3.4-5.0) g/dL Globulin (2.6-4.0) g/dL Albumin/Globulin Ratio (0.9-1.6) Vancomycin Trough (5.0-10.0) ug/mL SARS-CoV-2 RNA (THAI) (NEGATIVE) 09/23/20 09/23/20 09/23/20 Range/Units 19:17 19:25 20:03 WBC (4.0-11.0) K/uL RBC (4.50-5.90) M/uL Hgb (13.0-17.0) g/dL Hct (38.0-50.0) % MCV (80.0-98.0) fL MCH (27.0-32.0) pg MCHC (31.0-37.0) g/dL RDW Std Deviation (28.0-62.0) fl RDW Coeff of Julissa (11.0-15.0) % Plt Count (150-400) K/uL MPV (7.40-12.00) fL Add Manual Diff Neutrophils % (Manual) (48.0-80.0) % Band Neutrophils % % Lymphocytes % (Manual) (16.0-40.0) % Monocytes % (Manual) (0.0-15.0) % Nucleated RBC % /100WBC Absolute Seg Neuts (1.4-5.7) Band Neutrophils # Lymphocytes # (Manual) (0.6-2.4) Monocytes # (Manual) (0.0-0.8) Nucleated RBCs # K/uL APTT 24.5 (18.6-31.3) SEC ABG pH (7.35-7.45) ABG pCO2 (35-45) mmHG ABG pO2 (80-105) mmHG ABG HCO3 (22-26) mEq/L ABG Total CO2 (23-27) mmol/L ABG Base Excess (-2.0-3.0) Sodium (136-148) mmol/L Potassium (3.5-5.1) mmol/L Chloride (98-107) mmol/L Carbon Dioxide (21.0-32.0) mmol/L BUN (7.0-18.0) mg/dL Creatinine (0.8-1.3) mg/dL Est Cr Clr Drug Dosing mL/min Estimated GFR (MDRD) ml/min Glucose (74-106) mg/dL POC Glucose 127 H 130 H (70-99) mg/dL Lactic Acid (0.4-2.0) mmol/L Calcium (8.5-10.1) mg/dL Phosphorus (2.6-4.7) mg/dL Magnesium (1.8-2.4) mg/dL Total Bilirubin (0.2-1.0) mg/dL AST (15-37) IU/L ALT (14-63) IU/L Alkaline Phosphatase (46-116) U/L Ammonia (19-54) ug/dL B-Natriuretic Peptide (<100) PG/ML Total Protein (6.4-8.2) g/dL Albumin (3.4-5.0) g/dL Globulin (2.6-4.0) g/dL Albumin/Globulin Ratio (0.9-1.6) Vancomycin Trough (5.0-10.0) ug/mL SARS-CoV-2 RNA (THAI) (NEGATIVE) 09/23/20 09/23/20 Range/Units 20:10 21:08 WBC (4.0-11.0) K/uL RBC (4.50-5.90) M/uL Hgb (13.0-17.0) g/dL Hct (38.0-50.0) % MCV (80.0-98.0) fL MCH (27.0-32.0) pg MCHC (31.0-37.0) g/dL RDW Std Deviation (28.0-62.0) fl RDW Coeff of Julissa (11.0-15.0) % Plt Count (150-400) K/uL MPV (7.40-12.00) fL Add Manual Diff Neutrophils % (Manual) (48.0-80.0) % Band Neutrophils % % Lymphocytes % (Manual) (16.0-40.0) % Monocytes % (Manual) (0.0-15.0) % Nucleated RBC % /100WBC Absolute Seg Neuts (1.4-5.7) Band Neutrophils # Lymphocytes # (Manual) (0.6-2.4) Monocytes # (Manual) (0.0-0.8) Nucleated RBCs # K/uL APTT (18.6-31.3) SEC ABG pH (7.35-7.45) ABG pCO2 (35-45) mmHG ABG pO2 (80-105) mmHG ABG HCO3 (22-26) mEq/L ABG Total CO2 (23-27) mmol/L ABG Base Excess (-2.0-3.0) Sodium (136-148) mmol/L Potassium (3.5-5.1) mmol/L Chloride (98-107) mmol/L Carbon Dioxide (21.0-32.0) mmol/L BUN (7.0-18.0) mg/dL Creatinine (0.8-1.3) mg/dL Est Cr Clr Drug Dosing mL/min Estimated GFR (MDRD) ml/min Glucose (74-106) mg/dL POC Glucose 145 H (70-99) mg/dL Lactic Acid (0.4-2.0) mmol/L Calcium (8.5-10.1) mg/dL Phosphorus (2.6-4.7) mg/dL Magnesium (1.8-2.4) mg/dL Total Bilirubin (0.2-1.0) mg/dL AST (15-37) IU/L ALT (14-63) IU/L Alkaline Phosphatase (46-116) U/L Ammonia (19-54) ug/dL B-Natriuretic Peptide (<100) PG/ML Total Protein (6.4-8.2) g/dL Albumin (3.4-5.0) g/dL Globulin (2.6-4.0) g/dL Albumin/Globulin Ratio (0.9-1.6) Vancomycin Trough (5.0-10.0) ug/mL SARS-CoV-2 RNA (THAI) NEGATIVE (NEGATIVE) Result Diagrams: 09/23/20 04:20 09/23/20 04:20 Chin Results Last 24 hrs: Microbiology 09/22/20 08:48 Aerobic Blood Culture - Preliminary Blood - Venous - Lab Draw NO GROWTH AFTER 1 DAY Anaerobic Blood Culture - Preliminary NO GROWTH AFTER 1 DAY 09/22/20 08:47 Aerobic Blood Culture - Preliminary Blood - Venous NO GROWTH AFTER 1 DAY Anaerobic Blood Culture - Preliminary NO GROWTH AFTER 1 DAY Sepsis Event Note - Evaluation Sepsis Screening Result: Severe Sepsis Risk - Focused Exam Vital Signs: Vital Signs Temp Resp BP Pulse Ox 09/23/20 17:00 12 134/91 H 95 09/23/20 16:00 99.5 F 16 130/88 95 09/23/20 15:00 18 137/84 94 L 09/23/20 14:00 16 128/89 94 L 09/23/20 13:00 19 144/84 H 94 L 09/23/20 12:00 99.7 F 21 H 130/90 93 L 09/23/20 11:00 20 144/94 H 95 09/23/20 10:00 20 139/88 93 L - Problem List Review Problem List Initiated/Reviewed/Updated: Yes - My Orders Last 24 Hours: My Active Orders 09/23/20 19:30 Heparin Sodium/0.45% NaCl [Heparin 25,000 Units in 1/2 NS 500 ML] 500 ml IV TITRATE 09/23/20 22:00 Diltiazem IR [Cardizem] 90 mg PO Q6H - Plan Plan:: 50 yo male admitted with ETOH withdrawal, pancreatic necrosis, acute hypoxic respiratory failure, A. fib RVR. 1. Acute hypoxic respiratory failure: On BiPAP FiO2 45, continue to wean as tolerated DuoNebs Continue his broad-spectrum antibiotics for aspiration versus community- acquired pneumonia, white blood cell count 14.7 we will continue to trend daily with CBC. 2. A. fib with RVR: Admitted to ICU, started on Cardizem drip, per eICU recommendations was transitioned to amiodarone drip and protocol. eICU's recommendations are very much appreciated. Additional recommendations were to start patient on 60 every 6 Cardizem p.o. consult cardiology. Cardiology was consulted at [facility] in [facility], [address] [place]: Recommended full dose heparin, 90 every 6 Cardizem in agreement with eICU. In addition suggested rechecking ABG, BNP, ammonia level. Continue to monitor on telemetry 3. Pancreatic necrosis: Gave 3 L of fluids, will reduce due to edema. N.p.o. 4. ETOH withdrawal: On librium 25mb TID, Ativan prn CIWAA protocol, and thiamin and folic acid. 5. Elevated lactic acid: Resolved, 1.6, 6. Hyperglycemia: Continue on insulin drip and continue to monitor closely 7. Thrombocytopenia: 79,000, likely secondary to alcohol abuse continue to monitor closely, if less than 50,000 we will hold DVT prophylaxis and consider transfusion of platelets. 8. Transaminitis likely secondary to alcohol abuse: Continue to monitor daily Check ammonia levels 9. Hypomagnesemia and hypophosphatemia: Replete and recheck, continue to monitor daily and replete as necessary
[2020-09-23] MEDS: Diltiazem IR 30 MG Tab PO SCH (22:06)
[2020-09-24] MEDS ORDERED: Phosphorus #1 250 MG Tab PO SCH
[2020-09-24] MEDS: Phosphorus #1 250 MG Tab PO SCH ×5 (00:13→23:18)
[2020-09-24] MEDS: VANCOmycin 1.5 GM/300 ML 1.5 GM in Premix Bag 1 BAG IV SCH ×4 (00:13→23:38)
[2020-09-24] MEDS: Sodium Chloride 0.9% 1,000 ML IV SCH (01:22)
[2020-09-24] MEDS: Piperacillin/Tazobactam 4.5 GM in Sodium Chloride 0.9% 100 ML IV SCH ×4 (02:40→21:18)
[2020-09-24 03:02] LABS: BLOOD UREA NITROGEN,BUN 12 mg/dL (7.0-18.0); CARBON DIOXIDE,CO2 26.1 mmol/L (21.0-32.0); GLUCOSE RANDOM 133 mg/dL (74-106)
[2020-09-24] MEDS: Insulin Regular in 0.9 % NACL 100 ML IV SCH (03:02)
[2020-09-24] MEDS: Diltiazem IR 30 MG Tab PO SCH ×4 (03:06→22:14)
[2020-09-24] MEDS: Albuterol 0.083% 2.5 MG/3 ML Neb Soln NEB PRN (03:42)
[2020-09-24] MEDS ORDERED: Potassium Chloride Riders 40 MEQ in Premix Bag 1 BAG IV ONE (04:56)
[2020-09-24] MEDS ORDERED: Magnesium Sulfate/Water 2 GM in Premix Bag 1 BAG IV ONE (04:58)
[2020-09-24] MEDS ORDERED: Heparin Sodium 5,000 Units/ML Vial IVPUSH ONE ×4 (05:13→23:33)
[2020-09-24] MEDS: Albuterol 0.083% 2.5 MG/3 ML Neb Soln NEB SCH ×3 (05:31→20:27)
[2020-09-24] MEDS: chlordiazePOXIDE 25 MG Cap PO SCH (05:31)
--- NOTE | 2020-09-24 06:01 | PN ---
TH[facility] Physician - Brief Progress [id number]/04/2021 05:46[facility] helio [place], [place] - JUDE (DAVIE) - SANJIV BRIGGSDate of Service 09/24/2020 05:46HPI/Events of Note potassium 3.1magnesium 1.6plan:potassium chloride 40 meq IVPB over 4 hours one timemagnesium sulfate 2 gm IVPB Over 120minutes for one timecheck ionized calciumInterventions Major-Electrolyte ab normality - evaluation and management
[2020-09-24] MEDS: Folic Acid 50 MG/10 ML MDV SUBCUT SCH (08:01)
[2020-09-24] MEDS: Thiamine 200 MG/2 ML MDV IVPUSH SCH (08:03)
[2020-09-24] MEDS: Pantoprazole 40 MG in Sodium Chloride 0.9% 10 ML IV SCH (09:42)
[2020-09-24] MEDS ORDERED: Potassium Phos,M-Basic-D-Basic 3 MMOL/ML VIAL IV ONE (09:44)
[2020-09-24] MEDS ORDERED: Magnesium Sulfate/Water 2 GM/50 ML Premix Bag IV ONE (09:55)
[2020-09-24] MEDS ORDERED: Magnesium Sulfate/Water 2 GM/50 ML BAG IV ONE (10:15)
[2020-09-24] MEDS ORDERED: Potassium Phosphates 30 MMOLE in Sodium Chloride 0.9% 500 ML IV ONE (10:30)
--- NOTE | 2020-09-24 11:03 | PN ---
THC Physician - Brief Progress [id number]/04/2021 10:53[facility] Sara cadet, BETTY - MARLENEN (DAVIE) - MARLENEN NATASHAASNJIV EIDAvDate of Service 09/24/2020 10:53HPI/Events of Note Brief eICU NoteEMR reviewed, yesterday's PNs noted.50yo male admitted on 09/22 with pancreatiti s complicated by Etoh withdrawal, afib with RVR requiring Amio and Dilt, hyperglycemia on Insulin dri p, hypoxemia attributed to pulmonary edema. Ongoing electrolyte repletion. On Zosyn. Heparinized, A jacob switched to PO.Echo done yesterday, report pending.ABG yesterday: 7.46Patient seen on camer a: middle aged male sitting up in chair on HFO2 in NAD 37.5 108 25 98% 120/81Agree with management.Re commend wean FiO2 for goal POx >90%, follow up Echo report, consider diuresis.Please contact us if we may be of assistance.Interventions Major-Arrhythmia - evaluation and management, Other: pancreatitis , Etoh withdrawalIntermediate-Hyperglycemia - evaluation and treatment
[2020-09-24] MEDS ORDERED: Potassium Phosphates 30 MMOLE, Magnesium Sulfate 2 GM in Sodium Chloride 0.9% 500 ML IV ONE (12:00)
[2020-09-24 14:38] LABS: CHLORIDE,CL 104 mmol/L (98-107); POTASSIUM,K 3.2 mmol/L (3.5-5.1); SODIUM,NA 141 mmol/L (136-148)
[2020-09-24] MEDS: Heparin Sodium/0.45% NaCl 500 ML IV SCH (14:42)
[2020-09-24] MEDS ORDERED: 50% Dextrose in Water 50 ML Syringe IV PRN (15:00)
[2020-09-24] MEDS ORDERED: Glucagon,Human Recombinant 1 MG Vial IM PRN ×2 (15:00)
[2020-09-24] MEDS ORDERED: Insulin Glargine,Human Rec. Analog 100 Units/ML 3 ML Pen SUBCUT SCH (15:30)
[2020-09-24] MEDS ORDERED: Insulin Aspart 100 Units/ML 3 ML Pen SUBCUT SCH (17:00)
--- NOTE | 2020-09-24 18:07 | PCM.PN ---
- General Info Date of Service: 09/24/20 Admission Dx/Problem (Free Text): Admission Diagnosis/Problem Admission Diagnosis/Problem Hypoxia Subjective Update: 50-year-old gentleman with a history of alcohol abuse was admitted for pancreatic necrosis, found to have A. fib with RVR admitted to the ICU started on Cardizem drip transition to amiodarone overnight. Was weaned from BiPAP to heated high flow this morning, alert and oriented x3, see was overnight with 3-4 therefore has not required Ativan in the last 24 hours. Patient is expressing desire to eat, denies any abdominal pain, observe patient start with liquid diet which he tolerated well. Patient was informed of his reason for admission as he is more alert and oriented. All questions and concerns were addressed at bedside. Functional Status: Reports: Tolerating Diet, Ambulating, Urinating - Review of Systems General: Reports: No Symptoms HEENT: Reports: No Symptoms Pulmonary: Reports: Other (Still requiring respiratory support on heated high flow) Cardiovascular: Reports: No Symptoms Gastrointestinal: Reports: No Symptoms. Denies: Abdominal Pain Genitourinary: Reports: No Symptoms Musculoskeletal: Reports: No Symptoms Skin: Reports: No Symptoms Neurological: Reports: No Symptoms Psychiatric: Reports: No Symptoms - Patient Data Vitals - Most Recent: Last Vital Signs Temp 99.5 F 09/24/20 16:00 Pulse 161 H 09/22/20 19:09 Resp 21 H 09/24/20 16:00 BP 123/83 09/24/20 16:00 Pulse Ox 93 L 09/24/20 16:00 Weight - Most Recent: 235 lb 14.4 oz I&O - Last 24 Hours: Intake & Output 09/24/20 09/24/20 09/24/20 06:59 14:59 22:59 Intake Total 2827 50 Output Total 1500 Balance 1327 50 Lab Results Last 24 Hours: Laboratory Results - last 24 hr 09/23/20 09/23/20 09/23/20 Range/Units 18:04 18:33 19:05 WBC (4.0-11.0) K/uL RBC (4.50-5.90) M/uL Hgb (13.0-17.0) g/dL Hct (38.0-50.0) % MCV (80.0-98.0) fL MCH (27.0-32.0) pg MCHC (31.0-37.0) g/dL RDW Std Deviation (28.0-62.0) fl RDW Coeff of Julissa (11.0-15.0) % Plt Count (150-400) K/uL MPV (7.40-12.00) fL Add Manual Diff Neutrophils % (Manual) (48.0-80.0) % Lymphocytes % (Manual) (16.0-40.0) % Monocytes % (Manual) (0.0-15.0) % Nucleated RBC % /100WBC Absolute Seg Neuts (1.4-5.7) Lymphocytes # (Manual) (0.6-2.4) Monocytes # (Manual) (0.0-0.8) Nucleated RBCs # K/uL APTT (18.6-31.3) SEC ABG pH 7.46 H (7.35-7.45) ABG pCO2 41 (35-45) mmHG ABG pO2 71 L (80-105) mmHG ABG HCO3 29 H (22-26) mEq/L ABG Total CO2 25.9 (23-27) mmol/L ABG Base Excess 4.9 H (-2.0-3.0) Ionized Calcium (4.6-5.1) mg/dL Sodium (136-148) mmol/L Potassium (3.5-5.1) mmol/L Chloride (98-107) mmol/L Carbon Dioxide (21.0-32.0) mmol/L BUN (7.0-18.0) mg/dL Creatinine (0.8-1.3) mg/dL Est Cr Clr Drug Dosing mL/min Estimated GFR (MDRD) ml/min Glucose (74-106) mg/dL POC Glucose 124 H (70-99) mg/dL Calcium (8.5-10.1) mg/dL Phosphorus 1.8 L (2.6-4.7) mg/dL Magnesium (1.8-2.4) mg/dL Total Bilirubin (0.2-1.0) mg/dL AST (15-37) IU/L ALT (14-63) IU/L Alkaline Phosphatase (46-116) U/L Ammonia (19-54) ug/dL B-Natriuretic Peptide (<100) PG/ML Total Protein (6.4-8.2) g/dL Albumin (3.4-5.0) g/dL Globulin (2.6-4.0) g/dL Albumin/Globulin Ratio (0.9-1.6) SARS-CoV-2 RNA (THAI) (NEGATIVE) 09/23/20 09/23/20 09/23/20 Range/Units 19:05 19:05 19:17 WBC (4.0-11.0) K/uL RBC (4.50-5.90) M/uL Hgb (13.0-17.0) g/dL Hct (38.0-50.0) % MCV (80.0-98.0) fL MCH (27.0-32.0) pg MCHC (31.0-37.0) g/dL RDW Std Deviation (28.0-62.0) fl RDW Coeff of Julissa (11.0-15.0) % Plt Count (150-400) K/uL MPV (7.40-12.00) fL Add Manual Diff Neutrophils % (Manual) (48.0-80.0) % Lymphocytes % (Manual) (16.0-40.0) % Monocytes % (Manual) (0.0-15.0) % Nucleated RBC % /100WBC Absolute Seg Neuts (1.4-5.7) Lymphocytes # (Manual) (0.6-2.4) Monocytes # (Manual) (0.0-0.8) Nucleated RBCs # K/uL APTT (18.6-31.3) SEC ABG pH (7.35-7.45) ABG pCO2 (35-45) mmHG ABG pO2 (80-105) mmHG ABG HCO3 (22-26) mEq/L ABG Total CO2 (23-27) mmol/L ABG Base Excess (-2.0-3.0) Ionized Calcium (4.6-5.1) mg/dL Sodium (136-148) mmol/L Potassium (3.5-5.1) mmol/L Chloride (98-107) mmol/L Carbon Dioxide (21.0-32.0) mmol/L BUN (7.0-18.0) mg/dL Creatinine (0.8-1.3) mg/dL Est Cr Clr Drug Dosing mL/min Estimated GFR (MDRD) ml/min Glucose (74-106) mg/dL POC Glucose 127 H (70-99) mg/dL Calcium (8.5-10.1) mg/dL Phosphorus (2.6-4.7) mg/dL Magnesium (1.8-2.4) mg/dL Total Bilirubin (0.2-1.0) mg/dL AST (15-37) IU/L ALT (14-63) IU/L Alkaline Phosphatase (46-116) U/L Ammonia 54 (19-54) ug/dL B-Natriuretic Peptide 124 H (<100) PG/ML Total Protein (6.4-8.2) g/dL Albumin (3.4-5.0) g/dL Globulin (2.6-4.0) g/dL Albumin/Globulin Ratio (0.9-1.6) SARS-CoV-2 RNA (THAI) (NEGATIVE) 09/23/20 09/23/20 09/23/20 Range/Units 19:25 20:03 20:10 WBC (4.0-11.0) K/uL RBC (4.50-5.90) M/uL Hgb (13.0-17.0) g/dL Hct (38.0-50.0) % MCV (80.0-98.0) fL MCH (27.0-32.0) pg MCHC (31.0-37.0) g/dL RDW Std Deviation (28.0-62.0) fl RDW Coeff of Julissa (11.0-15.0) % Plt Count (150-400) K/uL MPV (7.40-12.00) fL Add Manual Diff Neutrophils % (Manual) (48.0-80.0) % Lymphocytes % (Manual) (16.0-40.0) % Monocytes % (Manual) (0.0-15.0) % Nucleated RBC % /100WBC Absolute Seg Neuts (1.4-5.7) Lymphocytes # (Manual) (0.6-2.4) Monocytes # (Manual) (0.0-0.8) Nucleated RBCs # K/uL APTT 24.5 (18.6-31.3) SEC ABG pH (7.35-7.45) ABG pCO2 (35-45) mmHG ABG pO2 (80-105) mmHG ABG HCO3 (22-26) mEq/L ABG Total CO2 (23-27) mmol/L ABG Base Excess (-2.0-3.0) Ionized Calcium (4.6-5.1) mg/dL Sodium (136-148) mmol/L Potassium (3.5-5.1) mmol/L Chloride (98-107) mmol/L Carbon Dioxide (21.0-32.0) mmol/L BUN (7.0-18.0) mg/dL Creatinine (0.8-1.3) mg/dL Est Cr Clr Drug Dosing mL/min Estimated GFR (MDRD) ml/min Glucose (74-106) mg/dL POC Glucose 130 H (70-99) mg/dL Calcium (8.5-10.1) mg/dL Phosphorus (2.6-4.7) mg/dL Magnesium (1.8-2.4) mg/dL Total Bilirubin (0.2-1.0) mg/dL AST (15-37) IU/L ALT (14-63) IU/L Alkaline Phosphatase (46-116) U/L Ammonia (19-54) ug/dL B-Natriuretic Peptide (<100) PG/ML Total Protein (6.4-8.2) g/dL Albumin (3.4-5.0) g/dL Globulin (2.6-4.0) g/dL Albumin/Globulin Ratio (0.9-1.6) SARS-CoV-2 RNA (THAI) NEGATIVE (NEGATIVE) 09/23/20 09/23/20 09/24/20 Range/Units 21:08 23:10 01:01 WBC (4.0-11.0) K/uL RBC (4.50-5.90) M/uL Hgb (13.0-17.0) g/dL Hct (38.0-50.0) % MCV (80.0-98.0) fL MCH (27.0-32.0) pg MCHC (31.0-37.0) g/dL RDW Std Deviation (28.0-62.0) fl RDW Coeff of Julissa (11.0-15.0) % Plt Count (150-400) K/uL MPV (7.40-12.00) fL Add Manual Diff Neutrophils % (Manual) (48.0-80.0) % Lymphocytes % (Manual) (16.0-40.0) % Monocytes % (Manual) (0.0-15.0) % Nucleated RBC % /100WBC Absolute Seg Neuts (1.4-5.7) Lymphocytes # (Manual) (0.6-2.4) Monocytes # (Manual) (0.0-0.8) Nucleated RBCs # K/uL APTT (18.6-31.3) SEC ABG pH (7.35-7.45) ABG pCO2 (35-45) mmHG ABG pO2 (80-105) mmHG ABG HCO3 (22-26) mEq/L ABG Total CO2 (23-27) mmol/L ABG Base Excess (-2.0-3.0) Ionized Calcium (4.6-5.1) mg/dL Sodium (136-148) mmol/L Potassium (3.5-5.1) mmol/L Chloride (98-107) mmol/L Carbon Dioxide (21.0-32.0) mmol/L BUN (7.0-18.0) mg/dL Creatinine (0.8-1.3) mg/dL Est Cr Clr Drug Dosing mL/min Estimated GFR (MDRD) ml/min Glucose (74-106) mg/dL POC Glucose 145 H 132 H 125 H (70-99) mg/dL Calcium (8.5-10.1) mg/dL Phosphorus (2.6-4.7) mg/dL Magnesium (1.8-2.4) mg/dL Total Bilirubin (0.2-1.0) mg/dL AST (15-37) IU/L ALT (14-63) IU/L Alkaline Phosphatase (46-116) U/L Ammonia (19-54) ug/dL B-Natriuretic Peptide (<100) PG/ML Total Protein (6.4-8.2) g/dL Albumin (3.4-5.0) g/dL Globulin (2.6-4.0) g/dL Albumin/Globulin Ratio (0.9-1.6) SARS-CoV-2 RNA (THAI) (NEGATIVE) 09/24/20 09/24/20 09/24/20 Range/Units 02:38 02:40 02:40 WBC 14.60 H (4.0-11.0) K/uL RBC 3.96 L (4.50-5.90) M/uL Hgb 13.6 (13.0-17.0) g/dL Hct 39.8 (38.0-50.0) % MCV 100.5 H (80.0-98.0) fL MCH 34.3 H (27.0-32.0) pg MCHC 34.2 (31.0-37.0) g/dL RDW Std Deviation 55.9 (28.0-62.0) fl RDW Coeff of Julissa 15 (11.0-15.0) % Plt Count 86 L (150-400) K/uL MPV 13.40 H (7.40-12.00) fL Add Manual Diff YES Neutrophils % (Manual) 69 (48.0-80.0) % Lymphocytes % (Manual) 9 L (16.0-40.0) % Monocytes % (Manual) 22 H (0.0-15.0) % Nucleated RBC % 1.3 /100WBC Absolute Seg Neuts 10.1 H (1.4-5.7) Lymphocytes # (Manual) 1.3 (0.6-2.4) Monocytes # (Manual) 3.2 H (0.0-0.8) Nucleated RBCs # 0 K/uL APTT 29.6 (18.6-31.3) SEC ABG pH (7.35-7.45) ABG pCO2 (35-45) mmHG ABG pO2 (80-105) mmHG ABG HCO3 (22-26) mEq/L ABG Total CO2 (23-27) mmol/L ABG Base Excess (-2.0-3.0) Ionized Calcium (4.6-5.1) mg/dL Sodium (136-148) mmol/L Potassium (3.5-5.1) mmol/L Chloride (98-107) mmol/L Carbon Dioxide (21.0-32.0) mmol/L BUN (7.0-18.0) mg/dL Creatinine (0.8-1.3) mg/dL Est Cr Clr Drug Dosing mL/min Estimated GFR (MDRD) ml/min Glucose (74-106) mg/dL POC Glucose 111 H (70-99) mg/dL Calcium (8.5-10.1) mg/dL Phosphorus (2.6-4.7) mg/dL Magnesium (1.8-2.4) mg/dL Total Bilirubin (0.2-1.0) mg/dL AST (15-37) IU/L ALT (14-63) IU/L Alkaline Phosphatase (46-116) U/L Ammonia (19-54) ug/dL B-Natriuretic Peptide (<100) PG/ML Total Protein (6.4-8.2) g/dL Albumin (3.4-5.0) g/dL Globulin (2.6-4.0) g/dL Albumin/Globulin Ratio (0.9-1.6) SARS-CoV-2 RNA (THAI) (NEGATIVE) 09/24/20 09/24/20 09/24/20 Range/Units 02:40 05:03 07:21 WBC (4.0-11.0) K/uL RBC (4.50-5.90) M/uL Hgb (13.0-17.0) g/dL Hct (38.0-50.0) % MCV (80.0-98.0) fL MCH (27.0-32.0) pg MCHC (31.0-37.0) g/dL RDW Std Deviation (28.0-62.0) fl RDW Coeff of Julissa (11.0-15.0) % Plt Count (150-400) K/uL MPV (7.40-12.00) fL Add Manual Diff Neutrophils % (Manual) (48.0-80.0) % Lymphocytes % (Manual) (16.0-40.0) % Monocytes % (Manual) (0.0-15.0) % Nucleated RBC % /100WBC Absolute Seg Neuts (1.4-5.7) Lymphocytes # (Manual) (0.6-2.4) Monocytes # (Manual) (0.0-0.8) Nucleated RBCs # K/uL APTT (18.6-31.3) SEC ABG pH (7.35-7.45) ABG pCO2 (35-45) mmHG ABG pO2 (80-105) mmHG ABG HCO3 (22-26) mEq/L ABG Total CO2 (23-27) mmol/L ABG Base Excess (-2.0-3.0) Ionized Calcium (4.6-5.1) mg/dL Sodium 141 (136-148) mmol/L Potassium 3.2 L (3.5-5.1) mmol/L Chloride 104 (98-107) mmol/L Carbon Dioxide 26.1 (21.0-32.0) mmol/L BUN 12 (7.0-18.0) mg/dL Creatinine 0.7 L (0.8-1.3) mg/dL Est Cr Clr Drug Dosing 135.49 mL/min Estimated GFR (MDRD) > 60.0 ml/min Glucose 133 H (74-106) mg/dL POC Glucose 142 H 132 H (70-99) mg/dL Calcium 7.3 L (8.5-10.1) mg/dL Phosphorus 1.4 L (2.6-4.7) mg/dL Magnesium 1.6 L (1.8-2.4) mg/dL Total Bilirubin 1.5 H (0.2-1.0) mg/dL AST 151 H (15-37) IU/L ALT 68 H (14-63) IU/L Alkaline Phosphatase 130 H (46-116) U/L Ammonia (19-54) ug/dL B-Natriuretic Peptide (<100) PG/ML Total Protein 6.2 L (6.4-8.2) g/dL Albumin 2.1 L (3.4-5.0) g/dL Globulin 4.1 H (2.6-4.0) g/dL Albumin/Globulin Ratio 0.5 L (0.9-1.6) SARS-CoV-2 RNA (THAI) (NEGATIVE) 09/24/20 09/24/20 09/24/20 Range/Units 08:30 08:54 09:01 WBC (4.0-11.0) K/uL RBC (4.50-5.90) M/uL Hgb (13.0-17.0) g/dL Hct (38.0-50.0) % MCV (80.0-98.0) fL MCH (27.0-32.0) pg MCHC (31.0-37.0) g/dL RDW Std Deviation (28.0-62.0) fl RDW Coeff of Julissa (11.0-15.0) % Plt Count (150-400) K/uL MPV (7.40-12.00) fL Add Manual Diff Neutrophils % (Manual) (48.0-80.0) % Lymphocytes % (Manual) (16.0-40.0) % Monocytes % (Manual) (0.0-15.0) % Nucleated RBC % /100WBC Absolute Seg Neuts (1.4-5.7) Lymphocytes # (Manual) (0.6-2.4) Monocytes # (Manual) (0.0-0.8) Nucleated RBCs # K/uL APTT 34.8 H (18.6-31.3) SEC ABG pH (7.35-7.45) ABG pCO2 (35-45) mmHG ABG pO2 (80-105) mmHG ABG HCO3 (22-26) mEq/L ABG Total CO2 (23-27) mmol/L ABG Base Excess (-2.0-3.0) Ionized Calcium 4.0 L (4.6-5.1) mg/dL Sodium (136-148) mmol/L Potassium (3.5-5.1) mmol/L Chloride (98-107) mmol/L Carbon Dioxide (21.0-32.0) mmol/L BUN (7.0-18.0) mg/dL Creatinine (0.8-1.3) mg/dL Est Cr Clr Drug Dosing mL/min Estimated GFR (MDRD) ml/min Glucose (74-106) mg/dL POC Glucose 137 H (70-99) mg/dL Calcium (8.5-10.1) mg/dL Phosphorus (2.6-4.7) mg/dL Magnesium (1.8-2.4) mg/dL Total Bilirubin (0.2-1.0) mg/dL AST (15-37) IU/L ALT (14-63) IU/L Alkaline Phosphatase (46-116) U/L Ammonia (19-54) ug/dL B-Natriuretic Peptide (<100) PG/ML Total Protein (6.4-8.2) g/dL Albumin (3.4-5.0) g/dL Globulin (2.6-4.0) g/dL Albumin/Globulin Ratio (0.9-1.6) SARS-CoV-2 RNA (THAI) (NEGATIVE) 09/24/20 09/24/20 09/24/20 Range/Units 11:37 13:21 14:15 WBC (4.0-11.0) K/uL RBC (4.50-5.90) M/uL Hgb (13.0-17.0) g/dL Hct (38.0-50.0) % MCV (80.0-98.0) fL MCH (27.0-32.0) pg MCHC (31.0-37.0) g/dL RDW Std Deviation (28.0-62.0) fl RDW Coeff of Julissa (11.0-15.0) % Plt Count (150-400) K/uL MPV (7.40-12.00) fL Add Manual Diff Neutrophils % (Manual) (48.0-80.0) % Lymphocytes % (Manual) (16.0-40.0) % Monocytes % (Manual) (0.0-15.0) % Nucleated RBC % /100WBC Absolute Seg Neuts (1.4-5.7) Lymphocytes # (Manual) (0.6-2.4) Monocytes # (Manual) (0.0-0.8) Nucleated RBCs # K/uL APTT 50.8 H (18.6-31.3) SEC ABG pH (7.35-7.45) ABG pCO2 (35-45) mmHG ABG pO2 (80-105) mmHG ABG HCO3 (22-26) mEq/L ABG Total CO2 (23-27) mmol/L ABG Base Excess (-2.0-3.0) Ionized Calcium (4.6-5.1) mg/dL Sodium (136-148) mmol/L Potassium (3.5-5.1) mmol/L Chloride (98-107) mmol/L Carbon Dioxide (21.0-32.0) mmol/L BUN (7.0-18.0) mg/dL Creatinine (0.8-1.3) mg/dL Est Cr Clr Drug Dosing mL/min Estimated GFR (MDRD) ml/min Glucose (74-106) mg/dL POC Glucose 225 H 190 H (70-99) mg/dL Calcium (8.5-10.1) mg/dL Phosphorus (2.6-4.7) mg/dL Magnesium (1.8-2.4) mg/dL Total Bilirubin (0.2-1.0) mg/dL AST (15-37) IU/L ALT (14-63) IU/L Alkaline Phosphatase (46-116) U/L Ammonia (19-54) ug/dL B-Natriuretic Peptide (<100) PG/ML Total Protein (6.4-8.2) g/dL Albumin (3.4-5.0) g/dL Globulin (2.6-4.0) g/dL Albumin/Globulin Ratio (0.9-1.6) SARS-CoV-2 RNA (THAI) (NEGATIVE) 09/24/20 09/24/20 Range/Units 15:07 17:08 WBC (4.0-11.0) K/uL RBC (4.50-5.90) M/uL Hgb (13.0-17.0) g/dL Hct (38.0-50.0) % MCV (80.0-98.0) fL MCH (27.0-32.0) pg MCHC (31.0-37.0) g/dL RDW Std Deviation (28.0-62.0) fl RDW Coeff of Julissa (11.0-15.0) % Plt Count (150-400) K/uL MPV (7.40-12.00) fL Add Manual Diff Neutrophils % (Manual) (48.0-80.0) % Lymphocytes % (Manual) (16.0-40.0) % Monocytes % (Manual) (0.0-15.0) % Nucleated RBC % /100WBC Absolute Seg Neuts (1.4-5.7) Lymphocytes # (Manual) (0.6-2.4) Monocytes # (Manual) (0.0-0.8) Nucleated RBCs # K/uL APTT (18.6-31.3) SEC ABG pH (7.35-7.45) ABG pCO2 (35-45) mmHG ABG pO2 (80-105) mmHG ABG HCO3 (22-26) mEq/L ABG Total CO2 (23-27) mmol/L ABG Base Excess (-2.0-3.0) Ionized Calcium (4.6-5.1) mg/dL Sodium (136-148) mmol/L Potassium (3.5-5.1) mmol/L Chloride (98-107) mmol/L Carbon Dioxide (21.0-32.0) mmol/L BUN (7.0-18.0) mg/dL Creatinine (0.8-1.3) mg/dL Est Cr Clr Drug Dosing mL/min Estimated GFR (MDRD) ml/min Glucose (74-106) mg/dL POC Glucose 158 H 156 H (70-99) mg/dL Calcium (8.5-10.1) mg/dL Phosphorus (2.6-4.7) mg/dL Magnesium (1.8-2.4) mg/dL Total Bilirubin (0.2-1.0) mg/dL AST (15-37) IU/L ALT (14-63) IU/L Alkaline Phosphatase (46-116) U/L Ammonia (19-54) ug/dL B-Natriuretic Peptide (<100) PG/ML Total Protein (6.4-8.2) g/dL Albumin (3.4-5.0) g/dL Globulin (2.6-4.0) g/dL Albumin/Globulin Ratio (0.9-1.6) SARS-CoV-2 RNA (THAI) (NEGATIVE) Chin Results Last 24 Hours: Microbiology 09/22/20 08:48 Aerobic Blood Culture - Preliminary Blood - Venous - Lab Draw NO GROWTH AFTER 2 DAYS Anaerobic Blood Culture - Preliminary NO GROWTH AFTER 2 DAYS 09/22/20 08:47 Aerobic Blood Culture - Preliminary Blood - Venous NO GROWTH AFTER 2 DAYS Anaerobic Blood Culture - Preliminary NO GROWTH AFTER 2 DAYS Med Orders - Current: Current Medications Albuterol (Albuterol 0.083% 2.5 Mg/3 Ml Neb Soln) 2.5 mg NEB QIDRT FIDE Last Admin: 09/24/20 13:53 Dose: 2.5 mg Documented by: Albuterol (Albuterol 0.083% 2.5 Mg/3 Ml Neb Soln) 2.5 mg NEB Q4HRRT PRN PRN Reason: Wheezing Last Admin: 09/24/20 03:42 Dose: 2.5 mg Documented by: Amiodarone HCl (Amiodarone 200 Mg Tab) 200 mg PO DAILY [facility] Chlordiazepoxide HCl (Chlordiazepoxide 25 Mg Cap) 25 mg PO DAILY [facility] Dextrose/Water (50% Dextrose In Water 50 Ml Syringe) 50 ml IV ASDIRECTED PRN PRN Reason: Hypoglycemia Dextrose/Water (50% Dextrose In Water 50 Ml Syringe) 50 ml IV ASDIRECTED PRN PRN Reason: Hypoglycemia Diltiazem HCl (Diltiazem Ir 30 Mg Tab) 90 mg PO Q6H [facility] Last Admin: 09/24/20 17:05 Dose: 90 mg Documented by: Folic Acid (Folic Acid 50 Mg/10 Ml Mdv) 1 mg SUBCUT DAILY [facility] Last Admin: 09/24/20 08:01 Dose: 1 mg Documented by: Glucagon (Glucagon,Human Recombinant 1 Mg Vial) 1 mg IM ASDIRECTED PRN PRN Reason: Hypoglycemia Glucagon (Glucagon,Human Recombinant 1 Mg Vial) 1 mg IM ASDIRECTED PRN PRN Reason: Hypoglycemia Piperacillin Sod/Tazobactam (Sod 4.5 gm/ Sodium Chloride) 100 mls @ 100 mls/hr IV Q6H [facility] Last Admin: 09/24/20 16:11 Dose: 100 mls/hr Documented by: Vancomycin HCl 1.5 gm/ Premix 300 mls @ 200 mls/hr IV Q8H [facility] Last Admin: 09/24/20 16:55 Dose: 200 mls/hr Documented by: Dexmedetomidine/Sodium (Chloride 400 mcg/ Premix) 100 mls @ 5.3 mls/hr IV TITRATE [facility]; Protocol Pantoprazole Sodium 40 mg/ (Sodium Chloride) 10 mls @ 300 mls/hr IV Q24H [facility] Last Admin: 09/24/20 09:42 Dose: 300 mls/hr Documented by: Heparin Sodium/Sodium Chloride (Heparin 25,000 Units In 1/2 Ns 500 Ml) 500 mls @ 20.023 mls/hr IV TITRATE [facility]; Protocol Last Admin: 09/24/20 14:42 Dose: 17.4 units/kg/hr, 37.063 mls/hr Documented by: Insulin Aspart (Insulin Aspart 100 Units/Ml 3 Ml Pen) 0 unit SUBCUT TIDAC [facility]; Protocol Last Admin: 09/24/20 17:10 Dose: 1 unit Documented by: Insulin Glargine (Insulin Glargine,Human Rec. Analog 100 Units/Ml 3 Ml Pen) 12 units SUBCUT DAILY [facility] Last Admin: 09/24/20 16:10 Dose: 12 unit Documented by: Lorazepam (Lorazepam 2 Mg/Ml Sdv) 0 mg IVPUSH Q4H PRN; Protocol PRN Reason: [email or web address] Last Admin: 09/23/20 06:43 Dose: 1 mg Documented by: Morphine Sulfate (Morphine 2 Mg/Ml Syringe) 2 mg IVPUSH Q3H PRN PRN Reason: Pain Last Admin: 09/22/20 20:40 Dose: 2 mg Documented by: Ondansetron HCl (Ondansetron 4 Mg/2 Ml Sdv) 4 mg IVPUSH Q4H PRN PRN Reason: Nausea Sodium Chloride (Sodium Chloride 0.9% 10 Ml Syringe) 10 ml FLUSH ASDIRECTED PRN PRN Reason: Keep Vein Open Last Admin: 09/22/20 09:22 Dose: 10 ml Documented by: Sodium Chloride (Sodium Chloride 0.9% 2.5 Ml Syringe) 2.5 ml FLUSH ASDIRECTED PRN PRN Reason: Keep Vein Open Last Admin: 09/22/20 09:21 Dose: 2.5 ml Documented by: Sodium Phosphate (Phosphorus #1 250 Mg Tab) 250 mg PO QID [facility] Last Admin: 09/24/20 17:05 Dose: 250 mg Documented by: Thiamine HCl (Thiamine 200 Mg/2 Ml Mdv) 100 mg IVPUSH DAILY [facility] Last Admin: 09/24/20 08:03 Dose: 100 mg Documented by: Vancomycin HCl (Pharmacy To Dose - Vancomycin) 1 dose .XX ASDIRECTED [facility] Discontinued Medications Albuterol (Albuterol 0.5% 5 Mg/Ml Neb Soln 20 Ml Bottle) 10 mg NEB ONETIME ONE Stop: 09/22/20 10:21 Last Admin: 09/22/20 11:30 Dose: Not Given Documented by: Albuterol (Albuterol 0.083% 2.5 Mg/3 Ml Neb Soln) 2.5 mg NEB ONETIME ONE Stop: 09/22/20 10:32 Last Admin: 09/22/20 10:39 Dose: 2.5 mg Documented by: Albuterol (Albuterol 0.5% 2.5 Mg/0.5 Ml Neb Soln) 2.5 mg NEB QIDRT [facility] Last Admin: 09/22/20 17:33 Dose: Not Given Documented by: Albuterol (Albuterol 0.5% 5 Mg/Ml Neb Soln 20 Ml Bottle) 2.5 mg NEB Q4HRRT PRN PRN Reason: Wheezing Chlordiazepoxide HCl (Chlordiazepoxide 10 Mg Cap) 10 mg PO ONETIME ONE Stop: 09/22/20 11:41 Last Admin: 09/22/20 11:53 Dose: 10 mg Documented by: Chlordiazepoxide HCl (Chlordiazepoxide 25 Mg Cap) 25 mg PO ONETIME ONE Stop: 09/22/20 13:51 Last Admin: 09/22/20 13:58 Dose: 25 mg Documented by: Chlordiazepoxide HCl (Chlordiazepoxide 25 Mg Cap) 25 mg PO Q8H [facility] Last Admin: 09/23/20 06:01 Dose: 25 mg Documented by: Chlordiazepoxide HCl (Chlordiazepoxide 25 Mg Cap) 25 mg PO Q12H [facility] Last Admin: 09/24/20 05:31 Dose: 25 mg Documented by: Digoxin (Digoxin 500 Mcg/2 Ml Amp) 250 mcg IVPUSH ONETIME ONE Stop: 09/22/20 18:50 Last Admin: 09/22/20 19:09 Dose: 250 mcg Documented by: Diltiazem HCl (Diltiazem 25 Mg/5 Ml Sdv) Confirm Administered Dose 25 mg .ROUTE .STK-MED ONE Stop: 09/22/20 17:10 Last Admin: 09/22/20 17:15 Dose: Not Given Documented by: Diltiazem HCl (Diltiazem 25 Mg/5 Ml Sdv) 10 mg IVPUSH ONETIME ONE Stop: 09/22/20 17:10 Last Admin: 09/22/20 17:09 Dose: 10 mg Documented by: Diltiazem HCl (Diltiazem 25 Mg/5 Ml Sdv) 10 mg IVPUSH ONETIME ONE Stop: 09/22/20 17:19 Last Admin: 09/22/20 17:51 Dose: Not Given Documented by: Diltiazem HCl (Diltiazem 25 Mg/5 Ml Sdv) 5 mg IVPUSH ONETIME ONE Stop: 09/22/20 18:49 Last Admin: 09/22/20 18:54 Dose: 5 mg Documented by: Diltiazem HCl (Diltiazem 25 Mg/5 Ml Sdv) 5 mg IVPUSH ONETIME ONE Stop: 09/22/20 19:32 Last Admin: 09/22/20 19:39 Dose: 5 mg Documented by: Diltiazem HCl (Diltiazem Ir 60 Mg Tab) 60 mg PO Q6H [facility] Last Admin: 09/23/20 16:33 Dose: 60 mg Documented by: Heparin Sodium (Porcine) (Heparin Sodium 5,000 Units/Ml Vial) 5,000 units SUBCUT Q8H [facility] Last Admin: 09/23/20 19:25 Dose: Not Given Documented by: Heparin Sodium (Porcine) (Heparin Sodium 5,000 Units/Ml Vial) 200 units IVPUSH .BOLUS ONE Stop: 09/24/20 05:14 Last Admin: 09/24/20 05:16 Dose: Not Given Documented by: Heparin Sodium (Porcine) (Heparin Sodium 5,000 Units/Ml Vial) 2,000 units IVPUSH .BOLUS ONE Stop: 09/24/20 05:14 Last Admin: 09/24/20 05:20 Dose: 2,000 units Documented by: Heparin Sodium (Porcine) (Heparin Sodium 5,000 Units/Ml Vial) 2,000 units IVP [facility] .BOLUS ONE Stop: 09/24/20 12:31 Last Admin: 09/24/20 12:50 Dose: 2,000 units Documented by: Ceftriaxone Sodium/Dextrose 1 (gm/ Premix) 50 mls @ 100 mls/hr IV ONETIME ONE Stop: 09/22/20 09:29 Last Admin: 09/22/20 09:21 Dose: 100 mls/hr Documented by: Multivitamins/Minerals 10 ml/Thiamine HCl 100 mg/ Folic Acid 1 mg/ Sodium Chloride 1,011.2 mls @ 1,000 mls/hr IV ONETIME ONE Stop: 09/22/20 10:00 Last Admin: 09/22/20 09:36 Dose: Not Given Documented by: Sodium Chloride (Normal Saline) 1,000 mls @ 1,000 mls/hr IV .Bolus ONE Stop: 09/22/20 10:01 Last Admin: 09/22/20 09:21 Dose: 1,000 mls/hr Documented by: Multivitamins/Minerals 10 ml/Thiamine HCl 100 mg/ Folic Acid 1 mg/ Sodium Chloride 1,011.2 mls @ 1,000 mls/hr IV ONETIME ONE Stop: 09/22/20 10:15 Last Admin: 09/22/20 09:24 Dose: 1,000 mls/hr Documented by: Sodium Chloride (Normal Saline) 500 mls @ 999 mls/hr IV .BOLUS [facility] Last Admin: 09/22/20 10:02 Dose: 999 mls/hr Documented by: Azithromycin 500 mg/ Sodium (Chloride) 250 mls @ 250 mls/hr IV ONETIME [facility] Last Admin: 09/22/20 10:55 Dose: 250 mls/hr Documented by: Pantoprazole Sodium 40 mg/ (Sodium Chloride) 20 mls @ 420 mls/hr IVPUSH ONETIME ONE Stop: 09/22/20 10:20 Last Admin: 09/22/20 10:25 Dose: 420 mls/hr Documented by: Sodium Chloride (Normal Saline) 1,000 mls @ 999 mls/hr IV .Bolus ONE Stop: 09/22/20 15:03 Last Admin: 09/22/20 14:07 Dose: 999 mls/hr Documented by: Sodium Chloride (Normal Saline) 1,000 mls @ 999 mls/hr IV .Bolus ONE Stop: 09/22/20 15:52 Last Admin: 09/22/20 18:56 Dose: Not Given Documented by: Azithromycin 500 mg/ Sodium (Chloride) 250 mls @ 250 mls/hr IV DAILY [facility] Ceftriaxone Sodium/Dextrose 1 (gm/ Premix) 50 mls @ 100 mls/hr IV Q24H [facility] Insulin Human Regular 100 unit (/ Sodium Chloride) 100 mls @ 3 mls/hr IV TITRATE [facility]; Protocol Insulin Regular in 0.9 % NACL (Myxredlin In Ns 100 Unit/100 Ml) 100 mls @ 3 mls/hr IV TITRATE [facility]; Protocol Last Titration: 09/24/20 13:00 Dose: 2 unit/hr, 2 mls/hr Documented by: Diltiazem HCl 100 mg/ Sodium (Chloride) 100 mls @ 5 mls/hr IV CONTINUOUS [facility]; Protocol Last Titration: 09/22/20 21:09 Dose: 0 mg/hr, 0 mls/hr Documented by: Amiodarone HCl/Dextrose 150 mg (/ Premix) 100 mls @ 400 mls/hr IV NOW ONE; Protocol Stop: 09/22/20 21:00 Last Admin: 09/22/20 21:04 Dose: 400 mls/hr Documented by: Amiodarone HCl/Dextrose (Nexterone In Dextrose 360 Mg/200 Ml) 360 mg in 200 mls @ 33.333 mls/hr IV ASDIRECTED [facility]; Protocol Last Admin: 09/22/20 21:22 Dose: 1 mg/min, 33.333 mls/hr Documented by: Magnesium Sulfate 2 gm/ Premix 25 mls @ 25 mls/hr IV ONETIME ONE Stop: 09/22/20 21:45 Last Admin: 09/22/20 21:57 Dose: 25 mls/hr Documented by: Potassium Chloride 40 meq/ (Premix) 100 mls @ 25 mls/hr IV ONETIME ONE Stop: 09/23/20 00:45 Last Admin: 09/22/20 23:18 Dose: 25 mls/hr Documented by: Sodium Chloride (Normal Saline) 1,000 mls @ 100 mls/hr IV ASDIRECTED [facility] [facility] Last Admin: 09/24/20 01:22 Dose: 100 mls/hr Documented by: Amiodarone HCl/Dextrose (Nexterone In Dextrose 360 Mg/200 Ml) 360 mg in 200 mls @ 16.667 mls/hr IV ASDIRECTED [facility]; Protocol Stop: 09/24/20 21:21 Last Admin: 09/24/20 03:37 Dose: 0.5 mg/min, 16.667 mls/hr Documented by: Potassium Phosphate 30 mmole/ (Sodium Chloride) 260 mls @ 32.5 mls/hr IV ONETIME ONE Stop: 09/23/20 19:44 Last Admin: 09/23/20 11:51 Dose: 32.5 mls/hr Documented by: Potassium Chloride 40 meq/ (Premix) 100 mls @ 25 mls/hr IV ONETIME ONE Stop: 09/24/20 08:55 Last Admin: 09/24/20 07:34 Dose: 25 mls/hr Documented by: Magnesium Sulfate 2 gm/ Premix 50 mls @ 12.5 mls/hr IV ONETIME ONE Stop: 09/24/20 08:57 Last Infusion: 09/24/20 05:30 Dose: 25 mls/hr Documented by: Potassium Phosphate 30 mmole/Magnesium Sulfate 2 gm/ Sodium Chloride 514 mls @ 102.8 mls/hr IV ONETIME ONE Stop: 09/24/20 16:59 Last Admin: 09/24/20 13:15 Dose: 102.8 mls/hr Documented by: Insulin Human Regular (Insulin Regular, Human 100 Units/Ml 10 Ml Vial) 15 unit IVPUSH ONETIME ONE; Protocol Stop: 09/22/20 11:01 Last Admin: 09/22/20 11:26 Dose: 15 units Documented by: Iopamidol (Iopamidol 755 Mg/Ml 500 Ml Multipack Bottle) 100 ml IVPUSH ONETIME STA Stop: 09/22/20 15:37 Last Admin: 09/22/20 15:36 Dose: 100 ml Documented by: Iopamidol (Iopamidol 755 Mg/Ml 500 Ml Multipack Bottle) 75 ml IVPUSH ONETIME STA Stop: 09/22/20 20:24 Last Admin: 09/22/20 20:24 Dose: 75 ml Documented by: Lorazepam (Lorazepam 2 Mg/Ml Sdv) 1 mg IVPUSH ONETIME ONE Stop: 09/22/20 11:41 Last Admin: 09/22/20 11:53 Dose: 1 mg Documented by: Lorazepam (Lorazepam 2 Mg/Ml Sdv) 1 mg IVPUSH ONETIME ONE Stop: 09/22/20 13:51 Last Admin: 09/22/20 13:58 Dose: 1 mg Documented by: Metoclopramide HCl (Metoclopramide 10 Mg/2 Ml Sdv) 10 mg IVPUSH ONETIME ONE Stop: 09/22/20 10:18 Last Admin: 09/22/20 10:25 Dose: 10 mg Documented by: Sodium Phosphate (Phosphorus #1 250 Mg Tab) 250 mg PO QID FIDE - Exam Quality Assessment: Supplemental Oxygen, DVT Prophylaxis General: Alert, Oriented, Cooperative HEENT: Pupils Equal, Pupils Reactive, EOMI, Mucous Membr. Moist/[place] Neck: Supple, Trachea Midline, No JVD Lungs: Clear to Auscultation, Normal Respiratory Effort Cardiovascular: Regular Rate, Regular Rhythm GI/Abdominal Exam: Normal Bowel Sounds, Soft, Non-Tender Back Exam: Normal Inspection, Full Range of Motion Extremities: Normal Inspection, Normal Range of Motion, Non-Tender, No Pedal Edema, Normal Capillary Refill Peripheral Pulses: 2+: Carotid (L), Carotid (R), Dorsalis Pedis (L), Dorsalis Pedis (R) Skin: Warm, Dry, Intact Neurological: No New Focal Deficit Psy/Mental Status: Alert, Normal Affect, Normal Mood - Patient Data Lab Results Last 24 hrs: Laboratory Results - last 24 hr 09/23/20 09/23/20 09/23/20 Range/Units 18:04 18:33 19:05 WBC (4.0-11.0) K/uL RBC (4.50-5.90) M/uL Hgb (13.0-17.0) g/dL Hct (38.0-50.0) % MCV (80.0-98.0) fL MCH (27.0-32.0) pg MCHC (31.0-37.0) g/dL RDW Std Deviation (28.0-62.0) fl RDW Coeff of Julissa (11.0-15.0) % Plt Count (150-400) K/uL MPV (7.40-12.00) fL Add Manual Diff Neutrophils % (Manual) (48.0-80.0) % Lymphocytes % (Manual) (16.0-40.0) % Monocytes % (Manual) (0.0-15.0) % Nucleated RBC % /100WBC Absolute Seg Neuts (1.4-5.7) Lymphocytes # (Manual) (0.6-2.4) Monocytes # (Manual) (0.0-0.8) Nucleated RBCs # K/uL APTT (18.6-31.3) SEC ABG pH 7.46 H (7.35-7.45) ABG pCO2 41 (35-45) mmHG ABG pO2 71 L (80-105) mmHG ABG HCO3 29 H (22-26) mEq/L ABG Total CO2 25.9 (23-27) mmol/L ABG Base Excess 4.9 H (-2.0-3.0) Ionized Calcium (4.6-5.1) mg/dL Sodium (136-148) mmol/L Potassium (3.5-5.1) mmol/L Chloride (98-107) mmol/L Carbon Dioxide (21.0-32.0) mmol/L BUN (7.0-18.0) mg/dL Creatinine (0.8-1.3) mg/dL Est Cr Clr Drug Dosing mL/min Estimated GFR (MDRD) ml/min Glucose (74-106) mg/dL POC Glucose 124 H (70-99) mg/dL Calcium (8.5-10.1) mg/dL Phosphorus 1.8 L (2.6-4.7) mg/dL Magnesium (1.8-2.4) mg/dL Total Bilirubin (0.2-1.0) mg/dL AST (15-37) IU/L ALT (14-63) IU/L Alkaline Phosphatase (46-116) U/L Ammonia (19-54) ug/dL B-Natriuretic Peptide (<100) PG/ML Total Protein (6.4-8.2) g/dL Albumin (3.4-5.0) g/dL Globulin (2.6-4.0) g/dL Albumin/Globulin Ratio (0.9-1.6) SARS-CoV-2 RNA (THAI) (NEGATIVE) 09/23/20 09/23/20 09/23/20 Range/Units 19:05 19:05 19:17 WBC (4.0-11.0) K/uL RBC (4.50-5.90) M/uL Hgb (13.0-17.0) g/dL Hct (38.0-50.0) % MCV (80.0-98.0) fL MCH (27.0-32.0) pg MCHC (31.0-37.0) g/dL RDW Std Deviation (28.0-62.0) fl RDW Coeff of Julissa (11.0-15.0) % Plt Count (150-400) K/uL MPV (7.40-12.00) fL Add Manual Diff Neutrophils % (Manual) (48.0-80.0) % Lymphocytes % (Manual) (16.0-40.0) % Monocytes % (Manual) (0.0-15.0) % Nucleated RBC % /100WBC Absolute Seg Neuts (1.4-5.7) Lymphocytes # (Manual) (0.6-2.4) Monocytes # (Manual) (0.0-0.8) Nucleated RBCs # K/uL APTT (18.6-31.3) SEC ABG pH (7.35-7.45) ABG pCO2 (35-45) mmHG ABG pO2 (80-105) mmHG ABG HCO3 (22-26) mEq/L ABG Total CO2 (23-27) mmol/L ABG Base Excess (-2.0-3.0) Ionized Calcium (4.6-5.1) mg/dL Sodium (136-148) mmol/L Potassium (3.5-5.1) mmol/L Chloride (98-107) mmol/L Carbon Dioxide (21.0-32.0) mmol/L BUN (7.0-18.0) mg/dL Creatinine (0.8-1.3) mg/dL Est Cr Clr Drug Dosing mL/min Estimated GFR (MDRD) ml/min Glucose (74-106) mg/dL POC Glucose 127 H (70-99) mg/dL Calcium (8.5-10.1) mg/dL Phosphorus (2.6-4.7) mg/dL Magnesium (1.8-2.4) mg/dL Total Bilirubin (0.2-1.0) mg/dL AST (15-37) IU/L ALT (14-63) IU/L Alkaline Phosphatase (46-116) U/L Ammonia 54 (19-54) ug/dL B-Natriuretic Peptide 124 H (<100) PG/ML Total Protein (6.4-8.2) g/dL Albumin (3.4-5.0) g/dL Globulin (2.6-4.0) g/dL Albumin/Globulin Ratio (0.9-1.6) SARS-CoV-2 RNA (THAI) (NEGATIVE) 09/23/20 09/23/20 09/23/20 Range/Units 19:25 20:03 20:10 WBC (4.0-11.0) K/uL RBC (4.50-5.90) M/uL Hgb (13.0-17.0) g/dL Hct (38.0-50.0) % MCV (80.0-98.0) fL MCH (27.0-32.0) pg MCHC (31.0-37.0) g/dL RDW Std Deviation (28.0-62.0) fl RDW Coeff of Julissa (11.0-15.0) % Plt Count (150-400) K/uL MPV (7.40-12.00) fL Add Manual Diff Neutrophils % (Manual) (48.0-80.0) % Lymphocytes % (Manual) (16.0-40.0) % Monocytes % (Manual) (0.0-15.0) % Nucleated RBC % /100WBC Absolute Seg Neuts (1.4-5.7) Lymphocytes # (Manual) (0.6-2.4) Monocytes # (Manual) (0.0-0.8) Nucleated RBCs # K/uL APTT 24.5 (18.6-31.3) SEC ABG pH (7.35-7.45) ABG pCO2 (35-45) mmHG ABG pO2 (80-105) mmHG ABG HCO3 (22-26) mEq/L ABG Total CO2 (23-27) mmol/L ABG Base Excess (-2.0-3.0) Ionized Calcium (4.6-5.1) mg/dL Sodium (136-148) mmol/L Potassium (3.5-5.1) mmol/L Chloride (98-107) mmol/L Carbon Dioxide (21.0-32.0) mmol/L BUN (7.0-18.0) mg/dL Creatinine (0.8-1.3) mg/dL Est Cr Clr Drug Dosing mL/min Estimated GFR (MDRD) ml/min Glucose (74-106) mg/dL POC Glucose 130 H (70-99) mg/dL Calcium (8.5-10.1) mg/dL Phosphorus (2.6-4.7) mg/dL Magnesium (1.8-2.4) mg/dL Total Bilirubin (0.2-1.0) mg/dL AST (15-37) IU/L ALT (14-63) IU/L Alkaline Phosphatase (46-116) U/L Ammonia (19-54) ug/dL B-Natriuretic Peptide (<100) PG/ML Total Protein (6.4-8.2) g/dL Albumin (3.4-5.0) g/dL Globulin (2.6-4.0) g/dL Albumin/Globulin Ratio (0.9-1.6) SARS-CoV-2 RNA (THAI) NEGATIVE (NEGATIVE) 06/03/21 06/03/21 06/04/21 Range/Units 21:08 23:10 01:01 WBC (4.0-11.0) K/uL RBC (4.50-5.90) M/uL Hgb (13.0-17.0) g/dL Hct (38.0-50.0) % MCV (80.0-98.0) fL MCH (27.0-32.0) pg MCHC (31.0-37.0) g/dL RDW Std Deviation (28.0-62.0) fl RDW Coeff of Julissa (11.0-15.0) % Plt Count (150-400) K/uL MPV (7.40-12.00) fL Add Manual Diff Neutrophils % (Manual) (48.0-80.0) % Lymphocytes % (Manual) (16.0-40.0) % Monocytes % (Manual) (0.0-15.0) % Nucleated RBC % /100WBC Absolute Seg Neuts (1.4-5.7) Lymphocytes # (Manual) (0.6-2.4) Monocytes # (Manual) (0.0-0.8) Nucleated RBCs # K/uL APTT (18.6-31.3) SEC ABG pH (7.35-7.45) ABG pCO2 (35-45) mmHG ABG pO2 (80-105) mmHG ABG HCO3 (22-26) mEq/L ABG Total CO2 (23-27) mmol/L ABG Base Excess (-2.0-3.0) Ionized Calcium (4.6-5.1) mg/dL Sodium (136-148) mmol/L Potassium (3.5-5.1) mmol/L Chloride (98-107) mmol/L Carbon Dioxide (21.0-32.0) mmol/L BUN (7.0-18.0) mg/dL Creatinine (0.8-1.3) mg/dL Est Cr Clr Drug Dosing mL/min Estimated GFR (MDRD) ml/min Glucose (74-106) mg/dL POC Glucose 145 H 132 H 125 H (70-99) mg/dL Calcium (8.5-10.1) mg/dL Phosphorus (2.6-4.7) mg/dL Magnesium (1.8-2.4) mg/dL Total Bilirubin (0.2-1.0) mg/dL AST (15-37) IU/L ALT (14-63) IU/L Alkaline Phosphatase (46-116) U/L Ammonia (19-54) ug/dL B-Natriuretic Peptide (<100) PG/ML Total Protein (6.4-8.2) g/dL Albumin (3.4-5.0) g/dL Globulin (2.6-4.0) g/dL Albumin/Globulin Ratio (0.9-1.6) SARS-CoV-2 RNA (THAI) (NEGATIVE) 09/24/20 09/24/20 09/24/20 Range/Units 02:38 02:40 02:40 WBC 14.60 H (4.0-11.0) K/uL RBC 3.96 L (4.50-5.90) M/uL Hgb 13.6 (13.0-17.0) g/dL Hct 39.8 (38.0-50.0) % MCV 100.5 H (80.0-98.0) fL MCH 34.3 H (27.0-32.0) pg MCHC 34.2 (31.0-37.0) g/dL RDW Std Deviation 55.9 (28.0-62.0) fl RDW Coeff of Julissa 15 (11.0-15.0) % Plt Count 86 L (150-400) K/uL MPV 13.40 H (7.40-12.00) fL Add Manual Diff YES Neutrophils % (Manual) 69 (48.0-80.0) % Lymphocytes % (Manual) 9 L (16.0-40.0) % Monocytes % (Manual) 22 H (0.0-15.0) % Nucleated RBC % 1.3 /100WBC Absolute Seg Neuts 10.1 H (1.4-5.7) Lymphocytes # (Manual) 1.3 (0.6-2.4) Monocytes # (Manual) 3.2 H (0.0-0.8) Nucleated RBCs # 0 K/uL APTT 29.6 (18.6-31.3) SEC ABG pH (7.35-7.45) ABG pCO2 (35-45) mmHG ABG pO2 (80-105) mmHG ABG HCO3 (22-26) mEq/L ABG Total CO2 (23-27) mmol/L ABG Base Excess (-2.0-3.0) Ionized Calcium (4.6-5.1) mg/dL Sodium (136-148) mmol/L Potassium (3.5-5.1) mmol/L Chloride (98-107) mmol/L Carbon Dioxide (21.0-32.0) mmol/L BUN (7.0-18.0) mg/dL Creatinine (0.8-1.3) mg/dL Est Cr Clr Drug Dosing mL/min Estimated GFR (MDRD) ml/min Glucose (74-106) mg/dL POC Glucose 111 H (70-99) mg/dL Calcium (8.5-10.1) mg/dL Phosphorus (2.6-4.7) mg/dL Magnesium (1.8-2.4) mg/dL Total Bilirubin (0.2-1.0) mg/dL AST (15-37) IU/L ALT (14-63) IU/L Alkaline Phosphatase (46-116) U/L Ammonia (19-54) ug/dL B-Natriuretic Peptide (<100) PG/ML Total Protein (6.4-8.2) g/dL Albumin (3.4-5.0) g/dL Globulin (2.6-4.0) g/dL Albumin/Globulin Ratio (0.9-1.6) SARS-CoV-2 RNA (THAI) (NEGATIVE) 09/24/20 09/24/20 09/24/20 Range/Units 02:40 05:03 07:21 WBC (4.0-11.0) K/uL RBC (4.50-5.90) M/uL Hgb (13.0-17.0) g/dL Hct (38.0-50.0) % MCV (80.0-98.0) fL MCH (27.0-32.0) pg MCHC (31.0-37.0) g/dL RDW Std Deviation (28.0-62.0) fl RDW Coeff of Julissa (11.0-15.0) % Plt Count (150-400) K/uL MPV (7.40-12.00) fL Add Manual Diff Neutrophils % (Manual) (48.0-80.0) % Lymphocytes % (Manual) (16.0-40.0) % Monocytes % (Manual) (0.0-15.0) % Nucleated RBC % /100WBC Absolute Seg Neuts (1.4-5.7) Lymphocytes # (Manual) (0.6-2.4) Monocytes # (Manual) (0.0-0.8) Nucleated RBCs # K/uL APTT (18.6-31.3) SEC ABG pH (7.35-7.45) ABG pCO2 (35-45) mmHG ABG pO2 (80-105) mmHG ABG HCO3 (22-26) mEq/L ABG Total CO2 (23-27) mmol/L ABG Base Excess (-2.0-3.0) Ionized Calcium (4.6-5.1) mg/dL Sodium 141 (136-148) mmol/L Potassium 3.2 L (3.5-5.1) mmol/L Chloride 104 (98-107) mmol/L Carbon Dioxide 26.1 (21.0-32.0) mmol/L BUN 12 (7.0-18.0) mg/dL Creatinine 0.7 L (0.8-1.3) mg/dL Est Cr Clr Drug Dosing 135.49 mL/min Estimated GFR (MDRD) > 60.0 ml/min Glucose 133 H (74-106) mg/dL POC Glucose 142 H 132 H (70-99) mg/dL Calcium 7.3 L (8.5-10.1) mg/dL Phosphorus 1.4 L (2.6-4.7) mg/dL Magnesium 1.6 L (1.8-2.4) mg/dL Total Bilirubin 1.5 H (0.2-1.0) mg/dL AST 151 H (15-37) IU/L ALT 68 H (14-63) IU/L Alkaline Phosphatase 130 H (46-116) U/L Ammonia (19-54) ug/dL B-Natriuretic Peptide (<100) PG/ML Total Protein 6.2 L (6.4-8.2) g/dL Albumin 2.1 L (3.4-5.0) g/dL Globulin 4.1 H (2.6-4.0) g/dL Albumin/Globulin Ratio 0.5 L (0.9-1.6) SARS-CoV-2 RNA (THAI) (NEGATIVE) 09/24/20 09/24/20 09/24/20 Range/Units 08:30 08:54 09:01 WBC (4.0-11.0) K/uL RBC (4.50-5.90) M/uL Hgb (13.0-17.0) g/dL Hct (38.0-50.0) % MCV (80.0-98.0) fL MCH (27.0-32.0) pg MCHC (31.0-37.0) g/dL RDW Std Deviation (28.0-62.0) fl RDW Coeff of Julissa (11.0-15.0) % Plt Count (150-400) K/uL MPV (7.40-12.00) fL Add Manual Diff Neutrophils % (Manual) (48.0-80.0) % Lymphocytes % (Manual) (16.0-40.0) % Monocytes % (Manual) (0.0-15.0) % Nucleated RBC % /100WBC Absolute Seg Neuts (1.4-5.7) Lymphocytes # (Manual) (0.6-2.4) Monocytes # (Manual) (0.0-0.8) Nucleated RBCs # K/uL APTT 34.8 H (18.6-31.3) SEC ABG pH (7.35-7.45) ABG pCO2 (35-45) mmHG ABG pO2 (80-105) mmHG ABG HCO3 (22-26) mEq/L ABG Total CO2 (23-27) mmol/L ABG Base Excess (-2.0-3.0) Ionized Calcium 4.0 L (4.6-5.1) mg/dL Sodium (136-148) mmol/L Potassium (3.5-5.1) mmol/L Chloride (98-107) mmol/L Carbon Dioxide (21.0-32.0) mmol/L BUN (7.0-18.0) mg/dL Creatinine (0.8-1.3) mg/dL Est Cr Clr Drug Dosing mL/min Estimated GFR (MDRD) ml/min Glucose (74-106) mg/dL POC Glucose 137 H (70-99) mg/dL Calcium (8.5-10.1) mg/dL Phosphorus (2.6-4.7) mg/dL Magnesium (1.8-2.4) mg/dL Total Bilirubin (0.2-1.0) mg/dL AST (15-37) IU/L ALT (14-63) IU/L Alkaline Phosphatase (46-116) U/L Ammonia (19-54) ug/dL B-Natriuretic Peptide (<100) PG/ML Total Protein (6.4-8.2) g/dL Albumin (3.4-5.0) g/dL Globulin (2.6-4.0) g/dL Albumin/Globulin Ratio (0.9-1.6) SARS-CoV-2 RNA (THAI) (NEGATIVE) 09/24/20 09/24/20 09/24/20 Range/Units 11:37 13:21 14:15 WBC (4.0-11.0) K/uL RBC (4.50-5.90) M/uL Hgb (13.0-17.0) g/dL Hct (38.0-50.0) % MCV (80.0-98.0) fL MCH (27.0-32.0) pg MCHC (31.0-37.0) g/dL RDW Std Deviation (28.0-62.0) fl RDW Coeff of Julissa (11.0-15.0) % Plt Count (150-400) K/uL MPV (7.40-12.00) fL Add Manual Diff Neutrophils % (Manual) (48.0-80.0) % Lymphocytes % (Manual) (16.0-40.0) % Monocytes % (Manual) (0.0-15.0) % Nucleated RBC % /100WBC Absolute Seg Neuts (1.4-5.7) Lymphocytes # (Manual) (0.6-2.4) Monocytes # (Manual) (0.0-0.8) Nucleated RBCs # K/uL APTT 50.8 H (18.6-31.3) SEC ABG pH (7.35-7.45) ABG pCO2 (35-45) mmHG ABG pO2 (80-105) mmHG ABG HCO3 (22-26) mEq/L ABG Total CO2 (23-27) mmol/L ABG Base Excess (-2.0-3.0) Ionized Calcium (4.6-5.1) mg/dL Sodium (136-148) mmol/L Potassium (3.5-5.1) mmol/L Chloride (98-107) mmol/L Carbon Dioxide (21.0-32.0) mmol/L BUN (7.0-18.0) mg/dL Creatinine (0.8-1.3) mg/dL Est Cr Clr Drug Dosing mL/min Estimated GFR (MDRD) ml/min Glucose (74-106) mg/dL POC Glucose 225 H 190 H (70-99) mg/dL Calcium (8.5-10.1) mg/dL Phosphorus (2.6-4.7) mg/dL Magnesium (1.8-2.4) mg/dL Total Bilirubin (0.2-1.0) mg/dL AST (15-37) IU/L ALT (14-63) IU/L Alkaline Phosphatase (46-116) U/L Ammonia (19-54) ug/dL B-Natriuretic Peptide (<100) PG/ML Total Protein (6.4-8.2) g/dL Albumin (3.4-5.0) g/dL Globulin (2.6-4.0) g/dL Albumin/Globulin Ratio (0.9-1.6) SARS-CoV-2 RNA (THAI) (NEGATIVE) 09/24/20 09/24/20 Range/Units 15:07 17:08 WBC (4.0-11.0) K/uL RBC (4.50-5.90) M/uL Hgb (13.0-17.0) g/dL Hct (38.0-50.0) % MCV (80.0-98.0) fL MCH (27.0-32.0) pg MCHC (31.0-37.0) g/dL RDW Std Deviation (28.0-62.0) fl RDW Coeff of Julissa (11.0-15.0) % Plt Count (150-400) K/uL MPV (7.40-12.00) fL Add Manual Diff Neutrophils % (Manual) (48.0-80.0) % Lymphocytes % (Manual) (16.0-40.0) % Monocytes % (Manual) (0.0-15.0) % Nucleated RBC % /100WBC Absolute Seg Neuts (1.4-5.7) Lymphocytes # (Manual) (0.6-2.4) Monocytes # (Manual) (0.0-0.8) Nucleated RBCs # K/uL APTT (18.6-31.3) SEC ABG pH (7.35-7.45) ABG pCO2 (35-45) mmHG ABG pO2 (80-105) mmHG ABG HCO3 (22-26) mEq/L ABG Total CO2 (23-27) mmol/L ABG Base Excess (-2.0-3.0) Ionized Calcium (4.6-5.1) mg/dL Sodium (136-148) mmol/L Potassium (3.5-5.1) mmol/L Chloride (98-107) mmol/L Carbon Dioxide (21.0-32.0) mmol/L BUN (7.0-18.0) mg/dL Creatinine (0.8-1.3) mg/dL Est Cr Clr Drug Dosing mL/min Estimated GFR (MDRD) ml/min Glucose (74-106) mg/dL POC Glucose 158 H 156 H (70-99) mg/dL Calcium (8.5-10.1) mg/dL Phosphorus (2.6-4.7) mg/dL Magnesium (1.8-2.4) mg/dL Total Bilirubin (0.2-1.0) mg/dL AST (15-37) IU/L ALT (14-63) IU/L Alkaline Phosphatase (46-116) U/L Ammonia (19-54) ug/dL B-Natriuretic Peptide (<100) PG/ML Total Protein (6.4-8.2) g/dL Albumin (3.4-5.0) g/dL Globulin (2.6-4.0) g/dL Albumin/Globulin Ratio (0.9-1.6) SARS-CoV-2 RNA (THAI) (NEGATIVE) Result Diagrams: 09/24/20 02:40 09/24/20 02:40 Chin Results Last 24 hrs: Microbiology 09/22/20 08:48 Aerobic Blood Culture - Preliminary Blood - Venous - Lab Draw NO GROWTH AFTER 2 DAYS Anaerobic Blood Culture - Preliminary NO GROWTH AFTER 2 DAYS 09/22/20 08:47 Aerobic Blood Culture - Preliminary Blood - Venous NO GROWTH AFTER 2 DAYS Anaerobic Blood Culture - Preliminary NO GROWTH AFTER 2 DAYS Sepsis Event Note - Evaluation Sepsis Screening Result: Severe Sepsis Risk - Focused Exam Vital Signs: Vital Signs Temp Resp BP Pulse Ox 09/24/20 16:00 99.5 F 21 H 123/83 93 L 09/24/20 15:00 19 112/69 93 L 09/24/20 14:00 22 H 122/89 94 L 09/24/20 13:00 22 H 110/84 94 L 09/24/20 12:00 100.8 F H 20 109/62 94 L 09/24/20 11:00 22 H 94 L 09/24/20 10:00 22 H 120/81 93 L 09/24/20 09:00 19 128/77 95 09/24/20 08:00 21 H 138/73 95 09/24/20 07:00 99.5 F 22 H 137/82 91 L 09/24/20 06:00 20 133/86 90 L - Problem List & Annotations (1) Alcohol dependence SNOMED Code(s): 19877536 Code(s): F10.20 - ALCOHOL DEPENDENCE, UNCOMPLICATED Status: Acute Current Visit: Yes (2) Hyperglycemia SNOMED Code(s): 72372059 Code(s): R73.9 - HYPERGLYCEMIA, UNSPECIFIED Status: Acute Current Visit: Yes (3) Hypoxia SNOMED Code(s): 718690651 Code(s): R09.02 - HYPOXEMIA Status: Acute Current Visit: Yes (4) Pancreatitis SNOMED Code(s): 98528918 Code(s): K85.90 - ACUTE PANCREATITIS WITHOUT NECROSIS OR INFECTION, UNSP Status: Acute Current Visit: Yes (5) Right lower lobe pneumonia SNOMED Code(s): 049689316 Code(s): J18.9 - PNEUMONIA, UNSPECIFIED ORGANISM Status: Acute Current Visit: Yes - Problem List Review Problem List Initiated/Reviewed/Updated: Yes - My Orders Last 24 Hours: My Active Orders 09/23/20 19:30 Heparin Sodium/0.45% NaCl [Heparin 25,000 Units in 1/2 NS 500 ML] 500 ml IV TITRATE 09/23/20 22:00 Diltiazem IR [Cardizem] 90 mg PO Q6H 09/24/20 15:00 Dextrose 50% in Water 50 ml IV ASDIRECTED PRN Glucagon,Human Recombinant [GlucaGen] 1 mg IM ASDIRECTED PRN 09/24/20 15:30 Insulin Glarg,Human.Rec.Analog [LantUS Solostar] 12 units SUBCUT DAILY 09/24/20 15:57 POTASSIUM,K [CHEM] Urgent 09/24/20 17:00 Insulin Aspart [NovoLOG] See Protocol SUBCUT TIDAC 09/24/20 20:00 PTT,PARTIAL THROMBOPLSTIN TIME [COAG] Q6H 09/25/20 02:00 PTT,PARTIAL THROMBOPLSTIN TIME [COAG] Q6H 09/25/20 08:00 PTT,PARTIAL THROMBOPLSTIN TIME [COAG] Q6H 09/25/20 15:57 MAGNESIUM [CHEM] Urgent PHOSPHORUS [CHEM] Urgent - Plan Plan:: 50 yo male admitted with ETOH withdrawal, pancreatic necrosis, acute hypoxic respiratory failure, A. fib RVR. 1. Acute hypoxic respiratory failure: On 40 L heated high flow, continue to wean as tolerated DuoNebs as needed Continue his broad-spectrum antibiotics for aspiration versus community- acquired pneumonia, white blood cell count 14. 6; stable, we will continue to trend daily with CBC. 2. A. fib with RVR: Improved; sinus rhythm sinus tachycardia with a rate of 90s to 100s on telemetry this morning. 110 [facility]. Continue to monitor on telemetry. Switch to p.o. amiodarone, continue with p.o. Cardizem. 3. Pancreatic necrosis: Denies any abdominal pain, start on liquid diet and advance as tolerated. 4. ETOH withdrawal: Librium 25 mg once a day, see was 3-4, did not require Ativan in the last 24 hours, will continue to monitor closely for any signs of withdrawal. Continue with Ativan prn per [facility] protocol, and thiamin and folic acid. 6. Hyperglycemia: Improved Tolerating diet We will transition to subcu Lantus and sliding scale based on number of units used in the last 24 hours. Hemoglobin A1c 7.5 7. Thrombocytopenia: improved; 86 today; continue to monitor; if less than 50,000 we will hold DVT prophylaxis and consider transfusion of platelets. 8. Transaminitis likely secondary to alcohol abuse: Improved Continue to monitor daily Ammonia levels were normal 9. Hypomagnesemia and hypophosphatemia: Replete and recheck, continue to monitor daily and replete as necessary
[2020-09-24] MEDS ORDERED: Furosemide 20 MG/2 ML VIAL IVPUSH ONE (18:59)
[2020-09-24] MEDS ORDERED: Melatonin 3 MG Tab PO ONE (22:19)
--- NOTE | 2020-09-24 22:26 | PN ---
TH[facility] Physician - Brief Progress [id number]/04/2021 22:24[facility] helioSaraBETYT - JUDE (DAVIE) - SANJIV BRIGGSDate of Service 09/24/2020 22:24HPI/Events of Note complains:insomnia requesting home trazadoneplan:attempt melatonin 9mg oral onceInterventions Minor-Routine modifications to care plan (e.g. PRN medications for pain, fever)
[2020-09-24] MEDS: Ondansetron 4 MG/2 ML SDV IVPUSH PRN (23:19)
[2020-09-25] MEDS ORDERED: Potassium Chloride Riders 40 MEQ in Premix Bag 1 BAG IV ONE (00:18)
[2020-09-25] MEDS: Potassium Chloride 20 MEQ Tab.ER PO SCH ×2 (00:25→03:11)
--- NOTE | 2020-09-25 00:36 | PN ---
THC Physician - Brief Progress [id number]/05/2021 00:26[facility] helio [place], [place] - JUDE (DAVIE) - SANJIV BRIGGSDate of Service 09/25/2020 00:26HPI/Events of Note potassium 3plan:potassium chloride 20 meq orally now and repeat in 3 hours for 2 dosespotassi um chloride 40meq IVPB OVER 4 hours oncecheck magnesium levelsInterventions Major-Electrolyte abnorma lity - evaluation and management
[2020-09-25] MEDS: Piperacillin/Tazobactam 4.5 GM in Sodium Chloride 0.9% 100 ML IV SCH (03:12)
[2020-09-25] MEDS: Ondansetron 4 MG/2 ML SDV IVPUSH PRN (03:19)
[2020-09-25] MEDS: Diltiazem IR 30 MG Tab PO SCH (04:03)
[2020-09-25] MEDS: Heparin Sodium/0.45% NaCl 500 ML IV SCH (04:18)
[2020-09-25] MEDS: Morphine 2 MG/ML SYRINGE IVPUSH PRN (04:33)
[2020-09-25] MEDS ORDERED: Heparin Sodium 5,000 Units/ML Vial IVPUSH ONE (05:46)
[2020-09-25] MEDS: Albuterol 0.083% 2.5 MG/3 ML Neb Soln NEB SCH (06:03)
[2020-09-25] MEDS: Phosphorus #1 250 MG Tab PO SCH (06:16)
--- NOTE | 2020-09-25 07:11 | CR ---
For Patients: As a result of the Century Cures Act, medical imaging exams and procedure reports are released immediately into your electronic medical record. You may view this report before your referring provider. If you have questions, please contact your health care provider. HISTORY: Abdominal pain. TECHNIQUE: One view of the abdomen. COMPARISON: 09/22/2020. FINDINGS: Surgical clips in the right upper quadrant. Embolization coil within the left upper quadrant. There are a few dilated gas-filled small bowel loops, similar to the prior CT. Gas is seen within the colon to the level of the rectum. Degenerative change of the spine. IMPRESSION: Gas distention of a few small bowel loops unchanged as compared to the CT clinical program manager image from 09/22/2020. Dictated by Joey Faulkner MD @ 09/25/2020 7:10:[address] Joey Faulkner @ Sep 25 2020 7:10AM
--- NOTE | 2020-09-25 07:22 | PCM.PRNOTE ---
- Free Text/Narrative Note: Note written at 7:19 AM after the fact. At 741 the patient coded and an endotracheal tube was placed by myself. After CPR was initiated and pulse of verified pulseless electrical activity and a nonshockable rhythm, epi was administered every 3 minutes. The patient was ventilated by bag valve mask and the Wood device attached. Intermittent pulse checks were done but for the most part compressions were continued uninterrupted for any more than 10 seconds at a time. By direct visualization I was able to visualize the vocal cords with a #3 MAC blade and put in an 8 tube to 23 cm at the lip. Right equal left breath sounds and no abdominal sounds were heard. End-tidal CO2 detector was not readily available. After 21 minutes of CPR the patient regained a pulse. An x-ray had not been done at the time that I was dismissed and Dr. Villanueva the attending was present and going to stabilize the patient further and arrange transfer. Morning labs were not available at that time. Impression is cardiac arrest with pulseless electrical activity. It seems that the best response we got was after he had received some of the volume we used to infuse into the peripheral IV with a pressure bag.
[2020-09-25 07:49] LABS: BLOOD UREA NITROGEN,BUN 11 mg/dL (7.0-18.0); CARBON DIOXIDE,CO2 23.6 mmol/L (21.0-32.0); CHLORIDE,CL 99 mmol/L (98-107); GLUCOSE RANDOM 193 mg/dL (74-106); POTASSIUM,K 3.6 mmol/L (3.5-5.1); SODIUM,NA 135 mmol/L (136-148)
[2020-09-25] MEDS ORDERED: Vasopressin 20 Units/1 ML MDV IVPUSH ONE (07:56)
--- NOTE | 2020-09-25 08:06 | PCM.DCSUM1 ---
Discharge Summary - Hospital Course HPI Initial Comments: 50 yo male with pmh of ETOH abuse, pancreatitis, s/p cholecystectomy who presented to the ED with complaints of abdominal pain, nausea and vomiting. Patient reports he has been trying to quit drinking but has difficulty with shakes and withdrawal symptoms. He does report a nonproductive cough. He denies any shortness of breath, fevers, or chest pain. Brief History: 50-year-old gentleman with a history of alcohol abuse was adm itted for pancreatic necrosis, found to have A. fib with RVR admitted to the ICU started on Cardizem drip transition to amiodarone overnight. Was weaned from BiPAP to heated high flow this morning, alert and oriented x3, see was overnight with 3-4 therefore has not required Ativan in the last 24 hours. Patient is expressing desire to eat, denies any abdominal pain, observe patient start with liquid diet which he tolerated well. Patient was informed of his reason for admission as he is more alert and oriented. All questions and concerns were addressed at bedside. Diagnosis: Stroke: No - Discharge Data Discharge Date: 09/25/20 Discharge Disposition: DC/Tfer to Critical Access Condition: Stable - Referral to Home Health Primary Care Physician: David Hunter MD - Discharge Diagnosis/Problem(s) (1) Alcohol dependence SNOMED Code(s): 73034536 ICD Code: F10.20 - ALCOHOL DEPENDENCE, UNCOMPLICATED Status: Acute Current Visit: Yes (2) Hyperglycemia SNOMED Code(s): 30302592 ICD Code: R73.9 - HYPERGLYCEMIA, UNSPECIFIED Status: Acute Current Visit: Yes (3) Hypoxia SNOMED Code(s): 566033432 ICD Code: R09.02 - HYPOXEMIA Status: Acute Current Visit: Yes (4) Pancreatitis SNOMED Code(s): 53810737 ICD Code: K85.90 - ACUTE PANCREATITIS WITHOUT NECROSIS OR INFECTION, UNSP Status: Acute Current Visit: Yes (5) Right lower lobe pneumonia SNOMED Code(s): 596217849 ICD Code: J18.9 - PNEUMONIA, UNSPECIFIED ORGANISM Status: Acute Current Visit: Yes - Patient Instructions Diet: Heart Healthy Diet Other/Special Instructions: Pt transfered post coding this morning to a critical access hospital [facility] in [place]. - Discharge Plan *PRESCRIPTION DRUG MONITORING PROGRAM REVIEWED*: Not Applicable *COPY OF PRESCRIPTION DRUG MONITORING REPORT IN PATIENT TIERNEY: Not Applicable Home Medications: Home Meds Omeprazole 1 tab PO DAILY 09/22/20 [History] traZODone HCl [Trazodone HCl] 1 tab PO BEDTIME 09/23/20 [History] Oxygen Therapy Mode: Mechanical Ventilation Forms: ED Department Discharge Referrals: David Hunter MD [Primary Care Provider] - - Discharge Summary/Plan Comment DC Time >30 min.: Yes Discharge Summary/Plan Comment: Pt was admitted for Alcohol withdrawal, AHRF -covid negative 2x, necrotizing pancreatitis, developed A.Fib with RVR, was transferred to our ICU. Placed on t ryley, Cardizam drip transitioned to Amiodarone and Cardizem PO. Pt was placed on BIPAP for respiratory support. Eventually weaned onto HHF as of yesterday. Pt was also able to initiate and tolerate a diet as of yesterday. Remained stable, overnight had some difficulty with sleep, but per CIWAAS did not require any Ativan in the last 48 hrs. Overnight, EICU continued to monitor and replete electrolytes as necessary. This morning pt expressed he was feeling mildly anxious and vomited,shortly after coded around 06:50 a.m. Emergency team intervened and successfully resuscitated pt, intubating, and placing on mechanical ventilation. Dr. Ramey at [facility] kindly accepted transfer of pt for a higher level of care at critical care access site. Pt will be transfered via flight as quickly as possible. In the interm has been provided appropriate pressor support and stabilized. Post code protocol is in place and all paper work and pertanent information will be sent to accepting facility. - Patient Data Vitals - Most Recent: Last Vital Signs Temp 97.5 F 09/25/20 04:00 Pulse 161 H 09/22/20 19:09 Resp 18 09/25/20 05:00 BP 141/94 H 09/25/20 05:00 Pulse Ox 91 L 09/25/20 05:00 Weight - Most Recent: 235 lb 14.4 oz I&O - Last 24 hours: Intake & Output 09/24/20 09/25/20 09/25/20 22:59 06:59 14:59 Intake Total 1651 1665 Output Total 400 2427 Balance 4071 -762 Lab Results - Last 24 hrs: Laboratory Results - last 24 hr 0609/24/20 09/24/20 Range/Units 00:00 02:40 08:30 WBC (4.0-11.0) K/uL RBC (4.50-5.90) M/uL Hgb (13.0-17.0) g/dL Hct (38.0-50.0) % MCV (80.0-98.0) fL MCH (27.0-32.0) pg MCHC (31.0-37.0) g/dL RDW Std Deviation (28.0-62.0) fl RDW Coeff of Julissa (11.0-15.0) % Plt Count (150-400) K/uL MPV (7.40-12.00) fL Add Manual Diff Neutrophils % (Manual) (48.0-80.0) % Lymphocytes % (Manual) (16.0-40.0) % Monocytes % (Manual) (0.0-15.0) % Eosinophils % (Manual) (0.0-7.0) % Nucleated RBC % /100WBC Absolute Seg Neuts (1.4-5.7) Lymphocytes # (Manual) (0.6-2.4) Monocytes # (Manual) (0.0-0.8) Eosinophils # (Manual) (0.0-0.7) Nucleated RBCs # K/uL APTT (18.6-31.3) SEC Ionized Calcium 4.0 L (4.6-5.1) mg/dL Sodium 141 (136-148) mmol/L Potassium 3.2 L (3.5-5.1) mmol/L Chloride 104 (98-107) mmol/L Carbon Dioxide (21.0-32.0) mmol/L BUN (7.0-18.0) mg/dL Creatinine (0.8-1.3) mg/dL Est Cr Clr Drug Dosing mL/min Estimated GFR (MDRD) ml/min Glucose (74-106) mg/dL POC Glucose (70-99) mg/dL Calcium (8.5-10.1) mg/dL Phosphorus (2.6-4.7) mg/dL Magnesium 1.9 (1.8-2.4) mg/dL Total Bilirubin (0.2-1.0) mg/dL AST (15-37) IU/L ALT (14-63) IU/L Alkaline Phosphatase (46-116) U/L Total Protein (6.4-8.2) g/dL Albumin (3.4-5.0) g/dL Globulin (2.6-4.0) g/dL Albumin/Globulin Ratio (0.9-1.6) 09/24/20 09/24/20 09/24/20 Range/Units 08:54 09:01 11:37 WBC (4.0-11.0) K/uL RBC (4.50-5.90) M/uL Hgb (13.0-17.0) g/dL Hct (38.0-50.0) % MCV (80.0-98.0) fL MCH (27.0-32.0) pg MCHC (31.0-37.0) g/dL RDW Std Deviation (28.0-62.0) fl RDW Coeff of Julissa (11.0-15.0) % Plt Count (150-400) K/uL MPV (7.40-12.00) fL Add Manual Diff Neutrophils % (Manual) (48.0-80.0) % Lymphocytes % (Manual) (16.0-40.0) % Monocytes % (Manual) (0.0-15.0) % Eosinophils % (Manual) (0.0-7.0) % Nucleated RBC % /100WBC Absolute Seg Neuts (1.4-5.7) Lymphocytes # (Manual) (0.6-2.4) Monocytes # (Manual) (0.0-0.8) Eosinophils # (Manual) (0.0-0.7) Nucleated RBCs # K/uL APTT 34.8 H (18.6-31.3) SEC Ionized Calcium (4.6-5.1) mg/dL Sodium (136-148) mmol/L Potassium (3.5-5.1) mmol/L Chloride (98-107) mmol/L Carbon Dioxide (21.0-32.0) mmol/L BUN (7.0-18.0) mg/dL Creatinine (0.8-1.3) mg/dL Est Cr Clr Drug Dosing mL/min Estimated GFR (MDRD) ml/min Glucose (74-106) mg/dL POC Glucose 137 H 225 H (70-99) mg/dL Calcium (8.5-10.1) mg/dL Phosphorus (2.6-4.7) mg/dL Magnesium (1.8-2.4) mg/dL Total Bilirubin (0.2-1.0) mg/dL AST (15-37) IU/L ALT (14-63) IU/L Alkaline Phosphatase (46-116) U/L Total Protein (6.4-8.2) g/dL Albumin (3.4-5.0) g/dL Globulin (2.6-4.0) g/dL Albumin/Globulin Ratio (0.9-1.6) 09/24/20 09/24/20 09/24/20 Range/Units 13:21 14:15 15:07 WBC (4.0-11.0) K/uL RBC (4.50-5.90) M/uL Hgb (13.0-17.0) g/dL Hct (38.0-50.0) % MCV (80.0-98.0) fL MCH (27.0-32.0) pg MCHC (31.0-37.0) g/dL RDW Std Deviation (28.0-62.0) fl RDW Coeff of Julissa (11.0-15.0) % Plt Count (150-400) K/uL MPV (7.40-12.00) fL Add Manual Diff Neutrophils % (Manual) (48.0-80.0) % Lymphocytes % (Manual) (16.0-40.0) % Monocytes % (Manual) (0.0-15.0) % Eosinophils % (Manual) (0.0-7.0) % Nucleated RBC % /100WBC Absolute Seg Neuts (1.4-5.7) Lymphocytes # (Manual) (0.6-2.4) Monocytes # (Manual) (0.0-0.8) Eosinophils # (Manual) (0.0-0.7) Nucleated RBCs # K/uL APTT 50.8 H (18.6-31.3) SEC Ionized Calcium (4.6-5.1) mg/dL Sodium (136-148) mmol/L Potassium (3.5-5.1) mmol/L Chloride (98-107) mmol/L Carbon Dioxide (21.0-32.0) mmol/L BUN (7.0-18.0) mg/dL Creatinine (0.8-1.3) mg/dL Est Cr Clr Drug Dosing mL/min Estimated GFR (MDRD) ml/min Glucose (74-106) mg/dL POC Glucose 190 H 158 H (70-99) mg/dL Calcium (8.5-10.1) mg/dL Phosphorus (2.6-4.7) mg/dL Magnesium (1.8-2.4) mg/dL Total Bilirubin (0.2-1.0) mg/dL AST (15-37) IU/L ALT (14-63) IU/L Alkaline Phosphatase (46-116) U/L Total Protein (6.4-8.2) g/dL Albumin (3.4-5.0) g/dL Globulin (2.6-4.0) g/dL Albumin/Globulin Ratio (0.9-1.6) 09/24/20 09/24/20 09/24/20 Range/Units 17:08 22:55 22:55 WBC (4.0-11.0) K/uL RBC (4.50-5.90) M/uL Hgb (13.0-17.0) g/dL Hct (38.0-50.0) % MCV (80.0-98.0) fL MCH (27.0-32.0) pg MCHC (31.0-37.0) g/dL RDW Std Deviation (28.0-62.0) fl RDW Coeff of Julissa (11.0-15.0) % Plt Count (150-400) K/uL MPV (7.40-12.00) fL Add Manual Diff Neutrophils % (Manual) (48.0-80.0) % Lymphocytes % (Manual) (16.0-40.0) % Monocytes % (Manual) (0.0-15.0) % Eosinophils % (Manual) (0.0-7.0) % Nucleated RBC % /100WBC Absolute Seg Neuts (1.4-5.7) Lymphocytes # (Manual) (0.6-2.4) Monocytes # (Manual) (0.0-0.8) Eosinophils # (Manual) (0.0-0.7) Nucleated RBCs # K/uL APTT 44.3 H (18.6-31.3) SEC Ionized Calcium (4.6-5.1) mg/dL Sodium (136-148) mmol/L Potassium 3.0 L (3.5-5.1) mmol/L Chloride (98-107) mmol/L Carbon Dioxide (21.0-32.0) mmol/L BUN (7.0-18.0) mg/dL Creatinine (0.8-1.3) mg/dL Est Cr Clr Drug Dosing mL/min Estimated GFR (MDRD) ml/min Glucose (74-106) mg/dL POC Glucose 156 H (70-99) mg/dL Calcium (8.5-10.1) mg/dL Phosphorus (2.6-4.7) mg/dL Magnesium (1.8-2.4) mg/dL Total Bilirubin (0.2-1.0) mg/dL AST (15-37) IU/L ALT (14-63) IU/L Alkaline Phosphatase (46-116) U/L Total Protein (6.4-8.2) g/dL Albumin (3.4-5.0) g/dL Globulin (2.6-4.0) g/dL Albumin/Globulin Ratio (0.9-1.6) 09/25/20 09/25/20 09/25/20 Range/Units 05:03 05:03 05:03 WBC 17.45 H (4.0-11.0) K/uL RBC 3.84 L (4.50-5.90) M/uL Hgb 13.0 (13.0-17.0) g/dL Hct 37.9 L (38.0-50.0) % MCV 98.7 H (80.0-98.0) fL MCH 33.9 H (27.0-32.0) pg MCHC 34.3 (31.0-37.0) g/dL RDW Std Deviation 53.5 (28.0-62.0) fl RDW Coeff of Julissa 15 (11.0-15.0) % Plt Count 115 L (150-400) K/uL MPV 12.00 (7.40-12.00) fL Add Manual Diff YES Neutrophils % (Manual) 69 (48.0-80.0) % Lymphocytes % (Manual) 13 L (16.0-40.0) % Monocytes % (Manual) 17 H (0.0-15.0) % Eosinophils % (Manual) 1 (0.0-7.0) % Nucleated RBC % 2.4 /100WBC Absolute Seg Neuts 12.0 H (1.4-5.7) Lymphocytes # (Manual) 2.3 (0.6-2.4) Monocytes # (Manual) 3.0 H (0.0-0.8) Eosinophils # (Manual) 0.2 (0.0-0.7) Nucleated RBCs # 0 K/uL APTT 47.7 H (18.6-31.3) SEC Ionized Calcium (4.6-5.1) mg/dL Sodium (136-148) mmol/L Potassium (3.5-5.1) mmol/L Chloride (98-107) mmol/L Carbon Dioxide (21.0-32.0) mmol/L BUN (7.0-18.0) mg/dL Creatinine (0.8-1.3) mg/dL Est Cr Clr Drug Dosing mL/min Estimated GFR (MDRD) ml/min Glucose (74-106) mg/dL POC Glucose (70-99) mg/dL Calcium (8.5-10.1) mg/dL Phosphorus 1.7 L (2.6-4.7) mg/dL Magnesium 1.6 L (1.8-2.4) mg/dL Total Bilirubin (0.2-1.0) mg/dL AST (15-37) IU/L ALT (14-63) IU/L Alkaline Phosphatase (46-116) U/L Total Protein (6.4-8.2) g/dL Albumin (3.4-5.0) g/dL Globulin (2.6-4.0) g/dL Albumin/Globulin Ratio (0.9-1.6) 09/25/20 Range/Units 05:03 WBC (4.0-11.0) K/uL RBC (4.50-5.90) M/uL Hgb (13.0-17.0) g/dL Hct (38.0-50.0) % MCV (80.0-98.0) fL MCH (27.0-32.0) pg MCHC (31.0-37.0) g/dL RDW Std Deviation (28.0-62.0) fl RDW Coeff of Julissa (11.0-15.0) % Plt Count (150-400) K/uL MPV (7.40-12.00) fL Add Manual Diff Neutrophils % (Manual) (48.0-80.0) % Lymphocytes % (Manual) (16.0-40.0) % Monocytes % (Manual) (0.0-15.0) % Eosinophils % (Manual) (0.0-7.0) % Nucleated RBC % /100WBC Absolute Seg Neuts (1.4-5.7) Lymphocytes # (Manual) (0.6-2.4) Monocytes # (Manual) (0.0-0.8) Eosinophils # (Manual) (0.0-0.7) Nucleated RBCs # K/uL APTT (18.6-31.3) SEC Ionized Calcium (4.6-5.1) mg/dL Sodium 135 L (136-148) mmol/L Potassium 3.6 (3.5-5.1) mmol/L Chloride 99 (98-107) mmol/L Carbon Dioxide 23.6 (21.0-32.0) mmol/L BUN 11 (7.0-18.0) mg/dL Creatinine 0.7 L (0.8-1.3) mg/dL Est Cr Clr Drug Dosing 135.49 mL/min Estimated GFR (MDRD) > 60.0 ml/min Glucose 193 H (74-106) mg/dL POC Glucose (70-99) mg/dL Calcium 7.0 L (8.5-10.1) mg/dL Phosphorus (2.6-4.7) mg/dL Magnesium (1.8-2.4) mg/dL Total Bilirubin 1.5 H (0.2-1.0) mg/dL AST 93 H (15-37) IU/L ALT 57 (14-63) IU/L Alkaline Phosphatase 120 H (46-116) U/L Total Protein 5.9 L (6.4-8.2) g/dL Albumin 1.9 L (3.4-5.0) g/dL Globulin 4.0 (2.6-4.0) g/dL Albumin/Globulin Ratio 0.5 L (0.9-1.6) ROSMERY Results - Last 24 hrs: Microbiology 09/22/20 08:48 Aerobic Blood Culture - Preliminary Blood - Venous - Lab Draw NO GROWTH AFTER 2 DAYS Anaerobic Blood Culture - Preliminary NO GROWTH AFTER 2 DAYS 09/22/20 08:47 Aerobic Blood Culture - Preliminary Blood - Venous NO GROWTH AFTER 2 DAYS Anaerobic Blood Culture - Preliminary NO GROWTH AFTER 2 DAYS Med Orders - Current: Current Medications Albuterol (Albuterol 0.083% 2.5 Mg/3 Ml Neb Soln) 2.5 mg NEB QIDRT [facility] Last Admin: 09/25/20 06:03 Dose: 2.5 mg Documented by: Albuterol (Albuterol 0.083% 2.5 Mg/3 Ml Neb Soln) 2.5 mg NEB Q4HRRT PRN PRN Reason: Wheezing Last Admin: 09/24/20 03:42 Dose: 2.5 mg Documented by: Amiodarone HCl (Amiodarone 200 Mg Tab) 200 mg PO DAILY [facility] Chlordiazepoxide HCl (Chlordiazepoxide 25 Mg Cap) 25 mg PO DAILY [facility] Dextrose/Water (50% Dextrose In Water 50 Ml Syringe) 50 ml IV ASDIRECTED PRN PRN Reason: Hypoglycemia Dextrose/Water (50% Dextrose In Water 50 Ml Syringe) 50 ml IV ASDIRECTED PRN PRN Reason: Hypoglycemia Diltiazem HCl (Diltiazem Ir 30 Mg Tab) 90 mg PO Q6H [facility] Last Admin: 09/25/20 04:03 Dose: 90 mg Documented by: Folic Acid (Folic Acid 50 Mg/10 Ml Mdv) 1 mg SUBCUT DAILY [facility] Last Admin: 09/24/20 08:01 Dose: 1 mg Documented by: Glucagon (Glucagon,Human Recombinant 1 Mg Vial) 1 mg IM ASDIRECTED PRN PRN Reason: Hypoglycemia Glucagon (Glucagon,Human Recombinant 1 Mg Vial) 1 mg IM ASDIRECTED PRN PRN Reason: Hypoglycemia Piperacillin Sod/Tazobactam (Sod 4.5 gm/ Sodium Chloride) 100 mls @ 100 mls/hr IV Q6H [facility] Last Admin: 09/25/20 03:12 Dose: 100 mls/hr Documented by: Vancomycin HCl 1.5 gm/ Premix 300 mls @ 200 mls/hr IV Q8H [facility] Last Admin: 09/24/20 23:38 Dose: 200 mls/hr Documented by: Dexmedetomidine/Sodium (Chloride 400 mcg/ Premix) 100 mls @ 5.3 mls/hr IV TITRATE [facility]; Protocol Pantoprazole Sodium 40 mg/ (Sodium Chloride) 10 mls @ 300 mls/hr IV Q24H [facility] Last Admin: 09/24/20 09:42 Dose: 300 mls/hr Documented by: Heparin Sodium/Sodium Chloride (Heparin 25,000 Units In 1/2 Ns 500 Ml) 500 mls @ 20.023 mls/hr IV TITRATE [facility]; Protocol Last Titration: 09/25/20 06:18 Dose: 21.4 units/kg/hr, 45.583 mls/hr Documented by: Norepinephrine Bitartrate (Norepinephr-0.9% Nacl 4 Mg/250) 4 mg in 250 mls @ 7.5 mls/hr IV TITRATE [facility]; Protocol Last Titration: 09/25/20 08:00 Dose: 12 mcg/min, 45 mls/hr Documented by: Epinephrine HCl 1 mg/ Dextrose (/Water) 100 mls @ 64.201 mls/hr IV TITRATE [facility]; Protocol Insulin Aspart (Insulin Aspart 100 Units/Ml 3 Ml Pen) 0 unit SUBCUT TIDAC [facility]; Protocol Last Admin: 09/24/20 17:10 Dose: 1 unit Documented by: Insulin Glargine (Insulin Glargine,Human Rec. Analog 100 Units/Ml 3 Ml Pen) 12 units SUBCUT DAILY [facility] Last Admin: 09/24/20 16:10 Dose: 12 unit Documented by: Lorazepam (Lorazepam 2 Mg/Ml Sdv) 0 mg IVPUSH Q4H PRN; Protocol PRN Reason: [email or web address] Last Admin: 09/23/20 06:43 Dose: 1 mg Documented by: Morphine Sulfate (Morphine 2 Mg/Ml Syringe) 2 mg IVPUSH Q3H PRN PRN Reason: Pain Last Admin: 09/25/20 04:33 Dose: 2 mg Documented by: Ondansetron HCl (Ondansetron 4 Mg/2 Ml Sdv) 4 mg IVPUSH Q4H PRN PRN Reason: Nausea Last Admin: 09/25/20 03:19 Dose: 4 mg Documented by: Sodium Chloride (Sodium Chloride 0.9% 10 Ml Syringe) 10 ml FLUSH ASDIRECTED PRN PRN Reason: Keep Vein Open Last Admin: 09/22/20 09:22 Dose: 10 ml Documented by: Sodium Chloride (Sodium Chloride 0.9% 2.5 Ml Syringe) 2.5 ml FLUSH ASDIRECTED PRN PRN Reason: Keep Vein Open Last Admin: 09/22/20 09:21 Dose: 2.5 ml Documented by: Sodium Phosphate (Phosphorus #1 250 Mg Tab) 250 mg PO QID [facility] Last Admin: 09/25/20 06:16 Dose: 250 mg Documented by: Thiamine HCl (Thiamine 200 Mg/2 Ml Mdv) 100 mg IVPUSH DAILY [facility] Last Admin: 09/24/20 08:03 Dose: 100 mg Documented by: Vancomycin HCl (Pharmacy To Dose - Vancomycin) 1 dose .XX ASDIRECTED [facility] Discontinued Medications Albuterol (Albuterol 0.5% 5 Mg/Ml Neb Soln 20 Ml Bottle) 10 mg NEB ONETIME ONE Stop: 09/22/20 10:21 Last Admin: 09/22/20 11:30 Dose: Not Given Documented by: Albuterol (Albuterol 0.083% 2.5 Mg/3 Ml Neb Soln) 2.5 mg NEB ONETIME ONE Stop: 09/22/20 10:32 Last Admin: 09/22/20 10:39 Dose: 2.5 mg Documented by: Albuterol (Albuterol 0.5% 2.5 Mg/0.5 Ml Neb Soln) 2.5 mg NEB QIDRT [facility] Last Admin: 09/22/20 17:33 Dose: Not Given Documented by: Albuterol (Albuterol 0.5% 5 Mg/Ml Neb Soln 20 Ml Bottle) 2.5 mg NEB Q4HRRT PRN PRN Reason: Wheezing Chlordiazepoxide HCl (Chlordiazepoxide 10 Mg Cap) 10 mg PO ONETIME ONE Stop: 09/22/20 11:41 Last Admin: 09/22/20 11:53 Dose: 10 mg Documented by: Chlordiazepoxide HCl (Chlordiazepoxide 25 Mg Cap) 25 mg PO ONETIME ONE Stop: 09/22/20 13:51 Last Admin: 09/22/20 13:58 Dose: 25 mg Documented by: Chlordiazepoxide HCl (Chlordiazepoxide 25 Mg Cap) 25 mg PO Q8H [facility] Last Admin: 09/23/20 06:01 Dose: 25 mg Documented by: Chlordiazepoxide HCl (Chlordiazepoxide 25 Mg Cap) 25 mg PO Q12H [facility] Last Admin: 09/24/20 05:31 Dose: 25 mg Documented by: Digoxin (Digoxin 500 Mcg/2 Ml Amp) 250 mcg IVPUSH ONETIME ONE Stop: 09/22/20 18:50 Last Admin: 09/22/20 19:09 Dose: 250 mcg Documented by: Diltiazem HCl (Diltiazem 25 Mg/5 Ml Sdv) Confirm Administered Dose 25 mg .ROUTE .STK-MED ONE Stop: 09/22/20 17:10 Last Admin: 09/22/20 17:15 Dose: Not Given Documented by: Diltiazem HCl (Diltiazem 25 Mg/5 Ml Sdv) 10 mg IVPUSH ONETIME ONE Stop: 09/22/20 17:10 Last Admin: 09/22/20 17:09 Dose: 10 mg Documented by: Diltiazem HCl (Diltiazem 25 Mg/5 Ml Sdv) 10 mg IVPUSH ONETIME ONE Stop: 09/22/20 17:19 Last Admin: 09/22/20 17:51 Dose: Not Given Documented by: Diltiazem HCl (Diltiazem 25 Mg/5 Ml Sdv) 5 mg IVPUSH ONETIME ONE Stop: 09/22/20 18:49 Last Admin: 09/22/20 18:54 Dose: 5 mg Documented by: Diltiazem HCl (Diltiazem 25 Mg/5 Ml Sdv) 5 mg IVPUSH ONETIME ONE Stop: 09/22/20 19:32 Last Admin: 09/22/20 19:39 Dose: 5 mg Documented by: Diltiazem HCl (Diltiazem Ir 60 Mg Tab) 60 mg PO Q6H [facility] Last Admin: 09/23/20 16:33 Dose: 60 mg Documented by: Furosemide (Furosemide 20 Mg/2 Ml Vial) 20 mg IVPUSH NOW ONE Stop: 09/24/20 19:00 Last Admin: 09/24/20 19:50 Dose: 20 mg Documented by: Heparin Sodium (Porcine) (Heparin Sodium 5,000 Units/Ml Vial) 5,000 units SUBCUT Q8H [facility] Last Admin: 09/23/20 19:25 Dose: Not Given Documented by: Heparin Sodium (Porcine) (Heparin Sodium 5,000 Units/Ml Vial) 200 units IVPUSH .BOLUS ONE Stop: 09/24/20 05:14 Last Admin: 09/24/20 05:16 Dose: Not Given Documented by: Heparin Sodium (Porcine) (Heparin Sodium 5,000 Units/Ml Vial) 2,000 units IVPUSH .BOLUS ONE Stop: 09/24/20 05:14 Last Admin: 09/24/20 05:20 Dose: 2,000 units Documented by: Heparin Sodium (Porcine) (Heparin Sodium 5,000 Units/Ml Vial) 2,000 units IVPUSH .BOLUS ONE Stop: 09/24/20 12:31 Last Admin: 09/24/20 12:50 Dose: 2,000 units Documented by: Heparin Sodium (Porcine) (Heparin Sodium 5,000 Units/Ml Vial) 1,000 units IVPUSH .BOLUS ONE Stop: 09/24/20 23:34 Last Admin: 09/24/20 23:40 Dose: 1,000 units Documented by: Heparin Sodium (Porcine) (Heparin Sodium 5,000 Units/Ml Vial) 1,000 units IVPUSH .BOLUS ONE Stop: 09/25/20 05:47 Last Admin: 09/25/20 06:14 Dose: 1,000 units Documented by: Ceftriaxone Sodium/Dextrose 1 (gm/ Premix) 50 mls @ 100 mls/hr IV ONETIME ONE Stop: 09/22/20 09:29 Last Admin: 09/22/20 09:21 Dose: 100 mls/hr Documented by: Multivitamins/Minerals 10 ml/Thiamine HCl 100 mg/ Folic Acid 1 mg/ Sodium Chloride 1,011.2 mls @ 1,000 mls/hr IV ONETIME ONE Stop: 09/22/20 10:00 Last Admin: 09/22/20 09:36 Dose: Not Given Documented by: Sodium Chloride (Normal Saline) 1,000 mls @ 1,000 mls/hr IV .Bolus ONE Stop: 09/22/20 10:01 Last Admin: 09/22/20 09:21 Dose: 1,000 mls/hr Documented by: Multivitamins/Minerals 10 ml/Thiamine HCl 100 mg/ Folic Acid 1 mg/ Sodium Chloride 1,011.2 mls @ 1,000 mls/hr IV ONETIME ONE Stop: 09/22/20 10:15 Last Admin: 09/22/20 09:24 Dose: 1,000 mls/hr Documented by: Sodium Chloride (Normal Saline) 500 mls @ 999 mls/hr IV .BOLUS FIDE Last Admin: 09/22/20 10:02 Dose: 999 mls/hr Documented by: Azithromycin 500 mg/ Sodium (Chloride) 250 mls @ 250 mls/hr IV ONETIME FIDE Last Admin: 09/22/20 10:55 Dose: 250 mls/hr Documented by: Pantoprazole Sodium 40 mg/ (Sodium Chloride) 20 mls @ 420 mls/hr IVPUSH ONETIME ONE Stop: 09/22/20 10:20 Last Admin: 09/22/20 10:25 Dose: 420 mls/hr Documented by: Sodium Chloride (Normal Saline) 1,000 mls @ 999 mls/hr IV .Bolus ONE Stop: 09/22/20 15:03 Last Admin: 09/22/20 14:07 Dose: 999 mls/hr Documented by: Sodium Chloride (Normal Saline) 1,000 mls @ 999 mls/hr IV .Bolus ONE Stop: 09/22/20 15:52 Last Admin: 09/22/20 18:56 Dose: Not Given Documented by: Azithromycin 500 mg/ Sodium (Chloride) 250 mls @ 250 mls/hr IV DAILY FIDE Ceftriaxone Sodium/Dextrose 1 (gm/ Premix) 50 mls @ 100 mls/hr IV Q24H FIDE Insulin Human Regular 100 unit (/ Sodium Chloride) 100 mls @ 3 mls/hr IV TITRATE FIDE; Protocol Insulin Regular in 0.9 % NACL (Myxredlin In Ns 100 Unit/100 Ml) 100 mls @ 3 mls/hr IV TITRATE FIDE; Protocol Last Titration: 09/24/20 13:00 Dose: 2 unit/hr, 2 mls/hr Documented by: Diltiazem HCl 100 mg/ Sodium (Chloride) 100 mls @ 5 mls/hr IV CONTINUOUS FIDE; Protocol Last Titration: 09/22/20 21:09 Dose: 0 mg/hr, 0 mls/hr Documented by: Amiodarone HCl/Dextrose 150 mg (/ Premix) 100 mls @ 400 mls/hr IV NOW ONE; Protocol Stop: 09/22/20 21:00 Last Admin: 09/22/20 21:04 Dose: 400 mls/hr Documented by: Amiodarone HCl/Dextrose (Nexterone In Dextrose 360 Mg/200 Ml) 360 mg in 200 mls @ 33.333 mls/hr IV ASDIRECTED FIDE; Protocol Last Admin: 09/22/20 21:22 Dose: 1 mg/min, 33.333 mls/hr Documented by: Magnesium Sulfate 2 gm/ Premix 25 mls @ 25 mls/hr IV ONETIME ONE Stop: 09/22/20 21:45 Last Admin: 09/22/20 21:57 Dose: 25 mls/hr Documented by: Potassium Chloride 40 meq/ (Premix) 100 mls @ 25 mls/hr IV ONETIME ONE Stop: 09/23/20 00:45 Last Admin: 09/22/20 23:18 Dose: 25 mls/hr Documented by: Sodium Chloride (Normal Saline) 1,000 mls @ 100 mls/hr IV ASDIRECTED FIDE Last Admin: 09/24/20 01:22 Dose: 100 mls/hr Documented by: Amiodarone HCl/Dextrose (Nexterone In Dextrose 360 Mg/200 Ml) 360 mg in 200 mls @ 16.667 mls/hr IV ASDIRECTED FIDE; Protocol Stop: 09/24/20 21:21 Last Admin: 09/24/20 03:37 Dose: 0.5 mg/min, 16.667 mls/hr Documented by: Potassium Phosphate 30 mmole/ (Sodium Chloride) 260 mls @ 32.5 mls/hr IV ONETIME ONE Stop: 09/23/20 19:44 Last Admin: 09/23/20 11:51 Dose: 32.5 mls/hr Documented by: Potassium Chloride 40 meq/ (Premix) 100 mls @ 25 mls/hr IV ONETIME ONE Stop: 09/24/20 08:55 Last Admin: 09/24/20 07:34 Dose: 25 mls/hr Documented by: Magnesium Sulfate 2 gm/ Premix 50 mls @ 12.5 mls/hr IV ONETIME ONE Stop: 09/24/20 08:57 Last Infusion: 09/24/20 05:30 Dose: 25 mls/hr Documented by: Potassium Phosphate 30 mmole/Magnesium Sulfate 2 gm/ Sodium Chloride 514 mls @ 102.8 mls/hr IV ONETIME ONE Stop: 09/24/20 16:59 Last Admin: 09/24/20 13:15 Dose: 102.8 mls/hr Documented by: Potassium Chloride 40 meq/ (Premix) 100 mls @ 25 mls/hr IV ONETIME ONE Stop: 09/25/20 04:17 Last Admin: 09/25/20 00:41 Dose: 25 mls/hr Documented by: Norepinephrine Bitartrate (Norepinephr-0.9% Nacl 4 Mg/250) Confirm Administered Dose 4 mg in 250 mls @ as directed IV .STK-MED ONE Stop: 09/25/20 07:31 Insulin Human Regular (Insulin Regular, Human 100 Units/Ml 10 Ml Vial) 15 unit IVPUSH ONETIME ONE; Protocol Stop: 09/22/20 11:01 Last Admin: 09/22/20 11:26 Dose: 15 units Documented by: Iopamidol (Iopamidol 755 Mg/Ml 500 Ml Multipack Bottle) 100 ml IVPUSH ONETIME STA Stop: 09/22/20 15:37 Last Admin: 09/22/20 15:36 Dose: 100 ml Documented by: Iopamidol (Iopamidol 755 Mg/Ml 500 Ml Multipack Bottle) 75 ml IVPUSH ONETIME STA Stop: 09/22/20 20:24 Last Admin: 09/22/20 20:24 Dose: 75 ml Documented by: Lorazepam (Lorazepam 2 Mg/Ml Sdv) 1 mg IVPUSH ONETIME ONE Stop: 09/22/20 11:41 Last Admin: 09/22/20 11:53 Dose: 1 mg Documented by: Lorazepam (Lorazepam 2 Mg/Ml Sdv) 1 mg IVPUSH ONETIME ONE Stop: 09/22/20 13:51 Last Admin: 09/22/20 13:58 Dose: 1 mg Documented by: Melatonin (Melatonin 3 Mg Tab) 9 mg PO BEDTIME ONE Stop: 09/24/20 22:20 Last Admin: 09/24/20 23:17 Dose: 9 mg Documented by: Metoclopramide HCl (Metoclopramide 10 Mg/2 Ml Sdv) 10 mg IVPUSH ONETIME ONE Stop: 09/22/20 10:18 Last Admin: 09/22/20 10:25 Dose: 10 mg Documented by: Potassium Chloride (Potassium Chloride 20 Meq Tab.Er) 20 meq PO Q3H FIDE Stop: 09/25/20 03:04 Last Admin: 09/25/20 03:11 Dose: 20 meq Documented by: Sodium Phosphate (Phosphorus #1 250 Mg Tab) 250 mg PO QID FIDE Vasopressin (Vasopressin 20 Units/1 Ml Mdv) 0 units IVPUSH ONETIME ONE; Protocol Stop: 09/25/20 07:57
--- NOTE | 2020-09-25 08:13 | PN ---
DEONDRE Physician - Brief Progress HomiHSDTRDRQH23/05/2021 08:08[facility] [place] helioSara, BETTY - JUDE (DAVIE) - SANJIV BRIGGSDate of Service 09/25/2020 08:08HPI/Events of Note in cardiac arrest when I cameraed into the room and CPR started ROSC attained after 20 minute s of CPR Cardiac event mostlikelyDiscussed with Interkaren Minor-Other: cardiac arrestElec tronically Signed by: Renee REN) on 09/25/2020 08:13
[2020-09-25] MEDS ORDERED: Meropenem Premix 1 GM in Premix Bag 1 BAG IV SCH (08:15)
[2020-09-25] MEDS ORDERED: EPINEPHrine 1 MG in Dextrose 5% in Water 99 ML IV SCH ×2 (08:15)
--- NOTE | 2020-09-25 08:18 | CR ---
For Patients: As a result of the Century Cures Act, medical imaging exams and procedure reports are released immediately into your electronic medical record. You may view this report before your referring provider. If you have questions, please contact your health care provider. HISTORY: Tube placement. TECHNIQUE: One view of the chest. COMPARISON: 09/22/2020. FINDINGS: The endotracheal tube terminates approximately 5 cm above the lebron. Nasogastric tube terminates with mid thoracic esophagus. Left subclavian catheter with catheter terminating within the right atrium. Low lung volumes. There is mild increased opacity within the right upper lobe which may relate to atelectasis or infiltrate. On the left, there is linear atelectasis within the lung laterally. There is no pneumothorax. No moderate or large pleural effusion. Cardiac size within normal limits. IMPRESSION: 1. Tubes and line as above. 2. Increased opacity within the right upper lobe which may relate to atelectasis or infiltrate. Linear atelectasis is present within the left lung laterally. Dictated by Joey Faulkner MD @ 09/25/2020 8:16:[address] Joey Faulkner @ Sep 25 2020 8:16AM
--- NOTE | 2020-09-25 08:18 | CR ---
For Patients: As a result of the Cures Act, medical imaging exams and procedure reports are released immediately into your electronic medical record. You may view this report before your referring provider. If you have questions, please contact your health care provider. HISTORY: Tube placement. TECHNIQUE: One view of the abdomen. COMPARISON: Four in 10/15/2020. FINDINGS: The nasogastric tube terminates within the thoracic esophagus. The embolization coils left upper quadrant. Surgical clips right upper quadrant. Small amount of gas within the stomach. IMPRESSION: The nasogastric tube terminates within the thoracic esophagus. Dictated by Joey Faulkner MD @ 09/25/2020 8:17:[address] Joey Faulkner @ Sep 25 2020 8:17AM
[2020-09-25] MEDS ORDERED: Hydrocortisone Sodium Succinate 100 MG/2 ML SDV IVPUSH SCH (08:30)
--- NOTE | 2020-09-25 08:31 | PN ---
[facility] Physician - Brief Progress YennPILIOLTUZ52/05/2021 08:13[facility] Sara Medeiros, [place] - JUDE (DAVIE) - JUDE SANJIV GRAYSONAvDate of Service 09/25/2020 08:13HPI/Events of Note eICU [id number] male currently admitted to the ICU for acute pancreatitis and subseque ntly found to be in cardiac arrest this morning. Per discussion with excellent bedside physician deena ient was noted to be hypoxic then went into PEA arrest. After ROSC was achieved patient was noted to be significantly hypotensive and Levophed has been uptitrated to max dose. Currently on vasopressin and epi gtt. is being added at this time. Patient also is currently noted to be hypoxic at 70% with current ventilator settings at PEEP of 10.Plan-Peak pressures currently at 23 thus recommend increas ing PEEP to 15 at this time to help with hypoxemia-Order placed for ABG-As patient is currently signi ficantly hemodynamically unstable recommend against targeted temperature management.-Patient has been on broad-spectrum biotics with vancomycin/Zosyn since 09/22; now given worsening hypotension will broa den coverage to vancomycin/meropenem/Eraxis given pancreatitis and intra-abdominal potential source ( orders placed)-We will add on hydrocortisone 100 every 8 hours (order placed)-Recommend stopping Card izem and Precedex at this time.-Lactate order placed-Recommend obtaining 2D echoInterventions Major-H ypotension - evaluation and management, Hypoxemia - evaluation and management, Sepsis - evaluation an d management, Shock - evaluation and managementElectronically Signed by: PRAVEEN KOROMA) on 08/2020 08:31
--- NOTE | 2020-09-25 08:59 | PCM.SN.2 ---
- Free Text/Narrative Note: Hospital course summary: 50 yo male with pmh of ETOH abuse, pancreatitis, s/p cholecystectomy who presented to the ED with complaints of abdominal pain, nausea and vomiting. Patient reports he has been trying to quit drinking but has difficulty with shakes and withdrawal symptoms. He did report a nonproductive cough. He denies any shortness of breath, fevers, or chest pain. On presentation patient was diaphoretic, tremulous and meet SIRS criteria. WBC was 17,000, Lactic acid 4.7, Lipase 530, D-dimer 7.00. Patient CT scan reported acute pancreatitis with possible necrosis and significant peripancreatic edema. Ct scan of Chest was negative for PE but but reported bilateral patchy ground glass opacities. Echocardiogram was performed but report pending. Patient was initially treated with 3 L of NS but lactic acid was slow to resolve. He was treated with Vancomycin and Zosyn since admission due to concerns of Sepsis. He was started on Librium for ETOH withdrawal. Patient shortly after admission developed A.fib with RVR. He maxed out on diltiazem drip so was switch to Amiodarone which he was loaded with IV and then converted to oral dosing. Patient did developed acute hypoxic respiratory failure which worsened after fluid boluses. He was placed on BIPAP but then was weaned to HFNC. He was given Lasix last night with 2 liter output overnight. Patient had low potassium, magnesium, and phosphate which were continuously replaced. He was noted to be newly diabetic and was started on an insulin drip and then transitioned to subcu insulin. Patient's delirium did improve and Librium was titrated down. When he became more alert his abdominal pain had resolved. He was started on a oral diet and advanced to soft foods. This morning patient developed nausea and became anxious. He blood blood pressure dropped to the 60s systolic and he vomited. He coded shortly after. He was in normal sinus rhythm with HR 100s -130s before he coded. Chest compressions were done for about 20 minutes before return of pulse. He was intubated. OG tube and central line was placed. He had low O2 sats in the 70s with FiO2 of 100% and PEEP of 15. He was unresponsive after CPR and hypothermia protocol was started. It was discontinue once patient became hemodynamically unstable. He also did open his eyes and move his arms briefly. He was requiring three pressors but at the time of transfer had MAPS of 65 and satting 80%. Due to the need of higher level of care [facility] was called and accepted the patient. Patient was transferred by air team.
[2020-09-25] MEDS ORDERED: Micafungin 100 MG in Sodium Chloride 0.9% 100 ML IV SCH (09:00)
[2020-09-25] MEDS ORDERED: Amiodarone 200 MG Tab PO SCH (09:00)
[2020-09-25] MEDS ORDERED: chlordiazePOXIDE 25 MG Cap PO SCH (09:00)
[2020-09-25] MEDS ORDERED: EPINEPHrine 1:10,000 1 MG/10 ML Syringe IV ONE (09:03)
[2020-09-25] MEDS ORDERED: Sodium Bicarbonate 8.4% 50 MEQ/50 ML SDV IVPUSH ONE (09:03)
--- NOTE | 2020-09-27 14:51 | ECHO ---
EXAM DATE: 09/22/20 PATIENT'S AGE: 50 The ECHO report has been scanned into [facility] and can be seen in this patient's EMR (Electronic Medical Record) under the REPORTS section. The report has also been scanned into PACS. JOE
== END 2020-09-25 09:04 | DRG 208 ==
LOC: MW.ED 08:37 → MW.MS 11:11 → INTOOBSV 11:11 → OBSVTOIN 12:15 → MW.ICU 12:28
PROVIDERS: ADMIT Internal Medicine; ATTEND Internal Medicine
PROC: 5A09357 Assistance with Respiratory Ventilation, Less than 24 Consecutive Hours, Continuous Positive Airway Pressure (ICD-10-PCS; principal; 2020-09-22)
PROC: 5A1935Z Respiratory Ventilation, Less than 24 Consecutive Hours (ICD-10-PCS; 2020-09-25)
PROC: 0BH17EZ Insertion of Endotracheal Airway into Trachea, Via Natural or Artificial Opening (ICD-10-PCS; 2020-09-25)
DX: J18.9 Pneumonia, unspecified organism (principal); J96.01 Acute respiratory failure with hypoxia; K85.90 Acute pancreatitis without necrosis or infection, unspecified; F10.231 Alcohol dependence with withdrawal delirium; R73.9 Hyperglycemia, unspecified; Z20.822 Contact with and (suspected) exposure to COVID-19; Z90.49 Acquired absence of other specified parts of digestive tract; I48.91 Unspecified atrial fibrillation; Z79.01 Long term (current) use of anticoagulants; Z86.718 Personal history of other venous thrombosis and embolism; Z90.81 Acquired absence of spleen; Z90.89 Acquired absence of other organs; Z98.890 Other specified postprocedural states; D69.6 Thrombocytopenia, unspecified; E83.42 Hypomagnesemia
CPT/HCPCS: 0240U; 31500; 36415; 36600; 71045; 71045-26; 71046; 71046-26; 71275; 71275-26; 74018; 74018-26; 74177; 74177-26; 80048; 80053; 80202; 80307; 81001; 82140; 82330; 82803; 82947; 83036; 83605; 83690; 83735; 83880; 84100; 84132; 84443; 84484; 85025; 85379; 85730; 87040; 92950; 93005; 93010; 93306; 94002; 94640; 94660; 96365; 96367; 96368; 96375; 99284; 99285-25; A9270-GY; C9113; J0171; J0282; J0456; J0696; J1160; J1644; J1815; J1815-GY; J1940; J2060; J2270; J2405; J2543; J2765; J3370; J3411; J3475; J3480; J3490; J7030; J7040; J7050; Q9967; U0002